=== PATIENT | male | born 1965 | race Caucasian/White ===

== ENCOUNTER 2020-04-21 08:19 | Outpatient (REF) | payer OTHER, SELFPAY ==
--- NOTE | 2020-04-21 08:34 | XR_ITS ---
EXAMINATION: XR SHOULDER, LEFT CLINICAL INFORMATION: Pain COMPARISON: None TECHNIQUE: Left shoulder is imaged in 3 views. FINDINGS: There is no fracture, dislocation, destructive process. The glenohumeral joint is normal. There are borderline/mild degenerative changes acromioclavicular joint. The acromioclavicular alignment is normal. There are no visible rotator cuff calcifications. XR/XR shoulder LT min 2V IMPRESSION: 1. Mild degenerative changes acromioclavicular joint. 2. No visible rotator cuff calcifications.
--- NOTE | 2020-04-21 08:34 | XR_ITS ---
EXAMINATION: XR FOOT, RIGHT XR FOOT, LEFT CLINICAL INFORMATION: Pain bilateral feet. COMPARISON: None TECHNIQUE: Each foot is imaged in 3 views separately. There are a total of 6 views. FINDINGS: Right foot: The bony mineralization is normal. There is fine radiolucent cleft anterior articular surface talus on lateral view without adjacent soft tissue swelling. This could represent an early osteochondral lesion. Fracture is less likely. There is no associated soft tissue swelling or intracapsular effusion. The subtalar joint is normal. The retrocalcaneal recess is preserved. There is borderline posterior calcaneal spur. The midfoot and forefoot show no joint narrowing or erosive changes. Left foot: There is no fracture, dislocation, destructive process. The bony mineralization is normal. There are mild degenerative changes first MTP with joint narrowing and marginal marginal osteophyte. No erosive change. Remainder of the joints show no focal narrowing. There is bulky plantar calcaneal spur with some mineralization in the proximal plantar fascia. Smaller spur noted posterior calcaneus. The retrocalcaneal recess is preserved. There is no periostitis or erosive change. XR/XR foot RT min 3V IMPRESSION: Right: Question early osteochondral lesion anterior talar dome. Borderline posterior calcaneal spur. Left: Mild degenerative changes first MTP. Both the plantar calcaneal spur with mineralization proximal plantar fascia. Smaller posterior calcaneal spur.
--- NOTE | 2020-04-21 08:34 | XR_ITS ---
EXAMINATION: XR FOOT, RIGHT XR FOOT, LEFT CLINICAL INFORMATION: Pain bilateral feet. COMPARISON: None TECHNIQUE: Each foot is imaged in 3 views separately. There are a total of 6 views. FINDINGS: Right foot: The bony mineralization is normal. There is fine radiolucent cleft anterior articular surface talus on lateral view without adjacent soft tissue swelling. This could represent an early osteochondral lesion. Fracture is less likely. There is no associated soft tissue swelling or intracapsular effusion. The subtalar joint is normal. The retrocalcaneal recess is preserved. There is borderline posterior calcaneal spur. The midfoot and forefoot show no joint narrowing or erosive changes. Left foot: There is no fracture, dislocation, destructive process. The bony mineralization is normal. There are mild degenerative changes first MTP with joint narrowing and marginal marginal osteophyte. No erosive change. Remainder of the joints show no focal narrowing. There is bulky plantar calcaneal spur with some mineralization in the proximal plantar fascia. Smaller spur noted posterior calcaneus. The retrocalcaneal recess is preserved. There is no periostitis or erosive change. XR/XR foot LT min 3V IMPRESSION: Right: Question early osteochondral lesion anterior talar dome. Borderline posterior calcaneal spur. Left: Mild degenerative changes first MTP. Both the plantar calcaneal spur with mineralization proximal plantar fascia. Smaller posterior calcaneal spur.
== END 2020-04-21 08:20 | disposition home or self-care (01) ==
LOC: HO.HMGCX 08:19
PROVIDERS: PCP Nurse Practitioner Family; Visit Provider Nurse Practitioner Family
DX: M79.672 Pain in left foot (principal); M25.512 Pain in left shoulder; M79.671 Pain in right foot
CPT/HCPCS: 73030; 73630

== ENCOUNTER 2020-05-01 08:22 | Outpatient (REF) | payer OTHER, SELFPAY | END 2020-05-01 08:23 | disposition home or self-care (01) | LOC: HO.HMGCLDS 08:22 | PROVIDERS: PCP Nurse Practitioner Family; Visit Provider Internal Medicine | DX: Z20.828 Contact with and (suspected) exposure to other viral communicable diseases (principal) | CPT/HCPCS: U0003 ==

== ENCOUNTER 2020-05-18 09:56 | Outpatient (REF) | payer OTHER, SELFPAY | END 2020-05-18 09:57 | disposition home or self-care (01) | LOC: HO.LAB 09:56 | PROVIDERS: Visit Provider Nurse Practitioner Family | DX: U07.1 COVID-19 (principal) | CPT/HCPCS: U0003 ==

== ENCOUNTER 2020-06-01 08:00 | Outpatient (RCR) | payer OTHER, SELFPAY ==
--- NOTE | 2020-04-28 09:29 | MHC.PT.EP ---
[facility] [place] Office [place] Office [place] Office [address] Genoveva Ramsey [address] [phone] F: [phone] F: [phone] F: [phone] F: [phone] Physical Therapy Plan of Care Date of Evaluation: 04/28/20 Date of Surgery: Diagnosis: LEFT SHOULDER PAIN Assessment: 54 YO MALE REF TO PT FOR LEFT SHOULDER / UE PAIN x 2 MONTHS- OF IMPORTANCE, HE HAS A H/O NECK PAIN TREATED PREVIOUSLY W INJECTIONS. 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 OBJECTIVE FINDINGS INCLUDE DECR POSTURAL AWARENESS/ MILD SCOLIOSIS, LIMITED LEFT SH AND CERVCIAL AROM, DECR STRENGTH IN UPPER BACK AND LEFT SH, (+) RESPONSE TO CERV RETR, AND INTERMITTENT RADICULAR SXS AND PAIN IN LEFT SH/ UE. FUNCTIONALLY, Pt IS LIMITED WITH PHYSICALLY DEMANDING adlS/ WORK TASKS AND FAVORS LEFT UE. HE IS A GOOD PT CANDIDATE TO ADDRESS LEFT SH SXS AND OVERLYING CERVICAL SXS. Frequency and Duration: The patient will be seen 2x WK x 5 WKS Short Term Goals: DECR Pt'S LEFT SH PAIN TO 2-3/10 AND REDUCE CERV/LEFT UE RADICULAR SXS BY 75% IN 2 WEEKS Pt DEMON INDEP SELF POSTURAL CORRECTION AND PROPER BODY MECH W 3:3 SIMUL ADLs/ WORK TASKS IN 3 WEEKS [facility] Goals: Pt INDEP W HEP AND SELF-SX MGMT IN 5 WKS Pt REPORT RETURN TO REGULAR FUNCTIONAL ACTIVITY/WORK/ ADL LEOBARDO , EVIDENT W IMPROVED SPADI SCORE BY 15 POINTS IN 5 WEEKS Treatment Plan: Modalities to reduce pain, spasms and effusion. Manual therapy to restore motion and function. Therapeutic exercise to improve strength and flexibility. Neuromuscular re-education for posture and balance. Therapeutic activities to return to functional activities of daily living. Please sign and return to therapist. Thank you for your referral.
--- NOTE | 2020-06-29 07:12 | MHC.PT.DC ---
[facility] [place] Office [place] Office [place] Office [address] Genoveva Ramsey [address] [phone] F: [phone] F: [phone] F: [phone] F: [phone] Physical Therapy Discharge Report Diagnosis: LEFT SHOULDER PAIN Date of Surgery: Date of Evaluation: 04/28/20 Date of Discharge: 06/29/20 Treatments to Date: 5 Cancellations to Date: 4 No Shows to Date: 0 Discharge Status: Patient Elected to Stop Recommend MD Follow-up Discharge Summary: Pt BENEFITTED FROM WORK SIMUL/ [facility] ED TO INCR LEs USAGE AND REDUCE STRESS TO SH GIRDLE AND CERV REGION- HE HAS A BETTER UNDERSTANDING OF REL OF CERVICAL SPINE TO UEs SXS, BUT Pt IS ADAMANT THAT HIS CURRENT SXS ARE SOLELY ORIGINATING FROM HIS SHOULDER- HE DEMON IMPROVED ROM AND HAS IMPROVED TOLERANCE TO STABILIZATIO/STRENGTHENING EXERCISES. Electronically signed by: Carlota Varela, PT Please sign and return to therapist. Thank you for your referral.
== END 2020-06-29 07:15 | disposition other institution (70) ==
LOC: HO.PT 08:00
PROVIDERS: PCP Nurse Practitioner Family; Visit Provider Nurse Practitioner Family
DX: M25.512 Pain in left shoulder (principal)
CPT/HCPCS: 97033; 97110; 97112; 97140; 97162; 97530

== ENCOUNTER 2020-06-12 12:01 | Outpatient (REF) | payer OTHER, SELFPAY ==
--- NOTE | 2020-06-12 12:09 | XR_ITS ---
EXAMINATION: XR HUMERUS, LEFT CLINICAL INFORMATION: Left arm pain. COMPARISON: X-ray left shoulder 04/21/2020 TECHNIQUE: 3 views of the left humerus. FINDINGS: No evidence of acute fracture or malalignment of the humerus. Articulation at the elbow and shoulder joint is maintained. No abnormal soft tissue calcification. XR/XR humerus LT IMPRESSION: No acute osseous abnormality.
== END 2020-06-12 12:02 | disposition home or self-care (01) ==
LOC: HO.HMGCX 12:01
PROVIDERS: PCP Nurse Practitioner Family; Visit Provider Hospitalist
DX: M79.602 Pain in left arm (principal)
CPT/HCPCS: 73060

== ENCOUNTER → 2020-06-19 08:22 | Outpatient (BNVA) | payer OTHER, SELFPAY | PROVIDERS: Visit Provider Orthopaedic Surgery | DX: M25.512 Pain in left shoulder (principal) | CPT/HCPCS: 20610; J1100 ==

== ENCOUNTER 2020-10-09 13:32 | Emergency (ER) | payer MEDICAID, SELFPAY ==
--- NOTE | ~2020-10-09 | XR_ITS ---
EXAMINATION: CHEST, X-RAY LEFT RIBS. CLINICAL INFORMATION: Anterior injury. COMPARISON: None TECHNIQUE: 3 views of the left ribs were obtained. Chest PA one view. FINDINGS: CHEST: Both lungs are well-expanded and clear. There is moderate elevation of left hemidiaphragm. The heart size and vascularity is normal. No gross bony abnormality seen. LEFT RIBS: Multiple views of left ribs reveal no visible rib fractures seen. There is no bony or soft tissue abnormality. XR/XR ribs LT min 3V w CXR1V IMPRESSION: Unremarkable chest exam. Unremarkable left rib exam.
[2020-10-09 13:40] VITALS: BP 139/99; PULSE 87; RESP 18; TEMP 36.6; O2SAT 98; BMI 24.7
--- NOTE | 2020-10-09 13:56 | ED.GENADULT ---
HPI - General Adult General Chief complaint: General Medical Stated complaint: FALL RIB PAIN Time Seen by Provider: 10/09/20 13:56 History of Present Illness HPI narrative: Patient complains of left rib pain after falling and hitting his left ribs against a wall, this was 1 week ago and pain continues unchanged worse with deep breath movement and when touched Related Data Home Medications Medication Instructions Recorded Confirmed amitriptyline 25 mg tablet 25 mg PO BEDTIME 04/18/20 06/12/20 atorvastatin 80 mg tablet 80 mg PO DAILY 04/18/20 06/12/20 codeine 10 mg-guaifenesin 100 mg/5 ml PO 05/18/20 06/12/20 mL oral liquid diclofenac potassium 50 mg tablet 50 mg PO BID 05/18/20 06/12/20 metformin 500 mg tablet 500 mg PO DAILY 06/19/20 Previous Rx's Medication Instructions Recorded albuterol sulfate 90 mcg/actuation 1 puff INHALATION QID PRN #6.7 g 04/18/20 aerosol inhaler ropinirole 1 mg tablet 1 mg PO BEDTIME 90 Days #90 tab 05/17/20 gabapentin 100 mg capsule 100 mg PO TID #60 cap 06/12/20 methylprednisolone 4 mg tablet 4 mg PO .COMPLEX #18 tab 06/12/20 acetaminophen 1,000 mg PO Q8H PRN #30 tab 10/09/20 ibuprofen 600 mg PO Q6H PRN #20 tab 10/09/20 oxycodone 5 mg PO Q6H PRN #20 tab 10/09/20 Allergies Allergy/AdvReac Type Severity Reaction Status Date / Time No Known Drug Allergies Allergy Unknown Unknown Verified 06/12/20 11:50 Review of Systems Review of Systems: Positive for left rib pain after an injury Negatives are no fever no chills no dizziness no weakness no fainting no headache no neck pain no numbness weakness or tingling no shortness of breath no abdominal pain no nausea or vomiting PMFSH Past Medical History Source: nursing notes reviewed Medical History (Updated 10/10/20 @ 00:00 by Radha Rivas) Asthma Diabetes High cholesterol Left foot pain Surgical History Bone spur History of colonoscopy Family History Family History Father Cancer Mother Diabetes mellitus Maternal Grandfather Unknown family medical history Maternal Grandmother Unknown family medical history Paternal Grandfather Unknown family medical history Paternal Grandmother No problems noted. Sister No problems noted. Sister No problems noted. Sister No problems noted. Daughter No problems noted. 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 Physical Exam Vital Signs: Vital Signs: Last Vital Signs Temp 97.9 F 10/09/20 13:40 Pulse 87 10/09/20 13:40 Resp 18 10/09/20 13:40 BP 139/99 H 10/09/20 13:40 Pulse Ox 98 10/09/20 13:40 Body Mass Index 24.7 General appearance is no acute distress, common cooperative Head is normocephalic atraumatic Neck is supple and nontender The chest is clear to auscultation bilaterally with full symmetric equal breath sounds The chest wall had left anterior and lateral lower rib tenderness The abdomen is soft and nontender including left upper quadrant which has no tenderness no guarding no rebound Extremities is full range of motion x4 The back had no focal bony tenderness and full range of motion Course Course Course Narrative: X-ray of left ribs and chest was normal, but his pain has gone on for a week and exam is consistent with a possible rib fracture patient is informed he may have an occult fracture not seen by x-ray Discharge Plan Discharge Clinical Impression: Closed rib fracture Patient Disposition: Home, Self-Care Additional Instructions: X-ray was normal and did not show any obvious rib fracture or lung injury, but as her pain has continued for 1 week without improvement it is very likely have a cracked rib that did not show up on x-ray There is not much treatment, it usually gets better over several weeks We are giving pain medicine to use as needed, best plan is use Tylenol and either Motrin or Naprosyn depending on which works better for you throughout the day and if needed you can supplement with oxycodone narcotic Return any time for difficulty breathing any worse condition or any concerns Follow with primary doctor Prescriptions: New acetaminophen 500 mg tablet 1,000 mg PO Q8H PRN (Reason: pain) Qty: 30 RF: 0 oxycodone 5 mg tablet 5 mg PO Q6H PRN (Reason: pain) Qty: 20 RF: 0 ibuprofen 600 mg tablet 600 mg PO Q6H PRN (Reason: pain) Qty: 20 RF: 0 No Action ropinirole 1 mg tablet 1 mg PO BEDTIME 90 Days Qty: 90 RF: 1 atorvastatin 80 mg tablet 80 mg PO DAILY RF: 0 amitriptyline 25 mg tablet 25 mg PO BEDTIME RF: 0 albuterol sulfate 90 mcg/actuation HFA aerosol inhaler 1 puff inhalation QID PRN (Reason: shortness of breath or wheezing) Qty: 6.7 RF: 3 diclofenac potassium 50 mg tablet 50 mg PO BID RF: 0 codeine-guaifenesin 10-100 mg/5 mL liquid PO RF: 0 methylprednisolone 4 mg tablet 4 mg PO .COMPLEX Qty: 18 RF: 0 gabapentin 100 mg capsule 100 mg PO TID Qty: 60 RF: 0 Interventions: ED Discharge Assessment Last Done: 10/09/20 16:02 Discharge Date/Time: 10/09/20 16:03
== END 2020-10-09 16:03 | disposition home or self-care (01) ==
PROVIDERS: Emergency Provider Emergency Medicine; PCP Nurse Practitioner Family
DX: S22.32XA Fracture of one rib, left side, initial encounter for closed fracture (principal); W01.10XA Fall on same level from slipping, tripping and stumbling with subsequent striking against unspecified object, initial encounter; E11.9 Type 2 diabetes mellitus without complications; E78.5 Hyperlipidemia, unspecified; Y93.9 Activity, unspecified; Y92.019 Unspecified place in single-family (private) house as the place of occurrence of the external cause; Y99.9 Unspecified external cause status; J45.909 Unspecified asthma, uncomplicated; Z79.899 Other long term (current) drug therapy
CPT/HCPCS: 71101; 99283

== ENCOUNTER 2021-01-18 08:56 | Outpatient (REF) | payer OTHER, SELFPAY ==
[2021-01-18 11:50] LABS: Alanine Aminotransferase 56 U/L (0-40); Albumin Level 4.8 g/dL (3.5-5.0); Alkaline Phosphatase 118 U/L (39-117); Anion Gap 16 (12-20); Aspartate Amino Transferase 22 U/L (5-37); Bilirubin Total 1.6 mg/dL (0.0-1.0); Blood Urea Nitrogen 16 mg/dL (9-16); Calcium 10.3 mg/dL (8.4-10.2); Carbon Dioxide 26 mmol/L (22-29); Chloride 101 mmol/L (96-108); Cholesterol 317 mg/dL; Estimated Glomerular Filt Rate > 60; Glucose Fasting 280 mg/dL (60-99); HDL Cholesterol 55 mg/dL; LDL Cholesterol Calculated 214 mg/dl; Potassium 4.8 mmol/L (3.3-5.1); Sodium 138 mmol/L (135-145); Total Protein 8.3 g/dL (6.5-8.0); Triglycerides 241 mg/dL
[2021-01-18 12:13] LABS: Prostate Specific Antigen Scr 0.98 ng/mL (<0.05-4.0); TSH reflex Free T4 1.76 uIU/mL (0.32-4.0)
== END 2021-01-18 08:57 | disposition home or self-care (01) ==
LOC: HO.HMGCLDS 08:56
PROVIDERS: PCP Nurse Practitioner Family; Visit Provider Nurse Practitioner Family
DX: Z12.5 Encounter for screening for malignant neoplasm of prostate (principal); E78.00 Pure hypercholesterolemia, unspecified
CPT/HCPCS: 36415; 80053; 80061; 84153; 84443

== ENCOUNTER 2021-01-30 08:49 | Outpatient (REF) | payer OTHER, SELFPAY ==
--- NOTE | ~2021-01-30 | US_ITS ---
EXAMINATION: US ABDOMEN COMPLETE CLINICAL INFORMATION: Abnormal levels of other serum enzymes. COMPARISON: CT abdomen and pelvis with contrast dated 01/30/2015. TECHNIQUE: Real-time imaging of the abdominal viscera. FINDINGS: PANCREAS: Largely obscured by overlapping bowel gas. ABDOMINAL AORTA: The visualized proximal, mid, and distal segments are normal in caliber. INFERIOR VENA CAVA: Visualized portions are normal. LIVER: There is diffuse increased liver parenchymal echogenicity. No focal hepatic mass is seen. The liver is normal in size and contour. No biliary ductal dilatation. GALLBLADDER: Normal. The gallbladder is physiologically distended without evidence of stones, sludge, polyps, wall thickening or pericholecystic fluid. COMMON BILE DUCT: Normal in caliber measuring 0.31 cm in diameter. RIGHT KIDNEY: Normal. No hydronephrosis. No renal calculi or focal parenchymal lesions. The kidney measures 11.4 cm in maximum dimension. LEFT KIDNEY: Normal. No hydronephrosis. No renal calculi or focal parenchymal lesions. The kidney measures 10.8 cm in maximum dimension. SPLEEN: Normal. The spleen measures 10.3 cm in maximum dimension. FREE FLUID: None. US/US abdomen complete IMPRESSION: 1. There is generalized increase in hepatic echotexture, consistent with fatty infiltration or hepatocellular disease. Please correlate clinically. No focal hepatic mass or intrahepatic biliary dilatation is seen. 2. Otherwise, unremarkable abdominal ultrasound examination, with imaging of the pancreatic tail technically limited.
== END 2021-01-30 08:50 | disposition home or self-care (01) ==
LOC: HO.HMGCX 08:49
PROVIDERS: PCP Nurse Practitioner Family; Visit Provider Nurse Practitioner Family
DX: R74.8 Abnormal levels of other serum enzymes (principal)
CPT/HCPCS: 76700

== ENCOUNTER 2021-02-06 13:54 | Outpatient (REF) | payer OTHER, SELFPAY | END 2021-02-06 13:55 | disposition home or self-care (01) | LOC: HO.LNP 13:54 | PROVIDERS: Visit Provider Hospitalist | DX: J01.90 Acute sinusitis, unspecified (principal); Z20.822 Contact with and (suspected) exposure to COVID-19 | CPT/HCPCS: U0003; U0005 ==

== ENCOUNTER 2021-02-28 09:40 | Outpatient (REF) | payer OTHER, SELFPAY ==
[2021-03-02 08:55] LABS: HBc Num1 0.09 S/CO (0.00-0.79); HBsAGNum1 0.26 S/CO (0.00-0.99); Hepatitis B Core Antibody Nonreactive (Nonreactive); Hepatitis B Surface Antigen Negative (Negative); ~HepC Num1 0.38 S/CO (0.00-0.79); ~Hepatitis C Antibody Nonreactive (Nonreactive)
[2021-03-02 09:11] LABS: HBS Num1 0.61 mIU/mL (0-7.99); Hepatitis A Antibody IgM 0.13 Index (0-0.79); ~Hepatitis A Antibody IgM Nonreactive (Nonreactive); ~Hepatitis B Surface Antibody NONREACTIVE (Nonreactive)
== END 2021-02-28 09:41 | disposition home or self-care (01) ==
LOC: HO.HMGCLDS 09:40
PROVIDERS: PCP Nurse Practitioner Family; Visit Provider Nurse Practitioner Family
DX: R74.8 Abnormal levels of other serum enzymes (principal); Z20.822 Contact with and (suspected) exposure to COVID-19
CPT/HCPCS: 86704; 86706; 86709; 86803; 87340; U0003; U0005

== ENCOUNTER 2021-05-28 10:09 | Outpatient (REF) | payer OTHER, SELFPAY ==
--- NOTE | ~2021-05-28 | XR_ITS ---
EXAMINATION: XR CHEST CLINICAL INFORMATION: Shortness of breath. COMPARISON: Chest 10/09/2020 TECHNIQUE: 2 views of the chest were obtained. FINDINGS: There is moderate elevation of left hemidiaphragm. The lungs are well-expanded and clear. Heart size and perivascular is normal. No gross bony abnormality seen. XR/XR chest 2V IMPRESSION: Moderate elevation left hemidiaphragm. No acute pulmonary process seen.
[2021-05-28 12:12] LABS: Appearance Urine HAZY; Color Urine YELLOW; Glucose Urine UA NEG (NEG); Leukocyte Esterase Urine NEG (NEG); Nitrite Urine NEG (NEG); PH 5.5 (5.0-8.0); Specific Gravity - Urine >= 1.030 (1.005-1.025); UACC Culture Trigger NO; Urine Blood NEG (NEG); Urine Ketones NEG (NEG); Urine Protein 1+ MG/DL (NEG-TRACE)
[2021-05-28 12:17] LABS: Alanine Aminotransferase 63 U/L (0-40); Albumin Level 4.6 g/dL (3.5-5.0); Alkaline Phosphatase 105 U/L (39-117); Anion Gap 16 (12-20); Aspartate Amino Transferase 33 U/L (5-37); Bilirubin Total 1.8 mg/dL (0.0-1.0); Blood Urea Nitrogen 19 mg/dL (9-16); Calcium 10.1 mg/dL (8.4-10.2); Carbon Dioxide 23 mmol/L (22-29); Chloride 103 mmol/L (96-108); Cholesterol 249 mg/dL; Estimated Glomerular Filt Rate > 60; Glucose Fasting 181 mg/dL (60-99); HDL Cholesterol 55 mg/dL; LDL Cholesterol Calculated 137 mg/dl; Potassium 4.4 mmol/L (3.3-5.1); Sodium 138 mmol/L (135-145); Total Protein 8.2 g/dL (6.5-8.0); Triglycerides 288 mg/dL
[2021-05-28 12:22] LABS: TSH reflex Free T4 1.66 uIU/mL (0.32-4.0)
[2021-05-28 12:31] LABS: Creatinine Urine 289.36 mg/dL; Microalbum/Creatinine Ratio Ur 116.8 ug/mg cr
[2021-05-28 12:50] LABS: Estimated Average Glucose 194 mg/dL; Hemoglobin A1c % 8.4 %
[2021-05-28 12:55] LABS: RBC Urine 0 /HPF (0)
[2021-05-28 12:56] LABS: Amorphous Sediment Urine 2+ /LPF; Mucus Urine 1+ /LPF
== END 2021-05-28 10:10 | disposition home or self-care (01) ==
LOC: HO.HMGCLDS 10:09
PROVIDERS: Visit Provider Nurse Practitioner Family
DX: E11.9 Type 2 diabetes mellitus without complications (principal); R06.89 Other abnormalities of breathing
CPT/HCPCS: 36415; 71046; 80053; 80061; 81001; 81003; 82043; 83036; 84443

== ENCOUNTER 2021-06-04 09:06 | Outpatient (REF) | payer OTHER, SELFPAY ==
[2021-06-04 11:48] LABS: Appearance Urine CLOUDY; Color Urine YELLOW; Glucose Urine UA 500 MG/DL (NEG); Leukocyte Esterase Urine NEG (NEG); Nitrite Urine NEG (NEG); PH 5.5 (5.0-8.0); Specific Gravity - Urine >= 1.030 (1.005-1.025); Urine Blood NEG (NEG); Urine Ketones NEG (NEG); Urine Protein TRACE MG/DL (NEG-TRACE)
[2021-06-04 12:07] LABS: Bilirubin Direct 0.6 mg/dL (0.0-0.5); Bilirubin Total 1.5 mg/dL (0.0-1.0)
== END 2021-06-04 09:07 | disposition home or self-care (01) ==
LOC: HO.HMGCLDS 09:06
PROVIDERS: PCP Nurse Practitioner Family; Visit Provider Nurse Practitioner Family
DX: R17 Unspecified jaundice (principal); E11.9 Type 2 diabetes mellitus without complications
CPT/HCPCS: 36415; 81003; 82247; 82248

== ENCOUNTER → 2021-06-18 09:35 | Outpatient (REF) | payer OTHER, SELFPAY ==
--- NOTE | 2021-06-18 09:38 | HM_ITS ---
Conclusion : 1. Patient was monitored for a total duration of 3 days and 23 hours 2. Baseline rhythm is NSR with average HR of 96 bpm 3. Frequent sinus tachycardia noted, 37% of time HR > 100 bpm 4. Very rare ectopics nored 6. No patient reported events MTDD
--- NOTE | 2021-06-18 09:38 | CA_ITS ---
Acquisition Time: 2021-06-18 09:53:40 Total Exercise Time: 00:05:01 Test Indications: TACHYCARDIA Medications: Protocol: SAY Max HR: 166 BPM 101% of Pred: 163 BPM Max BP: 140/098 mmHG Max Work Load: 7.0 METS Exercise stress test with exercise 5 min 1 sec of Say protocol, with report of fatigue, without anginal symptoms, without arrythmia, with normotensive and brisk chronotropic response to exercise, without EKG changes meeting criteria for ischemia. In recovery heart rate was slow to return to baseline. Pt was given 12 oz water to drink and placed with supine positon with improvement. In recovery there is downsloping ST inferiorly and V6 with gradual improvement later in recovery. Test ended after 12 min recovery, heart rate 110. Test reviewed with Dr Barber. Msg sent to Roberto DAMON regarding test results and recommendations. Referred By: Bigg Ledesma Overread By: CALIXTO PEDROZA
== END ==
LOC: HO.CARD 09:35
PROVIDERS: Visit Provider Nurse Practitioner Family
DX: R00.0 Tachycardia, unspecified (principal); R07.89 Other chest pain
CPT/HCPCS: 93017; 93242

== ENCOUNTER 2021-07-04 11:18 | Outpatient (REF) | payer OTHER, SELFPAY ==
--- NOTE | ~2021-07-04 | XR_ITS ---
EXAMINATION: LUMBAR SPINE AND BILATERAL HIPS. CLINICAL INFORMATION: Low back pain COMPARISON: None TECHNIQUE: 3 views lumbar spine. 2 views each hip. FINDINGS: Lumbar spine: There is mild straightening of lumbar lordosis. The vertebral heights, alignment and disc heights are normal. There is no visible acute fracture, dislocation or subluxation. No lytic or sclerotic process seen. The paravertebral soft tissues are normal. Left hip: There is no visible fracture, dislocation subluxation. No bony erosive changes. The soft tissues are normal. Incidental finding of a radiopaque calculi overlying the penile urethra on both views suspicious for urethral calculus. Right hip: There is no visible acute fracture, dislocation or subluxation. The soft tissues are normal. XR/XR hips CHITO min 3V IMPRESSION: Mild straightening of lumbar lordosis otherwise unremarkable. Unremarkable bilateral hip exam. There is a soft tissue calcification overlying the mid penile region likely urethral calcification
--- NOTE | ~2021-07-04 | XR_ITS ---
EXAMINATION: LUMBAR SPINE AND BILATERAL HIPS. CLINICAL INFORMATION: Low back pain COMPARISON: None TECHNIQUE: 3 views lumbar spine. 2 views each hip. FINDINGS: Lumbar spine: There is mild straightening of lumbar lordosis. The vertebral heights, alignment and disc heights are normal. There is no visible acute fracture, dislocation or subluxation. No lytic or sclerotic process seen. The paravertebral soft tissues are normal. Left hip: There is no visible fracture, dislocation subluxation. No bony erosive changes. The soft tissues are normal. Incidental finding of a radiopaque calculi overlying the penile urethra on both views suspicious for urethral calculus. Right hip: There is no visible acute fracture, dislocation or subluxation. The soft tissues are normal. XR/XR lumbar spine 2-3V IMPRESSION: Mild straightening of lumbar lordosis otherwise unremarkable. Unremarkable bilateral hip exam. There is a soft tissue calcification overlying the mid penile region likely urethral calcification
== END 2021-07-04 11:19 | disposition home or self-care (01) ==
LOC: HO.HMGCX 11:18
PROVIDERS: PCP Nurse Practitioner Family; Visit Provider Nurse Practitioner Family
DX: M54.50 Low back pain, unspecified (principal); M79.671 Pain in right foot; M79.672 Pain in left foot; N48.89 Other specified disorders of penis
CPT/HCPCS: 72100; 73522

== ENCOUNTER 2021-07-12 11:40 | Emergency (ER) | payer OTHER, SELFPAY ==
--- NOTE | ~2021-07-12 | XR_ITS ---
EXAMINATION: XR CHEST CLINICAL INFORMATION: Low suspicion.. COMPARISON: Chest 05/28/2021 TECHNIQUE: Frontal view of the chest was obtained. FINDINGS: There is elevated left hemidiaphragm. The lungs are well-expanded and clear. The heart size and pulmonary vascularity is normal. There is mild spondylosis dorsal spine. No lytic process. XR/XR chest 1V IMPRESSION: Elevated left hemidiaphragm. No acute process seen. No major change from previous exam 05/28/2021.
--- NOTE | ~2021-07-12 | CT_ITS ---
EXAMINATION: CT ANGIOGRAM OF THE CHEST WITH AND WITHOUT CONTRAST (CT PULMONARY ANGIOGRAM FOR PE) CLINICAL INFORMATION: Reason for Exam CP, leg swelling, elevated dimer COMPARISON: Chest x-ray 07/12/2021 TECHNIQUE: Prior to contrast administration, noncontrast localization images were obtained. Subsequently, multidetector volumetric imaging was performed from the thoracic inlet to below the diaphragms following the administration of 65 mL Omnipaque 350 intravenous contrast. No contrast reaction reported Sagittal, coronal, and MIP oblique sagittal reformatted images were obtained on the CT workstation, uploaded to PACS, and reviewed. This CT examination was performed using dose optimization techniques as appropriate, variously including the following: *Automated exposure control *Adjustment of mA and/or kV according to patient size (this includes techniques or standardized protocols for targeted exams where dose is matched to indication/reason for exam; i.e. extremities or head) *Use of iterative reconstruction technique Total exam dose-length product 292 mGy-cm FINDINGS: QUALITY OF STUDY/CONTRAST BOLUS: Satisfactory. PULMONARY ARTERIES: No central or segmental pulmonary emboli. THORACIC AORTA: No aneurysm or dissection. LUNG: Asymmetric elevation of left diaphragm above the right. Linear atelectasis at the left lung base. No dense consolidation. Central bronchial airways are open. PLEURA: No pleural effusion or pneumothorax. MELISSA/MEDIASTINUM: There is mediastinal lymphadenopathy and left and right hilar adenopathy. Largest lymph node in the subcarina measuring 1.6 cm. There are enlarged lymph nodes in the pretracheal retrovascular space and AP window. The lymphadenopathy is more extensive and larger at the left hilum than the right with lymph nodes measuring up to a diameter about 2 cm in the left hilum. Right hilar lymph nodes are smaller measuring up to about 1 cm in diameter. The heart size is normal. No pericardial effusion. Moderate volume of coronary artery vascular calcifications. CHEST WALL/AXILLA: No axillary or internal mammary lymphadenopathy. OSSEOUS STRUCTURES: No acute or suspicious osseous abnormality. Multilevel degenerative spondylosis of the spine. UPPER ABDOMEN: Low attenuation of liver parenchyma due to fatty change. No focal liver lesion or intrahepatic bile duct dilatation. No reflux of contrast into the hepatic veins to suggest elevated right heart pressures. The visualized portions of the spleen, kidneys, pancreas and the adrenal glands are normal. CT/CT angio chest PE protocol IMPRESSION: 1. No evidence of pulmonary embolism. 2. Asymmetrically elevated left diaphragm with atelectasis at left lung base. 3. Mediastinal and bilateral hilar lymphadenopathy. The lymph nodes are larger in the left hilum than the right. VTE: Negative.
[2021-07-12 12:15] VITALS: BP 118/75; BP 153/92; PULSE 110; PULSE 120; RESP 14; TEMP 37.3; O2SAT 95; O2SAT 97; BMI 23.7
--- NOTE | 2021-07-12 12:49 | ECG_ITS ---
Test Reason : tachycardic Blood Pressure : / mmHG Vent. Rate : 098 BPM Atrial Rate : 098 BPM P-R Int : 174 ms QRS Dur : 080 ms QT Int : 332 ms P-R-T Axes : 017 011 005 degrees QTc Int : 423 ms Normal sinus rhythm Nonspecific T wave abnormality Abnormal ECG No previous ECGs available Referred By: Sharona Patricio Electronically Signed By:KHANH MIN
--- NOTE | 2021-07-12 12:53 | ED.CHESTPAIN ---
HPI - Chest Pain General Chief Complaint: Chest Pain Stated Complaint: CHEST PAIN. PALPITATIONS Time Seen by Provider: 07/12/21 12:25 Source: patient Mode of arrival: ambulatory Limitations: no limitations History of Present Illness HPI narrative: Patient comes to emergency room complaining of intermittent chest pain for months. Patient states that the pain is intermittent, nonradiating, states the pain is not significant, maximum 4/10, at this moment 1/10. Patient concerned that he has noticed that over the last few months his tolerance for exertion has decreased. Patient states that when he walks up half a flight of stairs, he becomes short of breath. Patient also complaining several weeks of calf pain. Patient is known to have neuropathy. Patient also states that for the last few days, he has noticed that his heart rate is elevated. Patient went to see his primary care physician, he was told that his heart rate was 145. Related Data Previous Rx's Medication Instructions Recorded albuterol sulfate 90 mcg/actuation 1 puff INHALATION QID PRN #6.7 g 04/18/20 aerosol inhaler acetaminophen 500 mg tablet 1,000 mg PO Q8H PRN #30 tab 10/09/20 ibuprofen 600 mg tablet 600 mg PO Q6H PRN #20 tab 10/09/20 ropinirole 1 mg tablet 1 mg PO BEDTIME 90 Days #90 tab 02/06/21 alcohol swabs (Alcohol Wipes) 1 pad TOPICAL BID 90 Days #100 ea 02/22/21 blood sugar diagnostic (FreeStyle #100 ea 02/22/21 Lite Strips) blood-glucose meter (FreeStyle #1 ea 02/22/21 Lite Meter) lancets 28 gauge (FreeStyle #100 ea 02/22/21 Lancets) metformin 500 mg tablet,extended 1,000 mg PO BID 30 Days #120 tab 04/05/21 release 24 hr metoprolol succinate 25 mg 12.5 mg PO DAILY 90 Days #45 tab 04/05/21 tablet,extended release 24 hr atorvastatin 80 mg tablet 80 mg PO BEDTIME 90 Days #90 tab 05/30/21 dulaglutide 1.5 mg/0.5 mL 1.5 mg (0.5 mL) SUBCUT QWEEK 30 05/30/21 subcutaneous pen injector Days #2 ml gabapentin 100 mg capsule 100 mg PO BID #60 cap 07/03/21 Allergies Allergy/AdvReac Type Severity Reaction Status Date / Time No Known Drug Allergies Allergy Unknown Unknown Verified 07/12/21 09:58 Review of Systems Review of Systems: Constitutional : No Weight loss, No Fever, No Chills, No Night Sweats, No Fatigue, No Malaise ENT/Mouth : No Hearing loss, No Ear Pain, No Nasal Congestion, No Sinus Pain, No Hoarseness, No sore throat, No Rhinorrhea, No Swallowing Difficulty Eyes: No Eye Pain, No Swelling, No Redness, No Foreign Body, No Discharge, No Vision Changes Cardiovascular : Complaining of intermittent Chest Pain, complaining of palpitations, complaining of shortness of breath with exertion Respiratory : No Cough, No Sputum, No Wheezing, No Smoke Exposure, Gastrointestinal : No Nausea, No Vomiting, No Diarrhea, No Constipation, No abdominal Pain, No Hematochezia, No Melena Genitourinary : no irregular bleeding, No Dysuria, No Urinary Frequency, No Hematuria, No Urinary Incontinence, No Urgency, No Flank Pain, No Urinary Flow Changes, No Hesitancy Musculoskeletal : No joint pain, No Myalgias, No Joint Swelling Skin : No Skin Lesions, No rash Neuro : No Weakness, No Numbness, No Paresthesias, No Loss of Consciousness, No Dizziness, No Headache Psych : No Anxiety/Panic, No Depression, No SI/HI/AH/VH, No Social Issues, Heme/Lymph: No Bruising, No Bleeding,No Lymphadenopathy Endocrine : No Polyuria, No Polydipsia, No Temperature Intolerance PMF Past Medical History Medical History Asthma Diabetes High cholesterol Left foot pain Surgical History Bone spur History of colonoscopy Family History Family History Father Cancer Mother Diabetes mellitus Maternal Grandfather Unknown family medical history Maternal Grandmother Unknown family medical history Paternal Grandfather Unknown family medical history Paternal Grandmother No problems noted. Sister No problems noted. Sister No problems noted. Sister No problems noted. Daughter No problems noted. Social History Social History Housing: House Alcohol intake: never Patient Tobacco Use Status: Never used Tobacco e-Cigarette/Vaping Use: Never Used Second Hand Smoke Exposure: Yes Use of substances other than those prescribed or required for medical reasons: No Advance Directives: Yes Advance Directives Information Provided: No Advance Directives on File: No service: No Current occupational status: retired Physical Exam Vital Signs: Vital Signs: Last Vital Signs Temp 99.6 F 07/12/21 14:34 Pulse 94 07/12/21 14:34 Resp 14 07/12/21 14:34 BP 122/79 07/12/21 14:34 Pulse Ox 96 07/12/21 14:34 BMI result Body Mass Index 23.7 Const: Other: Appearance: Alert. Oriented X3. No acute distress. Well-appearing Eyes: Pupils equal, round and reactive to light. ENT: Pharynx normal. Neck: Normal inspection. Neck supple. No lymph nodes noted. No crepitus CVS: Normal heart rate and rhythm. Pulses normal. Normal S1 and S2 Respiratory: No respiratory distress. Breath sounds normal. No Wheezing. No rales Abdomen: Soft and nontender. No rigidity. No distention. good BS x4 Skin: Skin warm and dry. Normal skin color. Normal skin turgor. Extremities: No lower extremity edema. Mild pain to palpation calfs, no swelling, no erythema Neuro: Oriented X 3. No motor deficit. No sensory deficit. Moving all extermities. No slurred speech. Course Course Course Narrative: Patient remains stable. D-dimer is slightly elevated. Chemistry pending. Then patient will likely need as CTA to rule out PE. And given to Dr. Whipple [facility] - Chest Pain Lab Data Result diagrams: 07/12/21 14:21 07/12/21 14:21 Labs: Lab Results 07/12/21 07/12/21 07/12/21 Range/Units 13:01 14:21 14:21 WBC 8.8 (4.8-10.8) X10*3/uL RBC 5.20 (4.60-5.80) X10*6/uL Hgb 16.0 (14.0-18.0) g/dl Hct 46.1 (42.0-52.0) % MCV 88.7 (80.0-98.0) fL MCH 30.8 (27.0-33.0) pg MCHC 34.7 (31.0-36.0) g/dl RDW 12.1 (11.0-16.0) % Plt Count 337 (160-400) X10*3/uL MPV 11.0 (9.4-12.4) fL Immature Gran % (Auto) 0.3 (0.0-0.4) % Neut % (Auto) 72.8 (45-73) % Lymph % (Auto) 16.6 L (20-40) % [place] % (Auto) 8.9 (2-11) % Eos % (Auto) 0.8 (0-4) % Baso % (Auto) 0.6 (0-2) % Lymph # (Auto) 1.5 (1.2-4.9) X10*3/uL [place] # (Auto) 0.8 (0.1-1.2) X10*3/uL Eos # (Auto) 0.1 (0.0-0.4) X10*3/uL Baso # (Auto) 0.1 (0.0-0.2) X10*3/uL Abs Immat Gran (auto) 0.03 (0.00-0.03) X10*3/uL Absolute Neuts (auto) 6.4 (2.0-8.3) x10*3/uL Absolute Nucleated RBC 0.000 (0.0-0.012) X10*3/uL Nucleated RBC % (auto) 0.0 (0.0-0.2) /100WBC PT 11.5 (9.9-13.0) SEC INR 1.0 (0.9-1.1) D-Dimer High Sensitivty 301 NG/ML POC Glucose 162 H (60-115) mg/dL Troponin I High Sens (<3.5-35.0) ng/L B-Natriuretic Peptide (<100) pg/mL TSH Urine Color Urine Appearance Urine pH (5.0-8.0) Ur Specific [place] (1.005-1.025) Urine Protein (NEG-TRACE) MG/DL Urine Glucose (UA) (NEG) MG/DL Urine Ketones (NEG) MG/DL Urine Blood (NEG) Urine Nitrite (NEG) Ur Leukocyte Esterase (NEG) Urine RBC (0) /HPF Urine WBC (0-4) /HPF Ur Squamous Epith Cells /LPF Urine Bacteria /LPF Urine Mucus /LPF Urine Opiates Screen (Not Detect) Urine Fentanyl Screen (Not Detect) Ur Barbiturates Screen (Not Detect) Ur Phencyclidine Scrn (Not Detect) Ur Amphetamines Screen (Not Detect) U Benzodiazepines Scrn (Not Detect) Urine Cocaine Screen (Not Detect) U Marijuana (THC) Screen (Not Detect) COVID-19 (JACOB) (Negative) COVID-19 Clin Com 07/12/21 07/12/21 07/12/21 Range/Units 14:21 14:21 14:21 WBC (4.8-10.8) X10*3/uL RBC (4.60-5.80) X10*6/uL Hgb (14.0-18.0) g/dl Hct (42.0-52.0) % MCV (80.0-98.0) fL MCH (27.0-33.0) pg MCHC (31.0-36.0) g/dl RDW (11.0-16.0) % Plt Count (160-400) X10*3/uL MPV (9.4-12.4) fL Immature Gran % (Auto) (0.0-0.4) % Neut % (Auto) (45-73) % Lymph % (Auto) (20-40) % [place] % (Auto) (2-11) % Eos % (Auto) (0-4) % Baso % (Auto) (0-2) % Lymph # (Auto) (1.2-4.9) X10*3/uL [place] # (Auto) (0.1-1.2) X10*3/uL Eos # (Auto) (0.0-0.4) X10*3/uL Baso # (Auto) (0.0-0.2) X10*3/uL Abs Immat Gran (auto) (0.00-0.03) X10*3/uL Absolute Neuts (auto) (2.0-8.3) x10*3/uL Absolute Nucleated RBC (0.0-0.012) X10*3/uL Nucleated RBC % (auto) (0.0-0.2) /100WBC PT (9.9-13.0) SEC INR (0.9-1.1) D-Dimer High Sensitivty NG/ML POC Glucose (60-115) mg/dL Troponin I High Sens < 3.5 (<3.5-35.0) ng/L B-Natriuretic Peptide 13 (<100) pg/mL TSH Cancelled Urine Color Urine Appearance Urine pH (5.0-8.0) Ur Specific [place] (1.005-1.025) Urine Protein (NEG-TRACE) MG/DL Urine Glucose (UA) (NEG) MG/DL Urine Ketones (NEG) MG/DL Urine Blood (NEG) Urine Nitrite (NEG) Ur Leukocyte Esterase (NEG) Urine RBC (0) /HPF Urine WBC (0-4) /HPF Ur Squamous Epith Cells /LPF Urine Bacteria /LPF Urine Mucus /LPF Urine Opiates Screen (Not Detect) Urine Fentanyl Screen (Not Detect) Ur Barbiturates Screen (Not Detect) Ur Phencyclidine Scrn (Not Detect) Ur Amphetamines Screen (Not Detect) U Benzodiazepines Scrn (Not Detect) Urine Cocaine Screen (Not Detect) U Marijuana (THC) Screen (Not Detect) COVID-19 ([facility]) Negative (Negative) COVID-19 Clin Com See Note 07/12/21 07/12/21 Range/Units 14:33 14:33 WBC (4.8-10.8) X10*3/uL RBC (4.60-5.80) X10*6/uL Hgb (14.0-18.0) g/dl Hct (42.0-52.0) % MCV (80.0-98.0) fL MCH (27.0-33.0) pg MCHC (31.0-36.0) g/dl RDW (11.0-16.0) % Plt Count (160-400) X10*3/uL MPV (9.4-12.4) fL Immature Gran % (Auto) (0.0-0.4) % Neut % (Auto) (45-73) % Lymph % (Auto) (20-40) % [place] % (Auto) (2-11) % Eos % (Auto) (0-4) % Baso % (Auto) (0-2) % Lymph # (Auto) (1.2-4.9) X10*3/uL [place] # (Auto) (0.1-1.2) X10*3/uL Eos # (Auto) (0.0-0.4) X10*3/uL Baso # (Auto) (0.0-0.2) X10*3/uL Abs Immat Gran (auto) (0.00-0.03) X10*3/uL Absolute Neuts (auto) (2.0-8.3) x10*3/uL Absolute Nucleated RBC (0.0-0.012) X10*3/uL Nucleated RBC % (auto) (0.0-0.2) /100WBC PT (9.9-13.0) SEC INR (0.9-1.1) D-Dimer High Sensitivty NG/ML POC Glucose (60-115) mg/dL Troponin I High Sens (<3.5-35.0) ng/L B-Natriuretic Peptide (<100) pg/mL TSH Urine Color YELLOW Urine Appearance CLEAR Urine pH 5.5 (5.0-8.0) Ur Specific [place] >= 1.030 H (1.005-1.025) Urine Protein 1+ H (NEG-TRACE) MG/DL Urine Glucose (UA) 500 H (NEG) MG/DL Urine Ketones NEG (NEG) MG/DL Urine Blood NEG (NEG) Urine Nitrite NEG (NEG) Ur Leukocyte Esterase NEG (NEG) Urine RBC 0 (0) /HPF Urine WBC 0 (0-4) /HPF Ur Squamous Epith Cells NONE /LPF Urine Bacteria NONE /LPF Urine Mucus 2+ /LPF Urine Opiates Screen Not Detected (Not Detect) Urine Fentanyl Screen Not Detected (Not Detect) Ur Barbiturates Screen Not Detected (Not Detect) Ur Phencyclidine Scrn Not Detected (Not Detect) Ur Amphetamines Screen Not Detected (Not Detect) U Benzodiazepines Scrn Not Detected (Not Detect) Urine Cocaine Screen Not Detected (Not Detect) U Marijuana (THC) Screen Not Detected (Not Detect) COVID-19 ([facility]AC[facility]) (Negative) COVID-19 Clin Com Discharge Plan Discharge Clinical Impression: Chest pain, Acute dyspnea Prescriptions: No Action (DME) blood-glucose meter [FreeStyle Lite Meter] Kit See Rx Instructions .Route Qty: 1 RF: 0 (DME) FreeStyle Lite Strips Strip See Rx Instructions .Route Qty: 100 RF: 2 (DME) lancets [FreeStyle Lancets] 28 gauge misc See Rx Instructions .Route Qty: 100 RF: 2 alcohol swabs [Alcohol Wipes] Pads, Medicated 1 pad topical BID 90 Days Qty: 100 RF: 0 gabapentin 100 mg capsule 100 mg PO BID Qty: 60 RF: 0 acetaminophen 500 mg tablet 1,000 mg PO Q8H PRN (Reason: pain) Qty: 30 RF: 0 ibuprofen 600 mg tablet 600 mg PO Q6H PRN (Reason: pain) Qty: 20 RF: 0 albuterol sulfate 90 mcg/actuation HFA aerosol inhaler 1 puff inhalation QID PRN (Reason: shortness of breath or wheezing) Qty: 6.7 RF: 3 Trulicity 1.5 mg/0.5 mL pen injector 1.5 mg subcut QWEEK 30 Days Qty: 2 RF: 4 atorvastatin 80 mg tablet 80 mg PO BEDTIME 90 Days Qty: 90 RF: 0 metoprolol succinate 25 mg tablet extended release 24 hr 12.5 mg PO DAILY 90 Days Qty: 45 RF: 0 metformin 500 mg tablet extended release 24 hr 1,000 mg PO BID 30 Days Qty: 120 RF: 0 ropinirole 1 mg tablet 1 mg PO BEDTIME 90 Days Qty: 90 RF: 2
[2021-07-12 13:07] LABS: Glucose, Whole Blood 162 mg/dL (60-115)
[2021-07-12 13:29] VITALS: BP 133/91; PULSE 98; RESP 16; TEMP 37.4; O2SAT 95
[2021-07-12 14:30] LABS: MANUAL DIFF FLAG NO
[2021-07-12 14:34] VITALS: BP 122/79; PULSE 94; RESP 14; TEMP 37.6; O2SAT 96
[2021-07-12 14:34] LABS: Basophils Absolute Auto 0.1 X10*3/uL (0.0-0.2); Basophils Percent Auto 0.6 % (0-2); Eosinophils Absolute Auto 0.1 X10*3/uL (0.0-0.4); Eosinophils Percent Auto 0.8 % (0-4); Hematocrit 46.1 % (42.0-52.0); Imm Gran Abs Auto 0.03 X10*3/uL (0.00-0.03); Imm Gran Pct Auto 0.3 % (0.0-0.4); Lymphocytes Absolute Auto 1.5 X10*3/uL (1.2-4.9); Lymphocytes Percent Auto 16.6 % (20-40); Mean Corpuscular HGB Conc 34.7 g/dl (31.0-36.0); Mean Corpuscular Hemoglobin 30.8 pg (27.0-33.0); Mean Corpuscular Volume 88.7 fL (80.0-98.0); Monocytes Absolute Auto 0.8 X10*3/uL (0.1-1.2); Monocytes Percent Auto 8.9 % (2-11); Neutrophils Absolute Auto 6.4 x10*3/uL (2.0-8.3); Neutrophils Percent Auto 72.8 % (45-73); Platelet Count 337 X10*3/uL (160-400); Red Cell Distribution Width 12.1 % (11.0-16.0); White Blood Count 8.8 X10*3/uL (4.8-10.8)
[2021-07-12 14:41] LABS: Prothrombin Time 11.5 SEC (9.9-13.0)
[2021-07-12 14:41] LABS: Appearance Urine CLEAR; Color Urine YELLOW; Glucose Urine UA 500 MG/DL (NEG); Leukocyte Esterase Urine NEG (NEG); Nitrite Urine NEG (NEG); PH 5.5 (5.0-8.0); Specific Gravity - Urine >= 1.030 (1.005-1.025); UACC Culture Trigger NO; Urine Blood NEG (NEG); Urine Ketones NEG (NEG); Urine Protein 1+ MG/DL (NEG-TRACE)
[2021-07-12 14:43] LABS: D Dimer High Sensitivity 301 NG/ML
[2021-07-12 14:48] LABS: Mucus Urine 2+ /LPF; RBC Urine 0 /HPF (0); WBC Urine 0 /HPF (0-4)
[2021-07-12 14:56] LABS: Amphetamine Screen Urine Not Detected (Not Detect); Barbiturates, Urine Not Detected (Not Detect); Benzodiazepines Screen Urine Not Detected (Not Detect); Cannabinoid Screen Urine Not Detected (Not Detect); Cocaine Screen Urine Not Detected (Not Detect); Fentanyl, urine Not Detected (Not Detect); Opiate Screen Urine Not Detected (Not Detect); Phencyclidine Screen Urine Not Detected (Not Detect)
[2021-07-12 14:59] LABS: B Type Natriuretic Peptide 13 pg/mL (<100); Troponin-I High Sensitivity < 3.5 ng/L (<3.5-35.0)
[2021-07-12 15:02] LABS: COVID-19 Test Negative (Negative)
[2021-07-12] MEDS: 0.9 % Sodium Chloride 1,000 ML 999 ML IVCONT (15:08)
[2021-07-12 16:00] VITALS: RESP 18
[2021-07-12 16:30] LABS: Alanine Aminotransferase 46 U/L (0-40); Albumin Level 3.9 g/dL (3.5-5.0); Alkaline Phosphatase 143 U/L (39-117); Anion Gap 15 (12-20); Aspartate Amino Transferase 21 U/L (5-37); Bilirubin Direct 0.5 mg/dL (0.0-0.5); Bilirubin Total 1.3 mg/dL (0.0-1.0); Blood Urea Nitrogen 15 mg/dL (9-16); Calcium 9.4 mg/dL (8.4-10.2); Carbon Dioxide 27 mmol/L (22-29); Chloride 104 mmol/L (96-108); Creatinine Clr Calc Pharmacy 117.3; Estimated Glomerular Filt Rate > 60; Glucose Random 140 mg/dL (60-115); Potassium 4.1 mmol/L (3.3-5.1); Sodium 142 mmol/L (135-145); Total Protein 7.6 g/dL (6.5-8.0)
[2021-07-12 16:47] LABS: TSH reflex Free T4 1.44 uIU/mL (0.32-4.0)
[2021-07-12 17:16] VITALS: BP 130/84; PULSE 99; RESP 18; TEMP 37.3; O2SAT 95
[2021-07-12] MEDS: iohexoL 350 MG/ML 100 ML INFUS..BTL IV (17:46)
[2021-07-12 18:01] LABS: Troponin-I High Sensitivity < 3.5 ng/L (<3.5-35.0)
[2021-07-12 20:26] LABS: Glucose, Whole Blood 110 mg/dL (60-115)
[2021-07-12 20:38] VITALS: BP 126/72; PULSE 94; RESP 17; O2SAT 95
== END 2021-07-12 20:58 | disposition home or self-care (01) ==
PROVIDERS: Emergency Medicine; Emergency Provider Emergency Medicine; PCP Nurse Practitioner Family
DX: R07.9 Chest pain, unspecified (principal); R06.02 Shortness of breath; E11.9 Type 2 diabetes mellitus without complications; E78.5 Hyperlipidemia, unspecified; J45.909 Unspecified asthma, uncomplicated; Z79.02 Long term (current) use of antithrombotics/antiplatelets; Z79.4 Long term (current) use of insulin; Z79.899 Other long term (current) drug therapy; Z20.822 Contact with and (suspected) exposure to COVID-19
CPT/HCPCS: 36415; 71045; 71275; 80048; 80076; 80307; 81001; 82947; 83880; 84443; 84484; 85025; 85379; 85610; 87635; 93005; 96361; 96374; 99284; 99285; Q9967

== ENCOUNTER → 2021-07-16 09:31 | Outpatient (REF) | payer OTHER, SELFPAY | LOC: HO.NUCMED 09:31 | PROVIDERS: PCP Nurse Practitioner Family; Visit Provider Nurse Practitioner Family | DX: Z13.89 Encounter for screening for other disorder (principal) ==

== ENCOUNTER → 2021-08-01 14:01 | Outpatient (BNVA) | payer OTHER, SELFPAY | PROVIDERS: PCP Nurse Practitioner Family; Referring Provider Nurse Practitioner Family; Visit Provider Internal Medicine | DX: R94.39 Abnormal result of other cardiovascular function study (principal); R07.2 Precordial pain; R06.02 Shortness of breath; R00.0 Tachycardia, unspecified | CPT/HCPCS: 99202 ==

== ENCOUNTER 2021-08-03 13:09 | Observation (INO) | payer OTHER, SELFPAY ==
[2021-08-03] VITALS (7 sets, daily range): BP systolic 116–146; BP diastolic 74–106; PULSE 88–118; RESP 16–18; TEMP 36.4–37.6; O2SAT 93–96; BMI 24.3
--- NOTE | 2021-08-03 | ECG_ITS ---
Test Reason : chest pain Blood Pressure : / mmHG Vent. Rate : 110 BPM Atrial Rate : 110 BPM P-R Int : 172 ms QRS Dur : 082 ms QT Int : 310 ms P-R-T Axes : 050 073 004 degrees QTc Int : 419 ms Sinus tachycardia Otherwise normal ECG When compared with ECG of 12-JUL-2021 13:47, Questionable change in QRS axis Referred By: Generic ED Physician Electronically Signed By:KHANH MIN
--- NOTE | ~2021-08-03 | NM_ITS ---
EXAMINATION: PULMONARY VENTILATION PERFUSION STUDY CLINICAL INFORMATION: Chest pain, CTA nondiagnostic, elevated d-dimer. COMPARISON: CTA of the chest done earlier today at 3:49 PM. TECHNIQUE: The patient received 2.8 mCi Tc-99m MAA intravenously and a 6-view perfusion study was performed. FINDINGS: No segmental perfusion defects are present. There are nonsegmental defects along the mediastinal surface of the lungs, likely related with lymphadenopathy noted on same-day CTA. NM/NM pul perfusion IMPRESSION: Very low probability of pulmonary embolism.
--- NOTE | ~2021-08-03 | XR_ITS ---
EXAMINATION: XR CHEST CLINICAL INFORMATION: Chest pain COMPARISON: Chest x-ray and CTA chest 07/12/2021 TECHNIQUE: 2 views of the chest were obtained. FINDINGS: Cardiac silhouette is normal in size. Similar asymmetric elevation of the left hemidiaphragm. There is no lobar consolidation. No pleural effusion or pneumothorax. XR/XR chest 2V IMPRESSION: No acute pulmonary pathology.
--- NOTE | ~2021-08-03 | NM_ITS ---
Exercise Myocardial perfusion study Indication: Chest pain to evaluate for myocardial ischemia Technique: The patient was brought in for an exercise perfusion study on 08/06/2021. Patient performed exercise as per Say protocol and was injected 25 mCi of sestamibi was given intravenously one target HR was achieved. Images were obtained using the SPECT gamma camera interlaced with the gating device. Images were obtained in supine position. Resting perfusion study was performed on 08/07/2021. Patient was administered 25 mCi of sestamibi intravenously at rest. Images were then obtained in supine position. Images obtained with and without CT attenuation. Total DLP 94 mGy-cm. Images were processed with the software and compared side to side in short axis, horizontal long axis and vertical long axis views. Findings: The stress perfusion study showed non attenuated images show some thinning of the basal anterolateral wall of the LV myocardium. Remainder of the LV myocardium attenuation corrected images show normalized uptake in the basal anterolateral wall of the LV myocardium with minimal thinning. The gated study shows normal LV systolic function with calculated LVEF of greater than 70 %. LV cavity is normal in size. The gated study shows normal systolic wall thickening and contraction of all segments. There is no transient ischemic dilation. Resting images show intense uptake in the retrocardiac area, could represent bowel loop. This uptake interfering and/or [the lateral wall uptake. Suboptimal study. Study shows non attenuated images moderately reduced uptake in the septum, distal to interference due to bowel loop. Attenuation corrected images show mildly reduced uptake in the septum.. Gating at rest reveals normal systolic wall motion with estimated ejection fraction at greater than 60%. The findings are consistent with equivocal finding also appears to be a normal myocardial perfusion.. NM/NM jose perf SPECT rest & str Impression: 1. Likely normal myocardial perfusion 2. Gated LVEF is greater than 70% 3. Transient ischemic dilatation not present Stress EKG is negative for ischemia
--- NOTE | ~2021-08-03 | CT_ITS ---
EXAMINATION: CT ANGIOGRAM OF THE CHEST WITH AND WITHOUT CONTRAST (CT PULMONARY ANGIOGRAM FOR PE) CLINICAL INFORMATION: Chest pain. Elevated D-dimer. COMPARISON: CT angiography of 07/12/2021. Chest x-ray 08/03/2021 and prior chest x-rays of 11/08/2019. TECHNIQUE: Prior to contrast administration, noncontrast localization images were obtained. Subsequently, multidetector volumetric imaging was performed from the thoracic inlet to below the diaphragms following the administration of 65 mL Omnipaque 350 intravenous contrast. No contrast reaction reported. Sagittal, coronal, and MIP oblique sagittal reformatted images were obtained on the CT workstation, uploaded to PACS, and reviewed. This CT examination was performed using dose optimization techniques as appropriate, variously including the following: Automated exposure control. Adjustment of mA and/or kV according to patient size (this includes techniques or standardized protocols for targeted exams where dose is matched to indication/reason for exam; i.e. extremities or head). Use of iterative reconstruction technique. Total exam dose-length product 332 mGy-cm. FINDINGS: QUALITY OF STUDY/CONTRAST BOLUS: There is suboptimal opacification of the pulmonary arterial tree for diagnosis of pulmonary embolism. PULMONARY ARTERIES: Within the limits of study, no pulmonary emboli are noted in the main pulmonary trunk and right and left main pulmonary arteries. THORACIC AORTA: No aneurysm or dissection. LUNG: Patchy ground-glass changes are noted in the right lower lobe. Left basilar compressive atelectasis likely related to moderate stable asymmetrical elevation of the left hemidiaphragm. A 0.3 cm calcified nodules noted in the inferior right upper lobe and right middle lobe. A few 0.2 cm calcified nodules are noted in the left lower lobe and inferior left upper lobe. PLEURA: No pleural effusion or pneumothorax. MEDIASTINUM: Normal heart size. No pericardial effusion. Mediastinal and symmetrical bilateral hilar and central bronchopulmonary adenopathy is again noted, for example the subcarinal lymph node measures 1.6 x 3.0 cm in AP and transverse dimension. No evidence of septal bowing or right heart strain. Trachea and central bronchi are well patent. CHEST WALL/AXILLA: No axillary or internal mammary lymphadenopathy. OSSEOUS STRUCTURES: No acute or suspicious osseous abnormality. UPPER ABDOMEN: Unremarkable. No reflux of contrast into the hepatic veins to suggest elevated right heart pressures. CT/CT angio chest PE protocol IMPRESSION: The study is of suboptimal quality for diagnosis of the pulmonary embolism. As clinically deemed necessary consider further evaluation with repeat pulmonary CTA or ventilation perfusion lung scan. Multiple respiratory motion artifacts limit evaluation of the pulmonary parenchyma. Nonspecific ground-glass changes in the right lower lobe. Comparison with the previous study is limited due to multiple respiratory motion artifacts on the previous CT as well. The ground-glass changes appear somewhat more prominent on current examination, however, are nonspecific and could reflect hypoventilatory changes and/or inflammatory or infectious process. Consider short-term interval follow-up chest CT (either with or without contrast) in 2-3 months. Mediastinal and symmetrical hilar/central bronchopulmonary adenopathy. One possibility may include sarcoidosis. Recommend clinical correlation and further evaluation. The adenopathy is amenable to bronchoscopic biopsy. VTE: Indeterminate. The findings and recommendations were discussed with NELSON Bartholomew in the Emergency Room on 08/03/2021 at 4:57 PM.
--- NOTE | 2021-08-03 14:09 | ED_ITS ---
HPI - Chest Pain General Chief Complaint: Chest Pain Stated Complaint: chest pain Time Seen by Provider: 08/03/21 13:54 Source: patient Mode of arrival: ambulatory Limitations: no limitations History of Present Illness HPI narrative: 55-year-old male with a past medical history of diabetes and hyperlipidemia has had intermittent chest pain, and palpitations for 4 months, presents today for an episode of severe left-sided chest pain. Chest pain started at 11:30 a.m. when he was driving. The pain was a 10/10 and was 2 minutes of severe sharp pain and pressure. He had numbness tingling down his left arm during this episode. During this period of severe chest pain, patient felt lightheaded and dizzy, he felt mildly short of breath, and a little nauseous. Chest pain has mostly resolved now, is a 1/10, and is a constant dull ache. Patient has no prior cardiac history, is not a smoker, no drug use, is a social drinker, no family history of cardiac disease. Patient is vaccinated for COVID but not boosted One month ago patient had an abnormal stress test, and recent Holter monitor. Cardiology appointment on 08/01/21 states that patient had abnormal stress test, has coronary artery disease, and Holter monitor showed sinus rhythm with episodes of tachycardia MD complaint: chest pain Onset (ago): hour(s) (3) Timing of current episode: episodic Prior episodes: Yes Onset: during rest Pain location: left chest Pain radiation: left arm Severity: severe Pain scale (0-10): 10 Quality: tightness and sharp Exacerbating factors: nothing Associated symptoms: nausea Treatment prior to arrival: none Risk Factors Coronary artery disease risk factors: diabetes and hyperlipidemia Related Data Home Medications Medication Instructions Recorded Confirmed dulaglutide 1.5 mg/0.5 mL 1.5 mg SUBCUT TU 08/03/21 08/03/21 subcutaneous pen injector metformin 1,000 mg tablet 1 tab PO BID 08/03/21 08/03/21 Previous Rx's Medication Instructions Recorded ibuprofen 600 mg tablet 600 mg PO Q6H PRN #20 tab 10/09/20 ropinirole 1 mg tablet 1 mg PO BEDTIME 90 Days #90 tab 02/06/21 atorvastatin 80 mg tablet 80 mg PO BEDTIME 90 Days #90 tab 05/30/21 gabapentin 100 mg capsule 100 mg PO BID #60 cap 07/03/21 Allergies Allergy/AdvReac Type Severity Reaction Status Date / Time No Known Drug Allergies Allergy Unknown Unknown Verified 08/01/21 14:18 Review of Systems Verdana 4l Constitutional: Verdana 4d Constitutional: Verdana 4d Verdana 4d Denies body ache(s), Denies chills, Denies fatigue, Denies fever(s), Denies headache(s), Denies malaise and Denies weakness Verdana 4l Eyes: Verdana 4d Verdana 4d Eyes: Verdana 4d Denies diplopia Verdana 4l ENT: Verdana 4d Denies vertigo, Reports dizziness, Denies otalgia, Denies headache(s), Denies mouth pain, Denies post nasal drip and Denies sore throat Verdana 4l Cardiovascular: Verdana 4d Cardiovascular: Verdana 4d Verdana 4d Reports chest pain, Denies syncope, Denies leg edema, Reports lightheadedness, Denies Loss of Consciousness, Denies palpitations and Denies dyspnea Verdana 4l Respiratory: Verdana 4d Verdana 4d Respiratory: Verdana 4d Denies chest congestion, Denies cough and Denies dyspnea Verdana 4l Gastrointestinal: Verdana 4d Gastrointestinal: Verdana 4d Verdana 4d Denies abdominal pain, Denies hematochezia, Denies constipation, Denies diarrhea, Reports nausea and Denies vomiting Verdana 4l Musculoskeletal: Verdana 4d Musculoskeletal: Verdana 4d Verdana 4d Reports no additional musculoskeletal complaints and Reports numbness Verdana 4l Neurologic: Verdana 4d Denies confusion, Denies vertigo, Reports dizziness, Denies syncope, Denies headache(s), Denies focal weakness, Reports numbness and Denies weakness Verdana 4l Psychiatric: Verdana 4d Verdana 4d Psychiatric: Verdana 4d Denies anxiety, Denies confusion and Denies depression Verdana 4l Endocrine: Verdana 4d Verdana 4d Endocrine: Verdana 4d Denies fatigue and Denies palpitations PMFSH Past Medical History Medical History Asthma Diabetes High cholesterol Left foot pain Surgical History Bone spur History of colonoscopy Family History Family History Father Cancer Mother Diabetes mellitus Maternal Grandfather Unknown family medical history Maternal Grandmother Unknown family medical history Paternal Grandfather Unknown family medical history Paternal Grandmother No problems noted. Sister No problems noted. Sister No problems noted. Sister No problems noted. Daughter No problems noted. Social History Social History Housing: House Alcohol intake: never Patient Tobacco Use Status: Never used Tobacco e-Cigarette/Vaping Use: Never Used Second Hand Smoke Exposure: Yes service: No Current occupational status: retired Physical Exam Verdana 4l Vital Signs: Verdana 4d Verdana 4d Vital Signs: Verdana 4d Verdana 4Bd Last Vital Signs Verdana 4d Telephone Order Dispatcher New 4d Telephone Order Dispatcher New 4d Temp 98.5 F 08/04/21 11:48 Telephone Order Dispatcher New 4d Pulse 102 H 08/04/21 11:48 Telephone Order Dispatcher New 4d Resp 18 08/04/21 11:48 BP 110/79 08/04/21 11:48 Pulse Ox 92 08/04/21 11:48 BMI result Body Mass Index 24.3 Const: General: alert and awake; No confusion Nutritional Appearance: well nourished Orientation/consciousness: patient oriented x3 and No confusion Limitations: no limitations HENMT: Head: Yes normal to inspection, Yes normocephalic and Yes atraumatic Ears: hearing grossly normal bilaterally, external ears normal, TM's normal bila terally and EAC's normal General nose exam: Normal external nose present Face and sinus: Yes normal facial exam and Yes sinuses nontender Mouth: Normal oral and palatal mucosa present Throat: Yes posterior oropharynx normal Eyes: Conjunctivae: conjunctivae normal Pupils: Equal, round and reactive pupils present EOM: EOMs intact bilaterally Neck: Neck: Yes full ROM, Yes no lymphadenopathy and Yes supple Resp: Effort & Inspection: normal respiratory effort and able to speak in complete sentences Auscultation: clear to auscultation bilaterally, no crackles, no rales, no rhonchi and no wheezes Cardio: Rate: regular rate Rhythm: regular rhythm Heart sounds: S1 normal heart sound present and S2 normal heart sound present GI: Inspection: Yes normal to inspection Palpation (GI): Soft to palpation, nontender, no guarding and not rigid Percussion: Yes normal to percussion Auscultation: normal bowel sounds Skin: General skin exam: no rashes or lesions noted Neuro: General: patient oriented x3 and No confusion Cranial nerves: Yes Equal, round and reactive pupils present Extrem: General: Yes normal to inspection and Yes full ROM Psych: Appearance: grossly normal Mental Status: mental status grossly normal Speech and movement: Normal speech and movement present Affect: Anxious affect present Attitude: cooperative Thought process: Normal thought process present Course Course Course Narrative: 55-year-old male presents for severe chest pain that lasted 2 minutes at 11:30 a.m. this morning. This occurred while he was driving, and he also had tingling down his left arm, he was lightheaded, mildly short of breath and mildly liberty seous. Chest pain is only 1/10 now, it is mostly resolved. Patient has had ongoing intermittent chest pain, palpitations, and dyspnea on exertion for the last 4 months. He saw Cardiology on 08/01/21, see note below. Per cardiology note 08/01/21: In the recent stress test, he was able to exercise for 5 minutes on the Say protocol without any clear anginal-type symptoms.? Reached 101% of target heart rate.? There was also delayed recovery and slow return to baseline.? Could indicate deconditioning.? In the Holter monitor, underlying rhythm was sinus but there was frequent tachycardia about 37% the time. Overall, he could have deconditioning +/- autonomic dysfunction from diabetes causing tachycardic episodes.? With regard to his chest pain/shortness of breath, he needs further evaluation stress perfusion imaging as well as an echocardiogram.? This can be scheduled in the near future.? Follow-up in a few weeks time. On exam, patient is anxious, vitals are stable. Reevaluation(s) Reevaluation #1: EKG shows no acute ischemia, initial troponin is negative. Will repeat troponin at the 3 hour jose No elevated BNP, however D-dimer is 265. CBC and chemistry are in normal Chest x-ray is normal. Patient is COVID negative Will repeat troponin and rule out PE with CTA Messaged Dr Barber, Cardiology: Hi, I have Ivan Oakes, [birth year], 55 y/o diabetic male who had episode of severe left sided chest pain at 11:30am today while driving, with radiation down his left arm. He had nausea, became lightheaded, and was mildly SOB. Intitial trop is negative, ekg see below, Pt's heart score is 5. He had an abnormal stress test 1 month ago, and periods of tachycardia during a recent holter monitor. E farhan if repeat troponin is not elevated, I would like to admit for echo and cardiology consult. He has a suspicious story, he is 55, and he has risk factors of DM, HLD, and prior abnormal stress test indicating probable CAD Dr Barber agreed to consult if patient admitted. Agusto texted Dr Salazar who will admit. Radiologist called me and stated that the CTA was nondiagnostic. She did not see emboli in the main pulmonary arteries but the CTA was not diagnostic for lobar branches. In addition she stated there was ground-glass changes in the right lower lobe that was nonspecific and could be due to hypoventilation. Patient is COVID negative. She also stated that there was medialstinal b ilateral adenopathy, and question sarcoidosis. I will pass this on to hospitalist, as patient needs a workup for sarcoidosis. Also ordered V/Q scan. MDM - Chest Pain Medical Records Data Attestation: I reviewed the patient's medical records. Lab Data Attestation: I reviewed the patient's lab results. Result diagrams: 08/03/21 14:41 08/03/21 14:41 Labs: Lab Results 08/03/21 08/03/21 08/03/21 Range/Units 14:41 14:41 14:41 WBC 6.8 (4.8-10.8) X10*3/uL RBC 5.31 (4.60-5.80) X10*6/uL Hgb 16.1 (14.0-18.0) g/dl Hct 47.3 (42.0-52.0) % MCV 89.1 (80.0-98.0) fL MCH 30.3 (27.0-33.0) pg MCHC 34.0 (31.0-36.0) g/dl RDW 12.2 (11.0-16.0) % Plt Count 291 (160-400) X10*3/uL MPV 11.2 (9.4-12.4) fL Immature Gran % (Auto) 0.1 (0.0-0.4) % Neut % (Auto) 65.8 (45-73) % Lymph % (Auto) 21.6 (20-40) % [place] % (Auto) 9.9 (2-11) % Eos % (Auto) 1.9 (0-4) % Baso % (Auto) 0.7 (0-2) % Lymph # (Auto) 1.5 (1.2-4.9) X10*3/uL [place] # (Auto) 0.7 (0.1-1.2) X10*3/uL Eos # (Auto) 0.1 (0.0-0.4) X10*3/uL Baso # (Auto) 0.1 (0.0-0.2) X10*3/uL Abs Immat Gran (auto) 0.01 (0.00-0.03) X10*3/uL Absolute Neuts (auto) 4.5 (2.0-8.3) x10*3/uL Absolute Nucleated RBC 0.000 (0.0-0.012) X10*3/uL Nucleated RBC % (auto) 0.0 (0.0-0.2) /100WBC D-Dimer High Sensitivty 265 NG/ML Sodium 138 (135-145) mmol/L Potassium 4.9 (3.3-5.1) mmol/L Chloride 100 (96-108) mmol/L Carbon Dioxide 30 H (22-29) mmol/L Anion Gap 13 (12-20) BUN 15 (9-16) mg/dL Creatinine 0.86 (0.5-1.4) mg/dL Estim Creat Clear Calc 97.8 Estimated GFR > 60 Random Glucose 152 H (60-115) mg/dL Estimat Average Glucose mg/dL Hemoglobin A1c % % Calcium 10.3 H D (8.4-10.2) mg/dL Total Bilirubin 1.6 H (0.0-1.0) mg/dL AST 22 (5-37) U/L ALT 38 (0-40) U/L Alkaline Phosphatase 151 H (39-117) U/L Troponin I High Sens (<3.5-35.0) ng/L B-Natriuretic Peptide (<100) pg/mL Total Protein 8.4 H (6.5-8.0) g/dL Albumin 4.4 (3.5-5.0) g/dL COVID-19 (JACOB) (Negative) COVID-19 Clin Com 08/03/21 08/03/21 08/03/21 Range/Units 14:41 14:41 14:41 WBC (4.8-10.8) X10*3/uL RBC (4.60-5.80) X10*6/uL Hgb (14.0-18.0) g/dl Hct (42.0-52.0) % MCV (80.0-98.0) fL MCH (27.0-33.0) pg MCHC (31.0-36.0) g/dl RDW (11.0-16.0) % Plt Count (160-400) X10*3/uL MPV (9.4-12.4) fL Immature Gran % (Auto) (0.0-0.4) % Neut % (Auto) (45-73) % Lymph % (Auto) (20-40) % [place] % (Auto) (2-11) % Eos % (Auto) (0-4) % Baso % (Auto) (0-2) % Lymph # (Auto) (1.2-4.9) X10*3/uL [place] # (Auto) (0.1-1.2) X10*3/uL Eos # (Auto) (0.0-0.4) X10*3/uL Baso # (Auto) (0.0-0.2) X10*3/uL Abs Immat Gran (auto) (0.00-0.03) X10*3/uL Absolute Neuts (auto) (2.0-8.3) x10*3/uL Absolute Nucleated RBC (0.0-0.012) X10*3/uL Nucleated RBC % (auto) (0.0-0.2) /100WBC D-Dimer High Sensitivty NG/ML Sodium (135-145) mmol/L Potassium (3.3-5.1) mmol/L Chloride (96-108) mmol/L Carbon Dioxide (22-29) mmol/L Anion Gap (12-20) BUN (9-16) mg/dL Creatinine (0.5-1.4) mg/dL Estim Creat Clear Calc Estimated GFR Random Glucose (60-115) mg/dL Estimat Average Glucose 197 mg/dL Hemoglobin A1c % 8.5 % Calcium (8.4-10.2) mg/dL Total Bilirubin (0.0-1.0) mg/dL AST (5-37) U/L ALT (0-40) U/L Alkaline Phosphatase (39-117) U/L Troponin I High Sens < 3.5 (<3.5-35.0) ng/L B-Natriuretic Peptide < 10 (<100) pg/mL Total Protein (6.5-8.0) g/dL Albumin (3.5-5.0) g/dL COVID-19 (JACOB) Negative (Negative) COVID-19 Clin Com See Note ECG Data ECG #1: Interpretation: Sinus tachycardia at 110 .. [place] interval 172, QRS 82, QTC 419, normal axis, no ST depressions or elevations, no T-wave abnormality Scores Heart Score History: -2- highly suspicious ECG: -0- normal Age: -1- >45 - <65 Risk factory: -2- 3 or more risk factors or treated atherosclerosis Troponin: -0- < or = normal limit Score: 5 Risk: 16.6% Discharge Plan Discharge Clinical Impression: Chest pain, Abnormal CT scan of lung Patient Disposition: Admitted As Inpatient Discharge Date/Time: 08/03/21 22:45
[2021-08-03] MEDS: Aspirin 81 MG TAB.CHEW 324 MG PO (14:32)
[2021-08-03 14:59] LABS: MANUAL DIFF FLAG NO
[2021-08-03 15:04] LABS: Basophils Absolute Auto 0.1 X10*3/uL (0.0-0.2); Basophils Percent Auto 0.7 % (0-2); Eosinophils Absolute Auto 0.1 X10*3/uL (0.0-0.4); Eosinophils Percent Auto 1.9 % (0-4); Hematocrit 47.3 % (42.0-52.0); Hemoglobin 16.1 g/dl (14.0-18.0); Imm Gran Abs Auto 0.01 X10*3/uL (0.00-0.03); Imm Gran Pct Auto 0.1 % (0.0-0.4); Lymphocytes Absolute Auto 1.5 X10*3/uL (1.2-4.9); Lymphocytes Percent Auto 21.6 % (20-40); Mean Corpuscular Hemoglobin 30.3 pg (27.0-33.0); Mean Corpuscular Volume 89.1 fL (80.0-98.0); Mean Platelet Volume 11.2 fL (9.4-12.4); Monocytes Absolute Auto 0.7 X10*3/uL (0.1-1.2); Monocytes Percent Auto 9.9 % (2-11); Neutrophils Absolute Auto 4.5 x10*3/uL (2.0-8.3); Neutrophils Percent Auto 65.8 % (45-73); Platelet Count 291 X10*3/uL (160-400); Red Blood Count 5.31 X10*6/uL (4.60-5.80); Red Cell Distribution Width 12.2 % (11.0-16.0); White Blood Count 6.8 X10*3/uL (4.8-10.8)
[2021-08-03 15:12] LABS: D Dimer High Sensitivity 265 NG/ML
[2021-08-03 15:22] LABS: Alanine Aminotransferase 38 U/L (0-40); Albumin Level 4.4 g/dL (3.5-5.0); Alkaline Phosphatase 151 U/L (39-117); Anion Gap 13 (12-20); Aspartate Amino Transferase 22 U/L (5-37); Bilirubin Total 1.6 mg/dL (0.0-1.0); Blood Urea Nitrogen 15 mg/dL (9-16); Calcium 10.3 mg/dL (8.4-10.2); Carbon Dioxide 30 mmol/L (22-29); Chloride 100 mmol/L (96-108); Creatinine Clr Calc Pharmacy 97.8; Estimated Glomerular Filt Rate > 60; Glucose Random 152 mg/dL (60-115); Potassium 4.9 mmol/L (3.3-5.1); Sodium 138 mmol/L (135-145); Total Protein 8.4 g/dL (6.5-8.0)
[2021-08-03 15:24] LABS: B Type Natriuretic Peptide < 10 pg/mL (<100); Troponin-I High Sensitivity < 3.5 ng/L (<3.5-35.0)
[2021-08-03 15:44] LABS: COVID-19 Test Negative (Negative)
[2021-08-03] MEDS: iohexoL 350 MG/ML 100 ML INFUS..BTL IV (16:06)
[2021-08-03] MEDS: 0.9 % Sodium Chloride 1,000 ML 999 ML IV (16:25)
--- NOTE | 2021-08-03 17:36 | P.HPHOSP_ITS ---
History of Present Illness Date of Service: 08/03/21 Chief Complaint: chest pain 55yo M with DM2 and HLD who has been undergoing workup with [facility] Cardiology for intermittent chest pain and palpitations for the past 4 months. He had an exercise EKG stress test on 06/18/21 showing: atigue, without anginal symptoms, without arrythmia, with normotensive and brisk chronotropic response to exercise, without EKG changes meeting criteria?for ischemia. In recovery heart rate was slow to return to baseline. Pt was given 12 oz water to drink and placed with supine positon with improvement. In recovery there is downsloping ST inferiorly and V6 with gradual improvement. Holter showed sinus rhythm with tachycardia about 37% of the time. He was referred to Dr Barber, whom he saw in clinic 2 days ago. Plan was for stress perfusion imaging and TTE. Today, however, he was driving when he developed sudden onset of severe L-sided chest pain radiating down his L arm. Pain was sharp and associated with dyspnea and nausea. It lasted about 2 minutes. Currently pain-free. Initial hs-Tn-I <3.5 and EKG NSR without ischemic changes. Given the recent abnormal stress test, Cardiology was contacted by the ED, and admission was recommended. CTA of the chest was nondiagnostic for PE. There was bilateral mediastinal adenopathy, rasigin the question of sarcoidosis. Review of Systems Verdana 4l Review of Systems: Yes all other systems are reviewed and Verdana 4d are negative [facility] Medical History Asthma Diabetes High cholesterol Left foot pain Family History Father Cancer Mother Diabetes mellitus Maternal Grandfather Unknown family medical history Maternal Grandmother Unknown family medical history Paternal Grandfather Unknown family medical history Paternal Grandmother No problems noted. Sister No problems noted. Sister No problems noted. Sister No problems noted. Daughter No problems noted. Surgical History Bone spur History of colonoscopy Social History Housing: House Alcohol intake: never Patient Tobacco Use Status: Never used Tobacco e-Cigarette/Vaping Use: Never Used Second Hand Smoke Exposure: Yes Use of substances other than those prescribed or required for medical reasons: No Advance Directives: No Advance Directives Information Provided: No service: No Current occupational status: retired Meds Allergies Allergy/AdvReac Type Severity Reaction Status Date / Time No Known Drug Allergies Allergy Unknown Unknown Verified 08/01/21 14:18 Active Medications: Current Medications Acetaminophen (Acetaminophen 325 Mg Tablet) 650 mg PO Q6H PRN PRN Reason: Pain, Mild (Pain Scale 1-3) Aspirin (Aspirin 81 Mg Tab.Chew) 81 mg PO DAILY MARANDA Atorvastatin Calcium (Atorvastatin Calcium 80 Mg Tablet) 80 mg PO BEDTIME MARANDA Enoxaparin Sodium (Enoxaparin Sodium 40 Mg/0.4 Ml Syringe) 40 mg SUBCUT Q24H MARANDA Nitroglycerin (Nitroglycerin 0.4 Mg Tab.Subl) 0.4 mg SUBLINGUAL Q5MX3 PRN PRN Reason: Chest Pain Ondansetron HCl (Ondansetron Hcl 4 Mg/2 Ml Vial) 4 mg IVPUSH Q8H PRN PRN Reason: Nausea and Vomiting Pharmacy Consult (Consult Rx Perform Med Rec) 1 each MISCELLANE STAT STA Stop: 08/03/21 17:30 Sodium Chloride (0.9 % Sodium Chloride Flush 3 Ml Syringe) 3 ml IVFLUSH QSHIFT [facility] Home Medications Medication Instructions Recorded Confirmed Last Taken Type metformin 1,000 mg 1 tab PO BID 08/03/21 Unknown History tablet Physical Exam Verdana 4l Vital Signs and Narrative: Verdana 4d Verdana 4d Vital Signs: Verdana 4d Verdana 4Bd Last Vital Signs Verdana 4d Talent Management Manager New 4d Talent Management Manager New 4d Temp 98.8 F 08/03/21 17:16 Talent Management Manager New 4d Pulse 94 08/03/21 17:16 Talent Management Manager New 4d Resp 18 08/03/21 17:16 BP 139/85 08/03/21 17:16 Pulse Ox 96 08/03/21 17:16 BMI result Body Mass Index 24.3 Gen: in no acute distress HEENT: sclera anicteric, moist mucus membranes Neck: supple Lungs: clear to auscultation bilaterally Heart: regular rate and rhythm, no murmurs Abd: soft, non-tender, non-distended Ext: no edema Skin: warm/well-perfused Neuro: alert and oriented x3, no focal findings Psych: appropriate affect Results Labs CBC and Chem 7: 08/03/21 14:41 08/03/21 14:41 Labs: Laboratory Results - last 24 hr 08/03/21 08/03/21 08/03/21 14:41 14:41 14:41 MCV 89.1 MCH 30.3 MCHC 34.0 RDW 12.2 Plt Count 291 MPV 11.2 Immature Gran % (Auto) 0.1 Neut % (Auto) 65.8 Lymph % (Auto) 21.6 [place] % (Auto) 9.9 Eos % (Auto) 1.9 Baso % (Auto) 0.7 Lymph # (Auto) 1.5 [place] # (Auto) 0.7 Eos # (Auto) 0.1 Baso # (Auto) 0.1 Abs Immat Gran (auto) 0.01 Absolute Neuts (auto) 4.5 Absolute Nucleated RBC 0.000 Nucleated RBC % (auto) 0.0 D-Dimer High Sensitivty 265 Anion Gap 13 Estim Creat Clear Calc 97.8 Estimated GFR > 60 Random Glucose 152 H Calcium 10.3 H D Total Bilirubin 1.6 H AST 22 ALT 38 Alkaline Phosphatase 151 H B-Natriuretic Peptide Total Protein 8.4 H Albumin 4.4 COVID-19 (JACOB) COVID-19 Clin Com 08/03/21 08/03/21 14:41 14:41 MCV MCH MCHC RDW Plt Count MPV Immature Gran % (Auto) Neut % (Auto) Lymph % (Auto) [place] % (Auto) Eos % (Auto) Baso % (Auto) Lymph # (Auto) [place] # (Auto) Eos # (Auto) Baso # (Auto) Abs Immat Gran (auto) Absolute Neuts (auto) Absolute Nucleated RBC Nucleated RBC % (auto) D-Dimer High Sensitivty Anion Gap Estim Creat Clear Calc Estimated GFR Random Glucose Calcium Total Bilirubin AST ALT Alkaline Phosphatase B-Natriuretic Peptide < 10 Total Protein Albumin COVID-19 (JACOB) Negative COVID-19 Clin Com See Note Impressions Chest X-Ray 08/03/21 15:30 IMPRESSION: No acute pulmonary pathology. Chest CTA 08/03/21 16:04 IMPRESSION: The study is of suboptimal quality for diagnosis of the pulmonary embolism. As clinically deemed necessary consider further evaluation with repeat pulmonary CTA or ventilation perfusion lung scan. Multiple respiratory motion artifacts limit evaluation of the pulmonary parenchyma. Nonspecific ground-glass changes in the right lower lobe. Comparison with the previous study is limited due to multiple respiratory motion artifacts on the previous CT as well. The ground-glass changes appear somewhat more prominent on current examination, however, are nonspecific and could reflect hypoventilatory changes and/or inflammatory or infectious process. Consider short-term interval follow-up chest CT (either with or without contrast) in 2-3 months. Mediastinal and symmetrical hilar/central bronchopulmonary adenopathy. One possibility may include sarcoidosis. Recommend clinical correlation and further evaluation. The adenopathy is amenable to bronchoscopic biopsy. VTE: Indeterminate. The findings and recommendations were discussed with NELSON Bartholomew in the Emergency Room on 08/03/2021 at 4:57 PM. Imaging Radiologist's Impressions: Impressions Chest X-Ray 08/03/21 15:30 IMPRESSION: No acute pulmonary pathology. Assessment and Plan (1) Chest pain: Status: Acute Plan 55yo M with DM and HLD undergoing workup for intermittent chest pain and palpitations, with a recent abnormal exercise stress test, presenting with chest pain suspicious for angina. # chest pain - admit to [facility] on observation, give ASA + high-intensity statin, recheck hs-Tn-I at 3-hr jose, TTE, Cardiology consult # mediastinal adenopathy - question of sarcoidosis. check KAT level and consult Pulm. # ground-glass opacity on CT - Covid-19 JACOB negative. check RVP. Pulm consult as above # intermittent asthma - prn albuterol # DM2 - correction-dose lispro, hold MTF, check A1c # VTE ppx - LMWH # code - full Quality Stroke Does the patient have a stroke diagnosis?: No VTE Prior VTE?: No VTE Risk Level:: Medical - moderate - high VTE Device Contraindication: N/A - Device Ordered VTE Drug Contraindication: N/A - Med Ordered
--- NOTE | 2021-08-03 18:02 | PHA.MEDREC ---
Pharmacy Consult ? Medication Reconciliation Pharmacy has completed the medication reconciliation.
[2021-08-03 18:36] LABS: Troponin-I High Sensitivity < 3.5 ng/L (<3.5-35.0)
[2021-08-03 18:38] LABS: Estimated Average Glucose 197 mg/dL; Hemoglobin A1c % 8.5 %
[2021-08-03 20:55] LABS: Glucose, Whole Blood 166 mg/dL (60-115)
[2021-08-03] MEDS: Atorvastatin Calcium 80 MG TABLET PO (21:02)
[2021-08-03] MEDS: Gabapentin 100 MG CAPSULE PO (21:02)
[2021-08-03] MEDS: Enoxaparin Sodium 40 MG/0.4 ML SYRINGE SUBCUT (21:02)
[2021-08-03] MEDS: rOPINIRole HCL 1 MG TABLET PO (22:03)
[2021-08-04] MEDS: 0.9 % Sodium Chloride Flush 3 ML SYRINGE IVFLUSH ×4 (00:41→22:09)
[2021-08-04 03:55] VITALS: BP 102/68; PULSE 91; RESP 18; TEMP 36.8; O2SAT 92
[2021-08-04 07:37] VITALS: BP 112/81; PULSE 90; RESP 18; TEMP 36.4; O2SAT 94
[2021-08-04 08:12] LABS: Glucose, Whole Blood 153 mg/dL (60-115)
[2021-08-04] MEDS: Insulin Lispro 100 UNIT/ML 3 ML VIAL SUBCUT ×4 (08:46→22:07)
[2021-08-04] MEDS: Aspirin 81 MG TAB.CHEW PO (08:46)
[2021-08-04] MEDS: Gabapentin 100 MG CAPSULE PO ×2 (08:46→22:07)
--- NOTE | 2021-08-04 10:08 | P.CONCA_ITS ---
History of Present Illness History of Present Illness Date of Service: 08/04/21 Chief complaint: chest pain Narrative: This is a cardiology consultation regarding chest pain. Patient was actually just seen in the office couple of days ago. He has long history of diabetes as well as dyslipidemia. No known coronary artery disease. In the recent past, he has been having chest pains at different times with and without exertion. We had arranging outpatient stress perfusion imaging and echocardiogram. In the interim, he was having chest pain again while driving as today with left arm discomfort and that led to ER visit and then admission. Again pain-free at this time. Review of Systems Verdana 4l Review of Systems: Verdana 4d Yes all other systems are reviewed and are negative Verdana 4l Cardiovascular: Verdana 4d Verdana 4d Cardiovascular: Verdana 4d Reports as per HPI, Reports no additional cardiovascular complaints, Denies acrocyanosis, Denies cool extremities, Denies painful fingertips, Reports chest pain, Reports chest pain at rest, Denies diaphoresis, DeniesDenies syncope, Denies irregular heart rhythm, Denies claudication, Denies leg edema, Denies lightheadedness, Denies palpitations and Denies dyspnea Respiratory: Respiratory: Denies dyspnea Neurologic: Denies syncope Endocrine: Endocrine: Denies palpitations PMFSH Past Medical History Medical History Asthma Diabetes High cholesterol Left foot pain Family History Family History Father Cancer Mother Diabetes mellitus Maternal Grandfather Unknown family medical history Maternal Grandmother Unknown family medical history Paternal Grandfather Unknown family medical history Paternal Grandmother No problems noted. Sister No problems noted. Sister No problems noted. Sister No problems noted. Daughter No problems noted. Surgical History Surgical History Bone spur History of colonoscopy Social History Social History Housing: House Alcohol intake: never Patient Tobacco Use Status: Never used Tobacco e-Cigarette/Vaping Use: Never Used Second Hand Smoke Exposure: Yes service: No Current occupational status: retired Meds Allergies Allergy/AdvReac Type Severity Reaction Status Date / Time No Known Drug Allergies Allergy Unknown Unknown Verified 08/01/21 14:18 Active Medications: Current Medications Acetaminophen (Acetaminophen 325 Mg Tablet) 650 mg PO Q6H PRN PRN Reason: Pain, Mild (Pain Scale 1-3) Albuterol Sulfate (Albuterol Sulfate 90 Mcg 8 Gm Inhaler) 2 puff INHALE Q4H PRN PRN Reason: wheezing/shortness of breath Aspirin (Aspirin 81 Mg Tab.Chew) 81 mg PO DAILY [facility] Last Admin: 08/04/21 08:46 Dose: 81 mg Documented by: Atorvastatin Calcium (Atorvastatin Calcium 80 Mg Tablet) 80 mg PO BEDTIME [facility] Last Admin: 08/03/21 21:02 Dose: 80 mg Documented by: Dextrose (Dextrose 50 % 25 Gm/50 Ml Syringe) 25 gm IVPUSH Q15M PRN; Protocol PRN Reason: per Hypoglycemia Standing Ord. Enoxaparin Sodium (Enoxaparin Sodium 40 Mg/0.4 Ml Syringe) 40 mg SUBCUT Q24H [facility] Last Admin: 08/03/21 21:02 Dose: 40 mg Documented by: Gabapentin (Gabapentin 100 Mg Capsule) 100 mg PO BID [facility] Last Admin: 08/04/21 08:46 Dose: 100 mg Documented by: Glucose (Glucose Gel 15 Gm Gel..Gram.) 15 gm PO Q15M PRN; Protocol PRN Reason: per Hypoglycemia Standing Ord. Insulin Human Lispro (Insulin Lispro 100 Unit/Ml 3 Ml Vial) 0 unit SUBCUT QIDACHS [facility]; Protocol Last Admin: 08/04/21 08:46 Dose: 2 unit Documented by: Nitroglycerin (Nitroglycerin 0.4 Mg Tab.Subl) 0.4 mg SUBLINGUAL Q5MX3 PRN PRN Reason: Chest Pain Ondansetron HCl (Ondansetron Hcl 4 Mg/2 Ml Vial) 4 mg IVPUSH Q8H PRN PRN Reason: Nausea and Vomiting Ropinirole HCl (Ropinirole Hcl 1 Mg Tablet) 1 mg PO BEDTIME [facility] Last Admin: 08/03/21 22:03 Dose: 1 mg Documented by: Sodium Chloride (0.9 % Sodium Chloride Flush 3 Ml Syringe) 3 ml IVFLUSH QSHIFT [facility] Last Admin: 08/04/21 08:46 Dose: 3 ml Documented by: Home Medications Medication Instructions Recorded Confirmed Last Taken Type dulaglutide 1.5 1.5 mg SUBCUT TU 08/03/21 08/03/21 08/01/21 History mg/0.5 mL subcutaneous pen injector metformin 1,000 1 tab PO BID 08/03/21 08/03/21 08/03/21 History mg tablet Physical Exam Verdana 4l Vital Signs: Verdana 4d Verdana 4d Vital Signs: Verdana 4d Verdana 4Bd Last Vital Signs Verdana 4d Physician Intensivist New 4d Physician Intensivist New 4d Temp 97.6 F 08/04/21 07:37 Physician Intensivist New 4d Pulse 90 08/04/21 07:37 Physician Intensivist New 4d Resp 18 08/04/21 07:37 BP 112/81 08/04/21 07:37 Pulse Ox 94 08/04/21 07:37 BMI result Body Mass Index 24.3 Const: General: no acute distress HENMT: Other: Unremarkable Neck: Neck: Yes normal visual inspection Chest: Chest palpation & inspection: normal inspection of the chest Resp: Auscultation: no crackles and no wheezes Cardio: Palpation: normal PMI Heart sounds: S1 normal heart sound present, S2 normal heart sound present, no gallops, no murmurs and no rubs GI: Palpation (GI): Soft to palpation Back/Spine/Pelvis: Other: unremarkable Skin: Lesions: other Neuro: Cranial nerves: Yes Other cranial nerve findings present Extrem: General: Yes other Psych: Mental Status: other Objective Labs and Meds Result diagrams: 08/03/21 14:41 08/03/21 14:41 Lab results: Laboratory Results - last 24 hr 08/03/21 08/03/21 08/03/21 14:41 14:41 14:41 WBC 6.8 RBC 5.31 Hgb 16.1 Hct 47.3 MCV 89.1 MCH 30.3 MCHC 34.0 RDW 12.2 Plt Count 291 MPV 11.2 Immature Gran % (Auto) 0.1 Neut % (Auto) 65.8 Lymph % (Auto) 21.6 Roberts % (Auto) 9.9 Eos % (Auto) 1.9 Baso % (Auto) 0.7 Lymph # (Auto) 1.5 Roberts # (Auto) 0.7 Eos # (Auto) 0.1 Baso # (Auto) 0.1 Abs Immat Gran (auto) 0.01 Absolute Neuts (auto) 4.5 Absolute Nucleated RBC 0.000 Nucleated RBC % (auto) 0.0 D-Dimer High Sensitivty 265 Sodium 138 Potassium 4.9 Chloride 100 Carbon Dioxide 30 H Anion Gap 13 BUN 15 Creatinine 0.86 Estim Creat Clear Calc 97.8 Estimated GFR > 60 POC Glucose Random Glucose 152 H Estimat Average Glucose Hemoglobin A1c % Calcium 10.3 H D Total Bilirubin 1.6 H AST 22 ALT 38 Alkaline Phosphatase 151 H Troponin I High Sens B-Natriuretic Peptide Total Protein 8.4 H Albumin 4.4 COVID-19 (JACOB) COVID-19 Clin Com 08/03/21 08/03/21 08/03/21 14:41 14:41 14:41 WBC RBC Hgb Hct MCV MCH MCHC RDW Plt Count MPV Immature Gran % (Auto) Neut % (Auto) Lymph % (Auto) Roberts % (Auto) Eos % (Auto) Baso % (Auto) Lymph # (Auto) Roberts # (Auto) Eos # (Auto) Baso # (Auto) Abs Immat Gran (auto) Absolute Neuts (auto) Absolute Nucleated RBC Nucleated RBC % (auto) D-Dimer High Sensitivty Sodium Potassium Chloride Carbon Dioxide Anion Gap BUN Creatinine Estim Creat Clear Calc Estimated GFR POC Glucose Random Glucose Estimat Average Glucose 197 Hemoglobin A1c % 8.5 Calcium Total Bilirubin AST ALT Alkaline Phosphatase Troponin I High Sens < 3.5 B-Natriuretic Peptide < 10 Total Protein Albumin COVID-19 (JACOB) Negative COVID-19 [employer] See Note 08/03/21 08/03/21 08/04/21 18:10 20:46 07:36 WBC RBC Hgb Hct MCV MCH MCHC RDW Plt Count MPV Immature Gran % (Auto) Neut % (Auto) Lymph % (Auto) Roberts % (Auto) Eos % (Auto) Baso % (Auto) Lymph # (Auto) Roberts # (Auto) Eos # (Auto) Baso # (Auto) Abs Immat Gran (auto) Absolute Neuts (auto) Absolute Nucleated RBC Nucleated RBC % (auto) D-Dimer High Sensitivty Sodium Potassium Chloride Carbon Dioxide Anion Gap BUN Creatinine Estim Creat Clear Calc Estimated GFR POC Glucose 166 H 153 H Random Glucose Estimat Average Glucose Hemoglobin A1c % Calcium Total Bilirubin AST ALT Alkaline Phosphatase Troponin I High Sens < 3.5 B-Natriuretic Peptide Total Protein Albumin COVID-19 (JACOB) COVID-19 Clin Com Imaging Radiologist's impression: Impressions Chest X-Ray 08/03/21 15:30 IMPRESSION: No acute pulmonary pathology. Chest CTA 08/03/21 16:04 IMPRESSION: The study is of suboptimal quality for diagnosis of the pulmonary embolism. As clinically deemed necessary consider further evaluation with repeat pulmonary CTA or ventilation perfusion lung scan. Multiple respiratory motion artifacts limit evaluation of the pulmonary parenchyma. Nonspecific ground-glass changes in the right lower lobe. Comparison with the previous study is limited due to multiple respiratory motion artifacts on the previous CT as well. The ground-glass changes appear somewhat more prominent on current examination, however, are nonspecific and could reflect hypoventilatory changes and/or inflammatory or infectious process. Consider short-term interval follow-up chest CT (either with or without contrast) in 2-3 months. Mediastinal and symmetrical hilar/central bronchopulmonary adenopathy. One possibility may include sarcoidosis. Recommend clinical correlation and further evaluation. The adenopathy is amenable to bronchoscopic biopsy. VTE: Indeterminate. The findings and recommendations were discussed with NELSON Bartholomew in the Emergency Room on 08/03/2021 at 4:57 PM. Pulmonary Perfusion Imaging 08/03/21 17:50 IMPRESSION: Very low probability of pulmonary embolism. Assessment and Plan (1) Precordial chest pain: Status: Acute (2) Abnormal stress ECG: Status: Acute (3) Sinus tachycardia: Status: Acute Plan EKG with sinus tachycardia, 110/Min; no significant ST-T changes to suggest ischemia. Uncertain etiology for his recurrent chest pain prompting several visits to urgent care. High sensitivity troponins are negative x2. Hence there is no evidence of acute coronary syndrome. However, due to recurrent provider visits, we can do an inpatient stress perfusion imaging on Friday as well as an echocardiogram. There is also question of sarcoidosis on the CT scan of the chest and hence pulmonary consultation will be required as well. Procedures Date of Service Date of Service: 08/04/21
--- NOTE | 2021-08-04 10:30 | P.PNIM_ITS ---
Subjective Subjective Date of Service: 08/04/21 Interval History: Brief episode of mild L-sided chest pain this am that resolved spontaneously; currently pain-free. Dry cough for past 1 month. Review of Systems Review of Systems: Yes all other systems are reviewed and are negative Physical Exam Verdana 4l Vital Signs: Verdana 4d Verdana 4d Vital Signs: Verdana 4d Verdana 4Bd Last Vital Signs Verdana 4d Double End Sewer New 4d Double End Sewer New 4d Temp 97.6 F 08/04/21 07:37 Double End Sewer New 4d Pulse 90 08/04/21 07:37 Double End Sewer New 4d Resp 18 08/04/21 07:37 BP 112/81 08/04/21 07:37 Pulse Ox 94 08/04/21 07:37 BMI result Body Mass Index 24.3 Gen: in no acute distress HEENT: sclera anicteric, moist mucus membranes Neck: supple Lungs: clear to auscultation bilaterally Heart: regular rate and rhythm, no murmurs Abd: soft, non-tender, non-distended Ext: no edema Skin: warm/well-perfused Neuro: alert and oriented x3, no focal findings Psych: appropriate affect Objective Data Active Medications Acetaminophen (Acetaminophen 325 Mg Tablet) 650 mg PO Q6H PRN PRN Reason: Pain, Mild (Pain Scale 1-3) Albuterol Sulfate (Albuterol Sulfate 90 Mcg 8 Gm Inhaler) 2 puff INHALE Q4H PRN PRN Reason: wheezing/shortness of breath Aspirin (Aspirin 81 Mg Tab.Chew) 81 mg PO DAILY [facility] Last Admin: 08/04/21 08:46 Dose: 81 mg Documented by: COSMO Atorvastatin Calcium (Atorvastatin Calcium 80 Mg Tablet) 80 mg PO BEDTIME [facility] Last Admin: 08/03/21 21:02 Dose: 80 mg Documented by: DANIELLE Dextrose (Dextrose 50 % 25 Gm/50 Ml Syringe) 25 gm IVPUSH Q15M PRN; Protocol PRN Reason: per Hypoglycemia Standing Ord. Enoxaparin Sodium (Enoxaparin Sodium 40 Mg/0.4 Ml Syringe) 40 mg SUBCUT Q24H [facility] Last Admin: 08/03/21 21:02 Dose: 40 mg Documented by: DANIELLE Gabapentin (Gabapentin 100 Mg Capsule) 100 mg PO BID [facility] Last Admin: 08/04/21 08:46 Dose: 100 mg Documented by: COSMO Glucose (Glucose Gel 15 Gm Gel..Gram.) 15 gm PO Q15M PRN; Protocol PRN Reason: per Hypoglycemia Standing Ord. Insulin Human Lispro (Insulin Lispro 100 Unit/Ml 3 Ml Vial) 0 unit SUBCUT QIDACHS [facility]; Protocol Last Admin: 08/04/21 08:46 Dose: 2 unit Documented by: COSMO Nitroglycerin (Nitroglycerin 0.4 Mg Tab.Subl) 0.4 mg SUBLINGUAL Q5MX3 PRN PRN Reason: Chest Pain Ondansetron HCl (Ondansetron Hcl 4 Mg/2 Ml Vial) 4 mg IVPUSH Q8H PRN PRN Reason: Nausea and Vomiting Ropinirole HCl (Ropinirole Hcl 1 Mg Tablet) 1 mg PO BEDTIME [facility] Last Admin: 08/03/21 22:03 Dose: 1 mg Documented by: NAZ Sodium Chloride (0.9 % Sodium Chloride Flush 3 Ml Syringe) 3 ml IVFLUSH QSHIFT [facility] Last Admin: 08/04/21 08:46 Dose: 3 ml Documented by: COSMO Labs CBC & Chem 7: 08/03/21 14:41 08/03/21 14:41 Labs: Laboratory Results - last 24 hr 08/03/21 08/03/21 08/03/21 14:41 14:41 14:41 MCV 89.1 MCH 30.3 MCHC 34.0 RDW 12.2 Plt Count 291 MPV 11.2 Immature Gran % (Auto) 0.1 Neut % (Auto) 65.8 Lymph % (Auto) 21.6 [place] % (Auto) 9.9 Eos % (Auto) 1.9 Baso % (Auto) 0.7 Lymph # (Auto) 1.5 [place] # (Auto) 0.7 Eos # (Auto) 0.1 Baso # (Auto) 0.1 Abs Immat Gran (auto) 0.01 Absolute Neuts (auto) 4.5 Absolute Nucleated RBC 0.000 Nucleated RBC % (auto) 0.0 D-Dimer High Sensitivty 265 Anion Gap 13 Estim Creat Clear Calc 97.8 Estimated GFR > 60 POC Glucose Random Glucose 152 H Estimat Average Glucose Hemoglobin A1c % Calcium 10.3 H D Total Bilirubin 1.6 H AST 22 ALT 38 Alkaline Phosphatase 151 H B-Natriuretic Peptide Total Protein 8.4 H Albumin 4.4 COVID-19 (JACOB) COVID-19 Clin Com 08/03/21 08/03/21 08/03/21 14:41 14:41 14:41 MCV MCH MCHC RDW Plt Count MPV Immature Gran % (Auto) Neut % (Auto) Lymph % (Auto) [place] % (Auto) Eos % (Auto) Baso % (Auto) Lymph # (Auto) [place] # (Auto) Eos # (Auto) Baso # (Auto) Abs Immat Gran (auto) Absolute Neuts (auto) Absolute Nucleated RBC Nucleated RBC % (auto) D-Dimer High Sensitivty Anion Gap Estim Creat Clear Calc Estimated GFR POC Glucose Random Glucose Estimat Average Glucose 197 Hemoglobin A1c % 8.5 Calcium Total Bilirubin AST ALT Alkaline Phosphatase B-Natriuretic Peptide < 10 Total Protein Albumin COVID-19 (JACOB) Negative COVID-19 Clin [facility] See Note 08/03/21 08/04/21 20:46 07:36 MCV MCH MCHC RDW Plt Count MPV Immature Gran % (Auto) Neut % (Auto) Lymph % (Auto) [place] % (Auto) Eos % (Auto) Baso % (Auto) Lymph # (Auto) [place] # (Auto) Eos # (Auto) Baso # (Auto) Abs Immat Gran (auto) Absolute Neuts (auto) Absolute Nucleated RBC Nucleated RBC % (auto) D-Dimer High Sensitivty Anion Gap Estim Creat Clear Calc Estimated GFR POC Glucose 166 H 153 H Random Glucose Estimat Average Glucose Hemoglobin A1c % Calcium Total Bilirubin AST ALT Alkaline Phosphatase B-Natriuretic Peptide Total Protein Albumin COVID-19 (JACOB) COVID-19 Clin Com Assessment and Plan (1) Chest pain: Status: Acute (2) Abnormal CT scan of lung: Status: Acute Plan hospital d#2 55yo M with DM and HLD undergoing workup for intermittent chest pain and palpitations for past 4 mo, with a recent abnormal exercise stress test, presenting with chest pain suspicious for angina. # chest pain - serial hs-Tn-I negative and no ischemic EKG changes. given repeated visits to Urgent Care and underlying risk factors, will do inpt stress test 08/06/21 + TTE. Cardiology consulted. continue ASA + high-intensity statin. # mediastinal adenopathy - question of sarcoidosis.? check KAT level and Pulm consult pending. # ground-glass opacity on CT - Covid-19 JACOB negative.? RVP PCR ordered. Pulm consult as above # intermittent asthma - prn albuterol # DM2, A1c 8.5 - correction-dose lispro, hold MTF # VTE ppx - LMWH Quality Stroke Does the patient have a stroke diagnosis?: No VTE Prior VTE?: No VTE Risk Level:: Medical - moderate - high VTE Device Contraindication: N/A - Device Ordered VTE Drug Contraindication: N/A - Med Ordered
[2021-08-04 11:48] VITALS: BP 110/79; PULSE 102; RESP 18; TEMP 36.9; O2SAT 92
--- NOTE | 2021-08-04 12:01 | MHC.CM.PN ---
PATIENT LIVES WITH HIS SISTER/NEW HCP AGENT (NOW IN CHART) NO DME OR VNA IN THE HOME CAR IS IN [facility] LOT PLAN IS FOR NUCLEAR STRESS TEST ON FRIDAY AND POSSIBLE DC TO HOME. PATIENT HAS BEEN COVID VACCINATED MODERNA SERIES 03/02/21 04/02/21 INFORMATION ADDED TO KAMERON. HALE 08/04 IN CHART.
[2021-08-04 12:13] LABS: Glucose, Whole Blood 204 mg/dL (60-115)
[2021-08-04 13:01] LABS: Adenovirus PCR Not Detected (Not Detect.); Bordetella parapertussis PCR Not Detected (Not Detect.); Bordetella pertussis PCR Not Detected (Not Detect.); Chlamydia pneumoniae PCR Not Detected (Not Detect.); Coronavirus 229E PCR Not Detected (Not Detect.); Coronavirus HKU1 PCR Not Detected (Not Detect.); Coronavirus NL63 PCR Not Detected (Not Detect.); Coronavirus OC43 PCR Not Detected (Not Detect.); Human metapneumovirus PCR Not Detected (Not Detect.); Influenza A PCR Not Detected (Not Detect.); Influenza B PCR Not Detected (Not Detect.); Mycoplasma pneumoniae PCR Not Detected (Not Detect.); Parainfluenza 1 PCR Not Detected (Not Detect.); Parainfluenza 2 PCR Not Detected (Not Detect.); Parainfluenza 3 PCR Not Detected (Not Detect.); Parainfluenza 4 PCR Not Detected (Not Detect.); RSV PCR Not Detected (Not Detect.); Rhino/Enterovirus PCR Not Detected (Not Detect.); SARS-CoV-2 PCR Not Detected (Not Detect.)
--- NOTE | 2021-08-04 15:54 | P.CONPL_ITS ---
History of Present Illness History of Present Illness Consult date: 08/04/21 Chief complaint: chest pain Narrative: This is an inpatient pulmonary consultation. The patient is a 55yo M with DM2 and HLD who has been undergoing workup with [facility] for intermittent chest pain and palpitations for the past 4 months.? He had an exercise EKG stress test on 06/18/21 showing: atigue, without anginal symptoms, without arrythmia, with normotensive and brisk chronotropic response to exercise, without EKG changes meeting criteria?for ischemia. In recovery heart rate was slow to return to baseline. Pt was given 12 oz water to drink and placed with supine positon with improvement. In recovery there is downsloping ST inferiorly and V6 with gradual improvement. Today, however, he was driving when he developed sudden onset of severe L-sided chest pain radiating down his L arm.? Pain was sharp and associated with dyspnea and nausea.? It lasted about 2 minutes.? Currently pain-free.? Initial hs-Tn-I <3.5 and EKG NSR without ischemic changes. Given the recent abnormal stress test, Cardiology was contacted by the ED, and admission was recommended.? CTA of the chest was nondiagnostic for PE.? There was bilateral mediastinal adenopathy, rasigin the question of sarcoidosis. In the year the patient did have a CT scan which I personally reviewed. He did have evidence of mediastinal and hilar lymphadenopathy. I did compared to a CT scan he had back about a month ago and was about the same. He also has a chronic elevated left hemidiaphragm. In addition to that there was some areas of ground-glass opacities in the right hemithorax. The patient tested negative for COVID-19. He denies having recent COVID-19. I believe he had in beginning of the pandemic. Otherwise patient is without any other complaints he does complaint of a headache does likely secondary to his nitroglycerin patch. We did talk about the CT scan findings. At this point the patient does not need any diagnostic testing. However, will set follow-up as an outpatient for here imaging. If the patient continues with persistent lymphadenopathy then will have to consider sampling Pretty the lungs to rule out lymphoproliferative conditions and or inflammatory conditions like sarcoid. Review of Systems Verdana 4l Review of Systems: Verdana 4d Yes all other systems are reviewed and are negative Verdana 4l Cardiovascular: Verdana 4d Verdana 4d Cardiovascular: Verdana 4d Reports as per HPI, Reports no additional cardiovascular complaints, Denies acrocyanosis, Denies cool extremities, Denies painful fingertips, Reports chest pain, Reports chest pain at rest, Denies diaphoresis, DeniesDenies syncope, Denies irregular heart rhythm, Denies claudication, Denies leg edema, Denies lightheadedness, Denies palpitations and Denies dyspnea Respiratory: Respiratory: Denies dyspnea Neurologic: Denies syncope Endocrine: Endocrine: Denies palpitations [facility] Past Medical History Medical History (Updated 08/04/21 @ 16:31 by Hayder Jarrett MD) Asthma Bilateral hilar adenopathy syndrome Diabetes Elevated diaphragm High cholesterol Left foot pain Lymphadenopathy, mediastinal Family History Family History Father Cancer Mother Diabetes mellitus Maternal Grandfather Unknown family medical history Maternal Grandmother Unknown family medical history Paternal Grandfather Unknown family medical history Paternal Grandmother No problems noted. Sister No problems noted. Sister No problems noted. Sister No problems noted. Daughter No problems noted. Surgical History Surgical History Bone spur History of colonoscopy Social History Social History Housing: House Alcohol intake: never Patient Tobacco Use Status: Never used Tobacco e-Cigarette/Vaping Use: Never Used Second Hand Smoke Exposure: Yes service: No Current occupational status: retired [employer] Allergies Allergy/AdvReac Type Severity Reaction Status Date / Time No Known Drug Allergies Allergy Unknown Unknown Verified 08/01/21 14:18 Active Medications: Current Medications Acetaminophen (Acetaminophen 325 Mg Tablet) 650 mg PO Q6H PRN PRN Reason: Pain, Mild (Pain Scale 1-3) Albuterol Sulfate (Albuterol Sulfate 90 Mcg 8 Gm Inhaler) 2 puff INHALE Q4H PRN PRN Reason: wheezing/shortness of breath Aspirin (Aspirin 81 Mg Tab.Chew) 81 mg PO DAILY [facility] Last Admin: 08/04/21 08:46 Dose: 81 mg Documented by: Atorvastatin Calcium (Atorvastatin Calcium 80 Mg Tablet) 80 mg PO BEDTIME [facility] Last Admin: 08/03/21 21:02 Dose: 80 mg Documented by: Dextrose (Dextrose 50 % 25 Gm/50 Ml Syringe) 25 gm IVPUSH Q15M PRN; Protocol PRN Reason: per Hypoglycemia Standing Ord. Enoxaparin Sodium (Enoxaparin Sodium 40 Mg/0.4 Ml Syringe) 40 mg SUBCUT Q24H [facility] Last Admin: 08/03/21 21:02 Dose: 40 mg Documented by: Gabapentin (Gabapentin 100 Mg Capsule) 100 mg PO BID [facility] Last Admin: 08/04/21 08:46 Dose: 100 mg Documented by: Glucose (Glucose Gel 15 Gm Gel..Gram.) 15 gm PO Q15M PRN; Protocol PRN Reason: per Hypoglycemia Standing Ord. Insulin Human Lispro (Insulin Lispro 100 Unit/Ml 3 Ml Vial) 0 unit SUBCUT QIDACHS [facility]; Protocol Last Admin: 08/04/21 12:34 Dose: 4 unit Documented by: Nitroglycerin (Nitroglycerin 0.4 Mg Tab.Subl) 0.4 mg SUBLINGUAL Q5MX3 PRN PRN Reason: Chest Pain Ondansetron HCl (Ondansetron Hcl 4 Mg/2 Ml Vial) 4 mg IVPUSH Q8H PRN PRN Reason: Nausea and Vomiting Ropinirole HCl (Ropinirole Hcl 1 Mg Tablet) 1 mg PO BEDTIME [facility] Last Admin: 08/03/21 22:03 Dose: 1 mg Documented by: Sodium Chloride (0.9 % Sodium Chloride Flush 3 Ml Syringe) 3 ml IVFLUSH QSHIFT [facility] Last Admin: 08/04/21 08:46 Dose: 3 ml Documented by: Home Medications Medication Instructions Recorded Confirmed Last Taken Type dulaglutide 1.5 1.5 mg SUBCUT TU 08/03/21 08/03/21 08/01/21 History mg/0.5 mL subcutaneous pen injector metformin 1,000 1 tab PO BID 08/03/21 08/03/21 08/03/21 History mg tablet Physical Exam Verdana 4l Vital Signs: Verdana 4d Verdana 4d Vital Signs: Verdana 4d Verdana 4Bd Last Vital Signs Verdana 4d Spray Foam Installer New 4d Kera New 4d Temp 98.5 F 08/04/21 11:48 Kera Ch 4d Pulse 102 H 08/04/21 11:48 Kera New 4d Resp 18 08/04/21 11:48 BP 110/79 08/04/21 11:48 Pulse Ox 92 08/04/21 11:48 BMI result Body Mass Index 24.3 Const: General: alert Neck: Neck: Yes normal visual inspection, Yes full ROM and Yes no lymphadenopathy Chest: Chest palpation & inspection: normal inspection of the chest Resp: Auscultation: diminished lung sounds Cardio: Rate: regular rate Rhythm: regular rhythm Heart sounds: S1 normal heart sound present and S2 normal heart sound present GI: Palpation (GI): Soft to palpation and nontender Auscultation: normal bowel sounds Skin: General skin exam: rashes and/or lesions noted Results Laboratory Findings CBC and BMP: 08/03/21 14:41 08/03/21 14:41 Abnormal lab findings: Abnormal Labs 08/03/21 08/03/21 08/04/21 14:41 20:46 07:36 Carbon Dioxide 30 H POC Glucose 166 H 153 H Random Glucose 152 H Calcium 10.3 H D Total Bilirubin 1.6 H Alkaline Phosphatase 151 H Total Protein 8.4 H 08/04/21 11:47 Carbon Dioxide POC Glucose 204 H Random Glucose Calcium Total Bilirubin Alkaline Phosphatase Total Protein Assessment and Plan (1) Elevated diaphragm: Status: Acute (2) Lymphadenopathy, mediastinal: Status: Acute (3) Bilateral hilar adenopathy syndrome: Status: Acute (4) Chest pain: Status: Acute Plan The patient is presenting with chest discomfort found to have abnormal findings on his CT scan including an elevated left hemidiaphragm and also lymphadenopathy. At this point these findings on likely the result of his chest pain since he had been there even prior to this presentation. Need to consider underlying lymphoproliferative conditions and or inflammatory conditions. Based on his cardiac evaluation no additional testing is warranted at this time. Although, will make arrangements as an outpatient. Recommendations: Awaiting Alexei level although a negative Alexei level will not rule out sarcoidosis. If the Alexei level is elevated then we can consider the possibility of sarcoidosis more although it is not very specific test. Will plan outpatient follow-up with a CT scan in 3 months Procedures Date of Service Date of Service: 08/04/21
[2021-08-04 16:00] VITALS: BP 110/73; PULSE 108; RESP 18; TEMP 36.8; O2SAT 94
[2021-08-04 16:38] LABS: Glucose, Whole Blood 194 mg/dL (60-115)
[2021-08-04] MEDS: Acetaminophen 325 MG TABLET 650 MG PO (17:16)
[2021-08-04 19:59] VITALS: BP 116/77; PULSE 90; RESP 18; TEMP 36.7; O2SAT 93
[2021-08-04 20:19] LABS: Glucose, Whole Blood 229 mg/dL (60-115)
[2021-08-04] MEDS: Enoxaparin Sodium 40 MG/0.4 ML SYRINGE SUBCUT (22:06)
[2021-08-04] MEDS: rOPINIRole HCL 1 MG TABLET PO (22:06)
[2021-08-04] MEDS: Atorvastatin Calcium 80 MG TABLET PO (22:07)
[2021-08-04 23:28] VITALS: BP 118/62; PULSE 97; RESP 20; TEMP 36.4; O2SAT 96
[2021-08-05 03:12] VITALS: BP 99/54; PULSE 90; RESP 20; TEMP 36.2; O2SAT 92
[2021-08-05 07:44] VITALS: BP 105/62; PULSE 90; RESP 18; TEMP 36.5; O2SAT 93
[2021-08-05 08:08] LABS: Glucose, Whole Blood 164 mg/dL (60-115)
[2021-08-05] MEDS: 0.9 % Sodium Chloride Flush 3 ML SYRINGE IVFLUSH ×3 (09:12→20:27)
[2021-08-05] MEDS: Aspirin 81 MG TAB.CHEW PO (09:12)
[2021-08-05] MEDS: Gabapentin 100 MG CAPSULE PO ×2 (09:12→20:27)
[2021-08-05] MEDS: Insulin Lispro 100 UNIT/ML 3 ML VIAL SUBCUT ×4 (09:12→20:27)
--- NOTE | 2021-08-05 10:01 | P.PNIM_ITS ---
Subjective Subjective Date of Service: 08/05/21 Interval History: No further episodes of chest pain. Mild cough improving. No dyspnea. Review of Systems Review of Systems: Yes all other systems are reviewed and are negative Physical Exam Verdana 4l Vital Signs: Verdana 4d Verdana 4d Vital Signs: Verdana 4d Verdana 4Bd Last Vital Signs Verdana 4d Wet Washer Machine New 4d Wet Washer Machine New 4d Temp 97.7 F 08/05/21 07:44 Wet Washer Machine New 4d Pulse 90 08/05/21 07:44 Wet Washer Machine New 4d Resp 18 08/05/21 07:44 BP 105/62 08/05/21 07:44 Pulse Ox 93 08/05/21 07:44 BMI result Body Mass Index 24.3 Gen: in no acute distress HEENT: sclera anicteric, moist mucus membranes Neck: supple Lungs: clear to auscultation bilaterally Heart: regular rate and rhythm, no murmurs Abd: soft, non-tender, non-distended Ext: no edema Skin: warm/well-perfused Neuro: alert and oriented x3, no focal findings Psych: appropriate affect Objective Data Active Medications Acetaminophen (Acetaminophen 325 Mg Tablet) 650 mg PO Q6H PRN PRN Reason: Pain, Mild (Pain Scale 1-3) Last Admin: 08/04/21 17:16 Dose: 650 mg Documented by: COSMO Albuterol Sulfate (Albuterol Sulfate 90 Mcg 8 Gm Inhaler) 2 puff INHALE Q4H PRN PRN Reason: wheezing/shortness of breath Aspirin (Aspirin 81 Mg Tab.Chew) 81 mg PO DAILY [facility] Last Admin: 08/05/21 09:12 Dose: 81 mg Documented by: COSMO Atorvastatin Calcium (Atorvastatin Calcium 80 Mg Tablet) 80 mg PO BEDTIME [facility] Last Admin: 08/04/21 22:07 Dose: 80 mg Documented by: LUDWIG Dextrose (Dextrose 50 % 25 Gm/50 Ml Syringe) 25 gm IVPUSH Q15M PRN; Protocol PRN Reason: per Hypoglycemia Standing Ord. Enoxaparin Sodium (Enoxaparin Sodium 40 Mg/0.4 Ml Syringe) 40 mg SUBCUT Q24H [facility] Last Admin: 08/04/21 22:06 Dose: 40 mg Documented by: LUDWIG Gabapentin (Gabapentin 100 Mg Capsule) 100 mg PO BID [facility] Last Admin: 08/05/21 09:12 Dose: 100 mg Documented by: COSMO Glucose (Glucose Gel 15 Gm Gel..Gram.) 15 gm PO Q15M PRN; Protocol PRN Reason: per Hypoglycemia Standing Ord. Insulin Human Lispro (Insulin Lispro 100 Unit/Ml 3 Ml Vial) 0 unit SUBCUT QIDACHS [facility]; Protocol Last Admin: 08/05/21 09:12 Dose: 2 unit Documented by: COSMO Nitroglycerin (Nitroglycerin 0.4 Mg Tab.Subl) 0.4 mg SUBLINGUAL Q5MX3 PRN PRN Reason: Chest Pain Ondansetron HCl (Ondansetron Hcl 4 Mg/2 Ml Vial) 4 mg IVPUSH Q8H PRN PRN Reason: Nausea and Vomiting Ropinirole HCl (Ropinirole Hcl 1 Mg Tablet) 1 mg PO BEDTIME [facility] Last Admin: 08/04/21 22:06 Dose: 1 mg Documented by: LUDWIG Sodium Chloride (0.9 % Sodium Chloride Flush 3 Ml Syringe) 3 ml IVFLUSH QSHIFT [facility] Last Admin: 08/05/21 09:12 Dose: 3 ml Documented by: COSMO Labs CBC & Chem 7: 08/03/21 14:41 08/03/21 14:41 Labs: Laboratory Results - last 24 hr 08/04/21 08/04/21 08/04/21 11:33 11:47 16:19 POC Glucose 204 H 194 H Respiratory Panel Thompson See Note Adenovirus (Rapid PCR) Not Detected B.pert (TEM-PCR) Not Detected B.parapertussis DNA PCR Not Detected C. pneumoniae DNA (PCR) Not Detected Coronavirus OC43 (PCR) Not Detected Coronavirus HKU1 (PCR) Not Detected Coronavirus 229E (PCR) Not Detected Coronavirus NL63 (PCR) Not Detected Human Metapneumovir PCR Not Detected Influenza A (RT-PCR) Not Detected Influenza B (RT-PCR) Not Detected M. pneumoniae (PCR) Not Detected Parainfluenza 1 (PCR) Not Detected Parainfluenza 2 (PCR) Not Detected Parainfluenza 3 (PCR) Not Detected Parainfluenza 4 (PCR) Not Detected RSV (PCR) Not Detected Entero/Rhino (PCR) Not Detected SARS-CoV-2 RNA (RT-PCR) Not Detected 08/04/21 08/05/21 20:00 07:44 POC Glucose 229 H 164 H Respiratory Panel [facility] Adenovirus (Rapid PCR) B.pert (TEM-PCR) B.parapertussis DNA PCR C. pneumoniae DNA (PCR) Coronavirus OC43 (PCR) Coronavirus HKU1 (PCR) Coronavirus 229E (PCR) Coronavirus NL63 (PCR) Human Metapneumovir PCR Influenza A (RT-PCR) Influenza B (RT-PCR) M. pneumoniae (PCR) Parainfluenza 1 (PCR) Parainfluenza 2 (PCR) Parainfluenza 3 (PCR) Parainfluenza 4 (PCR) RSV (PCR) Entero/Rhino (PCR) SARS-CoV-2 RNA (RT-PCR) Assessment and Plan (1) Chest pain: Status: Acute (2) Abnormal CT scan of lung: Status: Acute Plan hospital d#3 55yo M with DM and HLD undergoing workup for intermittent chest pain and palpitations for past 4 mo, with a recent abnormal exercise stress test, presenting with chest pain suspicious for angina. # chest pain - serial hs-Tn-I negative and no ischemic EKG changes. given repeated visits to Urgent Care and underlying risk factors, will do inpt stress test +TTE 08/06/21. Cardiology consulted. continue ASA + high-intensity statin. # mediastinal adenopathy - question of sarcoidosis.? KAT level pending. Pulm consulted; will f/u as ou tpt with repeat CT scan in 3 mo # ground-glass opacity on CT - Covid-19 JACOB + PCR negative.? Repeat CT scan in 3 mo as above # intermittent asthma - prn albuterol # DM2, A1c 8.5 - correction-dose lispro, hold MTF # VTE ppx - LMWH Quality Stroke Does the patient have a stroke diagnosis?: No VTE Prior VTE?: No VTE Risk Level:: Medical - moderate - high VTE Device Contraindication: N/A - Device Ordered VTE Drug Contraindication: N/A - Med Ordered
--- NOTE | 2021-08-05 10:55 | P.PNCA_ITS ---
Subjective Subjective Date of Service: 08/05/21 Interval history: Feels ok. Review of Systems Review of Systems Yes all other systems are reviewed and are negative Cardiovascular: Reports as per HPI, Reports no additional cardiovascular complaints, Denies acrocyanosis, Denies cool extremities, Denies painful fingertips, Reports chest pain, Reports chest pain at rest, Denies diaphoresis, Denies syncope, Denies irregular heart rhythm, Denies claudication, Denies leg edema, Denies lightheadedness, Denies palpitations and Denies dyspnea Respiratory: Denies dyspnea Denies syncope Endocrine: Denies palpitations Physical Exam Vital Signs: Last Vital Signs Temp 97.7 F 08/05/21 07:44 Pulse 90 08/05/21 07:44 Resp 18 08/05/21 07:44 BP 105/62 08/05/21 07:44 Pulse Ox 93 08/05/21 07:44 BMI result Verdana 4 Body Mass Index Verdana 4 24.3 Verdana 4 Verdana 4 Const General: no acute distress HENMT Other: Unremarkable Neck Neck: Yes normal visual inspection Chest Chest palpation & inspection: normal inspection of the chest Resp Auscultation: no crackles and no wheezes Cardio Palpation: normal PMI Heart sounds: S1 normal heart sound present, S2 normal heart sound present, no gallops, no murmurs and no rubs GI Palpation (GI): Soft to palpation Back/Spine/Pelvis Other: unremarkable Skin Lesions: other Neuro Cranial nerves: Yes Other cranial nerve findings present Extrem General: Yes other Psych Mental Status: other Objective Labs and Meds Result diagrams: 08/03/21 14:41 08/03/21 14:41 Lab results: Laboratory Results - last 24 hr 08/04/21 08/04/21 08/04/21 11:33 11:47 16:19 POC Glucose 204 H 194 H Respiratory Panel [facility] See Note Adenovirus (Rapid PCR) Not Detected B.pert (TEM-PCR) Not Detected B.parapertussis DNA PCR Not Detected C. pneumoniae DNA (PCR) Not Detected Coronavirus OC43 (PCR) Not Detected Coronavirus HKU1 (PCR) Not Detected Coronavirus 229E (PCR) Not Detected Coronavirus NL63 (PCR) Not Detected Human Metapneumovir PCR Not Detected Influenza A (RT-PCR) Not Detected Influenza B (RT-PCR) Not Detected M. pneumoniae (PCR) Not Detected Parainfluenza 1 (PCR) Not Detected Parainfluenza 2 (PCR) Not Detected Parainfluenza 3 (PCR) Not Detected Parainfluenza 4 (PCR) Not Detected RSV (PCR) Not Detected Entero/Rhino (PCR) Not Detected SARS-CoV-2 RNA (RT-PCR) Not Detected 08/04/21 08/05/21 20:00 07:44 POC Glucose 229 H 164 H Respiratory Panel [facility] Adenovirus (Rapid PCR) B.pert (TEM-PCR) B.parapertussis DNA PCR C. pneumoniae DNA (PCR) Coronavirus OC43 (PCR) Coronavirus HKU1 (PCR) Coronavirus 229E (PCR) Coronavirus NL63 (PCR) Human Metapneumovir PCR Influenza A (RT-PCR) Influenza B (RT-PCR) M. pneumoniae (PCR) Parainfluenza 1 (PCR) Parainfluenza 2 (PCR) Parainfluenza 3 (PCR) Parainfluenza 4 (PCR) RSV (PCR) Entero/Rhino (PCR) SARS-CoV-2 RNA (RT-PCR) Progress Note: A&P Assessment and plan (1) Precordial chest pain: Status: Acute (2) Abnormal stress ECG: Status: Acute (3) Sinus tachycardia: Status: Acute Plan EKG with sinus tachycardia, 110/Min; no significant ST-T changes to suggest ischemia. Uncertain etiology for his recurrent chest pain prompting several visits to urgent care. High sensitivity troponins are negative x2. Hence there is no evidence of acute coronary syndrome. However, due to recurrent provider visits, we can do an inpatient stress perfusion imaging on Friday as well as an echocardiogram. Pulmonary consultation noted regarding question of sarcoidosis. Fall Risk Details Current Medications: Current Medications Acetaminophen (Acetaminophen 325 Mg Tablet) 650 mg PO Q6H PRN PRN Reason: Pain, Mild (Pain Scale 1-3) Last Admin: 08/04/21 17:16 Dose: 650 mg Documented by: Albuterol Sulfate (Albuterol Sulfate 90 Mcg 8 Gm Inhaler) 2 puff INHALE Q4H PRN PRN Reason: wheezing/shortness of breath Aspirin (Aspirin 81 Mg Tab.Chew) 81 mg PO DAILY [facility] Last Admin: 08/05/21 09:12 Dose: 81 mg Documented by: Atorvastatin Calcium (Atorvastatin Calcium 80 Mg Tablet) 80 mg PO BEDTIME [facility] Last Admin: 08/04/21 22:07 Dose: 80 mg Documented by: Dextrose (Dextrose 50 % 25 Gm/50 Ml Syringe) 25 gm IVPUSH Q15M PRN; Protocol PRN Reason: per Hypoglycemia Standing Ord. Enoxaparin Sodium (Enoxaparin Sodium 40 Mg/0.4 Ml Syringe) 40 mg SUBCUT Q24H [facility] Last Admin: 08/04/21 22:06 Dose: 40 mg Documented by: Gabapentin (Gabapentin 100 Mg Capsule) 100 mg PO BID [facility] Last Admin: 08/05/21 09:12 Dose: 100 mg Documented by: Glucose (Glucose Gel 15 Gm Gel..Gram.) 15 gm PO Q15M PRN; Protocol PRN Reason: per Hypoglycemia Standing Ord. Insulin Human Lispro (Insulin Lispro 100 Unit/Ml 3 Ml Vial) 0 unit SUBCUT QIDACHS [facility]; Protocol Last Admin: 08/05/21 09:12 Dose: 2 unit Documented by: Nitroglycerin (Nitroglycerin 0.4 Mg Tab.Subl) 0.4 mg SUBLINGUAL Q5MX3 PRN PRN Reason: Chest Pain Ondansetron HCl (Ondansetron Hcl 4 Mg/2 Ml Vial) 4 mg IVPUSH Q8H PRN PRN Reason: Nausea and Vomiting Ropinirole HCl (Ropinirole Hcl 1 Mg Tablet) 1 mg PO BEDTIME [facility] Last Admin: 08/04/21 22:06 Dose: 1 mg Documented by: Sodium Chloride (0.9 % Sodium Chloride Flush 3 Ml Syringe) 3 ml IVFLUSH QSHIFT [facility] Last Admin: 08/05/21 09:12 Dose: 3 ml Documented by: Time Spent With Patient Time: Total time spent is greater than 50% in coordination of care (as documented) at patient's floor/unit and/or counseling patient: Time with patient: less than 15 minutes Progress Note: Quality Stroke Does the patient have a stroke diagnosis?: No Procedures Date of Service Date of Service: 08/05/21
[2021-08-05 11:31] VITALS: BP 106/66; PULSE 102; RESP 18; TEMP 36.6; O2SAT 94
[2021-08-05 12:06] LABS: Glucose, Whole Blood 188 mg/dL (60-115)
[2021-08-05 15:47] VITALS: BP 107/69; PULSE 100; RESP 18; TEMP 36.5; O2SAT 94
[2021-08-05 16:08] LABS: Glucose, Whole Blood 195 mg/dL (60-115)
[2021-08-05 19:28] VITALS: BP 130/88; PULSE 94; RESP 18; TEMP 36.7; O2SAT 93
[2021-08-05 19:44] LABS: Glucose, Whole Blood 202 mg/dL (60-115)
[2021-08-05] MEDS: Atorvastatin Calcium 80 MG TABLET PO (20:27)
[2021-08-05] MEDS: rOPINIRole HCL 1 MG TABLET PO (20:27)
[2021-08-05] MEDS: Enoxaparin Sodium 40 MG/0.4 ML SYRINGE SUBCUT (20:28)
[2021-08-05 23:43] VITALS: BP 104/74; PULSE 93; RESP 16; TEMP 36.5; O2SAT 91
[2021-08-06 03:51] VITALS: BP 96/61; PULSE 91; RESP 16; TEMP 36; O2SAT 97
--- NOTE | 2021-08-06 07:00 | CA_ITS ---
Acquisition Time: 2021-08-06 08:41:46 Total Exercise Time: 00:04:59 Test Indications: Abnormal Treadmill Test Medications: SEE EMAR Protocol: SAY Max HR: 166 BPM 101% of Pred: 163 BPM Max BP: 160/088 mmHG Max Work Load: 6.9 METS Exercise stress test with exercise 4 min 59 sec of Say protocol, with mild sob, no chest discomfort, without arrythmia, with sinus tachycardia at baseline with heart rate around 77% MPHR and it nidia to 102% MPHR with exercise, with normotensive response to exercise, without EKG changes meeting criteria for ischemia at peak, then at [address] abnormality inferiorly and V5-V6 , downsloping, with improvement by 9 minutes recovery. Heart rate settled to 115, 70% MPHR at test end. He was treated with 250cc normal saline and laying in supine position in recovery to assist with lowering torrez rate. Nuclear images pending. Test reviewed with Dr Kulkarni. Referred By: Crispin Barber Overread By: CALIXTO PEDROZA
[2021-08-06 07:38] VITALS: BP 109/72; PULSE 89; RESP 20; TEMP 36.8; O2SAT 93
[2021-08-06 07:50] LABS: Glucose, Whole Blood 133 mg/dL (60-115)
--- NOTE | 2021-08-06 08:30 | CA_ITS ---
Transthoracic Echocardiogram Patient (Last, First, Middle): Ivan Oakes, Gender: Male Date of : 1965 Age: 55 Procedure Date: 08/06/2021 Procedure Type: Transthoracic Echocardiogram Location: S3E Height: 177.8 cm Weight: 77.11 kg BSA: 1.95 m2 Heart Rate: bpm BP: 96 / 61 mmHg Care Transitions Nurse: ZAIN Wilkinson MD: Archana Salazar MD Symptoms: chest pain, assess for RWMA Study Quality: Fair/Contrast Conclusions: - Normal left ventricular size, thickness, systolic function, and wall motion. The visually estimated ejection fraction is between 55-60%. - Normal right ventricular cavity size and systolic function. Findings Procedure Information Contrast agent, definity, is being given per protocol without apparent complications. Left Ventricle Normal left ventricular size, thickness, systolic function, and wall motion. The visually estimated ejection fraction is between 55-60%. Abnormal diastolic function is noted. Spectral Doppler is indicative of an impaired relaxation filling pattern. E/E prime ratio is between 8 and 15 consistent with indeterminate filling pressures. Right Ventricle Normal right ventricular cavity size and systolic function. Atria The left atrium is normal in size. Aortic Valve There is a normal trileaflet aortic valve. There is mild thickening of the aortic valve. There is no aortic valve stenosis. There is no aortic valve regurgitation. Mitral Valve Normal mitral valve structure and function. There is no mitral valve regurgitation. There is no mitral valve stenosis. Pulmonic Valve The pulmonic valve is likely normal. Tricuspid Valve Normal tricuspid valve structure and function. There is trace tricuspid valve regurgitation. Tricuspid regurgitation envelope is inadequate for calculation of right ventricular systolic pressure. Normal right atrial pressure. Great Vessels All visible segments of the aorta are normal in size. The visualized portions of the pulmonary artery and branches are normal. Venous The inferior vena cava is normal in size and collapses greater than 50% with inspiration. Pericardium/Pleural There is no evidence of pericardial effusion. Prior Study Comparison No prior study available for comparison. Measurements 2D Linear Measurements IVSd: 0.78 0.6-0.9/0.6-1.0 cm LVIDd: 3.67 3.9-5.3/4.2-5.9 cm LVIDd Index: 1.88 2.4-3.2/2.2-3.1 cm/m2 LVIDs: 2.22 2.0-3.6 cm LVPWd: 0.75 0.7-1.1 cm Ao Root: 3.00 2.1-3.5 cm LA Diam: 2.10 2.7-3.8/3.0-4.0 cm LAIDs Index: 1.08 1.5-2.3 cm/m2 LV Mass: 94.66 67-162/88-224 g LV Mass Index: 48.54 43-95/49-115 g/m2 LVOT Diam: 2.10 3.0+(-)1.3 cm 2D Systolic Function EF 4C: 50.90 >55% EF 2C: 63.60 >55% EF BiP: 57.10 >55% Mitral Valve MV Pk E: 0.82 MV PK A: 0.97 MV Decel Time: 178.00 E/A: 0.80 E'Lateral: 6.42 E'Medial: 4.90 E/E' Med: 16.70 E/E' Lat: 12.70 PHT: 52.00 MVA PHT: 4.23 Decel Lander: 4.60 Aortic Valve AoV Pk Abhijit: 1.23 AoV Mn Abhijit: 0.89 AoV VTI: 0.19 AoV Pk Grad: 6.00 Aov Mn Grad: 3.00 YING Cont.VTI: 2.47 LVOT LVOT Pk Abhijit: 0.92 LVOT Mn Abhijit: 0.62 LVOT VTI: 0.13 LVOT Pk Grad: 3.00 LVOT Mn Grad: 2.00 LVOT Diam: 2.10 LVOT Area: 3.46 Diastolic Function MV Pk E: 0.82 MV Pk A: 0.97 E/A: 0.80 E'Medial: 4.90 E/E' Med: 16.70 E' Laterial: 6.42 E/E' Lat: 12.70 Right Ventricle TAPSE (mm): 10.90 TVS' Abhijit: 2.00 Tricuspid Valve RA Press: 3.00 Great Vessels Aorta Ao Root-2D: 3.00 2.0-3.7 cm Ao Asc: 2.80 2.1-3.4 cm Ao Arch: 2.40 Updated in Other Vendor System with Status of Final Jose L Kulkarni MD electronically signed on 08/06/2021 6:41:19 PM with status of Final
[2021-08-06 09:56] VITALS: BP 100/71; PULSE 115; RESP 18; TEMP 36.5; O2SAT 94
[2021-08-06] MEDS: Gabapentin 100 MG CAPSULE PO ×2 (10:07→20:49)
[2021-08-06] MEDS: 0.9 % Sodium Chloride Flush 3 ML SYRINGE IVFLUSH ×2 (10:08→16:01)
[2021-08-06] MEDS: Aspirin 81 MG TAB.CHEW PO (10:08)
--- NOTE | 2021-08-06 11:17 | PM.PNCARD ---
Subjective Subjective Date of Service: 08/06/21 Interval history: Asymptomatic today. Underwent stress test and echo today results are pending. Physical Exam Vital Signs: Last Vital Signs Temp 97.7 F 08/06/21 09:56 Pulse 115 H 08/06/21 09:56 Resp 18 08/06/21 09:56 BP 100/71 08/06/21 09:56 Pulse Ox 94 08/06/21 09:56 BMI result Body Mass Index 24.3 GENERAL APPEARANCE: in no acute distress, pleasant. NECK: no carotid bruit, no jugular venous distention. SKIN: no suspicious lesions, warm and dry. HEART: no murmurs, regular rate and rhythm. LUNGS: clear to auscultation bilaterally. ABDOMEN: soft, nontender. EXTREMITIES: no edema. PERIPHERAL PULSES: equal. NEUROLOGIC: No gross deficits, AAO X 3 Objective Labs and Meds Result diagrams: 08/03/21 14:41 08/03/21 14:41 Lab results: Laboratory Results - last 24 hr 08/05/21 08/05/21 08/05/21 11:30 15:49 19:30 POC Glucose 188 H 195 H 202 H 08/06/21 07:36 POC Glucose 133 H Progress Note: A&P Assessment and plan (1) Chest pain: Status: Acute Plan 55-year-old gentleman with recurrent chest pains. ECG has nonspecific changes at this point. Biomarkers are not elevated. He underwent echocardiography and stress test today. I will review them and then devise a plan. Overall clinical story seems quite atypical for ischemia Thank you for allowing me to participate in the care of your patient. Please feel free to contact me if you have any questions. Fall Risk Details Current Medications: Current Medications Acetaminophen (Acetaminophen 325 Mg Tablet) 650 mg PO Q6H PRN PRN Reason: Pain, Mild (Pain Scale 1-3) Last Admin: 08/04/21 17:16 Dose: 650 mg Documented by: Albuterol Sulfate (Albuterol Sulfate 90 Mcg 8 Gm Inhaler) 2 puff INHALE Q4H PRN PRN Reason: wheezing/shortness of breath Aspirin (Aspirin 81 Mg Tab.Chew) 81 mg PO DAILY [facility] Last Admin: 08/06/21 10:08 Dose: 81 mg Documented by: Atorvastatin Calcium (Atorvastatin Calcium 80 Mg Tablet) 80 mg PO BEDTIME [facility] Last Admin: 08/05/21 20:27 Dose: 80 mg Documented by: Dextrose (Dextrose 50 % 25 Gm/50 Ml Syringe) 25 gm IVPUSH Q15M PRN; Protocol PRN Reason: per Hypoglycemia Standing Ord. Enoxaparin Sodium (Enoxaparin Sodium 40 Mg/0.4 Ml Syringe) 40 mg SUBCUT Q24H [facility] Last Admin: 08/05/21 20:28 Dose: 40 mg Documented by: Gabapentin (Gabapentin 100 Mg Capsule) 100 mg PO BID [facility] Last Admin: 08/06/21 10:07 Dose: 100 mg Documented by: Glucose (Glucose Gel 15 Gm Gel..Gram.) 15 gm PO Q15M PRN; Protocol PRN Reason: per Hypoglycemia Standing Ord. Insulin Human Lispro (Insulin Lispro 100 Unit/Ml 3 Ml Vial) 0 unit SUBCUT QIDACHS [facility]; Protocol Last Admin: 08/06/21 08:45 Dose: Not Given Documented by: Nitroglycerin (Nitroglycerin 0.4 Mg Tab.Subl) 0.4 mg SUBLINGUAL Q5MX3 PRN PRN Reason: Chest Pain Ondansetron HCl (Ondansetron Hcl 4 Mg/2 Ml Vial) 4 mg IVPUSH Q8H PRN PRN Reason: Nausea and Vomiting Ropinirole HCl (Ropinirole Hcl 1 Mg Tablet) 1 mg PO BEDTIME [facility] Last Admin: 08/05/21 20:27 Dose: 1 mg Documented by: Sodium Chloride (0.9 % Sodium Chloride Flush 3 Ml Syringe) 3 ml IVFLUSH QSHIFT [facility] Last Admin: 08/06/21 10:08 Dose: 3 ml Documented by: Time Spent With Patient Time: Total time spent is greater than 50% in coordination of care (as documented) at patient's floor/unit and/or counseling patient: Time with patient: 15 - 24 minutes Progress Note: Quality Stroke Does the patient have a stroke diagnosis?: No Procedures Date of Service Date of Service: 08/06/21
[2021-08-06 11:28] VITALS: BP 112/72; PULSE 113; RESP 18; TEMP 36.9; O2SAT 94
[2021-08-06 11:33] LABS: Glucose, Whole Blood 205 mg/dL (60-115)
[2021-08-06] MEDS: Insulin Lispro 100 UNIT/ML 3 ML VIAL SUBCUT ×3 (12:04→20:47)
--- NOTE | 2021-08-06 14:25 | P.PNIM_ITS ---
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[employer]n New 4d Temp 98.4 F 08/06/21 11:28 Firer [employer]n New 4d Pulse 113 H 08/06/21 11:28 Firer Tunnel Kiln New 4d Resp 18 08/06/21 11:28 BP 112/72 08/06/21 11:28 Pulse Ox 94 08/06/21 11:28 BMI result Body Mass Index 24.3 Gen: in no acute distress HEENT: sclera anicteric, moist mucus membranes Neck: supple Lungs: clear to auscultation bilaterally Heart: regular rate and rhythm, no murmurs Abd: soft, non-tender, non-distended Ext: no edema Skin: warm/well-perfused Neuro: alert and oriented x3, no focal findings Psych: appropriate affect Objective Data Active Medications Acetaminophen (Acetaminophen 325 Mg Tablet) 650 mg PO Q6H PRN PRN Reason: Pain, Mild (Pain Scale 1-3) Last Admin: 08/04/21 17:16 Dose: 650 mg Documented by: COSMO Albuterol Sulfate (Albuterol Sulfate 90 Mcg 8 Gm Inhaler) 2 puff INHALE Q4H PRN PRN Reason: wheezing/shortness of breath Aspirin (Aspirin 81 Mg Tab.Chew) 81 mg PO DAILY [facility] Last Admin: 08/06/21 10:08 Dose: 81 mg Documented by: DEON Atorvastatin Calcium (Atorvastatin Calcium 80 Mg Tablet) 80 mg PO BEDTIME [facility] Last Admin: 08/05/21 20:27 Dose: 80 mg Documented by: LUDWIG Dextrose (Dextrose 50 % 25 Gm/50 Ml Syringe) 25 gm IVPUSH Q15M PRN; Protocol PRN Reason: per Hypoglycemia Standing Ord. Enoxaparin Sodium (Enoxaparin Sodium 40 Mg/0.4 Ml Syringe) 40 mg SUBCUT Q24H [facility] Last Admin: 08/05/21 20:28 Dose: 40 mg Documented by: LUDWIG Gabapentin (Gabapentin 100 Mg Capsule) 100 mg PO BID [facility] Last Admin: 08/06/21 10:07 Dose: 100 mg Documented by: DEON Glucose (Glucose Gel 15 Gm Gel..Gram.) 15 gm PO Q15M PRN; Protocol PRN Reason: per Hypoglycemia Standing Ord. Insulin Human Lispro (Insulin Lispro 100 Unit/Ml 3 Ml Vial) 0 unit SUBCUT QIDACHS [facility]; Protocol Last Admin: 08/06/21 12:04 Dose: 4 unit Documented by: DEON Nitroglycerin (Nitroglycerin 0.4 Mg Tab.Subl) 0.4 mg SUBLINGUAL Q5MX3 PRN PRN Reason: Chest Pain Ondansetron HCl (Ondansetron Hcl 4 Mg/2 Ml Vial) 4 mg IVPUSH Q8H PRN PRN Reason: Nausea and Vomiting Ropinirole HCl (Ropinirole Hcl 1 Mg Tablet) 1 mg PO BEDTIME [facility] Last Admin: 08/05/21 20:27 Dose: 1 mg Documented by: LUDWIG Sodium Chloride (0.9 % Sodium Chloride Flush 3 Ml Syringe) 3 ml IVFLUSH QSHIFT [facility] Last Admin: 08/06/21 10:08 Dose: 3 ml Documented by: DEON Labs CBC & Chem 7: 08/03/21 14:41 08/03/21 14:41 Labs: Laboratory Results - last 24 hr 08/05/21 08/05/21 08/06/21 15:49 19:30 07:36 POC Glucose 195 H 202 H 133 H 08/06/21 11:28 POC Glucose 205 H Assessment and Plan (1) Chest pain: Status: Acute (2) Abnormal CT scan of lung: Status: Acute Plan hospital d#4 55yo M with DM and HLD undergoing workup for intermittent chest pain and palpitations for past 4 mo, with a recent abnormal exercise stress test, presenting with chest pain suspicious for angina. # chest pain - serial hs-Tn-I negative and no ischemic EKG changes. given repeated visits to Urgent Care and underlying risk factors, he is getting stress test and TTE today. Cardiology consulted. continue ASA + high-intensity statin. # mediastinal adenopathy - question of sarcoidosis.? KAT level pending. Pulm consulted; will f/u as outpt with repeat CT scan in 3 mo # ground-glass opacity on CT - Covid-19 JACOB + PCR negative as well as other RVP PCR negative. Repeat CT scan in 3 mo as above # intermittent asthma - prn albuterol # DM2, A1c 8.5 - correction-dose lispro, hold MTF # VTE ppx - LMWH Quality Stroke Does the patient have a stroke diagnosis?: No VTE Prior VTE?: No VTE Risk Level:: Medical - moderate - high VTE Device Contraindication: N/A - Device Ordered VTE Drug Contraindication: N/A - Med Ordered
[2021-08-06 15:32] VITALS: BP 99/67; PULSE 99; RESP 18; TEMP 36.9; O2SAT 93
[2021-08-06 16:01] LABS: Glucose, Whole Blood 224 mg/dL (60-115)
[2021-08-06] MEDS: Acetaminophen 325 MG TABLET 650 MG PO (17:27)
[2021-08-06 19:22] VITALS: BP 111/81; PULSE 81; RESP 18; TEMP 36.8; O2SAT 92
[2021-08-06 20:04] LABS: Glucose, Whole Blood 154 mg/dL (60-115)
[2021-08-06] MEDS: Enoxaparin Sodium 40 MG/0.4 ML SYRINGE SUBCUT (20:48)
[2021-08-06] MEDS: Atorvastatin Calcium 80 MG TABLET PO (20:49)
[2021-08-06] MEDS: rOPINIRole HCL 1 MG TABLET PO (20:49)
[2021-08-07] VITALS: BP 109/73; PULSE 84; RESP 14; TEMP 36.1; O2SAT 94
[2021-08-07] MEDS: 0.9 % Sodium Chloride Flush 3 ML SYRINGE IVFLUSH ×2 (00:25→08:40)
[2021-08-07 03:48] VITALS: BP 116/76; PULSE 79; RESP 14; TEMP 36.2; O2SAT 94
[2021-08-07 07:25] VITALS: BP 113/82; PULSE 86; RESP 18; TEMP 37.1; O2SAT 93
[2021-08-07 07:30] LABS: Glucose, Whole Blood 161 mg/dL (60-115)
[2021-08-07] MEDS: Gabapentin 100 MG CAPSULE PO (08:40)
[2021-08-07] MEDS: Aspirin 81 MG TAB.CHEW PO (08:40)
[2021-08-07] MEDS: Insulin Lispro 100 UNIT/ML 3 ML VIAL SUBCUT ×2 (08:40→11:50)
[2021-08-07 11:38] VITALS: BP 107/67; PULSE 97; RESP 18; TEMP 36.4; O2SAT 95
[2021-08-07 11:39] LABS: Glucose, Whole Blood 180 mg/dL (60-115)
--- NOTE | 2021-08-07 13:34 | P.DS_ITS ---
DS: Providers Provider Date of Service: 08/07/21 Date of admission: 08/03/21 17:29 Primary care physician: MICHAEL Santos Consults: 08/03/21 17:30 Consult to Pulmonology Routine Consulting Provider: [facility] Pulmonology [facility] Reason for consultation: bilateral mediastinal adenopathy, suspicious for sarcoidosis 08/03/21 17:31 Consult to Cardiology Routine Consulting Provider: Crispin Barber Reason for consultation: anginal chest pain DS: Diagnosis Discharge Diagnosis (1) Chest pain: Status: Acute (2) Abnormal CT scan of lung: Status: Acute (3) Bilateral hilar adenopathy syndrome: Status: Acute (4) Lymphadenopathy, mediastinal: Status: Acute DS: Summary Hospital Course Hospital Course: from my admission H+P, 08/03/21: 55yo M with DM2 and HLD who has been undergoing workup with [facility] Cardiology for intermittent chest pain and palpitations for the past 4 months.? He had an exercise EKG stress test on 06/18/21 showing: atigue, without anginal symptoms, without arrythmia, with normotensive and brisk chronotropic response to exercise, without EKG changes meeting criteria?for ischemia. In recovery heart rate was slow to return to baseline. Pt was given 12 oz water to drink and placed with supine positon with improvement. In recovery there is downsloping ST inferiorly and V6 with gradual improvement. ? Holter showed sinus rhythm with tachycardia about 37% of the time.? He was referred to Dr Barber, whom he saw in clinic 2 days ago.? Plan was for stress perfusion imaging and TTE.? Today, however, he was driving when he developed sudden onset of severe L-sided chest pain radiating down his L arm.? Pain was sharp and associated with dyspnea and nausea.? It lasted about 2 minutes.? Currently pain-free.? Initial hs-Tn-I <3.5 and EKG NSR without ischemic changes. Given the recent abnormal stress test, Cardiology was contacted by the ED, and admission was recommended.? CTA of the chest was nondiagnostic for PE.? There was bilateral mediastinal adenopathy, rasigin the question of sarcoidosis. This 55yo M with DM and HLD undergoing workup for intermittent chest pain and palpitations for past 4 mo, with a recent abnormal exercise stress test, presenting with chest pain suspicious for angina. Serial hs-Tn-I measurements were negative and there were no ischemic EKG changes. Echocardiography was normal and stress test most likely normal. He will follow up with Cardiology as an outpatient and was instructed to add aspirin 81 mg daily; he already takes a high-intensity statin. As for mediastinal and hilar adenopathy, raising the question of sarcoidosis, Pulmonology was consulted. He will follow up with Pulmonology as an outpatient with a repeat CT scan in 3 months. KAT level is pending at the time of discharge. Respiratory virus panel was negative. Time Spent with Patient Time attestation: Total time spent providing and/or coordinating discharge services: 25 Discharge coordination time: Less than 30 minutes Quality: Stroke Does the patient have a stroke diagnosis?: No Physical Exam Vital Signs: Vital Signs: Last Vital Signs Temp 97.6 F 08/07/21 11:38 Pulse 97 08/07/21 11:38 Resp 18 08/07/21 11:38 BP 107/67 08/07/21 11:38 Pulse Ox 95 08/07/21 11:38 BMI result Body Mass Index 24.3 Gen: in no acute distress HEENT: sclera anicteric, moist mucus membranes Neck: supple Lungs: clear to auscultation bilaterally Heart: regular rate and rhythm, no murmurs Abd: soft, non-tender, non-distended Ext: no edema Skin: warm/well-perfused Neuro: alert and oriented x3, no focal findings Psych: appropriate affect DS: Data Data Completed and Pending Completed studies during hospitalization [Text1]: Laboratory Results WBC 6.8 X10*3/uL (4.8-10.8) 08/03/21 14:41 RBC 5.31 X10*6/uL (4.60-5.80) 08/03/21 14:41 Hgb 16.1 g/dl (14.0-18.0) 08/03/21 14:41 Hct 47.3 % (42.0-52.0) 08/03/21 14:41 MCV 89.1 fL (80.0-98.0) 08/03/21 14:41 MCH 30.3 pg (27.0-33.0) 08/03/21 14:41 MCHC 34.0 g/dl (31.0-36.0) 08/03/21 14:41 RDW 12.2 % (11.0-16.0) 08/03/21 14:41 Plt Count 291 X10*3/uL (160-400) 08/03/21 14:41 MPV 11.2 fL (9.4-12.4) 08/03/21 14:41 Immature Gran % (Auto) 0.1 % (0.0-0.4) 08/03/21 14:41 Neut % (Auto) 65.8 % (45-73) 08/03/21 14:41 Lymph % (Auto) 21.6 % (20-40) 08/03/21 14:41 [place] % (Auto) 9.9 % (2-11) 08/03/21 14:41 Eos % (Auto) 1.9 % (0-4) 08/03/21 14:41 Baso % (Auto) 0.7 % (0-2) 08/03/21 14:41 Lymph # (Auto) 1.5 X10*3/uL (1.2-4.9) 08/03/21 14:41 [place] # (Auto) 0.7 X10*3/uL (0.1-1.2) 08/03/21 14:41 Eos # (Auto) 0.1 X10*3/uL (0.0-0.4) 08/03/21 14:41 Baso # (Auto) 0.1 X10*3/uL (0.0-0.2) 08/03/21 14:41 Abs Immat Gran (auto) 0.01 X10*3/uL (0.00-0.03) 08/03/21 14:41 Absolute Neuts (auto) 4.5 x10*3/uL (2.0-8.3) 08/03/21 14:41 Absolute Nucleated RBC 0.000 X10*3/uL (0.0-0.012) 08/03/21 14:41 Nucleated RBC % (auto) 0.0 /100WBC (0.0-0.2) 08/03/21 14:41 D-Dimer High Sensitivty 265 NG/ML 08/03/21 14:41 Sodium 138 mmol/L (135-145) 08/03/21 14:41 Potassium 4.9 mmol/L (3.3-5.1) 08/03/21 14:41 Chloride 100 mmol/L (96-108) 08/03/21 14:41 Carbon Dioxide 30 mmol/L (22-29) H 08/03/21 14:41 Anion Gap 13 (12-20) 08/03/21 14:41 BUN 15 mg/dL (9-16) 08/03/21 14:41 Creatinine 0.86 mg/dL (0.5-1.4) 08/03/21 14:41 Estim Creat Clear Calc 97.8 08/03/21 14:41 Estimated GFR > 60 08/03/21 14:41 POC Glucose 180 mg/dL (60-115) H 08/07/21 11:26 Random Glucose 152 mg/dL (60-115) H 08/03/21 14:41 Estimat Average Glucose 197 mg/dL 08/03/21 14:41 Hemoglobin A1c % 8.5 % 08/03/21 14:41 Calcium 10.3 mg/dL (8.4-10.2) H D 08/03/21 14:41 Total Bilirubin 1.6 mg/dL (0.0-1.0) H 08/03/21 14:41 AST 22 U/L (5-37) 08/03/21 14:41 ALT 38 U/L (0-40) 08/03/21 14:41 Alkaline Phosphatase 151 U/L (39-117) H 08/03/21 14:41 Troponin I High Sens < 3.5 ng/L (<3.5-35.0) 08/03/21 18:10 B-Natriuretic Peptide < 10 pg/mL (<100) 08/03/21 14:41 Total Protein 8.4 g/dL (6.5-8.0) H 08/03/21 14:41 Albumin 4.4 g/dL (3.5-5.0) 08/03/21 14:41 Respiratory Panel Thompson See Note 08/04/21 11:33 Adenovirus (Rapid PCR) Not Detected (Not Detect.) 08/04/21 11:33 B.pert (TEM-PCR) Not Detected (Not Detect.) 08/04/21 11:33 B.parapertussis DNA PCR Not Detected (Not Detect.) 08/04/21 11:33 C. pneumoniae DNA (PCR) Not Detected (Not Detect.) 08/04/21 11:33 Coronavirus OC43 (PCR) Not Detected (Not Detect.) 08/04/21 11:33 Coronavirus HKU1 (PCR) Not Detected (Not Detect.) 08/04/21 11:33 Coronavirus 229E (PCR) Not Detected (Not Detect.) 08/04/21 11:33 COVID-19 (JACOB) Negative (Negative) 08/03/21 14:41 COVID-19 Clin Com See Note 08/03/21 14:41 Coronavirus NL63 (PCR) Not Detected (Not Detect.) 08/04/21 11:33 Human Metapneumovir PCR Not Detected (Not Detect.) 08/04/21 11:33 Influenza A (RT-PCR) Not Detected (Not Detect.) 08/04/21 11:33 Influenza B (RT-PCR) Not Detected (Not Detect.) 08/04/21 11:33 M. pneumoniae (PCR) Not Detected (Not Detect.) 08/04/21 11:33 Parainfluenza 1 (PCR) Not Detected (Not Detect.) 08/04/21 11:33 Parainfluenza 2 (PCR) Not Detected (Not Detect.) 08/04/21 11:33 Parainfluenza 3 (PCR) Not Detected (Not Detect.) 08/04/21 11:33 Parainfluenza 4 (PCR) Not Detected (Not Detect.) 08/04/21 11:33 RSV (PCR) Not Detected (Not Detect.) 08/04/21 11:33 Entero/Rhino (PCR) Not Detected (Not Detect.) 08/04/21 11:33 SARS-CoV-2 RNA (RT-PCR) Not Detected (Not Detect.) 08/04/21 11:33 Impressions Chest X-Ray 08/03/21 15:30 IMPRESSION: No acute pulmonary pathology. Chest CTA 08/03/21 16:04 IMPRESSION: The study is of suboptimal quality for diagnosis of the pulmonary embolism. As clinically deemed necessary consider further evaluation with repeat pulmonary CTA or ventilation perfusion lung scan. Multiple respiratory motion artifacts limit evaluation of the pulmonary parenchyma. Nonspecific ground-glass changes in the right lower lobe. Comparison with the previous study is limited due to multiple respiratory motion artifacts on the previous CT as well. The ground-glass changes appear somewhat more prominent on current examination, however, are nonspecific and could reflect hypoventilatory changes and/or inflammatory or infectious process. Consider short-term interval follow-up chest CT (either with or without contrast) in 2-3 months. Mediastinal and symmetrical hilar/central bronchopulmonary adenopathy. One possibility may include sarcoidosis. Recommend clinical correlation and further evaluation. The adenopathy is amenable to bronchoscopic biopsy. VTE: Indeterminate. The findings and recommendations were discussed with NELSON Bartholomew in the Emergency Room on 08/03/2021 at 4:57 PM. Pulmonary Perfusion Imaging 08/03/21 17:50 IMPRESSION: Very low probability of pulmonary embolism. Myocardial Perfusion Scan Nuc Med 08/07/21 10:10 Impression: 1. Likely normal myocardial perfusion 2. Gated LVEF is greater than 70% 3. Transient ischemic dilatation not present Stress EKG is negative for ischemia TTE 08/06/21 - Normal left ventricular size, thickness, systolic function, and wall motion. The visually estimated ejection fraction is between 55-60%.? - Normal right ventricular cavity size and systolic function.? ? pending laboratory studies: angiotensin-converting enzyme level, 08/03/21 Discharge Plan Discharge Patient Disposition: Home, Self-Care Discharge Diagnosis: chest pain, mediastinal/hilar adenopathy Referrals: Bigg Ledesma FNP- [Primary Care Provider] - 1 Week Hayder Jarrett MD [Physician] - 1 Month Crispin Barber MD [Physician] - 2 Weeks Discharge Medications: New aspirin 81 mg Tablet,Chewable 81 mg PO DAILY Qty: 30 0RF Continued gabapentin 100 mg capsule 100 mg PO BID Qty: 60 0RF Rx Instructions: Take one cap twice a day. ibuprofen 600 mg tablet 600 mg PO Q6H PRN (Reason: pain) Qty: 20 0RF metformin 1,000 mg tablet 1 tab PO BID 0RF dulaglutide 1.5 mg/0.5 mL pen injector 1.5 mg subcut TU 0RF atorvastatin 80 mg tablet 80 mg PO BEDTIME 90 Days Qty: 90 0RF ropinirole 1 mg tablet 1 mg PO BEDTIME 90 Days Qty: 90 2RF Discharge Orders: Discharge Order (Routine); Ordered 08/07/21 Ordered By: Archana Salazar Diet: advance to usual diet and diabetic diet Activity on Discharge: As tolerated Stand Alone Forms: Patient Portal Discharge page Other Ambulatory Orders: CT chest wo con (Routine) Timeframe: 3 Months Facility: [facility] - Location: CT Scan Ordered By: Archana Salazar Care Plan Goals: relief of chest pain workup of lung CT findings Health Concerns: chest pain mediastinal/hilar adenopathy, ground-glass opacities Plan of Treatment: stress test normal follow up with Primary Care in 1 week, Cardiology in 2 weeks, Pulmonology in [address] scan of the chest in 3 months take aspirin and atorvastatin return to hospital if recurrent chest pain Assessment: see Discharge Summary Patient Instructions: Chest Pain (DC)
--- NOTE | 2021-08-07 13:37 | MHC.CM.PN ---
PT MEDICALLY CLEARED FOR D/C HOME SELF-CARE W/OUPT FOLLOW-UP W/CARDIOLOGY AND PULMONOLOGY, PT'S CAR [facility] AND PT WILL SELF TRANSPORT.
[2021-08-08 21:31] LABS: Angiotensin Converting Enzyme 55 U/L (9-67)
== END 2021-08-07 14:36 | disposition home or self-care (01) ==
LOC: HO.ED 17:09 → HO.EDOVER 17:35 → HO.S3 19:27
PROVIDERS: Physician Assistant; Admitting Provider Family Medicine; Emergency Provider Emergency Medicine; PCP Nurse Practitioner Family; Visit Provider Family Medicine
DX: R07.9 Chest pain, unspecified (principal); R07.2 Precordial pain; R91.8 Other nonspecific abnormal finding of lung field; R94.39 Abnormal result of other cardiovascular function study; R59.0 Localized enlarged lymph nodes; R00.0 Tachycardia, unspecified; I10 Essential (primary) hypertension; E11.9 Type 2 diabetes mellitus without complications; E78.5 Hyperlipidemia, unspecified; E78.00 Pure hypercholesterolemia, unspecified; J45.909 Unspecified asthma, uncomplicated; J98.6 Disorders of diaphragm; Z20.822 Contact with and (suspected) exposure to COVID-19; Z79.4 Long term (current) use of insulin; Z79.899 Other long term (current) drug therapy; Z53.29 Procedure and treatment not carried out because of patient's decision for other reasons
CPT/HCPCS: 36415; 71046; 71275; 78452; 78580; 80053; 82164; 82947; 83036; 83880; 84484; 85025; 85379; 87633; 87635; 90471; 90686; 93005; 93017; 93306; 96361; 96372; 96374; 96375; 99205; 99215; 99218; 99285; A9500; A9540; J1650; Q9957; Q9967

== ENCOUNTER 2021-08-14 | Outpatient (REF) | payer OTHER, SELFPAY ==
[2021-08-14 16:36] LABS: C Reactive Protein 0.37 mg/dL (< or = 0.50); Lipase 67 U/L (8-78)
[2021-08-14 16:58] LABS: Ferritin 567 ng/mL (20-250)
[2021-08-14 17:09] LABS: Folate 10.7 ng/mL (> or = 4.0); Vitamin B12 475 pg/mL (200-900)
[2021-08-15 14:02] LABS: H Pylori Breath Test Negative (Negative)
[2021-08-16 12:47] LABS: Alpha Fetoprotein 6.5 ng/mL (<6.1)
[2021-08-16 13:47] LABS: Ceruloplasmin 31 mg/dL (18-36)
[2021-08-22 08:30] LABS: Mitochondrial Antibodies NEGATIVE
[2021-08-22 08:32] LABS: Smooth Muscle Antibody <20; Transglutaminase Ab IgG <1.0
[2021-08-22 08:33] LABS: Transglutaminase IgA <1.0
[2021-08-30 07:52] LABS: Liver Fibrosis Score 0.24
[2021-08-30 07:53] LABS: Nec Inflam Act Score 0.21
[2021-08-30 07:54] LABS: Liver Fibrosis Stage F0-F1; Nec Inflam Act Grade A0-A1
[2021-08-30 07:56] LABS: Vitamin D 25-OH, D2 <4; Vitamin D 25-OH, D3 14
[2021-08-30 07:57] LABS: Vitamin D 25-OH, Total 14
[2021-08-30 07:58] LABS: FIB-Alpha-2-Macroglobulin 167; FIB-Haptoglobin 221
[2021-08-30 07:59] LABS: FIB-Apolipoprotein A1 190; FIB-Total Bilirubin 1.2
[2021-08-30 08:00] LABS: FIB-ALT 41; FIB-GGT 77
== END 2021-08-14 00:01 | disposition home or self-care (01) ==
LOC: HO.LAB
PROVIDERS: Visit Provider Nurse Practitioner Family
DX: R19.7 Diarrhea, unspecified (principal); R17 Unspecified jaundice; R74.8 Abnormal levels of other serum enzymes; K21.9 Gastro-esophageal reflux disease without esophagitis
CPT/HCPCS: 36415; 81596; 82105; 82306; 82390; 82607; 82728; 82746; 83013; 83690; 86015; 86140; 86255; 86256; 86364; 99202

== ENCOUNTER → 2021-08-14 14:35 | Outpatient (BNVA) | payer OTHER, SELFPAY | PROVIDERS: PCP Nurse Practitioner Family; Referring Provider Nurse Practitioner Family; Visit Provider Nurse Practitioner Family | DX: R19.7 Diarrhea, unspecified (principal); K21.9 Gastro-esophageal reflux disease without esophagitis; R17 Unspecified jaundice; R74.8 Abnormal levels of other serum enzymes | CPT/HCPCS: 36415; 99202 ==

== ENCOUNTER → 2021-08-28 14:03 | Outpatient (BNVA) | payer OTHER, SELFPAY | PROVIDERS: PCP Nurse Practitioner Family; Visit Provider Hospitalist | DX: R91.8 Other nonspecific abnormal finding of lung field (principal); R59.0 Localized enlarged lymph nodes; J98.6 Disorders of diaphragm | CPT/HCPCS: 99212 ==

== ENCOUNTER → 2021-09-18 09:07 | Outpatient (BNVA) | payer OTHER, SELFPAY | PROVIDERS: PCP Nurse Practitioner Family; Referring Provider Nurse Practitioner Family; Visit Provider Internal Medicine | DX: R07.2 Precordial pain (principal); R00.0 Tachycardia, unspecified; R94.30 Abnormal result of cardiovascular function study, unspecified | CPT/HCPCS: 99212 ==

== ENCOUNTER 2021-10-10 09:38 | Outpatient (REF) | payer OTHER, SELFPAY ==
[2021-10-10 10:48] LABS: Hemoglobin 16.5 g/dl (14.0-18.0); Mean Corpuscular HGB Conc 34.4 g/dl (31.0-36.0); Mean Corpuscular Hemoglobin 30.1 pg (27.0-33.0); Mean Corpuscular Volume 87.6 fL (80.0-98.0); Mean Platelet Volume 11.2 fL (9.4-12.4); Platelet Count 235 X10*3/uL (160-400); Red Blood Count 5.48 X10*6/uL (4.60-5.80); Red Cell Distribution Width 12.9 % (11.0-16.0); White Blood Count 5.7 X10*3/uL (4.8-10.8)
[2021-10-10 10:52] LABS: Prothrombin Time 11.2 SEC (9.9-13.0)
[2021-10-10 11:21] LABS: Anion Gap 14 (12-20); Blood Urea Nitrogen 12 mg/dL (9-16); Calcium 10.5 mg/dL (8.4-10.2); Carbon Dioxide 29 mmol/L (22-29); Chloride 100 mmol/L (96-108); Estimated Glomerular Filt Rate > 60; Glucose Random 244 mg/dL (60-115); Potassium 4.9 mmol/L (3.3-5.1); Sodium 138 mmol/L (135-145)
== END 2021-10-10 09:39 | disposition home or self-care (01) ==
LOC: HO.LAB 09:38
PROVIDERS: PCP Nurse Practitioner Family; Visit Provider Internal Medicine
DX: R07.2 Precordial pain (principal)
CPT/HCPCS: 36415; 80048; 85027; 85610

== ENCOUNTER 2021-10-16 09:14 | Outpatient (REF) | payer OTHER, SELFPAY ==
[2021-10-16 11:07] LABS: Vitamin D 25-OH Total 13.3 ng/mL (>30)
[2021-10-17 14:11] LABS: Calcium (PTHI) 10.3 mg/dL (8.6-10.3); PTHI 29 pg/mL (16-77)
[2021-10-18 11:47] LABS: Calcium, Ionized 5.3 mg/dL (4.8-5.6)
== END 2021-10-16 09:15 | disposition home or self-care (01) ==
LOC: HO.LAB 09:14
PROVIDERS: PCP Nurse Practitioner Family; Visit Provider Nurse Practitioner Family
DX: E83.52 Hypercalcemia (principal)
CPT/HCPCS: 36415; 82306; 82330; 83970

== ENCOUNTER → 2021-10-22 14:40 | Outpatient (BNVA) | payer OTHER, SELFPAY | PROVIDERS: PCP Nurse Practitioner Family; Visit Provider Nurse Practitioner Family | DX: K21.9 Gastro-esophageal reflux disease without esophagitis (principal); R19.7 Diarrhea, unspecified; R74.8 Abnormal levels of other serum enzymes; Z79.899 Other long term (current) drug therapy | CPT/HCPCS: 99212 ==

== ENCOUNTER 2021-10-29 07:06 | Outpatient (REF) | payer OTHER, SELFPAY ==
--- NOTE | ~2021-10-29 | CT_ITS ---
EXAMINATION: CT CHEST WITHOUT CONTRAST CLINICAL INFORMATION: Enlarged lymph nodes COMPARISON: Previous chest CTA July 2021 TECHNIQUE: Multidetector volumetric CT imaging of the chest was done. Axial MIP volume rendering provided. Sagittal and coronal reformatted images were obtained. This CT examination was performed using dose optimization techniques as appropriate, variously including the following: *Automated exposure control *Adjustment of mA and/or kV according to patient size (this includes techniques or standardized protocols for targeted exams where dose is matched to indication/reason for exam; i.e. extremities or head) *Use of iterative reconstruction technique DLP: 150 mGy-cm FINDINGS: YIELD ANALYST: Elevation of the left hemidiaphragm similar to previous exam LUNGS: The previously identified scattered areas of groundglass attenuation July 2021 are longer seen. There are small calcified pulmonary nodules that are stable. Largest pulmonary nodule measures 4 mm in the right middle lobe axial image 63 series 5. There is a 3 mm noncalcified peripheral or subpleural right middle lobe nodule adjacent to the minor fissure axial image 318 series 5 probably representing a subpleural lymph node that is stable. MEDIASTINUM: There is diffuse mediastinal lymphadenopathy. Lymph nodes are decreased in size from previous exam. Largest node is a subcarinal lymph node measuring 1.2 cm in short axis axial image 25 series 3 compared to 1.7 cm July 2021 exam. Next largest lymph nodes are bilateral precarinal lymph nodes measuring 0.8 cm in short axis axial image 20 series 3 compared to 1.3 on the right and 1 cm on the left July 2021 exam. Evaluation of hilar adenopathy is limited without contrast but hilar adenopathy appears decreased in size as well. There is coronary artery calcification. The heart does not appear enlarged. There is no pericardial effusion. The visualized thyroid gland is unremarkable. The thoracic aorta is normal in caliber. PLEURA: There is no pleural effusion. No pleural mass or thickening. AXILLA: There are small bilateral axillary nodes. No enlarged lymph nodes are seen. UPPER ABDOMEN: Unremarkable. OSSEOUS STRUCTURES: There are degenerative changes of the spine. CT/CT chest wo con IMPRESSION: Interval decrease in mediastinal and hilar lymphadenopathy from July 2021. Stable small predominantly calcified pulmonary nodules or micronodules. Resolved groundglass attenuation from July 2021 exam. Stable elevation of the left hemidiaphragm. Fleischner guidelines were followed.
== END 2021-10-29 07:07 | disposition home or self-care (01) ==
LOC: HO.CT 07:06
PROVIDERS: Visit Provider Hospitalist
DX: R59.0 Localized enlarged lymph nodes (principal)
CPT/HCPCS: 71250

== ENCOUNTER 2021-10-30 13:08 | Outpatient (REF) | payer OTHER, SELFPAY ==
[2021-10-30 13:57] LABS: Iron 81 mcg/dL (45-160); Percent Iron Saturation 25 % (15-50); Total Iron Binding Capacity 322 mcg/dL (228-428); Unsaturated Iron Binding 241 ug/dL
[2021-10-30 14:17] LABS: Ferritin 554 ng/mL (20-250)
== END 2021-10-30 13:09 | disposition home or self-care (01) ==
LOC: HO.LAB 13:08
PROVIDERS: PCP Nurse Practitioner Family; Visit Provider Nurse Practitioner Family
DX: R74.8 Abnormal levels of other serum enzymes (principal); K92.2 Gastrointestinal hemorrhage, unspecified
CPT/HCPCS: 36415; 82728; 83540

== ENCOUNTER → 2021-11-06 12:38 | Outpatient (BNVA) | payer OTHER, SELFPAY | PROVIDERS: PCP Nurse Practitioner Family; Referring Provider Nurse Practitioner Family; Visit Provider Nurse Practitioner Family | DX: R06.02 Shortness of breath (principal); R07.2 Precordial pain; R00.0 Tachycardia, unspecified; Z98.890 Other specified postprocedural states; Z98.61 Coronary angioplasty status | CPT/HCPCS: 93005; 99212 ==

== ENCOUNTER 2022-02-25 08:48 | Outpatient (REF) | payer OTHER, SELFPAY ==
[2022-02-25 11:24] LABS: MANUAL DIFF FLAG NO
[2022-02-25 11:27] LABS: Appearance Urine Clear; Color Urine Yellow; Glucose Urine UA Negative (Negative); Leukocyte Esterase Urine Negative (Negative); Nitrite Urine Negative (Negative); PH 5.5 (5.0-8.0); Urine Blood Negative (Negative); Urine Ketones Negative (Negative); Urine Protein Trace mg/dL (Neg-Trace)
[2022-02-25 11:42] LABS: Basophils Absolute Auto 0.1 X10*3/uL (0.0-0.2); Basophils Percent Auto 1.3 % (0-2); Eosinophils Absolute Auto 0.2 X10*3/uL (0.0-0.4); Eosinophils Percent Auto 3.7 % (0-4); Hematocrit 46.1 % (42.0-52.0); Hemoglobin 15.9 g/dl (14.0-18.0); Imm Gran Abs Auto 0.01 X10*3/uL (0.00-0.03); Imm Gran Pct Auto 0.2 % (0.0-0.4); Lymphocytes Absolute Auto 1.7 X10*3/uL (1.2-4.9); Lymphocytes Percent Auto 31.4 % (20-40); Mean Corpuscular HGB Conc 34.5 g/dl (31.0-36.0); Mean Corpuscular Hemoglobin 30.5 pg (27.0-33.0); Mean Corpuscular Volume 88.5 fL (80.0-98.0); Monocytes Absolute Auto 0.4 X10*3/uL (0.1-1.2); Monocytes Percent Auto 8.2 % (2-11); Neutrophils Percent Auto 55.2 % (45-73); Platelet Count 245 X10*3/uL (160-400); Red Blood Count 5.21 X10*6/uL (4.60-5.80); Red Cell Distribution Width 12.6 % (11.0-16.0); White Blood Count 5.4 X10*3/uL (4.8-10.8)
[2022-02-25 12:11] LABS: Creatinine Urine 124.87 mg/dL; Microalbum/Creatinine Ratio Ur 23.2 ug/mg cr
[2022-02-25 12:15] LABS: Alanine Aminotransferase 20 U/L (0-40); Albumin Level 4.3 g/dL (3.5-5.0); Alkaline Phosphatase 91 U/L (39-117); Anion Gap 14 (12-20); Aspartate Amino Transferase 17 U/L (5-37); Bilirubin Total 2.2 mg/dL (0.0-1.0); Blood Urea Nitrogen 17 mg/dL (9-16); Calcium 9.5 mg/dL (8.4-10.2); Carbon Dioxide 25 mmol/L (22-29); Chloride 103 mmol/L (96-108); Cholesterol 261 mg/dL; Estimated Glomerular Filt Rate > 60; Glucose Fasting 174 mg/dL (60-99); HDL Cholesterol 62 mg/dL; LDL Cholesterol Calculated 167 mg/dl; Potassium 4.3 mmol/L (3.3-5.1); Sodium 138 mmol/L (135-145); Total Protein 7.8 g/dL (6.5-8.0); Triglycerides 160 mg/dL
[2022-02-25 12:18] LABS: Prostate Specific Antigen Scr 0.74 ng/mL (<0.05-4.0); TSH reflex Free T4 1.42 uIU/mL (0.32-4.0)
[2022-02-25 12:22] LABS: Estimated Average Glucose 166 mg/dL; Hemoglobin A1c % 7.4 %
== END 2022-02-25 08:49 | disposition home or self-care (01) ==
LOC: HO.HMGCLDS 08:48
PROVIDERS: PCP Nurse Practitioner Family; Visit Provider Nurse Practitioner Family
DX: Z12.5 Encounter for screening for malignant neoplasm of prostate (principal); E11.9 Type 2 diabetes mellitus without complications
CPT/HCPCS: 36415; 80053; 80061; 81003; 82043; 83036; 84153; 84443; 85025

== ENCOUNTER 2022-05-07 15:02 | Outpatient (REF) | payer OTHER, SELFPAY ==
[2022-05-07 17:38] LABS: Ferritin 436 ng/mL (20-250)
== END 2022-05-07 15:03 | disposition home or self-care (01) ==
LOC: HO.LAB 15:02
PROVIDERS: PCP Nurse Practitioner Family; Visit Provider Nurse Practitioner Family
DX: K58.2 Mixed irritable bowel syndrome (principal); R74.8 Abnormal levels of other serum enzymes; K21.9 Gastro-esophageal reflux disease without esophagitis; Z79.01 Long term (current) use of anticoagulants
CPT/HCPCS: 36415; 82728; 99212

== ENCOUNTER 2022-05-13 08:33 | Outpatient (REF) | payer OTHER, SELFPAY ==
[2022-05-13 08:54] LABS: MANUAL DIFF FLAG NO
[2022-05-13 09:35] LABS: Basophils Percent Auto 0.8 % (0-2); Eosinophils Absolute Auto 0.1 X10*3/uL (0.0-0.4); Eosinophils Percent Auto 2.2 % (0-4); Hematocrit 45.4 % (42.0-52.0); Hemoglobin 15.6 g/dl (14.0-18.0); Imm Gran Abs Auto 0.01 X10*3/uL (0.00-0.03); Imm Gran Pct Auto 0.2 % (0.0-0.4); Lymphocytes Absolute Auto 1.4 X10*3/uL (1.2-4.9); Lymphocytes Percent Auto 27.8 % (20-40); Mean Corpuscular HGB Conc 34.4 g/dl (31.0-36.0); Mean Corpuscular Hemoglobin 30.9 pg (27.0-33.0); Mean Corpuscular Volume 89.9 fL (80.0-98.0); Mean Platelet Volume 10.9 fL (9.4-12.4); Monocytes Absolute Auto 0.4 X10*3/uL (0.1-1.2); Monocytes Percent Auto 7.8 % (2-11); Neutrophils Absolute Auto 3.1 x10*3/uL (2.0-8.3); Neutrophils Percent Auto 61.2 % (45-73); Platelet Count 223 X10*3/uL (160-400); Red Blood Count 5.05 X10*6/uL (4.60-5.80); Red Cell Distribution Width 12.8 % (11.0-16.0); White Blood Count 5.1 X10*3/uL (4.8-10.8)
[2022-05-13 10:38] LABS: Anion Gap 17 (12-20); Blood Urea Nitrogen 14 mg/dL (9-16); Calcium 9.4 mg/dL (8.4-10.2); Carbon Dioxide 23 mmol/L (22-29); Chloride 104 mmol/L (96-108); Cholesterol 170 mg/dL; Estimated Glomerular Filt Rate > 60; Glucose Random 199 mg/dL (60-115); HDL Cholesterol 68 mg/dL; LDL Cholesterol Calculated 82 mg/dl; Potassium 3.9 mmol/L (3.3-5.1); Sodium 140 mmol/L (135-145); Triglycerides 103 mg/dL
[2022-05-13 11:27] LABS: Erythrocyte Sedimentation Rate 7 MM/HR (0-15)
[2022-05-20 14:16] LABS: Angiotensin Converting Enzyme 51.5 U/L (9-67)
== END 2022-05-13 08:34 | disposition home or self-care (01) ==
LOC: HO.LAB 08:33
PROVIDERS: Hospitalist; PCP Nurse Practitioner Family; Visit Provider Nurse Practitioner Family
DX: E11.9 Type 2 diabetes mellitus without complications (principal); R59.0 Localized enlarged lymph nodes; R79.89 Other specified abnormal findings of blood chemistry
CPT/HCPCS: 36415; 80048; 80061; 81256; 82164; 84443; 85025; 85652

== ENCOUNTER 2022-07-08 09:39 | Outpatient (REF) | payer OTHER, SELFPAY ==
[2022-07-08 11:42] LABS: Alanine Aminotransferase 20 U/L (0-40); Albumin Level 4.6 g/dL (3.5-5.0); Alkaline Phosphatase 112 U/L (39-117); Anion Gap 13 (12-20); Aspartate Amino Transferase 12 U/L (5-37); Bilirubin Total 1.5 mg/dL (0.0-1.0); Blood Urea Nitrogen 23 mg/dL (9-16); Carbon Dioxide 27 mmol/L (22-29); Chloride 103 mmol/L (96-108); Cholesterol 253 mg/dL; Estimated Glomerular Filt Rate > 60; Glucose Fasting 180 mg/dL (60-99); HDL Cholesterol 62 mg/dL; LDL Cholesterol Calculated 160 mg/dl; Potassium 4.7 mmol/L (3.3-5.1); Sodium 138 mmol/L (135-145); Total Protein 8.1 g/dL (6.5-8.0); Triglycerides 156 mg/dL
[2022-07-08 11:44] LABS: Appearance Urine Clear; Color Urine Yellow; Glucose Urine UA Negative (Negative); Leukocyte Esterase Urine Negative (Negative); Nitrite Urine Negative (Negative); Specific Gravity - Urine 1.025 (1.005-1.025); Urine Blood Negative (Negative); Urine Ketones Negative (Negative); Urine Protein Negative (Neg-Trace)
== END 2022-07-08 09:40 | disposition home or self-care (01) ==
LOC: HO.HMGCLDS 09:39
PROVIDERS: PCP Nurse Practitioner Family; Visit Provider Nurse Practitioner Family
DX: E78.5 Hyperlipidemia, unspecified (principal); E11.9 Type 2 diabetes mellitus without complications
CPT/HCPCS: 36415; 80053; 80061; 81003

== ENCOUNTER 2022-07-08 10:05 | Outpatient (REF) | payer OTHER, SELFPAY ==
[2022-07-08 12:40] LABS: Influenza A PCR NEGATIVE (Negative); Influenza B PCR NEGATIVE (Negative); Resp Syncy Virus RNA Qual PCR NEGATIVE (Negative); SARS COV2 PCR INHOUSE NEGATIVE (Negative)
== END 2022-07-08 10:06 | disposition home or self-care (01) ==
LOC: HO.LAB 10:05
PROVIDERS: Visit Provider Internal Medicine
DX: Z20.822 Contact with and (suspected) exposure to COVID-19 (principal); R09.89 Other specified symptoms and signs involving the circulatory and respiratory systems
CPT/HCPCS: 0241U

== ENCOUNTER → 2022-08-05 14:13 | Outpatient (BNVA) | payer OTHER, SELFPAY | PROVIDERS: PCP Nurse Practitioner Family; Referring Provider Nurse Practitioner Family; Visit Provider Internal Medicine | DX: I25.10 Atherosclerotic heart disease of native coronary artery without angina pectoris (principal); E11.9 Type 2 diabetes mellitus without complications; E78.5 Hyperlipidemia, unspecified; Z98.890 Other specified postprocedural states; Z95.5 Presence of coronary angioplasty implant and graft; Z91.199 Patient's noncompliance with other medical treatment and regimen due to unspecified reason | CPT/HCPCS: 99212 ==

== ENCOUNTER → 2022-08-06 09:38 | Outpatient (BNVA) | payer OTHER, SELFPAY | PROVIDERS: PCP Nurse Practitioner Family; Visit Provider Nurse Practitioner Family | DX: K58.2 Mixed irritable bowel syndrome (principal); K21.9 Gastro-esophageal reflux disease without esophagitis; Z87.19 Personal history of other diseases of the digestive system; Z79.899 Other long term (current) drug therapy | CPT/HCPCS: 99212 ==

== ENCOUNTER 2022-08-23 09:42 | Outpatient (REF) | payer OTHER, SELFPAY ==
[2022-08-23 11:22] LABS: Alanine Aminotransferase 24 U/L (0-40); Albumin Level 4.6 g/dL (3.5-5.0); Alkaline Phosphatase 111 U/L (39-117); Aspartate Amino Transferase 15 U/L (5-37); Bilirubin Direct 0.6 mg/dL (0.0-0.5); Bilirubin Total 2.7 mg/dL (0.0-1.0); Iron 183 mcg/dL (45-160); Percent Iron Saturation 62 % (15-50); Total Iron Binding Capacity 296 mcg/dL (228-428); Total Protein 7.4 g/dL (6.5-8.0); Unsaturated Iron Binding 113 ug/dL
[2022-08-23 11:28] LABS: Ferritin 404 ng/mL (20-250)
== END 2022-08-23 09:43 | disposition home or self-care (01) ==
LOC: HO.LAB 09:42
PROVIDERS: PCP Nurse Practitioner Family; Visit Provider Nurse Practitioner Family
DX: K92.2 Gastrointestinal hemorrhage, unspecified (principal); R10.9 Unspecified abdominal pain; R74.8 Abnormal levels of other serum enzymes
CPT/HCPCS: 36415; 80076; 82728; 83540

== ENCOUNTER 2022-10-11 10:19 | Outpatient (REF) | payer OTHER, SELFPAY ==
--- NOTE | ~2022-10-11 | XR_ITS ---
EXAMINATION: XR SHOULDER, RIGHT CLINICAL INFORMATION: Pain COMPARISON: None available. TECHNIQUE: Three views of the right shoulder. FINDINGS: There is no evidence of acute fracture or dislocation of the right shoulder. Glenohumeral joint is maintained with minimal spurring. No calcific tendinitis. Acromioclavicular joint appears unremarkable. No widening of the coracoclavicular space is seen. XR/XR shoulder RT min 2V IMPRESSION: No significant right shoulder abnormality appreciated.
== END 2022-10-11 10:20 | disposition home or self-care (01) ==
LOC: HO.HMGCX 10:19
PROVIDERS: PCP Nurse Practitioner Family; Visit Provider Internal Medicine
DX: S43.401A Unspecified sprain of right shoulder joint, initial encounter (principal); X58.XXXA Exposure to other specified factors, initial encounter; Y93.9 Activity, unspecified; Y92.9 Unspecified place or not applicable; Y99.9 Unspecified external cause status
CPT/HCPCS: 73030

== ENCOUNTER → 2022-11-04 08:38 | Outpatient (BNVA) | payer OTHER, SELFPAY | PROVIDERS: PCP Nurse Practitioner Family; Visit Provider Orthopaedic Surgery | DX: M75.41 Impingement syndrome of right shoulder (principal) | CPT/HCPCS: 20610; 99202; J1100 ==

== ENCOUNTER 2023-02-06 09:40 | Outpatient (AMB) | payer OTHER, SELFPAY ==
--- NOTE | 2023-02-06 09:45 | MHC.OFFVIS ---
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 Required: No Accompanied by: Self / Same As Patient Allergies No Known Drug Allergies Allergy (Unknown, Verified 02/06/23 09:49) Unknown Medication List - Last Reconciled 02/06/23 by Crispin Barber MD aspirin 81 mg PO DAILY atorvastatin 80 mg PO BEDTIME 90 days celecoxib (Celebrex) 200 mg PO DAILY cholecalciferol (vitamin D3) 50 mcg PO DAILY clopidogrel 75 mg PO DAILY dulaglutide 1.5 mg (0.5 mL) subcut QWEEK fluticasone propionate 50 mcg/actuation (Flonase Allergy Relief) 1 spray intranasal DAILY ibuprofen 600 mg PO Q6H PRN lisinopril 2.5 mg PO DAILY metformin 1,000 mg PO BID 30 days metoprolol succinate ER 25 mg PO DAILY 90 days pantoprazole 40 mg PO DAILY ropinirole 1 mg PO BEDTIME 90 days HPI HPI Comments History of Present Illness Details Ivan returns for follow-up. In the past he was seen regarding chest pain. However, symptoms where indeed atypical. Due to continued concerns, he eventually underwent cardiac catheterization and had LAD stenting. Overall, he seems to be doing okay. No new concerns. No clear angina. Otherwise, seems to be getting along. [facility] Medical History Asthma Bilateral hilar adenopathy syndrome Diabetes Elevated diaphragm GERD (gastroesophageal reflux disease) High cholesterol Left foot pain Lymphadenopathy, mediastinal Sarcoidosis Surgical History Bone spur History of colonoscopy Hx of cardiac cath Family History Father Cancer Mother Diabetes mellitus Maternal Grandfather Unknown family medical history Maternal Grandmother Unknown family medical history Paternal Grandfather Unknown family medical history Paternal Grandmother No problems noted. Sister No problems noted. Sister No problems noted. Sister No problems noted. Daughter No problems noted. Social History Housing: House Alcohol intake: current Alcohol intake frequency: holidays/special occasions only Patient Tobacco Use Status: Never used Tobacco e-Cigarette/Vaping Use: Never Used Second Hand Smoke Exposure: Yes service: No Current occupational status: employed Cognitive needs: No Hearing needs: No Vision needs: Yes Review of Systems Const Denies weakness ENT Denies dizziness Card Denies chest pain, Denies chest pain with activity, Denies syncope, Denies rapid heart rate, Denies pedal edema, Denies edema, Denies leg edema, Denies lightheadedness, Denies palpitations, Denies dyspnea, Denies dyspnea on exertion and Denies orthopnea Resp Denies cough, Denies dyspnea and Denies dyspnea on exertion GI Denies hematochezia and Denies change in stool character Musc Denies abnormal gait, Denies muscle cramps, Denies muscle weakness, Denies numbness, Denies radiating pain into limb and Denies tingling Neuro Denies abnormal gait, Denies dizziness, Denies syncope, Denies numbness, Denies tingling and Denies weakness Endo Denies palpitations Physical Exam Vital Signs: Last Vital Signs Pulse 92 02/06/23 09:48 BP 110/64 02/06/23 09:48 BMI result Body Mass Index 24.4 Const General: comfortable and no acute distress Orientation/consciousness: patient oriented x3 HEENT Other: Unremarkable Head: Yes normal to inspection Neck Neck: Yes normal visual inspection Chest Chest palpation & inspection: normal inspection of the chest Resp Auscultation: clear to auscultation bilaterally Cardio Palpation: normal PMI Heart sounds: S1 normal heart sound present, S2 normal heart sound present, no gallops, no murmurs and no rubs GI Palpation (GI): Soft to palpation Back/Spine/Pelvis Other: unremarkable Skin General skin exam: no rashes or lesions noted Neuro General: patient oriented x3 Extrem General: Yes normal to inspection Psych Mental Status: mental status grossly normal Assessment & Plan Assessment & Plan (1) Atherosclerotic cardiovascular disease: Code(s): I25.10 - Atherosclerotic heart disease of [place] coronary artery without angina pectoris (2) Diabetes: Code(s): E11.9 - Type 2 diabetes mellitus without complications (3) Dyslipidemia: Code(s): E78.5 - Hyperlipidemia, unspecified Plan Cardiac catheterization showed mid LAD 70% stenosis. Status post drug-eluting stent to proximal mid LAD. No significant disease elsewhere. Overall, continue aspirin indefinitely. May stop Plavix. He remains on beta-blockers and statins. There was a question noncompliance in the past, but he states he takes medications more regularly these days. Will check his lipids. If they are still high, may need Repatha or Praluent. For diabetes, he is on metformin, dulaglutide. Last hemoglobin A1c is 6.5%. Orders: Orders LDL Cholesterol Direct Today E78.2 - Mixed hyperlipidemia, I25.10 - Atherosclerotic heart disease of [place] coronary artery without angina pectoris Lipid Panel Today E78.5 - Hyperlipidemia, unspecified, I25.10 - Atherosclerotic heart disease of [place] coronary artery without angina pectoris Liver Panel Today I25.10 - Atherosclerotic heart disease of [place] coronary artery without angina pectoris Medications: Discontinued clopidogrel Discontinued Reason: Doctor's Order 75 mg PO DAILY 90 tabs 1RF Coding Level of Care Code Est Pt Level 4 (93352) Diagnoses Atherosclerotic cardiovascular disease I25.10 Diabetes E11.9 Dyslipidemia E78.5
[2023-02-06 09:48] VITALS: BP 110/64; PULSE 92; BMI 24.4
== END 2023-02-06 10:00 | disposition home or self-care (01) ==
PROVIDERS: PCP Nurse Practitioner Family; Referring Provider Nurse Practitioner Family; Visit Provider Internal Medicine
DX: I25.10 Atherosclerotic heart disease of native coronary artery without angina pectoris (principal); E11.9 Type 2 diabetes mellitus without complications; E78.5 Hyperlipidemia, unspecified
CPT/HCPCS: 99214

== ENCOUNTER → 2023-02-06 09:40 | Outpatient (BNVA) | payer OTHER, SELFPAY | PROVIDERS: PCP Nurse Practitioner Family; Referring Provider Nurse Practitioner Family; Visit Provider Internal Medicine | DX: I25.10 Atherosclerotic heart disease of native coronary artery without angina pectoris (principal); E78.5 Hyperlipidemia, unspecified; E11.9 Type 2 diabetes mellitus without complications | CPT/HCPCS: 99212 ==

== ENCOUNTER 2023-02-10 16:00 | Outpatient (RCR) | payer OTHER, SELFPAY ==
--- NOTE | 2022-12-03 08:50 | MHC.PT.EP ---
[facility] [place] Office [place] Office [place] Office [address] Genoveva Ramsey [address] [phone] F: [phone] F: [phone] F: [phone] F: [phone] Physical Therapy Plan of Care Date of Evaluation: Date of Surgery: Diagnosis: This is 56 yo male presenting to skilled PT with a script for impingement syndrome of R shoulder. Assessment: This is 56 yo male presenting to skilled PT with a script for impingement syndrome of R shoulder. Patient is being followed by [facility] ortho. He has had ongoing shoulder pain for about 7-8 months now without injury noted. He had an injection at the beginning of October and this was not helpful. Pain is located at the anterior, superior and posterior aspect of the GHJ (described as dull and achy). His pain radiates into the bicep and is described as numbness. He reports that at times he has neck pain and has had herniated discs in the past. Pain increases with reaching, lifting at all angles which effects his ADLs and sleep. His pain is constant. Assessment reveals pain that ranges from 9/10. Patient demos decreased shoulder ROM, strength of shoulder and scapular muscles, very forward head and rounded posture, TTP at bicep and decreased pain tolerance for ADLs, work related activities and sleeping. Based on functional limitations, impaired QOL and pain tolerance patient is a good candidate for skilled PT 2x/wk for 4wks. Frequency and Duration: The patient will be seen 2x/wk for 4wks Short Term Goals: I in HEP in 2 weeks Demo improved postural awareness without PT cuing in 2 wks Demo good scapular recruitment for pain and posture in 2 wks [employer]rol[employer] Goals: Improve ROM to WFL in 4 wks Improve shoulder/scapular MMT by at least 1 grade in 4 wks Improve SPADI by at least 5 points in 4wks Improve pain to no more than 3/10 at the worst in 4 wks Treatment Plan: Modalities to reduce pain, spasms and effusion. Manual therapy to restore motion and function. Therapeutic exercise to improve strength and flexibility. Neuromuscular re-education for posture and balance. Therapeutic activities to return to functional activities of daily living. Electronically signed by: Mirtha Zuniga PT Please sign and return to therapist. Thank you for your referral.
--- NOTE | 2023-02-10 16:54 | MHC.PT.DC ---
[facility] [place] Office [place] Office [place] Office [address] Genoveva Ramsey [address] [phone] F: [phone] F: [phone] F: [phone] F: [phone] Physical Therapy Discharge Report Diagnosis: This is 56 yo male presenting to skilled PT with a script for impingement syndrome of R shoulder. Date of Surgery: Date of Evaluation: 12/03/22 Date of Discharge: 02/10/23 Treatments to Date: 12 Cancellations to Date: 0 No Shows to Date: 0 Discharge Status: Improved Function Independent with HEP Recommend MD Follow-up Discharge Summary: 02/10/2023: Pt has made some progress since start of care. He feels his pain is better but still gets pain at times especially when trying to sleep. He does not yet feel like his shoulder is back to his PLOF despite good compliance with his HEP. Pt has discussed next steps with his primary PT. His primary PT has recommended he follow up with his referring provider for evaluation of his continued sx and possibility of further imaging which I also agree with. Pt to be d/c at this time and he is in agreement with plan. Electronically signed by: Vijaya Pereira, PT, DPT, ATC Please sign and return to therapist. Thank you for your referral.
== END 2023-02-10 16:55 | disposition home or self-care (01) ==
LOC: HO.PTCHIC 16:00
PROVIDERS: PCP Nurse Practitioner Family; Visit Provider Orthopaedic Surgery
DX: M75.41 Impingement syndrome of right shoulder (principal)
CPT/HCPCS: 97110; 97140; 97162

== ENCOUNTER 2023-03-21 10:39 | Outpatient (AMB) | payer OTHER, SELFPAY ==
--- NOTE | 2023-03-21 09:46 | MHC.OFFVIS ---
Intake Intake Visit Reasons: OV-Right Shoulder pain- Follow up Intake Note: Ivan is a 57 year old right hand dominant male who presents today for a follow up of his right shoulder, on 11/04/22 he received an injection and was referred to PT. He reports that he has increased his ROM, but by the time he was attending the last few sessions he has increased pain in the shoulder and he was unable to finish PT. The injection was onlt temporarily helpful but the pain has returned. It was not helpful for the pain felt in the right bicipital area. Allergies No Known Drug Allergies Allergy (Unknown, Verified 03/21/23 10:44) Unknown HPI OV-Right Shoulder pain- Follow up HPI Details Ivan is a 57 year old man who presents for a follow-up of his right shoulder impingement. He was last seen and injected on 11/04/22, and sent for PT. He continues to complain of pain with daily activity, worse with overhead activity and at night. He says the injection gave relief and the course of PT gave him relief. He continues to take NSAIDs prn. [facility] Medical History GERD (gastroesophageal reflux disease) Sarcoidosis Bilateral hilar adenopathy syndrome Lymphadenopathy, mediastinal Elevated diaphragm Asthma High cholesterol Diabetes Left foot pain Surgical History Hx of cardiac cath Bone spur History of colonoscopy Family History Father Cancer Mother Diabetes mellitus Maternal Grandfather Unknown family medical history Maternal Grandmother Unknown family medical history Paternal Grandfather Unknown family medical history Paternal Grandmother No problems noted. Sister No problems noted. Sister No problems noted. Sister No problems noted. Daughter No problems noted. Social History Housing: House Alcohol intake: current Alcohol intake frequency: holidays/special occasions only Patient Tobacco Use Status: Never used Tobacco e-Cigarette/Vaping Use: Never Used Second Hand Smoke Exposure: Yes service: No Current occupational status: employed Cognitive needs: No Hearing needs: No Vision needs: Yes Review of Systems Const All systems reviewed & are unremarkable except as noted in HPI and below Physical Exam Const General: no acute distress, alert and awake Orientation/consciousness: patient oriented x3 HEENT Head: Yes normocephalic and Yes atraumatic Eyes EOM: EOMs intact bilaterally Resp Effort & Inspection: normal respiratory effort and able to speak in complete sentences Cardio Jugular venous distension: no JVD Skin General skin exam: turgor normal Rashes: no rashes Neuro General: patient oriented x3 Extrem Other: Right Shoulder: + H&N Painful, but negative, empty can ER to 45 degrees Full, but painful, ROM TTP about blaise-scapular region Psych Appearance: grossly normal Affect: normal affect Attitude: cooperative Office Procedures Joint Injection/Drain Joint Injection/Drain Details: Injected 1 mL of Decadron and 3 mL 1% lidocaine and 3 mL of 0.25% Marcaine. Site was prepped using aseptic technique. Patient tolerated the procedure well. Primary Site: right shoulder Approach Used: posterolateral Coding - Large joint Procedure code (CPT) selection complete Results Reviewed Results Reviewed: 03/21/23 11:06 BUPivacaine MPF 0.25 % [Sensorcaine-MPF 0.25% 10 ML] 10 ml .ROUTE .STK-MED ONE Lidocaine HCl 2 % MPF [Xylocaine 2 % MPF] 5 ml .ROUTE .STK-MED ONE dexAMETHasone sod phosphate [Decadron] 4 mg .ROUTE .STK-MED ONE Assessment & Plan Assessment & Plan (1) Impingement syndrome of right shoulder: Code(s): M75.41 - Impingement syndrome of right shoulder Plan: This is a 57 year old man with right shoulder impingement. He has pain with daily activity and limited ROM, particularly overhead, which impacts his work performance. He found relief from a previous steroid injection & PT. I injected his right shoulder. He will continue his HEP and follow up as needed. Plan Prepped for Can Chandra MD by Darrius Flor medical billing assistant, on 03/21/23. Coding Level of Care Code Est Pt Level 3 (30602) Diagnoses Impingement syndrome of right shoulder M75.41 CPT Codes Coding - Large joint: 32965 - Large joint ([id number])
== END 2023-03-21 11:23 | disposition home or self-care (01) ==
PROVIDERS: PCP Nurse Practitioner Family; Visit Provider Orthopaedic Surgery
DX: M75.41 Impingement syndrome of right shoulder (principal)
CPT/HCPCS: 20610; 99213

== ENCOUNTER → 2023-03-21 10:39 | Outpatient (BNVA) | payer OTHER, SELFPAY | PROVIDERS: PCP Nurse Practitioner Family; Visit Provider Orthopaedic Surgery | DX: M75.41 Impingement syndrome of right shoulder (principal) | CPT/HCPCS: 20610; 99212; J1100 ==

== ENCOUNTER 2023-05-16 08:37 | Outpatient (AMB) | payer OTHER, SELFPAY ==
[2023-05-16 09:19] VITALS: BP 160/80; PULSE 64; TEMP 36.7; O2SAT 97; BMI 23.7
--- NOTE | 2023-05-16 09:19 | MHC.OFFWIV ---
Intake Vital Signs 05/16/23 09:19 Height 5 ft 11 in Weight 170 lb 2 oz BMI 23.7 BP 160/80 H Blood Pressure Location Rt brachial Position Sitting Pulse 64 Pulse Source Pulse Oximeter Temp 98.0 F Temp Source Temporal Artery Scan Pulse Oximetry (%) 97 Intake Visit Reasons: EST/right wrist swelling (lobby) Intake Note: pt is here for c/o right wrist swelling with tingling feeling for over 2 months Patient Tobacco Use Status: Never used Tobacco Allergies No Known Drug Allergies Allergy (Unknown, Verified 05/16/23 14:49) Unknown Medication List - Last Reconciled 05/16/23 by Juanjo Hinton MD aspirin 81 mg PO DAILY atorvastatin 80 mg PO BEDTIME 90 days celecoxib (Celebrex) 200 mg PO DAILY cholecalciferol (vitamin D3) 50 mcg PO DAILY dulaglutide 1.5 mg (0.5 mL) subcut QWEEK fluticasone propionate 50 mcg/actuation (Flonase Allergy Relief) 1 spray intranasal DAILY ibuprofen 600 mg PO Q6H PRN lisinopril 2.5 mg PO DAILY meloxicam 15 mg PO DAILY metformin 1,000 mg PO BID 30 days metoprolol succinate ER 25 mg PO DAILY 90 days pantoprazole 40 mg PO DAILY ropinirole 1 mg PO BEDTIME 90 days Do you need a note to return to daycare/school/sports/work: Yes HPI EST/right wrist swelling (lobby) HPI Details 57-year-old male presents to the office for a sick visit. Patient is complaining of pain and swelling over the right wrist. Symptoms present for the past few days. No history of fall or injury. Patient uses his hands for repetitive work at work. COUNT INCLUDES THE [facility] Medical History GERD (gastroesophageal reflux disease) Sarcoidosis Bilateral hilar adenopathy syndrome Lymphadenopathy, mediastinal Elevated diaphragm Asthma High cholesterol Diabetes Left foot pain Surgical History Hx of cardiac cath Bone spur History of colonoscopy Family History Father Cancer Mother Diabetes mellitus Maternal Grandfather Unknown family medical history Maternal Grandmother Unknown family medical history Paternal Grandfather Unknown family medical history Paternal Grandmother No problems noted. Sister No problems noted. Sister No problems noted. Sister No problems noted. Daughter No problems noted. Social History Housing: House Alcohol intake: current Alcohol intake frequency: holidays/special occasions only Patient Tobacco Use Status: Never used Tobacco e-Cigarette/Vaping Use: Never Used Second Hand Smoke Exposure: Yes service: No Current occupational status: employed Cognitive needs: No Hearing needs: No Vision needs: Yes Physical Exam Vital Signs: Last Vital Signs Temp 98.0 F 05/16/23 09:19 Pulse 64 05/16/23 09:19 BP 160/80 H 05/16/23 09:19 Pulse Ox 97 05/16/23 09:19 BMI result Body Mass Index 23.7 Extrem Other: Right wrist: Tenderness over the dorsum of the wrist. Pain on flexion of the wrist. Assessment & Plan Assessment & Plan (1) Sprain of wrist, right: Code(s): S63.501A - Unspecified sprain of right wrist, initial encounter Plan X-ray images reviewed by me. No fractures seen. Anti-inflammatories provided. Patient was advised to avoid activity with the right upper extremity. Orders: Orders XR wrist RT min 3V Today S63.501A - Unspecified sprain of right wrist, initial encounter Medications: New meloxicam 15 mg PO DAILY 14 tabs 0RF Coding Level of Care Code Est Pt Level 4 (92995) Diagnoses Sprain of wrist, right S63.501A
== END 2023-05-16 11:13 | disposition home or self-care (01) ==
PROVIDERS: PCP Nurse Practitioner Family; Visit Provider Internal Medicine
DX: S63.501A Unspecified sprain of right wrist, initial encounter (principal); Z04.2 Encounter for examination and observation following work accident
CPT/HCPCS: 99214

== ENCOUNTER 2023-05-16 09:42 | Outpatient (REF) | payer OTHER, SELFPAY ==
--- NOTE | ~2023-05-16 | XR_ITS ---
EXAMINATION: XR WRIST, RIGHT CLINICAL INFORMATION: Sprain of right COMPARISON: None available. TECHNIQUE: PA, lateral, and oblique views of the right wrist. FINDINGS: There are no evidence of fracture or dislocation. Chondrocalcinosis seen in the right radiocarpal joint. There are postsurgical changes in the base of first and second carpometacarpal bones with small and color in the soft tissues. There are degenerative changes at the first carpometacarpal joint. 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 XR/XR wrist RT min 3V IMPRESSION: 1. Postsurgical changes in the base of first and second carpometacarpal bones. 2. Chondrocalcinosis. 3. Degenerative changes at the first carpometacarpal joint.
== END 2023-05-16 09:43 | disposition home or self-care (01) ==
LOC: HO.HMGCX 09:42
PROVIDERS: PCP Nurse Practitioner Family; Visit Provider Internal Medicine
DX: S63.501A Unspecified sprain of right wrist, initial encounter (principal)
CPT/HCPCS: 73110

== ENCOUNTER 2023-08-15 06:26 | Outpatient (REF) | payer OTHER, SELFPAY ==
[2023-08-15 06:37] LABS: MANUAL DIFF FLAG NO
[2023-08-15 07:31] LABS: Appearance Urine Clear; Color Urine Dark Yellow; Glucose Urine UA Negative (Negative); Leukocyte Esterase Urine Negative (Negative); Nitrite Urine Negative (Negative); PH 5.5 (5.0-9.0); Specific Gravity - Urine >= 1.030 (1.005-1.025); Urine Blood Negative (Negative); Urine Ketones Trace mg/dL (Negative); Urine Protein Trace mg/dL (Neg-Trace)
[2023-08-15 07:31] LABS: Basophils Absolute Auto 0.1 X10*3/uL (0.0-0.2); Eosinophils Absolute Auto 0.1 X10*3/uL (0.0-0.4); Eosinophils Percent Auto 2.1 % (0-4); Hematocrit 49.3 % (42.0-52.0); Hemoglobin 17.3 g/dl (14.0-18.0); Imm Gran Abs Auto 0.01 X10*3/uL (0.00-0.03); Imm Gran Pct Auto 0.2 % (0.0-0.4); Lymphocytes Absolute Auto 1.7 X10*3/uL (1.2-4.9); Lymphocytes Percent Auto 28.7 % (20-40); Mean Corpuscular HGB Conc 35.1 g/dl (31.0-36.0); Mean Corpuscular Hemoglobin 31.2 pg (27.0-33.0); Monocytes Absolute Auto 0.5 X10*3/uL (0.1-1.2); Monocytes Percent Auto 9.2 % (2-11); Neutrophils Absolute Auto 3.4 x10*3/uL (2.0-8.3); Neutrophils Percent Auto 58.8 % (45-73); Platelet Count 230 X10*3/uL (160-400); Red Blood Count 5.54 X10*6/uL (4.60-5.80); Red Cell Distribution Width 12.8 % (11.0-16.0); White Blood Count 5.8 X10*3/uL (4.8-10.8)
[2023-08-15 07:41] LABS: Estimated Average Glucose 154 mg/dL
[2023-08-15 08:07] LABS: Alanine Aminotransferase 27 U/L (0-40); Albumin Level 4.6 g/dL (3.5-5.0); Alkaline Phosphatase 101 U/L (39-117); Anion Gap 13 (12-20); Aspartate Amino Transferase 18 U/L (5-37); Bilirubin Total 2.9 mg/dL (0.0-1.0); Blood Urea Nitrogen 19 mg/dL (9-16); Calcium 9.8 mg/dL (8.4-10.2); Carbon Dioxide 28 mmol/L (22-29); Chloride 102 mmol/L (96-108); Cholesterol 295 mg/dL (<200); Estimated Glomerular Filt Rate > 60; Glucose Fasting 146 mg/dL (60-99); HDL Cholesterol 69 mg/dL (>40); LDL Cholesterol Calculated 203 mg/dL (<100); Sodium 139 mmol/L (135-145); Total Protein 8.4 g/dL (6.5-8.0); Triglycerides 119 mg/dL (<150)
[2023-08-15 08:13] LABS: Prostate Specific Antigen Scr 0.84 ng/mL (<0.05-4.0)
== END 2023-08-15 06:27 | disposition home or self-care (01) ==
LOC: HO.LAB 06:26
PROVIDERS: PCP Nurse Practitioner Family; Visit Provider Nurse Practitioner Family
DX: Z12.5 Encounter for screening for malignant neoplasm of prostate (principal); E11.9 Type 2 diabetes mellitus without complications
CPT/HCPCS: 36415; 80053; 80061; 81003; 82043; 82570; 83036; 84153; 84443; 85025

== ENCOUNTER 2023-08-27 14:46 | Outpatient (AMB) | payer OTHER, SELFPAY ==
--- NOTE | 2023-08-27 15:19 | MHC.OFFVIS ---
Intake Vital Signs 08/27/23 15:21 Height 5 ft 11 in Weight 158 lb 11.725 oz BMI 22.1 BP 138/73 Blood Pressure Location Lt brachial Position Sitting Pulse 101 H Intake Visit Reasons: pt r/s appointment from 4 month follow up Intake Note: Ivan presents in the office as a 4 month follow up. CC: He states that he has a lot of concerns that he would like to talk with the provider about. Respiratory Care Faculty Required: No Allergies No Known Drug Allergies Allergy (Unknown, Verified 08/27/23 15:21) Unknown HPI pt r/s appointment from 4 month follow up HPI Details LAST VISIT: IBS (irritable bowel syndrome) Continue low Foodmap diet and he avoiding food that cause diarrhea or constipation. Patient was encouraged to drink plenty fluids. History of diverticulitis Patient has a history of diverticulitis in the past. Patient does not have any abdominal pain, however occasional loose stools with symptoms started about a year ago. Patient had colonoscopy almost 8 years ago with no polyps, however he should go for colonoscopy to rule out inflammatory processes GERD (gastroesophageal reflux disease) Patient has symptoms of acid reflux are suppressed for the most part. He can continue taking PPI. Patient was encouraged to avoid NSAIDs. Discussed with patient avoiding dietary triggers, and late night snacking. Staying upright for minimal 3 hours after meals discussed with patient. I will see patient in 4 months we will discuss going for diagnostic colonoscopy. Patient is agreeable to this plan and verbalizes understanding of instructions. He was given the opportunity to ask questions all questions answered. ? Thank you for allowing me to participate in his care Plan Orders Orders Ferritin Today R74.8 Liver Panel Today R10.9 IRON PROFILE Today K92.2 TODAY'S VISIT: Patient is here today for follow-up and to discuss going for colonoscopy. Patient missed couple of his appointments last year. Patient states that he had lots of going on at work and personal life. As mentioned above patient had colonoscopy in the past about 9 years ago or so. History of diverticulitis. Currently patient reports to have occasional abdominal cramping and bloating depending on what he eats. Patient states that currently he is on Trulicity. Sees cardiology and next appointment is in January. Patient currently is only on aspirin, Plavix was discontinued during last visit. Patient denies any melena, hematochezia, unintentional weight loss or ribbon like stools. Reports occasional dyspepsia without dysphagia or odynophagia. Patient does admit that depending on what he eats he might have abdominal bloating and postprandial loose stools. Patient reports that generally he moves his bowels well. Takes pantoprazole every morning and his symptoms of acid reflux are suppressed. [facility] Medical History GERD (gastroesophageal reflux disease) Sarcoidosis Bilateral hilar adenopathy syndrome Lymphadenopathy, mediastinal Elevated diaphragm Asthma High cholesterol Diabetes Left foot pain Surgical History Hx of cardiac cath Bone spur History of colonoscopy Family History Father Cancer Mother Diabetes mellitus Maternal Grandfather Unknown family medical history Maternal Grandmother Unknown family medical history Paternal Grandfather Unknown family medical history Paternal Grandmother No problems noted. Sister No problems noted. Sister No problems noted. Sister No problems noted. Daughter No problems noted. Social History Housing: House Alcohol intake: current Alcohol intake frequency: holidays/special occasions only Patient Tobacco Use Status: Never used Tobacco e-Cigarette/Vaping Use: Never Used Second Hand Smoke Exposure: Yes service: No Current occupational status: employed Cognitive needs: No Hearing needs: No Vision needs: Yes Review of Systems Const Denies weight gain and Denies weight loss ENT Reports no additional complaints, Denies dysphagia and Denies odynophagia Card Reports no additional complaints Resp Reports no additional complaints GI Reports abdominal pain (Cramping), Denies belching, Denies melena, Reports bloating, Denies change in bowel habits, Reports constipation, Denies dysphagia, Denies excessive flatus, Denies dyspepsia, Reports heartburn (Occasional), Denies diarrhea, Reports loose stools, Denies nausea, Denies odynophagia and Denies vomiting Reports no additional complaints Musc Reports no additional complaints Neuro Reports no additional complaints Psych Reports no additional complaints Endo Reports no additional complaints Physical Exam Vital Signs: Last Vital Signs Pulse 101 H 08/27/23 15:21 BP 138/73 08/27/23 15:21 BMI result Body Mass Index 22.1 Const General: healthy appearing, no acute distress and well developed Nutritional Appearance: well nourished Orientation/consciousness: patient oriented x3 Resp Effort & Inspection: normal respiratory effort, able to speak in complete sentences, no tracheal deviation and symmetric chest movement Auscultation: clear to auscultation bilaterally Cardio Rate: regular rate GI Inspection: Yes normal to inspection and No distended Palpation (GI): Soft to palpation, not firm, nontender and No hepatosplenomegaly present Auscultation: normal bowel sounds General: Yes no CVA tenderness Back/Spine/Pelvis Back: no CVA tenderness Skin General skin exam: elasticity normal, turgor normal and dry skin Neuro General: patient oriented x3 Psych Appearance: grossly normal Mental Status: mental status grossly normal Assessment & Plan Assessment & Plan (1) GERD (gastroesophageal reflux disease): Code(s): K21.9 - Gastro-esophageal reflux disease without esophagitis Qualifiers: Esophagitis presence: esophagitis presence not specified Qualified Code(s): K21.9 - Gastro-esophageal reflux disease without esophagitis (2) IBS (irritable bowel syndrome): Code(s): K58.9 - Irritable bowel syndrome without diarrhea Qualifiers: Irritable bowel syndrome type: with both diarrhea and constipation Qualified Code(s): K58.2 - Mixed irritable bowel syndrome (3) History of diverticulitis: Code(s): Z87.19 - Personal history of other diseases of the digestive system (4) Screen for colon cancer: Code(s): Z12.11 - Encounter for screening for malignant neoplasm of colon Plan Continue current dose of pantoprazole. Discussed with patient avoiding dietary triggers and late night snacking. Staying upright for minimum 3 hours after meals discussed with patient. Patient has appointment with his creative services designer in January. Will send request for risk stratification. Patient can be schedule for colonoscopy in February. Currently has no cardiac or respiratory symptoms. Patient will return in our office in December to go over prep again. Making sure that he is moving his bowels daily. He is agreeable to current plan and verbalizes understanding of instructions. He was given the opportunity to ask questions and all questions answered. Thank you for allowing me to participate in his care Medications: New bisacodyl (Dulcolax (bisacodyl)) 10 mg (2 x 5 mg) PO BEDTIME 180 tabs 4RF polyethylene glycol 3350 (Miralax) As directed by gastroenterology department at [facility] 238 grams PO ONCE 238 grams 0RF Z12.11 - Encounter for screening for malignant neoplasm of colon Refilled pantoprazole take one tablet half an hour before breakfast 40 mg PO DAILY 90 tabs 2RF K21.9 - Gastro-esophageal reflux disease without esophagitis Coding Level of Care Code Est Pt Level 4 (22861) Diagnoses Gastroesophageal reflux disease, unspecified whether esophagitis present K21.9 Esophagitis presence: esophagitis presence not specified Irritable bowel syndrome with both constipation and diarrhea K58.2 Irritable bowel syndrome type: with both diarrhea and constipation History of diverticulitis Z87.19 Screen for colon cancer Z12.11 Time Spent (min) 35 Comment 20 minutes spent with patient and additional 15 minutes spent reviewing his records
[2023-08-27 15:21] VITALS: BP 138/73; PULSE 101; BMI 22.1
== END 2023-08-27 16:10 | disposition home or self-care (01) ==
PROVIDERS: PCP Nurse Practitioner Family; Visit Provider Nurse Practitioner Family
DX: K21.9 Gastro-esophageal reflux disease without esophagitis (principal); K58.2 Mixed irritable bowel syndrome; Z87.19 Personal history of other diseases of the digestive system; Z12.11 Encounter for screening for malignant neoplasm of colon
CPT/HCPCS: 99214

== ENCOUNTER → 2023-08-27 14:46 | Outpatient (BNVA) | payer OTHER, SELFPAY | PROVIDERS: PCP Nurse Practitioner Family; Visit Provider Nurse Practitioner Family ==

== ENCOUNTER 2023-09-02 09:58 | Outpatient (AMB) | payer OTHER, SELFPAY ==
[2023-09-02 10:03] VITALS: BP 140/88; PULSE 94; O2SAT 97; BMI 23.7
--- NOTE | 2023-09-02 10:03 | MHC.PC.OV ---
Vital Signs 09/02/23 10:03 Height 5 ft 11 in Weight 170 lb 2 oz BMI 23.7 BP 140/88 H Blood Pressure Location Lt brachial Position Sitting Pulse 94 Pulse Source Pulse Oximeter Pulse Oximetry (%) 97 Oxygen Delivery Method Room Air Intake Visit Reasons: F/u diabetes/referral for ophthalmology Intake Note: pt is here to follow up for his DM Allergies No Known Drug Allergies Allergy (Unknown, Verified 09/02/23 11:10) Unknown Medication List - Last Reconciled 09/02/23 by MICHAEL Cameron aspirin 81 mg PO DAILY atorvastatin 80 mg PO BEDTIME 90 days bisacodyl (Dulcolax (bisacodyl)) 10 mg (2 x 5 mg) PO BEDTIME dulaglutide 3 mg (0.5 mL) subcut QWEEK fluticasone propionate 50 mcg/actuation (Flonase Allergy Relief) 1 spray intranasal DAILY ibuprofen 600 mg PO Q6H PRN losartan 25 mg PO DAILY 90 days meloxicam 15 mg PO DAILY metformin 1,000 mg PO BID 30 days metoprolol succinate ER 25 mg PO DAILY 90 days pantoprazole 40 mg PO DAILY polyethylene glycol 3350 (Miralax) 238 grams PO ONCE ropinirole 1 mg PO BEDTIME Tobacco use date assessed: 09/02/23 Dental Screening Dental Screen Date: 09/02/23 Did you have a dental visit in the last 12 months?: No Did you have a dental problem in the last 6 months where you did not have access to dental care?: No Was dental information given to patient?: No HPI F/u diabetes/referral for ophthalmology HPI Details Pt is a diabetic, on a statin. Adding a KAT today. Last A1C was 7.0, microalbumin is up to date. Denies polyuria, polydipsia, does report some neuropathy. Pt denies any signs and symptoms of hypoglycemia and does know how to correct it. Pt reports that his blood sugar has been around 240-250. Will increase trulicity from 1.5mg to 3mg. Due for eye exam, will refer. Pt's bilirubin was elevated, will refer to GI. [facility] Medical History GERD (gastroesophageal reflux disease) Sarcoidosis Bilateral hilar adenopathy syndrome Lymphadenopathy, mediastinal Elevated diaphragm Asthma High cholesterol Diabetes Left foot pain Surgical History Hx of cardiac cath Bone spur History of colonoscopy Family History Father Cancer Mother Diabetes mellitus Maternal Grandfather Unknown family medical history Maternal Grandmother Unknown family medical history Paternal Grandfather Unknown family medical history Paternal Grandmother No problems noted. Sister No problems noted. Sister No problems noted. Sister No problems noted. Daughter No problems noted. Social History Housing: House Alcohol intake: current Alcohol intake frequency: holidays/special occasions only Patient Tobacco Use Status: Never used Tobacco e-Cigarette/Vaping Use: Never Used Second Hand Smoke Exposure: Yes service: No Current occupational status: employed Cognitive needs: No Hearing needs: No Vision needs: Yes Questionnaire PHQ-9 Over the last 2 weeks, how often have you been bothered by any of the following problems? 1. Little interest or pleasure in doing things: not at all 2. Feeling down, depressed, or hopeless: several days 3. Trouble falling or staying asleep, or sleeping too much: more than half the days 4. Feeling tired or having little energy: more than half the days 5. Poor appetite or overeating: several days 6. Feeling bad about yourself - or that you are a failure or have let yourself or your family down: not at all 7. Trouble concentrating on things, such as reading the newspaper or watching television: not at all 8. Moving or speaking so slowly that other people could have noticed. Or the opposite - being so fidgety or restless that you have been moving around a lot more than usual: not at all 9. Thoughts that you would be better off or of hurting yourself in some way: not at all Total score: 6 Depression Screening Interpretation: Negative Depression Screening Done: Yes 27925 - PHQ-9 Billing: Yes Source: Developed by Drs. Steve Etienne, Meche Bonilla, Neo Vyas and colleagues, with an educational luli from [employer]. Thrive Questionnaire Date Thrive assessed: 09/02/23 I am a: Patient What is your living situation today?: I have a steady place to live Within the past 12 months, did the food you bought not last and you didn't have the money to get more?: Never true Within the past 12 months, did you worry whether your food would run out before you got money to buy more?: Never true Do you have trouble paying for medicines?: No Do you have trouble getting transportation to medical appointments?: No Do you have trouble paying your heating and electricity bill?: No Do you have trouble taking care of your child, family member or friend?: No Do you have trouble with day-to-day activities such as bathing, preparing meals, shopping, managing finances, etc.?: No Are you currently unemployed and looking for a job?: No Are you interested in more education?: No Please select the resources that you would like help with: None Currently or been in a relationship where the following occur: no concerns reported THRIVE Score: 0 AUDIT C Alcohol Use Questionnaire (AUDIT-C) 1. How often do you have a drink containing alcohol?: Monthly or less 2. How many drinks containing alcohol do you have on a typical day when you are drinking?: 1 or 2 3. How often do you have six or more drinks on one occasion?: Never Total Score: 1 MASOOD-7 AMB Questionnaire MASOOD-7 Date MASOOD - 7 assessed: 09/02/23 Feeling nervous, anxious, or on edge: 2 = More than half the days Not being able to stop or control worryin = Several days Worrying too much about different things: 2 = More than half the days Trouble relaxin = Nearly every day Being so restless that it is hard to sit still: 3 = Nearly every day Becoming easily annoyed or irritable: 2 = More than half the days Feeling afraid as if something awful might happen: 0 = Not at all Total MASOOD-7 score (0-4 normal; 5-9 mild; 10-14 moderate; 15-21 severe): 13 Source: Developed by Drs. Steve Etienne, Meche Bonilla, Neo Vyas and colleagues, with an educational luli from [employer] MASOOD-7 Assessment Billing MASOOD-7 Assessment Tool: MASOOD-7 Assessment 20384 Review of Systems Const Reports as per HPI Physical exam (Primary Care) Vital Signs: Last Vital Signs Pulse 94 09/02/23 10:03 BP 140/88 H 09/02/23 10:03 Pulse Ox 97 09/02/23 10:03 Oxygen Delivery Method Room Air 09/02/23 10:03 BMI result Body Mass Index 23.7 Tobacco/Smoking Status: Tobacco use Status Tobacco use date assessed 09/02/23 09/02/23 10:11 Patient Tobacco Use Status Never used Tobacco 09/02/23 10:04 e-Cigarette/Vaping Use Never Used 09/02/23 10:04 PHQ-9: PHQ-9 Score PHQ-9: Total score 6 09/02/23 11:39 Depression Screening Interpretation: Negative Thrive Assessment: Date of Thrive Assessment Date Thrive assessed 09/02/23 09/02/23 11:28 Currently or been in a relationship where the following occur: no concerns reported Const General: cooperative Orientation/consciousness: patient oriented x3 Resp Effort & Inspection: normal respiratory effort Auscultation: diminished lung sounds on the left Cardio Rate: regular rate Rhythm: regular rhythm Heart sounds: S1 normal heart sound present and S2 normal heart sound present Neuro General: patient oriented x3 Extrem Other: bilat feet: + sensation with use of monofilament, feet intact Psych Appearance: grossly normal Mental Status: mental status grossly normal Speech and movement: Normal speech and movement present Affect: normal affect Attitude: cooperative Thought process: Normal thought process present Thought content: Normal thought content present Insight: Good insight present (Psych) Judgement: Good judgement present (Psych) Immunizations pneumoc 20-rebecca conj-dip cr(PF) 0.5 mL IM syringe Performing Provider: MICHAEL Cameron Performing Location: [facility] Administered by: José Miguel Vasquez CMA on 09/02/23 11:39 Dose Route Admin Location Dispensed Lot Number Expiration Date NDC Station Engineer 0.5 mL IM Left Deltoid 0.5 mL [id number] 07/31/24 Mobile [employer] VIS Given Date VIS Provided VIS Publication Date 09/02/23 Single Vaccine 21 Eligibility Eligibility Date Funding Source Not C Eligible 09/02/23 Private Assessment and Plan Assessment & Plan (1) Diabetes: Code(s): E11.9 - Type 2 diabetes mellitus without complications Plan: Increasing trulicity from 1.5mg to 3mg (2) Elevated bilirubin: Code(s): R17 - Unspecified jaundice Plan: Referred to GI (3) Decreased lung sounds: Code(s): R06.89 - Other abnormalities of breathing Plan: Chest XR ordered Plan The patient agreed to the use of a director global medical affairs for this encounter. Scribed for JOSEPHINE Mackenzie- by Marilee Nunez director global medical affairs, on 09/02/2023 at 10:30 EST. Orders: Orders XR chest 2V Today R06.89 - Other abnormalities of breathing Complete Blood Count Auto Diff Today E11.9 - Type 2 diabetes mellitus without complications Comprehensive [place]. Panel Fast Today E11.9 - Type 2 diabetes mellitus without complications Lipid Panel Today E11.9 - Type 2 diabetes mellitus without complications Pneumococcal 20 Immunization Today Z23 - Encounter for immunization Referrals Ophthalmology Referral E11.9 - Type 2 diabetes mellitus without complications Gastroenterology Referral R17 - Unspecified jaundice Medications: New losartan 25 mg PO DAILY 90 tabs 1RF 90 days Changed From dulaglutide 1.5 mg (0.5 mL) subcut QWEEK 6 mL 1RF To dulaglutide 3 mg (0.5 mL) subcut QWEEK 2 mL 1RF Coding Level of Care Code Est Pt Level 3 (21304) Diagnoses Diabetes E11.9 Elevated bilirubin R17 Decreased lung sounds R06.89 Additional Codes MASOOD-7 Assessment Billing - MASOOD-7 Assessment Tool: MASOOD-7 Assessment 56094 ([id number])
== END 2023-09-02 11:43 | disposition home or self-care (01) ==
PROVIDERS: PCP Nurse Practitioner Family; Visit Provider Nurse Practitioner Family
DX: E11.9 Type 2 diabetes mellitus without complications (principal); R17 Unspecified jaundice; R06.89 Other abnormalities of breathing; Z23 Encounter for immunization
CPT/HCPCS: 90471; 90677; 99213

== ENCOUNTER 2023-09-19 09:47 | Outpatient (REF) | payer OTHER, SELFPAY ==
--- NOTE | ~2023-09-19 | XR_ITS ---
EXAMINATION: XR CHEST CLINICAL INFORMATION: Abnormalities are breathing COMPARISON: None available. TECHNIQUE: 2 views of the chest were obtained. FINDINGS: There is elevated left hemidiaphragm. The lungs are well-expanded and clear. Heart size and pulmonary vascularity is normal. There is mild spondylosis dorsal spine.. XR/XR chest 2V IMPRESSION: Elevated left hemidiaphragm. No acute process seen.
== END 2023-09-19 09:48 | disposition home or self-care (01) ==
LOC: HO.HMGCX 09:47
PROVIDERS: PCP Nurse Practitioner Family; Visit Provider Nurse Practitioner Family
DX: R06.89 Other abnormalities of breathing (principal)
CPT/HCPCS: 71046

== ENCOUNTER 2023-10-03 08:37 | Outpatient (REF) | payer OTHER, SELFPAY ==
[2023-10-03 10:25] LABS: MANUAL DIFF FLAG NO
[2023-10-03 10:47] LABS: Basophils Absolute Auto 0.1 X10*3/uL (0.0-0.2); Eosinophils Absolute Auto 0.2 X10*3/uL (0.0-0.4); Eosinophils Percent Auto 2.9 % (0-4); Hematocrit 45.8 % (42.0-52.0); Hemoglobin 15.9 g/dl (14.0-18.0); Imm Gran Abs Auto 0.01 X10*3/uL (0.00-0.03); Imm Gran Pct Auto 0.2 % (0.0-0.4); Lymphocytes Absolute Auto 1.7 X10*3/uL (1.2-4.9); Lymphocytes Percent Auto 29.2 % (20-40); Mean Corpuscular HGB Conc 34.7 g/dl (31.0-36.0); Mean Corpuscular Volume 89.3 fL (80.0-98.0); Mean Platelet Volume 11.5 fL (9.4-12.4); Monocytes Absolute Auto 0.7 X10*3/uL (0.1-1.2); Neutrophils Absolute Auto 3.3 x10*3/uL (2.0-8.3); Neutrophils Percent Auto 55.7 % (45-73); Platelet Count 239 X10*3/uL (160-400); Red Blood Count 5.13 X10*6/uL (4.60-5.80); Red Cell Distribution Width 12.4 % (11.0-16.0); White Blood Count 5.9 X10*3/uL (4.8-10.8)
[2023-10-03 11:18] LABS: Alanine Aminotransferase 26 U/L (0-40); Albumin Level 4.6 g/dL (3.5-5.0); Alkaline Phosphatase 97 U/L (39-117); Anion Gap 12 (12-20); Aspartate Amino Transferase 16 U/L (5-37); Bilirubin Total 2.8 mg/dL (0.0-1.0); Blood Urea Nitrogen 18 mg/dL (9-16); Calcium 9.8 mg/dL (8.4-10.2); Carbon Dioxide 28 mmol/L (22-29); Chloride 102 mmol/L (96-108); Cholesterol 190 mg/dL (<200); Estimated Glomerular Filt Rate > 60; Glucose Fasting 151 mg/dL (60-99); HDL Cholesterol 67 mg/dL (>40); LDL Cholesterol Calculated 103 mg/dL (<100); Potassium 3.9 mmol/L (3.3-5.1); Sodium 138 mmol/L (135-145); Triglycerides 103 mg/dL (<150)
== END 2023-10-03 08:38 | disposition home or self-care (01) ==
LOC: HO.HMGCLDS 08:37
PROVIDERS: PCP Nurse Practitioner Family; Visit Provider Nurse Practitioner Family
DX: E11.9 Type 2 diabetes mellitus without complications (principal)
CPT/HCPCS: 36415; 80053; 80061; 85025

== ENCOUNTER 2023-11-14 10:48 | Outpatient (REF) | payer OTHER, SELFPAY ==
--- NOTE | ~2023-11-14 | CT_ITS ---
EXAMINATION: CT CHEST WITHOUT CONTRAST CLINICAL INFORMATION: Disorders of the diaphragm with elevation. COMPARISON: CT chest 10/29/2021. TECHNIQUE: Multidetector volumetric CT imaging of the chest was done. Axial MIP volume rendering provided. Sagittal and coronal reformatted images were obtained. This CT examination was performed using dose optimization techniques as appropriate, variously including the following: *Automated exposure control *Adjustment of mA and/or kV according to patient size (this includes techniques or standardized protocols for targeted exams where dose is matched to indication/reason for exam; i.e. extremities or head) *Use of iterative reconstruction technique DLP: 548 mGy-cm FINDINGS: CADDY/CADDIE SUPERVISOR: There is elevation of the left hemidiaphragm which is 7.6 cm higher than the right. At the time of the prior study, the diaphragm was 5.4 cm higher. LUNGS: Multiple scattered calcified granulomas are present. There is left basilar atelectasis associated with the elevated left hemidiaphragm. Cylindrical bronchiectasis is present. Some minimal emphysematous changes are seen. MEDIASTINUM: The mediastinum is normal. CORONARY ARTERY CALCIFICATION: Present. A stent is present in the left anterior descending artery. PLEURA: There is no pleural effusion. No pleural mass or thickening. AXILLA: No lymphadenopathy. UPPER ABDOMEN: Unremarkable. OSSEOUS STRUCTURES: Mild degenerative changes are present in the spine. A small hemangioma is present in the T10 vertebral body on the right. CT/CT chest wo IV con IMPRESSION: 1. Elevated left hemidiaphragm with associated left basilar atelectasis. 2. Incidental note made of calcified granulomas, bronchiectasis and minimal emphysema. Fleischner guidelines were followed.
--- NOTE | ~2023-11-14 | CT_ITS ---
EXAMINATION: CT ABDOMEN WITHOUT CONTRAST CLINICAL INFORMATION: Elevated hemidiaphragm COMPARISON: CT scan of abdomen and pelvis on 01/30/2015 TECHNIQUE: Contiguous axial thin section helical images of the abdomen were performed without contrast. The data set was reformatted in the coronal and sagittal planes and reviewed on an independent workstation. This CT examination was performed using dose optimization techniques as appropriate, variously including the following: *Automated exposure control *Adjustment of mA and/or kV according to patient size (this includes techniques or standardized protocols for targeted exams where dose is matched to indication/reason for exam; i.e. extremities or head) *Use of iterative reconstruction technique DLP: 548 mGy-cm FINDINGS: CT ABDOMEN LUNG BASES: There is moderate asymmetric elevation of left hemidiaphragm causing compression atelectasis in the left lower lobe. LIVER: Liver appears to be grossly normal on noncontrast enhanced images. GALLBLADDER AND BILIARY TREE: Gallbladder appears unremarkable without calcified stones. Common bile duct is not dilated. SPLEEN: The spleen is normal in size without focal lesion on noncontrast enhanced images. PANCREAS: The pancreas appears unremarkable on noncontrast enhanced images. ADRENAL GLANDS: Adrenal glands are normal in size without focal lesion bilaterally. KIDNEYS: The visualized bilateral kidneys are normal in size without stones. A right lateral inferior renal cortical simple cyst is seen measuring 1.8 cm in diameter, mean attenuation of 4 Hounsfield units, for which no follow up imaging is recommended. No caliectasis or dilated pelvis is seen. No dilated ureters are found. BOWELS: There is no abnormal dilatation of the large and small bowel loops. Multiple diverticula are seen in the descending colon without inflammatory changes. RETROPERITONEUM: No abnormally enlarged retroperitoneal lymph nodes, mass or hematoma could be seen. BLOOD VESSELS: Abdominal aorta is normal in size with focal atherosclerotic calcifications. ABDOMINAL WALL: A tiny umbilical hernia containing mesenteric fat is seen. PERITONEUM: There is no ascites. There were no abdominal peritoneal inflammatory changes seen. No free peritoneal air was seen. BONES: No fracture or dislocation. No focal bone lesion diagnostic of metastatic disease could be seen in the lumbar region. CT PELVIS URINARY BLADDER: The visualized urinary bladder is normal, filled with urine. No intraluminal stones are found. No abnormally dilated distal ureters are seen. BOWELS: There is no abnormal dilatation of the large and small bowel loops. Normal long partially air-filled appendix is seen projecting medial to the cecum. Multiple diverticula are seen in the descending and sigmoid colon without inflammatory changes. GENITAL ORGANS: Seminal vesicles are unremarkable. Prostate gland is normal. LYMPH NODES: No abnormally enlarged iliac or inguinal lymph nodes are seen. PERITONEUM: No inflammatory changes, ascites or free peritoneal air are found in the pelvis. BONES: No fracture or dislocation. No focal bone lesion diagnostic of metastatic disease could be seen in the pelvis. CT/CT abdomen wo IV con IMPRESSION: 1. Unchanged Moderate asymmetric elevation of left hemidiaphragm causing compression atelectasis in the left lower lobe. 2. Unchanged Colonic diverticulosis without inflammatory changes. 3. Interval development of left lateral inferior renal cortical simple cyst, for which no follow up imaging is recommended. 4. No evidence of obstructive uropathy. 5. No evidence of bowel obstruction. Normal appendix. Fleischner guidelines were followed.
== END 2023-11-14 10:49 | disposition home or self-care (01) ==
LOC: HO.CT 10:48
PROVIDERS: PCP Nurse Practitioner Family; Visit Provider Nurse Practitioner Family
DX: J98.6 Disorders of diaphragm (principal)
CPT/HCPCS: 71250; 74150

== ENCOUNTER 2023-12-12 08:39 | Outpatient (AMB) | payer OTHER, SELFPAY ==
[2023-12-12 08:37] VITALS: BP 128/70; PULSE 95; TEMP 36.1; O2SAT 97
--- NOTE | 2023-12-12 08:37 | AM.OFFWIN_ITS ---
Intake Vital Signs 12/12/23 08:37 Height 51 ft Weight 167 lb BMI 0.3 BP 128/70 Blood Pressure Location Lt brachial Position Sitting Pulse 95 Pulse Source Pulse Oximeter Temp 97.0 F Temp Source Temporal Artery Scan Pulse Oximetry (%) 97 Oxygen Delivery Method Room Air Intake Visit Reasons: Sinus Pain and Pressure Intake Note: pt is here today for sinus pain and pressure started 1 month ago Patient Tobacco Use Status: Never used Tobacco Allergies No Known Drug Allergies Allergy (Unknown, Verified 12/12/23 08:43) Unknown Do you need a note to return to daycare/school/sports/work: No HPI HPI Comments History of Present Illness Details This is a 57-year-old male who presented to the office today complaining of sinus pain/pressure for the past several months. He denies any significant rhinorrhea or nasal drainage. He denies any fever/chills. He denies any sore throat. He states he occasionally gets a headache located at his forehead, which shoots towards the top of his head. He denies any associated slurred speech, facial asymmetry, visual disturbance, or unilateral numbness/weakness/paresthesias. Patient states he recently started a nasal spray within the past 3 days, which has helped. [facility] Medical History GERD (gastroesophageal reflux disease) Sarcoidosis Bilateral hilar adenopathy syndrome Lymphadenopathy, mediastinal Elevated diaphragm Asthma High cholesterol Diabetes Left foot pain Surgical History Hx of cardiac cath Bone spur History of colonoscopy Family History Father Cancer Mother Diabetes mellitus Maternal Grandfather Unknown family medical history Maternal Grandmother Unknown family medical history Paternal Grandfather Unknown family medical history Paternal Grandmother No problems noted. Sister No problems noted. Sister No problems noted. Sister No problems noted. Daughter No problems noted. Social History Housing: House Alcohol intake: current Alcohol intake frequency: holidays/special occasions only Patient Tobacco Use Status: Never used Tobacco e-Cigarette/Vaping Use: Never Used Second Hand Smoke Exposure: Yes service: No Current occupational status: employed Cognitive needs: No Hearing needs: No Vision needs: Yes Review of Systems Const All systems reviewed & are unremarkable except as noted in HPI and below Reports no additional complaints Eyes Reports no additional complaints ENT Reports no additional complaints Card Reports no additional complaints Resp Reports no additional complaints GI Reports no additional complaints Reports no additional complaints Musc Reports no additional complaints Skin/Breast Reports system reviewed and no additional complaints, except as documented Neuro Reports no additional complaints Psych Reports no additional complaints Endo Reports no additional complaints Khadar/Lymph Reports no additional complaints Aller/Immun Reports no additional complaints Physical Exam Vital Signs: Last Vital Signs Temp 97.0 F 12/12/23 08:37 Pulse 95 12/12/23 08:37 BP 128/70 12/12/23 08:37 Pulse Ox 97 12/12/23 08:37 Oxygen Delivery Method Room Air 12/12/23 08:37 BMI result Body Mass Index 0.3 Const Other: Vital signs reviewed. Constitutional: Non-toxic appearing. No acute distress. Well-developed and well-nourished. HEENT: Normocephalic and atraumatic. Tympanic membranes without erythema, edema, or bulging bilaterally. There is a scant amount of fluid located behind his tympanic membranes bilaterally. External auditory canals without erythema or edema bilaterally. Moist mucous membranes. No pharyngeal erythema or exudates. His nasal turbinates are mildly erythematous. Skin: Warm and dry. No rashes or lesions noted. Neck: Full and painless range of motion. No cervical lymphadenopathy. Cardio: Regular rate and rhythm. No murmurs, gallops, or rubs. No lower extremity edema. No JVD. Pulmonary: No respiratory distress. No accessory muscle usage. Clear to auscultation bilaterally without wheezing, crackles, or rhonchi. Gastrointestinal: Soft, nontender, and nondistended in all 4 quadrants. Musculoskeletal: Normal range of motion in joints throughout the body. No deformity or other signs of injury. Neuro: Alert and oriented x4. Cranial nerves 2-12 grossly intact. No focal deficits appreciated. Psych: Normal mood and affect. Assessment & Plan Assessment & Plan (1) Allergic rhinitis: Code(s): J30.9 - Allergic rhinitis, unspecified Qualifiers: Allergic rhinitis trigger: unspecified Allergic rhinitis seasonality: unspecified Qualified Code(s): J30.9 - Allergic rhinitis, unspecified Plan: This is a 57-year-old male who presented to the walk-in clinic complaining of sinus pain/pressure for the past several months. There is no significant rhinorrhea or nasal drainage to suggest acute sinusitis. His nasal turbinates are mildly erythematous bilaterally. Patient very likely has allergic rhinitis, possibly seasonal. I recommended starting a daily antihistamine such as loratadine, cetirizine, fexofenadine as well as diphenydramine at bedtime as needed. Also recommended initiating guaifenesin as a mucolytic/decongestant as he can not use pseudoephedrine in the setting of hypertension. Patient was advised that his symptoms are likely related to rhinitis; however, given that he occasionally has a headache shooting towards the back of his head, I also explained that he should proceed to the emergency room if he were to develop slurred speech, facial asymmetry, visual disturbances, or unilateral numbness/weakness/paresthesias. He is completely neurologically intact today. Patient verbalizes understanding and he is in agreement with the plan. Coding Level of Care Code Est Pt Level 3 (72466) Diagnoses Allergic rhinitis, unspecified seasonality, unspecified trigger J30.9 Allergic rhinitis trigger: unspecified Allergic rhinitis seasonality: unspecified
== END 2023-12-12 10:26 | disposition home or self-care (01) ==
PROVIDERS: PCP Nurse Practitioner Family; Visit Provider Physician Assistant Medical
DX: J30.9 Allergic rhinitis, unspecified (principal)
CPT/HCPCS: 99213

== ENCOUNTER 2023-12-16 08:24 | Outpatient (AMB) | payer OTHER, SELFPAY ==
--- NOTE | 2023-12-16 08:43 | A.OFFVIS_ITS ---
Vital Signs 12/16/23 08:51 Height 5 ft 11 in Weight 169 lb BMI 23.6 BP 133/79 Blood Pressure Location Rt brachial Position Sitting Pulse 98 Intake Visit Reasons: Elevation of left hemidiaphragm Intake Note: Patient referred by pcp Bigg Ledesma PA-C for elevation of left hemidiaphragm. Patient c/o: mild shortness of breath. Minor chest pain, discomfort for 2yrs. Electrocardiograph Operator Required: No Accompanied by: Self / Same As Patient Allergies No Known Drug Allergies Allergy (Unknown, Verified 12/16/23 08:49) Unknown HPI Comments Details: Patient was for evaluation of incidental finding of elevated left hemidiaphragm/eventration. Patient himself has no respiratory issues or complaints. Never smoked. Otherwise relatively active. Original chest x-ray was taken for unrelated reasons which was followed by CT scan because of the elevated diaphragm findings. Chart was reviewed and patient evaluated. Patient denies any prior chest surgery or trauma to the left chest [facility] Medical History GERD (gastroesophageal reflux disease) Sarcoidosis Bilateral hilar adenopathy syndrome Lymphadenopathy, mediastinal Elevated diaphragm Asthma High cholesterol Diabetes Left foot pain Surgical History Hx of cardiac cath Bone spur History of colonoscopy Family History Father Cancer Mother Diabetes mellitus Maternal Grandfather Unknown family medical history Maternal Grandmother Unknown family medical history Paternal Grandfather Unknown family medical history Paternal Grandmother No problems noted. Sister No problems noted. Sister No problems noted. Sister No problems noted. Daughter No problems noted. Social History Housing: House Alcohol intake: current Alcohol intake frequency: holidays/special occasions only Patient Tobacco Use Status: Never used Tobacco e-Cigarette/Vaping Use: Never Used Second Hand Smoke Exposure: Yes service: No Current occupational status: employed Cognitive needs: No Hearing needs: No Vision needs: Yes Physical Exam Vital Signs: Last Vital Signs Pulse 98 12/16/23 08:51 BP 133/79 12/16/23 08:51 BMI result Body Mass Index 23.6 Chest Other: Chest breath sounds bilaterally, diminished left base Assessment & Plan Assessment & Plan (1) Elevated hemidiaphragm: Code(s): J98.6 - Disorders of diaphragm Category: Surgical (2) Diaphragm, eventration: Code(s): 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 We will treat him conservatively. Should he develop any respiratory issues or complaints, he has been instructed to call the office or otherwise follow-up p.r.n.. All questions answered Coding Level of Care Code New Pt Level 4 (43216) Diagnoses Elevated hemidiaphragm J98.6 Diaphragm, eventration Q79.1
[2023-12-16 08:51] VITALS: BP 133/79; PULSE 98; BMI 23.6
== END 2023-12-16 09:07 | disposition home or self-care (01) ==
PROVIDERS: PCP Nurse Practitioner Family; Referring Provider Nurse Practitioner Family; Visit Provider Surgery
DX: J98.6 Disorders of diaphragm (principal)
CPT/HCPCS: 99203

== ENCOUNTER → 2023-12-16 08:24 | Outpatient (BNVA) | payer OTHER, SELFPAY | PROVIDERS: PCP Nurse Practitioner Family; Referring Provider Nurse Practitioner Family; Visit Provider Surgery ==

== ENCOUNTER 2023-12-31 08:03 | Outpatient (AMB) | payer OTHER, SELFPAY ==
--- NOTE | 2023-12-31 08:42 | A.OFFPC_ITS ---
Vital Signs 12/31/23 08:44 Height 5 ft 11 in Weight 170 lb BMI 23.7 BP 124/86 Blood Pressure Location Rt brachial Position Sitting Pulse 65 Pulse Source Pulse Oximeter Pulse Oximetry (%) 98 Oxygen Delivery Method Room Air Intake Visit Reasons: 4 month follow up Intake Note: Patient here for DM f/u. Allergies No Known Drug Allergies Allergy (Unknown, Verified 12/31/23 10:58) Unknown Medication List - Last Reconciled 12/31/23 by BRENNEN Cameron aspirin 81 mg PO DAILY atorvastatin 80 mg PO BEDTIME 90 days bisacodyl (Dulcolax (bisacodyl)) 10 mg (2 x 5 mg) PO BEDTIME dulaglutide 3 mg (0.5 mL) subcut QWEEK fluticasone propionate 50 mcg/actuation (Flonase Allergy Relief) 1 spray intranasal DAILY ibuprofen 600 mg PO Q6H PRN losartan 25 mg PO DAILY 90 days meloxicam 15 mg PO DAILY metformin 1,000 mg PO BID 30 days metoprolol succinate ER 25 mg PO DAILY 90 days pantoprazole 40 mg PO DAILY polyethylene glycol 3350 (Miralax) 238 grams PO ONCE ropinirole 1 mg PO BEDTIME Tobacco use date assessed: 09/02/23 Dental Screening Dental Screen Date: 09/02/23 HPI 4 month follow up HPI Details Pt is a diabetic, on an ARB and a statin. A1C in office today is 7.5. Microalbumin is up to date. Denies polyuria, polydipsia, and neuropathy. Pt denies any signs and symptoms of hypoglycemia and does know how to correct it. Pt c/o head pressure. He reports pressure to the vertex of his head. Pt reports that the pain is intermittent but has been happening daily. He has a hx of severe migaines in the past. He does report photophobia, no sonophobia. Will order head CT. Pt also reports maxillary sinus pressure. Will order XR. Pt also has a deviated septum. He reports that this is affecting his breathing. Will refer to ENT. [facility] Medical History GERD (gastroesophageal reflux disease) Sarcoidosis Bilateral hilar adenopathy syndrome Lymphadenopathy, mediastinal Elevated diaphragm Asthma High cholesterol Diabetes Left foot pain Surgical History Hx of cardiac cath Bone spur History of colonoscopy Family History Father Cancer Mother Diabetes mellitus Maternal Grandfather Unknown family medical history Maternal Grandmother Unknown family medical history Paternal Grandfather Unknown family medical history Paternal Grandmother No problems noted. Sister No problems noted. Sister No problems noted. Sister No problems noted. Daughter No problems noted. Social History Housing: House Alcohol intake: current Alcohol intake frequency: holidays/special occasions only Patient Tobacco Use Status: Never used Tobacco e-Cigarette/Vaping Use: Never Used Second Hand Smoke Exposure: Yes service: No Current occupational status: employed Cognitive needs: No Hearing needs: No Vision needs: Yes Questionnaire Thrive Questionnaire Date Thrive assessed: 09/02/23 I am a: Patient What is your living situation today?: I have a steady place to live Within the past 12 months, did the food you bought not last and you didn't have the money to get more?: Sometimes True Within the past 12 months, did you worry whether your food would run out before you got money to buy more?: Sometimes True Do you have trouble paying for medicines?: I choose not to answer this question Do you have trouble getting transportation to medical appointments?: No Do you have trouble paying your heating and electricity bill?: I choose not to answer this question Do you have trouble taking care of your child, family member or friend?: No Do you have trouble with day-to-day activities such as bathing, preparing meals, shopping, managing finances, etc.?: No Are you currently unemployed and looking for a job?: No Are you interested in more education?: No Currently or been in a relationship where the following occur: No concerns reported THRIVE Score: 2 AUDIT C Alcohol Use Questionnaire (AUDIT-C) 1. How often do you have a drink containing alcohol?: 4 or more times a week 2. How many drinks containing alcohol do you have on a typical day when you are drinking?: 1 or 2 3. How often do you have six or more drinks on one occasion?: Less than monthly Total Score: 5 MASOOD-7 AMB Questionnaire MASOOD-7 Date MASOOD - 7 assessed: 09/02/23 Feeling nervous, anxious, or on edge: 3 = Nearly every day Not being able to stop or control worryin = More than half the days Worrying too much about different things: 3 = Nearly every day Trouble relaxin = Nearly every day Being so restless that it is hard to sit still: 3 = Nearly every day Becoming easily annoyed or irritable: 2 = More than half the days Feeling afraid as if something awful might happen: 1 = Several days Total MASOOD-7 score (0-4 normal; 5-9 mild; 10-14 moderate; 15-21 severe): 17 Source: Developed by Drs. Steve Etienne, Meche Bonilla, Neo Vyas and colleagues, with an educational luli from [employer]. Review of Systems Const Reports as per HPI Physical exam (Primary Care) Vital Signs: Last Vital Signs Pulse 65 12/31/23 08:44 BP 124/86 12/31/23 08:44 Pulse Ox 98 12/31/23 08:44 Oxygen Delivery Method Room Air 12/31/23 08:44 BMI result Body Mass Index 23.7 Tobacco/Smoking Status: Tobacco use Status Tobacco use date assessed 09/02/23 12/31/23 08:44 Patient Tobacco Use Status Never used Tobacco 12/31/23 08:44 e-Cigarette/Vaping Use Never Used 12/31/23 08:44 Thrive Assessment: Date of Thrive Assessment Date Thrive assessed 09/02/23 12/31/23 08:44 Currently or been in a relationship where the following occur: No concerns reported Const General: cooperative Orientation/consciousness: patient oriented x3 HENMT Other: deviated septum Resp Effort & Inspection: normal respiratory effort Auscultation: clear to auscultation bilaterally Cardio Rate: regular rate Rhythm: regular rhythm Heart sounds: S1 normal heart sound present and S2 normal heart sound present Neuro General: patient oriented x3 Cranial nerves: Yes CN's II-XII intact bilaterally Extrem Other: bilat feet: + sensation with use of monofilament, feet intact Psych Appearance: grossly normal Mental Status: mental status grossly normal Speech and movement: Normal speech and movement present Affect: normal affect Attitude: cooperative Thought process: Normal thought process present Thought content: Normal thought content present Insight: Good insight present (Psych) Judgement: Good judgement present (Psych) Results AMB Hemoglobin A1c AMB Hemoglobin A1c 7.5 % Last Edit by TANMAY Musa on 12/31/23 09 :10 Assessment and Plan Assessment & Plan (1) Diabetes: Code(s): E11.9 - Type 2 diabetes mellitus without complications Plan: pt report not taking all his medications faithfully. Reinforced the importance of this. (2) Pressure in head: Code(s): R51.9 - Headache, unspecified Plan: head CT ordered (3) Deviated septum: Code(s): J34.2 - Deviated nasal septum Plan: ENT referral (4) Sinus pressure: Code(s): J34.89 - Other specified disorders of nose and nasal sinuses Plan: XR ordered (5) Diabetes: Code(s): E11.9 - Type 2 diabetes mellitus without complications Plan: encouraged to take all meds as prescribed (not taking his meds daily) Plan The patient agreed to the use of a diploma medical assistant for this encounter. Scribed for JOSEPHINE Mackenzie- by Marilee Nunez diploma medical assistant, on 12/31/2023 at 09:10 EST. Orders: Orders Complete Blood Count Auto Diff Today E11.9 - Type 2 diabetes mellitus without complications Comprehensive Theresa. Panel Fast Today E11.9 - Type 2 diabetes mellitus without complications TSH reflex Free T4 Today E11.9 - Type 2 diabetes mellitus without complications UA CC w/rflx Micro + Cult Today E11.9 - Type 2 diabetes mellitus without complications Lipid Panel Today E11.9 - Type [address] complications [address] head/brain wo IV con Today R51.9 - Headache, unspecified XR sinus min 3V Today J34.89 - Other specified disorders of nose and nasal sinuses AMB Hemoglobin A1c Today Z13.9 - Encounter for screening, unspecified Referrals Ear/Nose/Throat Referral J34.2 - Deviated nasal septum Ophthalmology Referral E11.9 - Type 2 diabetes mellitus without complications Medications: Refilled dulaglutide 3 mg (0.5 mL) subcut QWEEK 2 mL 1RF Coding Level of Care Code Est Pt Level 3 (42339) Complex EM visit Add On G2211 Diagnoses Diabetes E11.9 Pressure in head R51.9 Deviated septum J34.2 Sinus pressure J34.89
[2023-12-31 08:44] VITALS: BP 124/86; PULSE 65; O2SAT 98; BMI 23.7
== END 2023-12-31 09:17 | disposition home or self-care (01) ==
PROVIDERS: PCP Nurse Practitioner Family; Visit Provider Nurse Practitioner Family
DX: E11.9 Type 2 diabetes mellitus without complications (principal); R51.9 Headache, unspecified; J34.2 Deviated nasal septum; J34.89 Other specified disorders of nose and nasal sinuses
CPT/HCPCS: 83036; 99213; G2211

== ENCOUNTER 2024-01-02 12:53 | Outpatient (REF) | payer OTHER, SELFPAY ==
--- NOTE | ~2024-01-02 | XR_ITS ---
EXAMINATION: XR SINUSES CLINICAL INFORMATION: Other specified disorders of nose and nasal sinuses. COMPARISON: None available. TECHNIQUE: 4 views. FINDINGS: No air-fluid level appreciated in the maxillary sinuses. Frontal sinuses appear well aerated. XR/XR sinus min 3V IMPRESSION: No air-fluid level appreciated in the maxillary sinuses. Frontal sinuses appear well aerated. Dedicated CT scan of the paranasal sinuses is strongly recommended for further evaluation as CT scan is much more sensitive for detection of sinus/intracranial pathology.
== END 2024-01-02 12:54 | disposition home or self-care (01) ==
LOC: HO.HMGCX 12:53
PROVIDERS: PCP Nurse Practitioner Family; Visit Provider Nurse Practitioner Family
DX: J34.89 Other specified disorders of nose and nasal sinuses (principal)
CPT/HCPCS: 70220

== ENCOUNTER 2024-01-15 13:05 | Outpatient (AMB) | payer OTHER, SELFPAY ==
[2024-01-15 13:36] VITALS: BP 118/62; PULSE 86; BMI 23.7
--- NOTE | 2024-01-15 13:36 | A.OFFVIS_ITS ---
Vital Signs 01/15/24 13:36 Height 5 ft 11 in Weight 169 lb 12.095 oz BMI 23.7 BP 118/62 Blood Pressure Location Lt brachial Position Sitting Pulse 86 Pulse Source Monitor Intake Visit Reasons: [facility] D[facility]C Allergies No Known Drug Allergies Allergy (Unknown, Verified 12/31/23 10:58) Unknown Medication List - Last Reconciled 01/15/24 by Jena Trujillo NP atorvastatin 80 mg PO BEDTIME 90 days clopidogrel 75 mg PO DAILY fluticasone propionate 50 mcg/actuation (Flonase Allergy Relief) 1 spray intranasal DAILY losartan 25 mg PO DAILY 90 days metoprolol succinate ER 25 mg PO DAILY 90 days pantoprazole 40 mg PO DAILY ropinirole 1 mg PO BEDTIME HPI Comments Details: 58-year-old male presents today for a follow-up after being at [facility] for chest pains and a NSTEMI. He had a stent to the LAD in 2021. On January 10 he started to have chest discomforts and went in for evaluation. His EKGs showed subtle ST depressions in leads V3, V4 and inferior. Troponins peaked at 212. He reports he has been feeling fine since then. No reports of fever, chills, or tenders at the right raidal site. [facility] Medical History Non-STEMI (non-ST elevated myocardial infarction) GERD (gastroesophageal reflux disease) Sarcoidosis Bilateral hilar adenopathy syndrome Lymphadenopathy, mediastinal Elevated diaphragm Asthma High cholesterol Diabetes Left foot pain Surgical History (Updated 01/19/24 @ 12:45 by Jena Trujillo NP) S/P cardiac catheterization Hx of cardiac cath Bone spur History of colonoscopy Family History Father Cancer Mother Diabetes mellitus Maternal Grandfather Unknown family medical history Maternal Grandmother Unknown family medical history Paternal Grandfather Unknown family medical history Paternal Grandmother No problems noted. Sister No problems noted. Sister No problems noted. Sister No problems noted. Daughter No problems noted. Social History Housing: House Alcohol intake: current Alcohol intake frequency: holidays/special occasions only Patient Tobacco Use Status: Never used Tobacco e-Cigarette/Vaping Use: Never Used Second Hand Smoke Exposure: Yes service: No Current occupational status: employed Cognitive needs: No Hearing needs: No Vision needs: Yes Review of Systems Const Denies weakness ENT Denies dizziness Card Denies chest pain, Denies chest pain with activity, Denies syncope, Denies rapid heart rate, Denies pedal edema, Denies edema, Denies leg edema, Denies lightheadedness, Denies palpitations, Denies dyspnea, Denies dyspnea on exertion and Denies orthopnea Resp Denies cough, Denies dyspnea and Denies dyspnea on exertion GI Denies hematochezia and Denies change in stool character Musc Denies abnormal gait, Denies muscle cramps, Denies muscle weakness, Denies numbness, Denies radiating pain into limb and Denies tingling Neuro Denies abnormal gait, Denies dizziness, Denies syncope, Denies numbness, Denies tingling and Denies weakness Endo Denies palpitations Physical Exam Vital Signs: Last Vital Signs Pulse 86 01/15/24 13:36 BP 118/62 01/15/24 13:36 BMI result Body Mass Index 23.7 Const General: healthy appearing and no acute distress Orientation/consciousness: patient oriented x3 HEENT Head: Yes normal to inspection Eyes General: appearance normal, both eyes and all related structures Neck Neck: Yes normal visual inspection Chest Chest palpation & inspection: normal inspection of the chest Resp Effort & Inspection: normal respiratory effort Auscultation: clear to auscultation bilaterally Cardio Jugular venous distension: no JVD Palpation: normal PMI Rate: regular rate Rhythm: regular rhythm Heart sounds: S1 normal heart sound present, S2 normal heart sound present, no click, no gallops, no murmurs and no rubs GI Inspection: Yes normal to inspection Palpation (GI): Soft to palpation Skin General skin exam: no rashes or lesions noted Neuro General: patient oriented x3 Extrem General: Yes normal to inspection Psych Appearance: grossly normal Office Procedures EKG Details: EKG today. Normal Sinus Rhythm. Rate 86 bpm. Nonspecific T wave abnormality. QRS 92 ms. QTc 414 ms. NV 188 ms. [id number], Complete Assessment & Plan Assessment & Plan (1) Atherosclerotic cardiovascular disease: Code(s): I25.10 - Atherosclerotic heart disease of [place] coronary artery without angina pectoris Category: Medical (2) S/P cardiac catheterization: Comment: 01/12/[address] Hodgson Angiographic Findings Cardiac Arteries and Lesion Findings LAD: There is a previous stent on Mid LAD. Lesion in 1st Diag: Proximal subsection.90% stenosis .Culprit lesion.Bifurcation lesion. Lesion in Mid LAD: Proximal subsection.1% stenosis .Bifurcation lesion. LCx: Mild luminal irregularities (<30%). RCA: Mild luminal irregularities (<30%). PCI BHANU to ostial D1 Code(s): Z98.890 - Other specified postprocedural states Category: Surgical (3) Non-STEMI (non-ST elevated myocardial infarction): Code(s): I21.4 - Non-ST elevation (NSTEMI) myocardial infarction Category: Medical Plan Patient post NSTEMI. Agreed to cardiac rehab. LDL at [facility] on 01/12/24 was 109. Heart healthy diet discussed in detail. Goal LDL less then 70. Will send jamintia. Repeat labs in 2-3 months. On baby aspirin, atorvastatin, plavix, losartan, metoprolol. Discussed medication compliance. right radial artery healing appropriately. No signs of infection noted. Orders: Orders Lipid Panel 2 Months I25.10 - Atherosclerotic heart disease of [place] coronary artery without angina pectoris Cardiac Rehab 01/15/24 I21.4 - Non-ST elevation (NSTEMI) myocardial infarction Basic Metabolic Panel 2 Months I25.10 - Atherosclerotic heart disease of [place] coronary artery without angina pectoris Medications: New aspirin 81 mg PO DAILY 90 tabs 3RF 90 days ezetimibe (Zetia) 10 mg PO DAILY 30 tabs 3RF 30 days Coding Level of Care Code Est Pt Level 4 (92444) Diagnoses Atherosclerotic cardiovascular disease I25.10 S/P cardiac catheterization Z98.890 Non-STEMI (non-ST elevated myocardial infarction) I21.4 CPT Codes EKG - CPT: 75239-[id number], Complete ([id number])
== END 2024-01-15 14:30 | disposition home or self-care (01) ==
PROVIDERS: PCP Nurse Practitioner Family; Visit Provider Nurse Practitioner
DX: I25.10 Atherosclerotic heart disease of native coronary artery without angina pectoris (principal)
CPT/HCPCS: 93010; 99214

== ENCOUNTER → 2024-01-15 13:05 | Outpatient (BNVA) | payer OTHER, SELFPAY | PROVIDERS: PCP Nurse Practitioner Family; Visit Provider Nurse Practitioner | DX: I21.4 Non-ST elevation (NSTEMI) myocardial infarction (principal); I25.10 Atherosclerotic heart disease of native coronary artery without angina pectoris; Z79.02 Long term (current) use of antithrombotics/antiplatelets; Z79.82 Long term (current) use of aspirin; Z79.899 Other long term (current) drug therapy; Z98.890 Other specified postprocedural states | CPT/HCPCS: 93005 ==

== ENCOUNTER 2024-02-02 07:16 | Outpatient (REF) | payer OTHER, SELFPAY ==
--- NOTE | ~2024-02-02 | CT_ITS ---
EXAMINATION: CT HEAD WITHOUT CONTRAST CLINICAL INFORMATION: Headache, unspecified. COMPARISON: None available. TECHNIQUE: Contiguous axial imaging was performed from the skull base to vertex without intravenous administration of contrast. This CT examination was performed using dose optimization techniques as appropriate, variously including the following: *Automated exposure control *Adjustment of mA and/or kV according to patient size (this includes techniques or standardized protocols for targeted exams where dose is matched to indication/reason for exam; i.e. extremities or head) *Use of iterative reconstruction technique DLP: 818 mGy-cm FINDINGS: There is no evidence of intracranial hemorrhage or extra-axial fluid collection. There is no mass effect, or edema. No CT evidence of acute territorial infarct. Ventricles, sulci, and cisterns are normal in size and configuration for patient age. No hydrocephalus. No midline shift. No significant white matter abnormalities. Normal pituitary. Mild atheromatous calcification of the bilateral carotid siphons. Globes and orbital contents image normally. No extracranial soft tissue abnormalities. The paranasal sinuses, mastoid air cells, and tympanic cavities are normally aerated. There is left nasal septal deviation. No suspicious bony abnormalities. CT/CT head/brain wo IV con IMPRESSION: No acute intracranial abnormalities.
== END 2024-02-02 07:17 | disposition home or self-care (01) ==
LOC: HO.CT 07:16
PROVIDERS: PCP Nurse Practitioner Family; Visit Provider Nurse Practitioner Family
DX: R51.9 Headache, unspecified (principal)
CPT/HCPCS: 70450

== ENCOUNTER → 2024-02-02 07:19 | Outpatient (BNV) | payer OTHER, SELFPAY | PROVIDERS: PCP Nurse Practitioner Family; Visit Provider Radiology Diagnostic Radiology | DX: R51.9 Headache, unspecified (principal) | CPT/HCPCS: 70450 ==

== ENCOUNTER 2024-02-05 13:53 | Outpatient (AMB) | payer OTHER, SELFPAY ==
[2024-02-05 14:04] VITALS: BP 140/80; PULSE 92; O2SAT 97; BMI 23.3
--- NOTE | 2024-02-05 14:04 | A.OFFPC_ITS ---
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 EKG showed elevations in V1, V2, depressions in V3 and V4 and II, III, aVF. Cardiology reviewed his EKG with low suspicion for STEMI. Bedside POCUS showed limited views, normal EF, unknown if wall motion abnormalities, no evidence of right heart strain. Pt was given sublingual nitroglycerin and later fentanyl for pain. Chest XR showed significant elevation of the left hemidiaphragm with large gastric bubble. CT of chest showed no evidence of PE, elevated left hemidiaphragm, scattered pulmonary nodules. CT of abdomen showed 4mm hyperdense lesion pancreatic body with recommendation for nonemergent MRCP, this has been ordered. Initial troponin was 35, repeat was 211. Pt was started on heparin. Repeat EKG showed changes in depressions. Pt was admitted for NSTEMI. He underwent a cardiac cath on 01/11. He was switched to plavix. It was recommended that pt attend cardiac rehab and follow up with cardiology outpatient. Pt is going to cardiac rehab on 03/02. He will be following up with cardiology in March. Pt is a diabetic, on an ARB and a statin. Last A1C was 7.5, microalbumin is up to date. Denies polyuria, polydipsia, and neuropathy. Pt denies any signs and symptoms of hypoglycemia and does know how to correct it. Will restart metformin 500mg bid (starting once a day then increasing to bid). Pt reports intermittent abdominal discomfort. MRI of abdomen and MRCP have been ordered. Pt reports that his sister had pancreatic cancer in 2017 (I was made aware of this today). Will await results. Will order a CA 19-9. He reports alternating constipation and diarrhea. He has been seeing GI, though he is not cleared for a colonoscopy currently. Denies any CP, SOB, N/V, MARCUS, blurred vision PFSH Medical History Non-STEMI (non-ST elevated myocardial infarction) GERD (gastroesophageal reflux disease) Sarcoidosis Bilateral hilar adenopathy syndrome Lymphadenopathy, mediastinal Elevated diaphragm Asthma High cholesterol Diabetes Left foot pain Surgical History S/P cardiac catheterization Hx of cardiac cath Bone spur History of colonoscopy Family History Father Cancer Mother Diabetes mellitus Maternal Grandfather Unknown family medical history Maternal Grandmother Unknown family medical history Paternal Grandfather Unknown family medical history Paternal Grandmother No problems noted. Sister No problems noted. Sister No problems noted. Sister No problems noted. Daughter No problems noted. Social History Housing: House Alcohol intake: current Alcohol intake frequency: holidays/special occasions only Patient Tobacco Use Status: Never used Tobacco e-Cigarette/Vaping Use: Never Used Second Hand Smoke Exposure: Yes service: No Current occupational status: employed Cognitive needs: No Hearing needs: No Vision needs: Yes Questionnaire PHQ-9 Over the last 2 weeks, how often have you been bothered by any of the following problems? 65428 - PHQ-9 Billing: Patient declined-do not bill Source: Developed by Drs. Steve Etienne, Meche Bonilla, Neo irwin nd colleagues, with an educational luli from [email or web address]. Thrive Questionnaire Date Thrive assessed: 09/02/23 MASOOD-7 AMB Questionnaire MASOOD-7 Date MASOOD - 7 assessed: 09/02/23 Source: Developed by Drs. Steve Etienne, Meche Bonilla, Neo Vyas and colleagues, with an educational luli from [email or web address]. Review of Systems Const Reports as per HPI Physical exam (Primary Care) Vital Signs: Last Vital Signs Pulse 92 02/05/24 14:04 BP 140/80 H 02/05/24 14:04 Pulse Ox 97 02/05/24 14:04 Oxygen Delivery Method Room Air 02/05/24 14:04 BMI result Body Mass Index 23.3 Tobacco/Smoking Status: Tobacco use Status Tobacco use date assessed 09/02/23 02/05/24 14:07 Patient Tobacco Use Status Never used Tobacco 02/05/24 14:07 e-Cigarette/Vaping Use Never Used 02/05/24 14:07 Thrive Assessment: Date of Thrive Assessment Date Thrive assessed 09/02/23 02/05/24 14:07 Const General: cooperative Orientation/consciousness: patient oriented x3 Resp Effort & Inspection: normal respiratory effort Auscultation: clear to auscultation bilaterally Cardio Rate: regular rate Rhythm: regular rhythm Heart sounds: S1 normal heart sound present and S2 normal heart sound present GI Palpation (GI): Soft to palpation and nontender Neuro General: patient oriented x3 Psych Appearance: grossly normal Mental Status: mental status grossly normal Speech and movement: Normal speech and movement present Affect: normal affect Attitude: cooperative Thought process: Normal thought process present Thought content: Normal thought content present Insight: Good insight present (Psych) Judgement: Good judgement present (Psych) Assessment and Plan Assessment & Plan (1) Pancreatic lesion: Code(s): K86.9 - Disease of pancreas, unspecified Plan: MRCP and MRI ordered, CA 19-9 ordered, family Hx of pancreatic ca (2) S/P coronary artery stent placement: Comment: BHANU to the mid LAD Code(s): Z95.5 - Presence of coronary angioplasty implant and graft Plan: Following up with cardiology and cardiac rehab (3) Coronary angioplasty status: Code(s): Z98.61 - Coronary angioplasty status Plan: Following up with cardiology and cardiac rehab (4) Non-STEMI (non-ST elevated myocardial infarction): Code(s): I21.4 - Non-ST elevation (NSTEMI) myocardial infarction Plan: Following up with cardiology and cardiac rehab (5) S/P cardiac catheterization: Comment: 01/12/[address] Hodgson Angiographic Findings Cardiac Arteries and Lesion Findings LAD: There is a previous stent on Mid LAD. Lesion in 1st Diag: Proximal subsection.90% stenosis .Culprit lesion.Bifurcation lesion. Lesion in Mid LAD: Proximal subsection.1% stenosis .Bifurcation lesion. LCx: Mild luminal irregularities (<30%). RCA: Mild luminal irregularities (<30%). PCI BHANU to ostial D1 Code(s): Z98.890 - Other specified postprocedural states Plan: Following up with cardiology and cardiac rehab Plan The patient agreed to the use of a biomedical analytical scientist for this encounter. Scribed for MICHAEL Mackenzie by Marilee Nunez biomedical analytical scientist, on 02/05/2024 at 14:55 EST. Orders: Orders Carbohydrate Antigen 19-9 Today K86.9 - Disease of pancreas, unspecified Medications: New metformin ER 500 mg PO BID 90 days 180 tabs 0RF Coding Level of Care Code Est Pt Level 4 (41654) Diagnoses Pancreatic lesion K86.9 S/P coronary artery stent placement Z95.5 Coronary angioplasty status Z98.61 Non-STEMI (non-ST elevated myocardial infarction) I21.4 S/P cardiac catheterization Z98.890
== END 2024-02-05 15:55 | disposition home or self-care (01) ==
PROVIDERS: PCP Nurse Practitioner Family; Visit Provider Nurse Practitioner Family
DX: K86.9 Disease of pancreas, unspecified (principal); Z95.5 Presence of coronary angioplasty implant and graft; I25.2 Old myocardial infarction
CPT/HCPCS: 99214

== ENCOUNTER 2024-02-05 15:04 | Outpatient (REF) | payer OTHER, SELFPAY ==
[2024-02-05 16:08] LABS: Appearance Urine Clear; Color Urine Yellow; Glucose Urine UA 250 mg/dL (Negative); Leukocyte Esterase Urine Negative (Negative); Nitrite Urine Negative (Negative); PH 5.5 (5.0-9.0); Specific Gravity - Urine >= 1.030 (1.005-1.025); Urine Blood Negative (Negative); Urine Ketones Negative (Negative); Urine Protein Trace mg/dL (Neg-Trace)
[2024-02-05 16:19] LABS: MANUAL DIFF FLAG NO
[2024-02-05 16:22] LABS: Basophils Absolute Auto 0.1 X10*3/uL (0.0-0.2); Basophils Percent Auto 0.8 % (0-2); Eosinophils Absolute Auto 0.1 X10*3/uL (0.0-0.4); Eosinophils Percent Auto 1.3 % (0-4); Hematocrit 41.5 % (42.0-52.0); Hemoglobin 14.6 g/dl (14.0-18.0); Imm Gran Abs Auto 0.02 X10*3/uL (0.00-0.03); Imm Gran Pct Auto 0.3 % (0.0-0.4); Lymphocytes Absolute Auto 1.7 X10*3/uL (1.2-4.9); Lymphocytes Percent Auto 22.8 % (20-40); Mean Corpuscular HGB Conc 35.2 g/dl (31.0-36.0); Mean Corpuscular Hemoglobin 31.4 pg (27.0-33.0); Mean Corpuscular Volume 89.2 fL (80.0-98.0); Mean Platelet Volume 11.4 fL (9.4-12.4); Monocytes Absolute Auto 0.7 X10*3/uL (0.1-1.2); Monocytes Percent Auto 8.7 % (2-11); Neutrophils Percent Auto 66.1 % (45-73); Platelet Count 213 X10*3/uL (160-400); Red Blood Count 4.65 X10*6/uL (4.60-5.80); Red Cell Distribution Width 12.7 % (11.0-16.0); White Blood Count 7.6 X10*3/uL (4.8-10.8)
[2024-02-05 17:05] LABS: Alanine Aminotransferase 26 U/L (0-40); Albumin Level 4.6 g/dL (3.5-5.0); Alkaline Phosphatase 102 U/L (39-117); Anion Gap 13 (12-20); Aspartate Amino Transferase 20 U/L (5-37); Bilirubin Total 1.8 mg/dL (0.0-1.0); Blood Urea Nitrogen 18 mg/dL (9-16); Calcium 9.9 mg/dL (8.4-10.2); Carbon Dioxide 27 mmol/L (22-29); Chloride 106 mmol/L (96-108); Cholesterol 145 mg/dL (<200); Estimated Glomerular Filt Rate > 60; Glucose Fasting 150 mg/dL (60-99); HDL Cholesterol 63 mg/dL (>40); LDL Cholesterol Calculated 50 mg/dL (<100); Potassium 4.4 mmol/L (3.3-5.1); Sodium 142 mmol/L (135-145); Triglycerides 160 mg/dL (<150)
[2024-02-05 17:19] LABS: TSH reflex Free T4 1.09 uIU/mL (0.32-4.0)
[2024-02-06 11:02] LABS: Carbohydrate Antigen 19-9 7 U/mL (<34)
== END 2024-02-05 15:05 | disposition home or self-care (01) ==
LOC: HO.HMGCLDS 15:04
PROVIDERS: PCP Nurse Practitioner Family; Visit Provider Nurse Practitioner Family
DX: K86.9 Disease of pancreas, unspecified (principal); E11.9 Type 2 diabetes mellitus without complications
CPT/HCPCS: 36415; 80053; 80061; 81003; 84443; 85025; 86301

== ENCOUNTER 2024-03-03 14:09 | Outpatient (AMB) | payer OTHER, SELFPAY ==
[2024-03-03 14:31] VITALS: BP 136/72; PULSE 107; BMI 23.2
--- NOTE | 2024-03-03 14:31 | A.OFFVIS_ITS ---
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 Accompanied by: Self / Same As Patient Allergies No Known Drug Allergies Allergy (Unknown, Verified 02/05/24 14:04) Unknown Medication List - Last Reconciled 03/03/24 by Crispin Barber MD aspirin 81 mg PO DAILY 90 days atorvastatin 80 mg PO BEDTIME 90 days clopidogrel 75 mg PO DAILY dulaglutide (Trulicity) 0.75 mg subcut QWEEK ezetimibe (Zetia) 10 mg PO DAILY 30 days fluticasone propionate 50 mcg/actuation (Flonase Allergy Relief) 1 spray intranasal DAILY isosorbide mononitrate ER 30 mg PO DAILY losartan 25 mg PO DAILY 90 days metformin ER 500 mg PO BID 90 days metoprolol succinate ER 25 mg PO DAILY 90 days pantoprazole 40 mg PO DAILY ropinirole 1 mg PO BEDTIME HPI Comments Details: Ivan returns for follow-up regarding coronary artery disease. In the past, he had chest pains but they seemed atypical. However due to continued concerns, he underwent cardiac catheterization and LAD stent. He was doing okay but seems that he was admitted to [facility] in December. At that time, diagnosed with NSTEMI and underwent cardiac catheterization and diagonal stenting. Then one further hospitalization in January but he did not rule in for NSTEMI. It seems that long-acting nitrates were added at that time. Since that time, he states he is okay. He is back to work. [facility] Medical History Non-STEMI (non-ST elevated myocardial infarction) GERD (gastroesophageal reflux disease) Sarcoidosis Bilateral hilar adenopathy syndrome Lymphadenopathy, mediastinal Elevated diaphragm Asthma High cholesterol Diabetes Left foot pain Surgical History S/P cardiac catheterization Hx of cardiac cath Bone spur History of colonoscopy Family History Father Cancer Mother Diabetes mellitus Maternal Grandfather Unknown family medical history Maternal Grandmother Unknown family medical history Paternal Grandfather Unknown family medical history Paternal Grandmother No problems noted. Sister Pancreatic cancer Sister No problems noted. Sister No problems noted. Daughter No problems noted. Social History Housing: House Alcohol intake: current Alcohol intake frequency: holidays/special occasions only Patient Tobacco Use Status: Never used Tobacco e-Cigarette/Vaping Use: Never Used Second Hand Smoke Exposure: Yes service: No Current occupational status: employed Cognitive needs: No Hearing needs: No Vision needs: Yes Review of Systems Const Denies chills, Denies fatigue, Denies fever(s), Denies weight gain and Denies weight loss ENT Denies dizziness Card Reports chest pain, Denies leg edema, Denies lightheadedness, Denies palpitations, Denies dyspnea on exertion, Denies orthopnea and Denies other Resp Denies cough and Denies dyspnea on exertion GI Denies hematochezia and Denies change in stool character Musc Denies abnormal gait, Denies muscle weakness, Denies numbness, Denies radiating pain into limb and Denies tingling Neuro Denies abnormal gait, Denies dizziness, Denies numbness and Denies tingling Endo Denies fatigue and Denies palpitations Physical Exam Vital Signs: Last Vital Signs Pulse 107 H 03/03/24 14:31 BP 136/72 03/03/24 14:31 BMI result Body Mass Index 23.2 Const General: comfortable and no acute distress Orientation/consciousness: patient oriented x3 HEENT Other: Unremarkable Head: Yes normal to inspection Neck Neck: Yes normal visual inspection Chest Chest palpation & inspection: normal inspection of the chest Resp Auscultation: clear to auscultation bilaterally Cardio Palpation: normal PMI Heart sounds: S1 normal heart sound present, S2 normal heart sound present, no gallops, no murmurs and no rubs GI Palpation (GI): Soft to palpation Back/Spine/Pelvis Other: unremarkable Skin General skin exam: no rashes or lesions noted Neuro General: patient oriented x3 Extrem General: Yes normal to inspection Psych Mental Status: mental status grossly normal Assessment & Plan Assessment & Plan (1) Atherosclerotic cardiovascular disease: Code(s): I25.10 - Atherosclerotic heart disease of [place] coronary artery without angina pectoris Category: Medical (2) Dyslipidemia: Code(s): E78.5 - Hyperlipidemia, unspecified Category: Medical Plan Recent cardiac data reviewed. Cardiac catheterization December 2023-lad with 50% mid stenosis involving T2 ostium; D1 90% ostial stenosis. Luminal irregularities in left main, circumflex and RCA. Status post PCI to D1. In 2021, cardiac catheterization showed mid LAD 70% stenosis. Status post drug-eluting stent to proximal mid LAD. No significant disease elsewhere. Echocardiogram from December 2023 with LVEF of 55-60%; no obvious wall motion abnormalities but inferior wall described as paradoxical diastolic motion. Myocardial perfusion imaging study from 02/17/2024 with description of apical/apical inferior mixed ischemia/scar pattern. In the [employer] treadmill, he exercised for 8.3 Mets. For meds, continue long-term aspirin. We may keep Plavix as will be on 12 months. He is on beta-blockers. Agree with recent addition of long-acting nitrates. High-dose statins. Diabetes meds. Most recently, LDL 50 mg/dL and triglycerides 160 mg/dL. Hemoglobin A1c is 7.5%. Otherwise, cardiac rehabilitation. 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 Hence he is asking for work clearance without restrictions, as otherwise he will have difficulty keeping the employment. Advised him that is okay from cardiac standpoint, but if any symptoms like chest pain he should immediately stop and seek emergency help. He understands. Coding Level of Care Code Est Pt Level 4 (25833) Diagnoses Atherosclerotic cardiovascular disease I25.10 Dyslipidemia E78.5
== END 2024-03-03 14:49 | disposition home or self-care (01) ==
PROVIDERS: PCP Nurse Practitioner Family; Visit Provider Internal Medicine
DX: I25.10 Atherosclerotic heart disease of native coronary artery without angina pectoris (principal); E78.5 Hyperlipidemia, unspecified
CPT/HCPCS: 99214

== ENCOUNTER → 2024-03-03 14:09 | Outpatient (BNVA) | payer OTHER, SELFPAY | PROVIDERS: PCP Nurse Practitioner Family; Visit Provider Internal Medicine | DX: I25.10 Atherosclerotic heart disease of native coronary artery without angina pectoris (principal); E78.5 Hyperlipidemia, unspecified | CPT/HCPCS: 99212 ==

== ENCOUNTER 2024-03-22 08:08 | Outpatient (REF) | payer OTHER, SELFPAY ==
--- NOTE | ~2024-03-22 | MR_ITS ---
EXAMINATION: MR ABDOMEN WITHOUT AND WITH CONTRAST CLINICAL INFORMATION: Abdominal pain. COMPARISON: CT abdomen November 14, 2023 TECHNIQUE: MR abdomen was performed without and with use of 7.5 mL intravenous Gadavist gadolinium contrast. Postcontrast images are performed in multiphase dynamic sequences. Imaging was performed in 3 planes. Patient had difficulty suspending respiration. FINDINGS: LUNG BASES: Marked elevation of the left hemidiaphragm. No pleural or pericardial effusion. LIVER, GALLBLADDER, AND BILIARY TREE: The liver is normal in size, smooth in contour, and normal in signal. No focal hepatic lesion or biliary ductal dilatation is present. No intraductal filling defects. The gallbladder is unremarkable with no evidence of gallbladder wall thickening, or obvious pericholecystic inflammatory changes. PANCREAS: No ductal dilatation. SPLEEN: Not enlarged. ADRENAL GLANDS: No adrenal mass. KIDNEYS AND URETERS: The kidneys are normal in size, shape, and enhance symmetrically. 1.6 cm left renal cyst. No further imaging follow-up is needed. No hydronephrosis. No perinephric stranding. GASTROINTESTINAL TRACT: No bowel obstruction. Diverticular disease of the colon. No ascites or fluid collection. ABDOMINAL WALL: No significant hernia is appreciated. LYMPH NODES: No bulky lymphadenopathy. VASCULAR: Normal caliber abdominal aorta. MR/MR abdomen wo/w con IMPRESSION: Motion artifact technically degrades image quality. No acute abnormality in the abdomen. Electronically signed by: Fox Cruz MD 03/22/2024 11:35 AM EDT
[2024-03-22] MEDS: gadobutroL 7.5 ML VIAL IVPUSH (09:18)
== END 2024-03-22 08:09 | disposition home or self-care (01) ==
LOC: HO.MRI 08:08
PROVIDERS: PCP Nurse Practitioner Family; Visit Provider Nurse Practitioner Family
DX: K86.9 Disease of pancreas, unspecified (principal)
CPT/HCPCS: 74183; A9585

== ENCOUNTER 2024-04-09 13:30 | Outpatient (RCR) | payer OTHER, SELFPAY ==
[2024-03-15 07:38] LABS: Glucose, Whole Blood 134 mg/dL (60-115)
== END 2024-04-26 12:37 | disposition home or self-care (01) ==
LOC: HO.CR 13:30
PROVIDERS: PCP Nurse Practitioner Family; Visit Provider Nurse Practitioner
DX: I21.4 Non-ST elevation (NSTEMI) myocardial infarction (principal)
CPT/HCPCS: 82947; 93798

== ENCOUNTER 2024-04-20 14:08 | Outpatient (AMB) | payer OTHER, SELFPAY ==
[2024-04-20 14:14] VITALS: BP 130/82; PULSE 88; O2SAT 96; BMI 23.1
--- NOTE | 2024-04-20 14:14 | A.OFFPC_ITS ---
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 A1C in office today is 6.9. Microalbumin is up to date. Denies polyuria, polydipsia, does report neuropathy. Pt denies any signs and symptoms of hypoglycemia and does know how to correct it. Eye exam is scheduled. Will increase trulicity from 0.75mg to 1.5mg. Pt c/o intermittent chest discomfort. He reports that this can happen with activity or when sitting still. He reports that this lasts only seconds. Pt was seen in the ER on 02/22 c/o chest pressure, shortness of breath, and dizziness. Troponin was WNL. Chest XR showed no acute abnormality. EKG showed NSR, sinus tachycardia, no acute ST changes. Pt's stress test showed medium sized, moderate in intensity, partially reversible perfusion defect in the apex and the apical inferior wall suggestive of mixed myocardial ischemia and scar after exercise stress test at average functional capacity. Pt was seen by cardiology and opted for medical management. Pt was started on isosorbide mononitrate. He is following up with cardiology. Will do an EKG in office. [facility] Medical History Non-STEMI (non-ST elevated myocardial infarction) GERD (gastroesophageal reflux disease) Sarcoidosis Bilateral hilar adenopathy syndrome Lymphadenopathy, mediastinal Elevated diaphragm Asthma High cholesterol Diabetes Left foot pain Surgical History S/P cardiac catheterization Hx of cardiac cath Bone spur History of colonoscopy Family History Father Cancer Mother Diabetes mellitus Maternal Grandfather Unknown family medical history Maternal Grandmother Unknown family medical history Paternal Grandfather Unknown family medical history Paternal Grandmother No problems noted. Sister Pancreatic cancer Sister No problems noted. Sister No problems noted. Daughter No problems noted. Social History Housing: House Alcohol intake: current Alcohol intake frequency: holidays/special occasions only Patient Tobacco Use Status: Never used Tobacco e-Cigarette/Vaping Use: Never Used Second Hand Smoke Exposure: Yes service: No Current occupational status: employed Cognitive needs: No Hearing needs: No Vision needs: Yes Questionnaire PHQ-9 Over the last 2 weeks, how often have you been bothered by any of the following problems? 1. Little interest or pleasure in doing things: more than half the days 2. Feeling down, depressed, or hopeless: not at all 3. Trouble falling or staying asleep, or sleeping too much: nearly every day 4. Feeling tired or having little energy: nearly every day 5. Poor appetite or overeating: several days 6. Feeling bad about yourself - or that you are a failure or have let yourself or your family down: not at all 7. Trouble concentrating on things, such as reading the newspaper or watching television: not at all 8. Moving or speaking so slowly that other people could have noticed. Or the opposite - being so fidgety or restless that you have been moving around a lot more than usual: not at all 9. Thoughts that you would be better off or of hurting yourself in some way: not at all Total score: 9 Depression Screening Interpretation: Negative Depression Screening Done: Yes 96595 - PHQ-9 Billing: Yes Source: Developed by Drs. Steve Etienne, Meche Bonilla, Neo Vyas and colleagues, with an educational luli from [employer]. Thrive Questionnaire Date Thrive assessed: 04/20/24 I am a: Patient What is your living situation today?: I have a steady place to live Within the past 12 months, did the food you bought not last and you didn't have the money to get more?: Never true Within the past 12 months, did you worry whether your food would run out before you got money to buy more?: Never true Do you have trouble paying for medicines?: No Do you have trouble getting transportation to medical appointments?: No Do you have trouble paying your heating and electricity bill?: No Do you have trouble taking care of your child, family member or friend?: No Do you have trouble with day-to-day activities such as bathing, preparing meals, shopping, managing finances, etc.?: No Are you currently unemployed and looking for a job?: No Are you interested in more education?: No Please select the resources that you would like help with: None Currently or been in a relationship where the following occur: I choose not to answer THRIVE Score: 0 AUDIT C Alcohol Use Questionnaire (AUDIT-C) 1. How often do you have a drink containing alcohol?: 2-4 times a month 2. How many drinks containing alcohol do you have on a typical day when you are drinking?: 1 or 2 3. How often do you have six or more drinks on one occasion?: Never Total Score: 2 Score Reviewed/Action Taken: Yes MASOOD-7 AMB Questionnaire MASOOD-7 Date MASOOD - 7 assessed: 04/20/24 Feeling nervous, anxious, or on edge: 0 = Not at all Not being able to stop or control worryin = Not at all Worrying too much about different things: 0 = Not at all Trouble relaxin = Not at all Being so restless that it is hard to sit still: 0 = Not at all Becoming easily annoyed or irritable: 2 = More than half the days Feeling afraid as if something awful might happen: 0 = Not at all Total MASOOD-7 score (0-4 normal; 5-9 mild; 10-14 moderate; 15-21 severe): 2 Source: Developed by Drs. Steve Etienne, Meche Bonilla, Neo Vyas and colleagues, with an educational luli from [employer]. MASOOD-7 Assessment Billing MASOOD-7 Assessment Tool: MASOOD-7 Assessment 64135 Review of Systems Const Reports as per HPI Physical exam (Primary Care) Vital Signs: Last Vital Signs Pulse 88 04/20/24 14:14 BP 130/82 04/20/24 14:14 Pulse Ox 96 04/20/24 14:14 Oxygen Delivery Method Room Air 04/20/24 14:14 BMI result Body Mass Index 23.1 Tobacco/Smoking Status: Tobacco use Status Tobacco use date assessed 09/02/23 04/20/24 14:15 Patient Tobacco Use Status Never used Tobacco 04/20/24 14:15 e-Cigarette/Vaping Use Never Used 04/20/24 14:15 PHQ-9: PHQ-9 Score PHQ-9: Total score 9 04/20/24 14:29 Depression Screening Interpretation: Negative Thrive Assessment: Date of Thrive Assessment Date Thrive assessed 04/20/24 04/20/24 14:15 Currently or been in a relationship where the following occur: I choose not to answer Const General: cooperative Orientation/consciousness: patient oriented x3 Resp Effort & Inspection: normal respiratory effort Auscultation: clear to auscultation bilaterally Cardio Rate: regular rate Rhythm: regular rhythm Heart sounds: S1 normal heart sound present and S2 normal heart sound present Neuro General: patient oriented x3 Extrem Other: bilat feet: + sensation with use of monofilament, feet intact Psych Appearance: grossly normal Mental Status: mental status grossly normal Speech and movement: Normal speech and movement present Affect: normal affect Attitude: cooperative Thought process: Normal thought process present Thought content: Normal thought content present Insight: Good insight present (Psych) Judgement: Good judgement present (Psych) Coding Level of Care Code Est Pt Level 3 (85840) Diagnoses Dyslipidemia E78.5 Diabetes E11.9 Chest pain R07.9 Atherosclerotic cardiovascular disease I25.10 Additional Codes MASOOD-7 Assessment Billing - MASOOD-7 Assessment Tool: MASOOD-7 Assessment 66583 ([id number]) Assessment & Plan Assessment & Plan (1) Dyslipidemia: Code(s): E78.5 - Hyperlipidemia, unspecified Category: Medical Plan: on statin and ezetimibe (2) Diabetes: Code(s): E11.9 - Type 2 diabetes mellitus without complications Category: Medical Plan: increased trulicity from .75mg to 1.5mg (3) Chest pain: Code(s): R07.9 - Chest pain, unspecified Category: Medical Plan: EKG benign. Pt knows to go to the er with any worsening symptoms (4) Atherosclerotic cardiovascular disease: Code(s): I25.10 - Atherosclerotic heart disease of makah coronary artery without angina pectoris Category: Medical Plan: remain on statin, antiplatlet, ezetimibe Plan The patient agreed to the use of a medical receptionist medical assistant for this encounter. Scribed for Bigg Ledesma, PHOTOVOLTAIC TESTING TECHNICIAN- by Marilee Nunez, medical receptionist medical assistant, on 04/20/2024 at 14:25 EST. Orders: Orders UA CC w/rflx Micro + Cult Today E11.9 - Type 2 diabetes mellitus without complications, E78.5 - Hyperlipidemia, unspecified Lipid Panel Today E11.9 - Type 2 diabetes mellitus without complications, E78.5 - Hyperlipidemia, unspecified AMB EKG-In Office Today R07.9 - Chest pain, unspecified Complete Blood Count Auto Diff Today E11.9 - Type 2 diabetes mellitus without complications, E78.5 - Hyperlipidemia, unspecified Comprehensive [place]. Panel Fast Today E11.9 - Type 2 diabetes mellitus without complications, E78.5 - Hyperlipidemia, unspecified TSH reflex Free T4 Today E11.9 - Type 2 diabetes mellitus without complications, E78.5 - Hyperlipidemia, unspecified Medications: Changed From dulaglutide (Trulicity) 0.75 mg subcut QWEEK To dulaglutide 1.5 mg (0.5 mL) subcut QWEEK 2 mL 0RF
== END 2024-04-20 15:07 | disposition home or self-care (01) ==
PROVIDERS: PCP Nurse Practitioner Family; Visit Provider Nurse Practitioner Family
DX: E78.5 Hyperlipidemia, unspecified (principal); E11.9 Type 2 diabetes mellitus without complications; R07.9 Chest pain, unspecified; I25.10 Atherosclerotic heart disease of native coronary artery without angina pectoris

== ENCOUNTER → 2024-04-20 14:08 | Outpatient (BNVA) | payer OTHER, SELFPAY | PROVIDERS: PCP Nurse Practitioner Family; Visit Provider Nurse Practitioner Family | DX: E78.5 Hyperlipidemia, unspecified (principal); E11.9 Type 2 diabetes mellitus without complications; R07.9 Chest pain, unspecified; I25.10 Atherosclerotic heart disease of native coronary artery without angina pectoris; Z79.899 Other long term (current) drug therapy | CPT/HCPCS: 96127; 99212 ==

== ENCOUNTER 2024-06-21 11:27 | Emergency (ER) | payer OTHER, SELFPAY ==
--- NOTE | 2024-06-21 | ECG_ITS ---
Test Reason : CP Blood Pressure : / mmHG Vent. Rate : 086 BPM Atrial Rate : 086 BPM P-R Int : 164 ms QRS Dur : 088 ms QT Int : 344 ms P-R-T Axes : 058 059 035 degrees QTc Int : 411 ms Poor data quality, interpretation may be adversely affected Normal sinus rhythm Normal ECG When compared with ECG of 03-AUG-2021 13:11, No significant change was found Referred By: Generic ED Physician Electronically Signed By:Jose L Kulkarni
--- NOTE | ~2024-06-21 | XR_ITS ---
EXAMINATION: XR CHEST CLINICAL INFORMATION: Chest pain COMPARISON: X-ray dated September 19, 2023. TECHNIQUE: Frontal view of the chest was obtained. FINDINGS: Elevated left hemidiaphragm. Low lung volume left lung. Pulmonary reticular pattern. No consolidation, pleural effusion or pneumothorax. Cardiomediastinal silhouette is normal in size. Multilevel thoracic spondylosis. XR/XR chest 1V IMPRESSION: Chronic interstitial lung disease. Elevated left hemidiaphragm suggesting paralysis versus paresis, left phrenic pain. Electronically signed by: Vidal Plascencia MD 06/21/2024 02:33 PM SHRUTHI
--- NOTE | ~2024-06-21 | US_ITS ---
EXAMINATION: US TRIPLEX LOWER EXTREMITY, BILATERAL CLINICAL INFORMATION: Bilateral leg pain COMPARISON: None available. TECHNIQUE: Color-flow triplex imaging with spectral analysis and compression Doppler were performed on the bilateral lower extremities. FINDINGS: Respiratory variation, normal compression and augmented flow are noted throughout the bilateral lower extremities. The visualized common femoral vein, superficial femoral vein, profunda femoral vein, popliteal vein and midcalf peroneal and posterior tibial venous segments show no evidence of deep venous thrombosis bilaterally. There is no Hassan's cyst. US/US venous duplex LE BI IMPRESSION: No evidence of deep venous thrombosis involving the bilateral lower extremities. This study was presented today to June 21, 2024 for interpretation. Stat results provided at this time as requested by referring provider. Electronically signed by: Ely Chamorro MD 06/21/2024 12:44 PM [facility]UT[facility] WALSH
[2024-06-21 11:39] VITALS: BP 90/50; PULSE 86; RESP 16; TEMP 36.3; O2SAT 99; BMI 22.9
--- NOTE | 2024-06-21 11:46 | ED.CHESTPAIN ---
HPI - Chest Pain General Chief Complaint: Chest Pain Stated Complaint: Chest pain Time Seen by Provider: 06/21/24 12:50 Source: patient and old records reviewed Mode of arrival: ambulatory Limitations: no limitations History of Present Illness ED Provider: VILMA PEREYRA narrative: 58 yo male with PMH of CAD s/p LAD stent 2021 and diagonal stenting 2023, GERD, DM, HLD, asthma, here with c/o chest pain. Cath in 2021 showed LAD stent 70% stenosis, LCx mild luminal irregularities, RCA minimal luminial irregularites - he follows with Sunil. He notes he is compliant with meds except no isosorbide x 1month. He notes he took SL nitro at home but no relief. Symptoms at rest and exertion doesn't matter. No recent URI, procedures, travel. Pain has been intermittent for 2 to 3 weeks MD complaint: chest pain Pertinent past history: coronary artery disease Onset (ago): week(s) (2 to 3) Timing of current episode: episodic Prior episodes: Yes Pain location: left chest Pain radiation: none Severity: moderate Quality: tightness Relieving factors: nothing Exacerbating factors: nothing Associated symptoms: dyspnea Treatment prior to arrival: aspirin and nitroglycerin Related Data Previous Rx's ?Medication ?Instructions ?Recorded pantoprazole 40 mg tablet,delayed 40 mg PO DAILY #90 tabs 08/27/23 release fluticasone propionate 50 1 spray intranasal DAILY #9.9 mL 12/08/23 mcg/actuation nasal spray,suspension (Flonase Allergy Relief) ropinirole 1 mg tablet 1 mg PO BEDTIME #90 tabs 12/31/23 metformin 500 mg tablet,extended 500 mg PO BID 90 days #180 tabs 02/05/24 release 24 hr aspirin 81 mg tablet,delayed 81 mg PO DAILY 90 days #90 tabs 04/09/24 release atorvastatin 80 mg tablet 80 mg PO BEDTIME 90 days #90 tabs 04/09/24 clopidogrel 75 mg tablet 75 mg PO DAILY #90 tabs 04/09/24 ezetimibe 10 mg tablet (Zetia) 10 mg PO DAILY 90 days #90 tabs 04/09/24 isosorbide mononitrate 30 mg 30 mg PO DAILY #90 tabs 04/09/24 tablet,extended release 24 hr metoprolol succinate 25 mg 25 mg PO DAILY 90 days #90 tabs 04/09/24 tablet,extended release 24 hr dulaglutide 1.5 mg/0.5 mL 1.5 mg (0.5 mL) subcut QWEEK #2 mL 04/20/24 subcutaneous pen injector losartan 25 mg tablet 25 mg PO DAILY 90 days #90 tabs 06/02/24 Allergies Allergy/AdvReac Type Severity Reaction Status Date / Time No Known Drug Allergies Allergy Unknown Unknown Verified 06/21/24 11:42 Review of Systems Review of Systems: Constitutional : No Weight loss, No Fever, No Chills ENT/Mouth : No sore throat, No Rhinorrhea Eyes: No Eye Pain, No Swelling Cardiovascular : pos Chest Pain, pos SOB, no Dyspnea on Exertion, No Orthopnea, No Edema, No Palpitations Respiratory : No Cough, No Sputum Gastrointestinal : no Nausea, No Vomiting, No Diarrhea, No abdominal Pain, No Hematochezia, No Melena Genitourinary : No Dysuria, No Urinary Frequency Musculoskeletal : No joint pain, No Myalgias, No Joint Swelling Skin : No Skin Lesions, No rash Neuro : No Weakness, No Numbness, No Dizziness, No Headache All other systems reviewed and are negative [facility] Past Medical History Attestation statement: The following information was validated with the patient. Source: old records reviewed Medical History Non-STEMI (non-ST elevated myocardial infarction) GERD (gastroesophageal reflux disease) Sarcoidosis Bilateral hilar adenopathy syndrome Lymphadenopathy, mediastinal Elevated diaphragm Asthma High cholesterol Diabetes Left foot pain Surgical History S/P cardiac catheterization Hx of cardiac cath Bone spur History of colonoscopy Family History Family History Father Cancer Mother Diabetes mellitus Maternal Grandfather Unknown family medical history Maternal Grandmother Unknown family medical history Paternal Grandfather Unknown family medical history Paternal Grandmother No problems noted. Sister Pancreatic cancer Sister No problems noted. Sister No problems noted. Daughter No problems noted. Social History Social History Housing: House Alcohol intake: current Alcohol intake frequency: holidays/special occasions only Patient Tobacco Use Status: Never used Tobacco Smoked in Last 30 Days: No e-Cigarette/Vaping Use: Never Used Second Hand Smoke Exposure: Yes Advance Directives: No Advance Directives Information Provided: Yes Do you have a plan to hurt others: No Plan service: No Current occupational status: employed Cognitive needs: No Hearing needs: No Vision needs: Yes Physical Exam Vital Signs: Vital Signs: Last Vital Signs Temp 98.2 F 06/21/24 15:14 Pulse 70 06/21/24 15:14 Resp 14 06/21/24 15:14 BP 112/65 06/21/24 15:14 Pulse Ox 97 06/21/24 15:14 O2 Del Method Room Air 06/21/24 15:14 BMI result Body Mass Index 22.9 Appearance: Alert. Oriented X3. No acute distress. Eyes: Pupils equal, round and reactive to light. ENT: Pharynx normal. Neck: Normal inspection. Neck supple. CVS: Normal heart rate and rhythm. Pulses normal. Respiratory: No respiratory distress. Breath sounds normal. Abdomen: Soft and nontender. Skin: Skin warm and dry. Normal skin color. Normal skin turgor. Extremities: No lower extremity edema. No calf ttp Neuro: Oriented X 3. No motor deficit. No sensory deficit. Course Course Course Narrative: RME: 58 yold male presents to the ED for chest pain for 2 weeks with some bilateral calf pain. patient has pmh of two heart stents. no leg swelling/pitting edema. mild calf pain. EKG labs ordered. lungs clear. Charge nurse informed to bring patient to the ED> Medical Decision Making Medical Decision Making [facility] Narrative: 58 yo male with PMH of CAD s/p 2 stents, NSTEMI, GERD, DM, HLD, asthma here with chest tightness x 2 to 3 weeks but not worse with exertion and no relief with nitro. It is atypical in nature not pleuritic and he admits to not taking his isosorbide. At this time basic labs, EKG, trop x 2, distal pulses intact doubt dissection and no risk factors for VTE - doubt PE. Differential Diagnosis Differential Diagnoses: The differential diagnosis associated with the presentation includes atypical chest pain, low susp for VTE NSTEMI Admission/Observation Consideration of admission/observation: Escalation of care including admission/observation considered atypical sypmtoms trop flat x 2 at this time would encourage him to follow up with cardiology and take his isosorbide Lab Data [facility] Lab Attestation statement: I reviewed the patient's lab results. 06/21/24 11:58 06/21/24 11:58 Labs: Lab Results 06/21/24 06/21/24 Range/Units 11:58 13:53 WBC 6.0 (4.8-10.8) X10*3/uL RBC 4.96 (4.60-5.80) X10*6/uL Hgb 15.5 (14.0-18.0) g/dl Hct 43.6 (42.0-52.0) % MCV 87.9 (80.0-98.0) fL MCH 31.3 (27.0-33.0) pg MCHC 35.6 (31.0-36.0) g/dl RDW 12.8 (11.0-16.0) % Plt Count 213 (160-400) X10*3/uL MPV 10.9 (9.4-12.4) fL Immature Gran % (Auto) 0.2 (0.0-0.4) % Neut % (Auto) 63.9 (45-73) % Lymph % (Auto) 25.0 (20-40) % Sutter % (Auto) 8.7 (2-11) % Eos % (Auto) 1.5 (0-4) % Baso % (Auto) 0.7 (0-2) % Lymph # (Auto) 1.5 (1.2-4.9) X10*3/uL Sutter # (Auto) 0.5 (0.1-1.2) X10*3/uL Eos # (Auto) 0.1 (0.0-0.4) X10*3/uL Baso # (Auto) 0.0 (0.0-0.2) X10*3/uL Abs Immat Gran (auto) 0.01 (0.00-0.03) X10*3/uL Absolute Neuts (auto) 3.8 (2.0-8.3) x10*3/uL Absolute Nucleated RBC 0.000 (0.0-0.012) X10*3/uL Nucleated RBC % (auto) 0.0 (0.0-0.2) /100WBC PT 10.9 (10.9-12.4) SEC INR 0.9 (0.9-1.1) APTT 32.1 (26.0-36.8) SEC Sodium 140 (135-145) mmol/L Potassium 4.0 (3.3-5.1) mmol/L Chloride 102 (96-108) mmol/L Carbon Dioxide 30 H (22-29) mmol/L Anion Gap 12 (12-20) BUN 21 H (9-16) mg/dL Creatinine 0.92 (0.5-1.4) mg/dL Estim Creat Clear Calc 89.8 Estimated GFR > 60 Random Glucose 230 H (60-115) mg/dL Calcium 9.3 D (8.4-10.2) mg/dL Total Bilirubin 0.9 (0.0-1.0) mg/dL AST 18 (5-37) U/L ALT 30 (0-40) U/L Alkaline Phosphatase 113 (39-117) U/L Troponin I High Sens < 2.7 < 2.7 (<3.5-35.0) ng/L B-Natriuretic Peptide 14 (<100) pg/mL Total Protein 7.7 (6.5-8.0) g/dL Albumin 4.3 (3.5-5.0) g/dL Influenza Type A (PCR) NEGATIVE (Negative) Influenza Type B (PCR) NEGATIVE (Negative) RSV RNA Qual (PCR) NEGATIVE (Negative) SARS-CoV-2 RNA (RT-PCR) NEGATIVE (Negative) Independent Interpretation I performed an independent interpretation of an: EKG, Plain X-Ray (normal ) and Ultrasound (normal ) Interpretation: Rate: 86 Rhythm: NSR [place]: normal Normal P waves. Normal JALEN. Normal QRS complex. ST T wave : normal no ROCKY qTC: 411 prior studies: no acute ischemia The study has been interpreted contemporaneously by me. . Radiology Impression Discussion of test interpretation with radiology: I have reviewed the radiologist's reading. 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 Prescriptions: No Action fluticasone propionate [Flonase Allergy Relief] 50 mcg/actuation spray,suspension 1 spray intranasal DAILY Qty: 9.9 1RF Rx Instructions: administer into each nostril ropinirole 1 mg tablet 1 mg PO BEDTIME Qty: 90 1RF aspirin 81 mg tablet,delayed release (DR/EC) 81 mg PO DAILY 90 Days Qty: 90 3RF atorvastatin 80 mg tablet 80 mg PO BEDTIME 90 Days Qty: 90 3RF clopidogrel 75 mg tablet 75 mg PO DAILY Qty: 90 3RF ezetimibe [Zetia] 10 mg tablet 10 mg PO DAILY 90 Days Qty: 90 3RF isosorbide mononitrate 30 mg tablet extended release 24 hr 30 mg PO DAILY Qty: 90 3RF metoprolol succinate 25 mg tablet extended release 24 hr 25 mg PO DAILY 90 Days Qty: 90 3RF losartan 25 mg tablet 25 mg PO DAILY 90 Days Qty: 90 3RF metformin 500 mg tablet extended release 24 hr 500 mg PO BID 90 Days Qty: 180 0RF dulaglutide 1.5 mg/0.5 mL pen injector 1.5 mg subcut QWEEK Qty: 2 0RF pantoprazole 40 mg tablet,delayed release (DR/EC) 40 mg PO DAILY Qty: 90 2RF Rx Instructions: take one tablet half an hour before breakfast Interventions: ED Discharge Assessment Last Done: 06/21/24 15:14 Discharge Date/Time: 06/21/24 15:15 Print Language: Amharic
[2024-06-21 12:03] LABS: MANUAL DIFF FLAG NO
[2024-06-21 12:04] LABS: Basophils Percent Auto 0.7 % (0-2); Eosinophils Absolute Auto 0.1 X10*3/uL (0.0-0.4); Eosinophils Percent Auto 1.5 % (0-4); Hematocrit 43.6 % (42.0-52.0); Hemoglobin 15.5 g/dl (14.0-18.0); Imm Gran Abs Auto 0.01 X10*3/uL (0.00-0.03); Imm Gran Pct Auto 0.2 % (0.0-0.4); Lymphocytes Absolute Auto 1.5 X10*3/uL (1.2-4.9); Mean Corpuscular HGB Conc 35.6 g/dl (31.0-36.0); Mean Corpuscular Hemoglobin 31.3 pg (27.0-33.0); Mean Corpuscular Volume 87.9 fL (80.0-98.0); Mean Platelet Volume 10.9 fL (9.4-12.4); Monocytes Absolute Auto 0.5 X10*3/uL (0.1-1.2); Monocytes Percent Auto 8.7 % (2-11); Neutrophils Absolute Auto 3.8 x10*3/uL (2.0-8.3); Neutrophils Percent Auto 63.9 % (45-73); Platelet Count 213 X10*3/uL (160-400); Red Blood Count 4.96 X10*6/uL (4.60-5.80); Red Cell Distribution Width 12.8 % (11.0-16.0)
[2024-06-21 12:09] LABS: INTERNATIONAL NORM RATIO 0.9 (0.9-1.1); Prothrombin Time 10.9 SEC (10.9-12.4)
[2024-06-21 12:12] LABS: Partial Thromboplastin Time 32.1 SEC (26.0-36.8)
[2024-06-21 12:21] LABS: Alanine Aminotransferase 30 U/L (0-40); Albumin Level 4.3 g/dL (3.5-5.0); Alkaline Phosphatase 113 U/L (39-117); Anion Gap 12 (12-20); Aspartate Amino Transferase 18 U/L (5-37); Bilirubin Total 0.9 mg/dL (0.0-1.0); Blood Urea Nitrogen 21 mg/dL (9-16); Calcium 9.3 mg/dL (8.4-10.2); Carbon Dioxide 30 mmol/L (22-29); Chloride 102 mmol/L (96-108); Creatinine Clr Calc Pharmacy 89.8; Estimated Glomerular Filt Rate > 60; Glucose Random 230 mg/dL (60-115); Sodium 140 mmol/L (135-145); Total Protein 7.7 g/dL (6.5-8.0)
[2024-06-21 12:26] LABS: B Type Natriuretic Peptide 14 pg/mL (<100)
[2024-06-21 12:53] VITALS: BP 137/80; PULSE 80; RESP 14; TEMP 36.6; O2SAT 96
[2024-06-21 12:54] LABS: Troponin-I High Sensitivity < 2.7 ng/L (<3.5-35.0)
--- NOTE | 2024-06-21 13:10 | PC.NURSE ---
pt is alert and oriented, skin appropriate for ethnicity, respirations even and unlabored, ls clear, pt reports for the last 2-3 weeks having intermittent midsternal chest pain mostly when at work, did experience sob this morning, also is reporting bilateral calf pain but according to the pt this has been happening for quite a while-
[2024-06-21 14:21] LABS: Troponin-I High Sensitivity < 2.7 ng/L (<3.5-35.0)
[2024-06-21 14:47] LABS: Influenza A PCR NEGATIVE (Negative); Influenza B PCR NEGATIVE (Negative); Resp Syncy Virus RNA Qual PCR NEGATIVE (Negative); SARS COV2 PCR INHOUSE NEGATIVE (Negative)
[2024-06-21 14:54] VITALS: BP 100/62; PULSE 72; RESP 13; TEMP 36.8; O2SAT 96
[2024-06-21 15:14] VITALS: BP 112/65; PULSE 70; RESP 14; TEMP 36.8; O2SAT 97
== END 2024-06-21 15:15 | disposition home or self-care (01) ==
PROVIDERS: Physician Assistant; Emergency Provider Emergency Medicine; PCP Nurse Practitioner Family
DX: R07.89 Other chest pain (principal); M79.662 Pain in left lower leg; M79.661 Pain in right lower leg; R06.00 Dyspnea, unspecified; E11.9 Type 2 diabetes mellitus without complications; E78.5 Hyperlipidemia, unspecified; J45.909 Unspecified asthma, uncomplicated; Z03.818 Encounter for observation for suspected exposure to other biological agents ruled out; Z79.82 Long term (current) use of aspirin; Z79.02 Long term (current) use of antithrombotics/antiplatelets; Z79.899 Other long term (current) drug therapy; Z79.85 Long-term (current) use of injectable non-insulin antidiabetic drugs; Z79.84 Long term (current) use of oral hypoglycemic drugs
CPT/HCPCS: 0241U; 36415; 71045; 80053; 83880; 84484; 85025; 85610; 85730; 93005; 93970; 99284; 99285

== ENCOUNTER → 2024-06-21 11:32 | Outpatient (BNV) | payer OTHER, SELFPAY | PROVIDERS: Emergency Provider Emergency Medicine; PCP Nurse Practitioner Family; Visit Provider Internal Medicine Cardiovascular Disease | DX: R07.9 Chest pain, unspecified (principal) | CPT/HCPCS: 93010 ==

== ENCOUNTER → 2024-06-21 11:43 | Outpatient (BNV) | payer OTHER, SELFPAY | PROVIDERS: Emergency Provider Emergency Medicine; PCP Nurse Practitioner Family; Visit Provider Radiology Diagnostic Radiology | DX: R07.9 Chest pain, unspecified (principal) | CPT/HCPCS: 71045 ==

== ENCOUNTER 2024-10-25 13:36 | Outpatient (REF) | payer OTHER, SELFPAY ==
[2024-10-25 16:09] LABS: Appearance Urine Turbid; Color Urine Dark Yellow; Glucose Urine UA Negative (Negative); Leukocyte Esterase Urine Negative (Negative); MANUAL DIFF FLAG NO; Nitrite Urine Negative (Negative); Specific Gravity - Urine 1.025 (1.005-1.025); UMIC TRIGGER UACC YES; Urine Blood Negative (Negative); Urine Ketones Trace mg/dL (Negative); Urine Protein 30 (1+) mg/dL (Neg-Trace)
--- OUTSIDE RECORDS SUMMARY | 2024-10-25 16:15 | XMS_ITS | Data Portability ---
Author Organization [place] - [facility], Allergy Address [address] [place] [phone] Care Team Providers Care Miner Name Role Phone DARNELL GILBERT Primary Care Provider Assessment No assessment recorded. Plan of Treatment Reminders Order Date Submit Date Provider Last Modified By Organization Details Last Modified Time Details Appointments None recorded. Lab None recorded. Referral None recorded. Procedures None recorded. Surgeries None recorded. Imaging CT, maxillofac ial, w/o contrast 2024 025 [email or web address] [facility], [address] [place] [address], [phone], 5 14:51:10 Medication Orders None recorded. Patient TargetsNo targets recorded. Patient InstructionsNo instructions recorded. Reason for Referral None Reported. Problems Name Problem SNOMED Code Status Onset Date Resolution Date Notes Provider Name and Address Organization Details Recorded Time Chronic rhinitis 40852369 Active 2024 JOSE E BARILLAS MD [address] [place] [address] [place], [phone], [facility] - [facility] 5 11:23:14 Deviated nasal septum 098263216 Active 2024 JOSE E BARILLAS MD [address] [place] [address] [place], [phone], [facility] - [facility] 5 11:23:19 Incompetence of nasal valve 583431469 Active 2024 JOSE E BARILLAS MD [address] [place], [place] [address], [phone], [place] [facility] 11:24:18 Problem Notes None recorded. Procedures Surgical History Date Name Laterality Status Provider Name and Address Organization Details Recorded Time JMSNasal/Sinus Endoscopy completed JOSE E RAMIREZ MD [address] [address], [place], [phone], [facility] - [facility] 07/21/2024 11:25:32 Imaging Results None recorded. Procedure Notes None recorded. Medical Equipment None Reported. Medications Name Sig Start Date Stop Date Status Note LastModified by Organization Details LastModified Time atorvastatin 80 mg tablet TAKE 1 TABLET BY MOUTH DAILY active Not Available Not Available No t Available ropinirole 1 mg tablet active Not Available Not Available No t Available isosorbide mononitrate ER 30 mg tablet,extend ed release 24 hr TAKE 1 TABLET BY MOUTH EVERY MORNING active Not Available Not Available No t Available clopidogrel 75 mg tablet TAKE 1 TABLET BY MOUTH EVERY DAY active Not Available Not Available No t Available pantoprazole 40 mg tablet,delaye d release active Not Available Not Available No t Available losartan 25 mg tablet active Not Available Not Available No t Available nitroglycerin 0.[address] TABLET UNDER TONGUE EVERY 5 MIN NEEDED FOR CHEST PAIN, MAX OF 3 DOSES/15 MIN CALL 911/SEEK MEDICAL ATTENTION IF PAIN PERSISTS active Not Available Not Available N ot Available metoprolol succinate ER 25 mg tablet,extend ed release 24 hr TAKE 1 TABLET BY MOUTH EVERY DAY active Not Available Not Available No t Available fluticasone propionate 50 mcg/actuation nasal spray,suspens ion active Not Available Not Available Not Available metformin ER 500 mg tablet,extend ed release 24 hr active Not Available Not Available Not Available ezetimibe 10 mg tablet active Not Available Not Available No t Available aspirin active Not Available Not Avail able Not Available Trulicity 1.5 mg/0.5 mL subcutaneous pen injector active Not Available Not Available Not Available dulaglutide active Not Available Not A vailable Not Available Trulicity 3 mg/0.5 mL subcutaneous pen injector active Not Available Not Available Not Available Vitals Date Recorded Body height Body mass index (BMI) Body weight Provider Name and Address Organization Details Last Updated DateTime 07/21/2024 180.34 cm 23.7 kg/m2 58184.7 g Yordan Wiley [place] - [facility] 07/21/2024 10:53:02 Social History None recorded. Functional Status None recorded. Mental Status None recorded. Family History Nothing Reported. Medical History Condition Response Diabetes N Heart Attack ([place]) Y Migraines Y Past Encounters Encounter ID Performer Location Encounter Start Date Encounter Closed Date Diagnosis/Indication Diagnosis SNOMED-CT Code Diagnosis ICD10 Code Diagnosis Note [id number] JOSE E LONGO MD [facility] [address] [place] [address] 07/21/2024 10:47:15 07/21/2024 11:37:49 Chronic rhinitis 12859184 J31.0 Patient with longstandi ng history of perennial nasal obstructio n. Remote history of intranasal substance use but none for 30 years. He notes right greater than left nasal obstructio n. There is a septal deviation high on the right side and a significan t deviation to the left impinging on the middle meatus. This limits the view. There is mild nasal valve collapse. Suggest saline irrigation s, consistent use of fluticason e and a CT of the sinuses to rule out chronic sinus disease or sarcoidosi s. He might benefit from septoplast y, turbinate reduction and possible nasal valve repair of imaging otherwise normal Deviated nasal septum 12 1107430 J34.2 Incompeten ce of nasal valve 743607086 J34.89 Health Concerns Section Related Observation LastModified by Organization Detai ls LastModified Time None Recorded Concern Status LastModified by Organization Details LastModified Time None Recorded Advance Directives Directive None Recorded Payers Encounter Date Sequence Insurance Name Policy Number Policy Hurt Covered Member ID Hurt Member ID Guarantor Name 07/21/2024 1 [employer] Ivan Oakes [id number] Ivan Oakes Notes Date Note Type Note Provider Name and Address Organization Details Recorded Time 07/21/2024 text/html Patient with man y years of bilateral nasal congestion. Symptoms refractory to fluticasone nasal spray. No known hx of allergy. No intranasal substances for 30 years Carriers diagnosis of hilar adenopathy, sarcoidosis and DMHx of [facility] JOSE E RAMIREZ MD [address] [facility],[address] [address], [place], [phone], [place] - [facility] 07/21/2024 12:54:02
[2024-10-25 16:16] LABS: Bacteria Urine None Seen (None Seen); Hyaline Casts Urine 0-2 /LPF (0-2); RBC Urine 0-2 /HPF (0-2); Squamous Epithelial Cell Urine 0-2 /HPF (0-2); WBC Urine 0-5 /HPF (0-5)
[2024-10-25 16:19] LABS: Estimated Average Glucose 189 mg/dL; Hemoglobin A1C 255.4609 umol/L; Hemoglobin A1c % 8.2 % (<6.0); Total Hemoglobin (HGBA1C) 3895.5361 umol/L
[2024-10-25 16:20] LABS: Basophils Absolute Auto 0.1 X10*3/uL (0.0-0.2); Basophils Percent Auto 0.7 % (0-2); Eosinophils Absolute Auto 0.1 X10*3/uL (0.0-0.4); Eosinophils Percent Auto 0.7 % (0-4); Hematocrit 43.2 % (42.0-52.0); Hemoglobin 15.2 g/dl (14.0-18.0); Imm Gran Abs Auto 0.02 X10*3/uL (0.00-0.03); Imm Gran Pct Auto 0.3 % (0.0-0.4); Lymphocytes Absolute Auto 1.9 X10*3/uL (1.2-4.9); Lymphocytes Percent Auto 25.6 % (20-40); Mean Corpuscular HGB Conc 35.2 g/dl (31.0-36.0); Mean Corpuscular Hemoglobin 31.1 pg (27.0-33.0); Mean Corpuscular Volume 88.5 fL (80.0-98.0); Mean Platelet Volume 11.6 fL (9.4-12.4); Monocytes Absolute Auto 0.6 X10*3/uL (0.1-1.2); Monocytes Percent Auto 8.8 % (2-11); Neutrophils Absolute Auto 4.6 x10*3/uL (2.0-8.3); Neutrophils Percent Auto 63.9 % (45-73); Platelet Count 223 X10*3/uL (160-400); Red Blood Count 4.88 X10*6/uL (4.60-5.80); Red Cell Distribution Width 12.5 % (11.0-16.0); White Blood Count 7.3 X10*3/uL (4.8-10.8)
[2024-10-25 16:47] LABS: Alanine Aminotransferase 41 U/L (0-40); Albumin Level 4.6 g/dL (3.5-5.0); Alkaline Phosphatase 95 U/L (39-117); Anion Gap 12 (12-20); Aspartate Amino Transferase 26 U/L (5-37); Bilirubin Total 2.6 mg/dL (0.0-1.0); Blood Urea Nitrogen 20 mg/dL (9-16); Calcium 9.3 mg/dL (8.4-10.2); Carbon Dioxide 26 mmol/L (22-29); Chloride 106 mmol/L (96-108); Cholesterol 155 mg/dL (<200); Estimated Glomerular Filt Rate > 60; Glucose Fasting 132 mg/dL (60-99); HDL Cholesterol 61 mg/dL (>40); LDL Cholesterol Calculated 77 mg/dL (<100); Potassium 3.8 mmol/L (3.3-5.1); Sodium 140 mmol/L (135-145); Total Protein 7.6 g/dL (6.5-8.0); Triglycerides 86 mg/dL (<150)
[2024-10-25 16:58] LABS: TSH reflex Free T4 2.28 uIU/mL (0.32-4.0)
== END 2024-10-25 13:37 | disposition home or self-care (01) ==
LOC: HO.HMGCLDS 13:36
PROVIDERS: PCP Nurse Practitioner Family; Visit Provider Nurse Practitioner Family
DX: E78.5 Hyperlipidemia, unspecified (principal); E11.9 Type 2 diabetes mellitus without complications
CPT/HCPCS: 36415; 80053; 80061; 81001; 83036; 84443; 85025

== ENCOUNTER 2024-11-12 09:41 | Outpatient (REF) | payer OTHER, SELFPAY ==
--- OUTSIDE RECORDS SUMMARY | 2024-11-12 09:57 | XMS_ITS | Data Portability ---
Author Organization [place] - [facility], Allergy Address [address] [place] [phone] Care Team Providers Care Knitter Helper Name Role Phone DARNELL GILBERT Primary Care Provider Assessment No assessment recorded. Plan of Treatment Reminders Order Date Submit Date Provider Last Modified By Organization Details Last Modified Time Details Appointments None recorded. Lab None recorded. Referral None recorded. Procedures None recorded. Surgeries None recorded. Imaging CT, maxillofac ial, w/o contrast 2024 025 [email or web address] [facility], [address] [place] [address], [phone], 5 14:51:10 Medication Orders None recorded. Patient TargetsNo targets recorded. Patient InstructionsNo instructions recorded. Reason for Referral None Reported. Problems Name Problem SNOMED Code Status Onset Date Resolution Date Notes Provider Name and Address Organization Details Recorded Time Chronic rhinitis 16737111 Active 2024 JOSE E BARILLAS MD [address] [place] [address] [place], [phone], [facility] - [facility] 5 11:23:14 Deviated nasal septum 053217884 Active 2024 JOSE E BARILLAS MD [address] [place] [address] [place], [phone], [facility] - [facility] 5 11:23:19 Incompetence of nasal valve 566338985 Active 2024 JOSE E BARILLAS MD [address] [place] [address] [place], [phone], [place] - [facility] 11:24:18 Problem Notes None recorded. Procedures Surgical History Date Name Laterality Status Provider Name and Address Organization Details Recorded Time JMSNasal/Sinus Endoscopy completed JOSE E RAMIREZ MD [address] [address], [place], [phone], [facility] - [facility] 07/21/2024 11:25:32 Imaging Results None recorded. Procedure [...] Updated DateTime 07/21/2024 180.34 cm 23.7 kg/m2 32229.7 g Yordan Wiley [place] - [facility] 07/21/2024 10:53:02 Social History None recorded. Functional Status None recorded. Mental Status None recorded. Family History Nothing Reported. Medical History Condition Response Diabetes N Heart Attack ([place]) Y Migraines Y Past Encounters Encounter ID Performer Location Encounter Start Date Encounter Closed Date Diagnosis/Indication Diagnosis SNOMED-CT Code Diagnosis ICD10 Code Diagnosis Note [id number] JOSE E LONGO MD [facility] [address] [facility], [place] [address] 07/21/2024 10:47:15 07/21/2024 11:37:49 Chronic rhinitis 65258512 J31.0 Patient with longstandi ng history of [...] imaging otherwise normal Deviated nasal septum 12 1897457 J34.2 Incompeten ce of nasal valve 592940945 J34.89 Health Concerns Section Related Observation LastModified by Organization Detai ls LastModified Time None Recorded Concern Status LastModified by Organization Details LastModified Time None Recorded Advance Directives Directive None Recorded Payers Insurance Date Sequence Insurance Name Policy Number Policy Hurt Covered Member ID Hurt Member ID Guarantor Name 07/21/2024 1 [facility] (MEDICAID HMO) [id number] Ivan Oakes [id number] Ivan Oakes 08/16/2024 1 [employer] Ivan Oakes [id number] Ivan Oakes 09/15/2024 2 [facility] [id number] Ivan Oakes [id number] Ivan Oakes Notes Date Note Type Note Provider Name and Address Organization Details Recorded Time 07/21/2024 text/html Patient with man y years of bilateral nasal congestion. Symptoms refractory to fluticasone nasal spray. No known hx of allergy. No intranasal substances for 30 years Carriers diagnosis of hilar adenopathy, sarcoidosis and DMHx of [facility] JOSE E RAMIREZ MD [address] [place] [address], [phone], [facility] - [facility] 07/21/2024 12:54:02
[2024-11-12 13:12] LABS: Appearance Urine Clear; Color Urine Yellow; Glucose Urine UA 250 mg/dL (Negative); Leukocyte Esterase Urine Negative (Negative); Nitrite Urine Negative (Negative); PH 6.5 (5.0-9.0); Urine Blood Negative (Negative); Urine Ketones Negative (Negative); Urine Protein Trace mg/dL (Neg-Trace)
[2024-11-12 13:25] LABS: Retic HGB Equivalent 36.3 pg (30.0-35.0); Reticulocyte Percent 1.6 % (0.5-1.8)
[2024-11-12 13:32] LABS: Haptoglobin 197 mg/dL (14-258)
[2024-11-12 13:37] LABS: Bilirubin Direct 0.6 mg/dL (0.0-0.5); Lactate Dehydrogenase 331 U/L (118-273)
[2024-11-16 13:02] LABS: Mitochondrial Antibodies NEGATIVE (NEGATIVE)
== END 2024-11-12 09:42 | disposition home or self-care (01) ==
LOC: HO.HMGCLDS 09:41
PROVIDERS: PCP Nurse Practitioner Family; Visit Provider Nurse Practitioner Family
DX: E78.5 Hyperlipidemia, unspecified (principal); E11.9 Type 2 diabetes mellitus without complications; R17 Unspecified jaundice; R80.9 Proteinuria, unspecified
CPT/HCPCS: 36415; 81003; 82247; 82248; 83010; 83615; 85045; 86381

== ENCOUNTER 2024-11-15 15:57 | Outpatient (AMB) | payer OTHER, SELFPAY ==
--- OUTSIDE RECORDS SUMMARY | 2024-11-15 16:01 | XMS_ITS | Data Portability ---
Author Organization [place] - [facility], Allergy Address [address] [place] [place] [phone] Care Team Providers Care [employer] Crewmember Name Role Phone DARNELL GILBERT Primary Care Provider Assessment No assessment recorded. Plan of Treatment Reminders Order Date Submit Date Provider Last Modified By Organization Details Last Modified Time Details Appointments None recorded. Lab None recorded. Referral None recorded. Procedures None recorded. Surgeries None recorded. Imaging CT, maxillofac ial, w/o contrast 2024 025 [email or web address] [facility], [address] [place] [address], [phone], 5 14:51:10 Medication Orders None recorded. Patient TargetsNo targets recorded. Patient InstructionsNo instructions recorded. Reason for Referral None Reported. Problems Name Problem SNOMED Code Status Onset Date Resolution Date Notes Provider Name and Address Organization Details Recorded Time Chronic rhinitis 75405165 Active 2024 JOSE E BARILLAS MD [address] [place] [address] [place], [phone], [facility] - [facility] 5 11:23:14 Deviated nasal septum 172960959 Active 2024 JOSE E BARILLAS MD [address] [place] [address] [place], [phone], [facility] - [facility] 5 11:23:19 Incompetence of nasal valve 657480711 Active 2024 JOSE E BARILLAS MD [address] [place] [address] [place], [phone], [place] [facility] 11:24:18 Problem Notes None recorded. Procedures Surgical History Date Name Laterality Status Provider Name and Address Organization Details Recorded Time JMSNasal/Sinus Endoscopy completed JOSE E RAMIREZ MD [address] [address], [place], [phone], [facility] - [facility] 07/21/2024 11:25:32 Imaging Results None recorded. [...] Updated DateTime 07/21/2024 180.34 cm 23.7 kg/m2 29044.7 g Yordan Wiley [place] - [facility] 07/21/2024 10:53:02 Social History None recorded. Functional Status None recorded. Mental Status None recorded. Family History Nothing Reported. Medical History Condition Response Diabetes N Heart Attack ([place]) Y Migraines Y Past Encounters Encounter ID Performer Location Encounter Start Date Encounter Closed Date Diagnosis/Indication Diagnosis SNOMED-CT Code Diagnosis ICD10 Code Diagnosis Note [id number] JOSE E LONGO MD [facility] [address] [facility] [place] [address] 07/21/2024 10:47:15 07/21/2024 11:37:49 Chronic rhinitis 10208668 J31.0 Patient with longstandi ng history of [...] imaging otherwise normal Deviated nasal septum 12 6325047 J34.2 Incompeten ce of nasal valve 668366670 J34.89 Health Concerns Section Related Observation LastModified by Organization Detai ls LastModified Time None Recorded Concern Status LastModified by Organization Details LastModified Time None Recorded Advance Directives Directive None Recorded Payers Insurance Date Sequence Insurance Name Policy Number Policy Hurt Covered Member ID Hurt Member ID Guarantor Name 07/21/2024 1 [facility] - HEALTH NET PLAN (MEDICAID HMO) SHOAIB Oakes [id number] Ivan Oakes 08/16/2024 1 [employer] Ivan Oakes [id number] Ivan Oakes 09/15/2024 2 [employer] [id number] Ivan Oakes [id number] Ivan Oakes Notes Date Note Type Note Provider Name and Address Organization Details Recorded Time 07/21/2024 text/html Patient with man y years of bilateral nasal congestion. Symptoms refractory to fluticasone nasal spray. No known hx of allergy. No intranasal substances for 30 years Carriers diagnosis of hilar adenopathy, sarcoidosis and DMHx of [facility] JOSE E RAMIREZ MD [address] [place] [address], [phone], [facility] - [facility] 07/21/2024 12:54:02
--- NOTE | 2024-11-15 16:07 | MHC.PC.OV ---
Vital Signs 11/15/24 16:08 Height 5 ft 11 in Weight 166 lb BMI 23.1 BP 120/70 Blood Pressure Location Rt brachial Position Sitting Pulse 82 Pulse Source Pulse Oximeter Temp 98.0 F Pulse Oximetry (%) 98 Oxygen Delivery Method Room Air Intake Visit Reasons: Diabetes Death Clearance Coordinator Required: No Accompanied by: Self / Same As Patient Allergies No Known Drug Allergies Allergy (Unknown, Verified 11/15/24 16:07) Unknown Medication List - Last Reconciled 11/15/24 by JOSEPHINE Cameron- aspirin 81 mg PO DAILY 90 days atorvastatin 80 mg PO BEDTIME 90 days clopidogrel 75 mg PO DAILY dulaglutide 3 mg (0.5 mL) subcut QWEEK ezetimibe (Zetia) 10 mg PO DAILY 90 days fluticasone propionate 50 mcg/actuation (Flonase Allergy Relief) 1 spray intranasal DAILY isosorbide mononitrate ER 30 mg PO DAILY losartan 25 mg PO DAILY 90 days metformin ER 500 mg PO BID metoprolol succinate ER 25 mg PO DAILY 90 days pantoprazole 40 mg PO DAILY ropinirole 1 mg PO BEDTIME Tobacco use date assessed: 11/15/24 Dental Screening Dental Screen Date: 11/15/24 Did you have a dental visit in the last 12 months?: Yes Did you have a dental problem in the last 6 months where you did not have access to dental care?: No Was dental information given to patient?: Patient has dentist HPI Diabetes HPI Details Chief Complaint Follow-up visit for diabetes and bilateral wrist pain. History of Present Illness The patient is a 58-year-old male presenting with a follow-up for Type 2 Diabetes Mellitus, reporting an A1c level above 8%, and has recently resumed metformin after a period of non-adherence. He reports neuropathic sensations in his feet. 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 There are no associated numbness or tingling; however, there are positive neuropathy sensations documented in the feet. The patient has minor onychomycosis and flesh-colored papules on the right mormonism. 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 - Recently resumed taking prescribed metformin consistently Health Maintenance - Encourage more comprehensive laboratory evaluations in the near future - Referral to dermatology for evaluation of skin lesions Review of Systems - Musculoskeletal: Reports bilateral wrist pain and swelling - Neurological: Reports neuropathy sensations in feet - Dermatological: Reports flesh-colored papular lesions on the right mormonism Physical Exam General: Cooperative, healthy appearing, comfortable, no acute distress and well developed Orientation: Patient oriented x3 Limitations: No limitations Head: Normal to inspection Ears: Hearing grossly normal bilaterally Nose: Normal external nose present Face and sinus: Normal facial exam Eyes: Appearance normal, both eyes and all related structures Neck: Normal visual inspection and Yes full ROM Respiratory: Normal respiratory effort and able to speak in complete sentences. Clear to auscultation bilaterally Cardiovascular: Regular rate and rhythm. Normal S1 and S2 GI: Normal to inspection. Soft to palpation and nontender Skin: Papular flesh-colored skin lesions noted on the right mormonism Neuro: Patient oriented x3. Positive sensation with use of monofilament to feet Extremities: no current Swelling noted in bilateral volar wrist regions. Normal to inspection except for faint onychomycosis noted on feet Results Plan I will increase the patient's Trulicity to 3 mg and monitor A1c levels for better diabetes control, with a follow-up in two months. Meanwhile, resumption of metformin is advised, and the potential use of gabapentin is discussed for neuropathy management. Bilateral wrist pain will be evaluated with x-rays, and using a night brace is suggested as an interim measure. A dermatology referral is made for right mormonism skin lesions, and further laboratory evaluations will be conducted. Discussion Notes I explained to the patient the importance of tighter blood sugar control as it may alleviate neuropathy symptoms and discussed the increase in Trulicity dosage. This should address elevated A1c levels. We talked about wearing wrist braces to mitigate pain due to his occupational demands and scheduled x-rays to further assess any structural damage. I advised the patient on a dermatology referral for skin lesions on the right mormonism. We also reviewed the continuity of metformin and discussed the potential use of gabapentin for neuropathic symptoms. The patient is scheduled for a follow-up in two months, and I encouraged additional lab assessments soon for complete evaluation. Patient Instructions - Increase Trulicity dose to 3 mg as instructed - Continue taking metformin regularly - Wear wrist braces at night for a few weeks - Follow up with dermatology for skin lesions - Schedule and complete additional lab tests soon - Return for follow-up in two months - Report any worsening of symptoms or concerns immediately [facility] Medical History Non-STEMI (non-ST elevated myocardial infarction) GERD (gastroesophageal reflux disease) Sarcoidosis Bilateral hilar adenopathy syndrome Lymphadenopathy, mediastinal Elevated diaphragm Asthma High cholesterol Diabetes Left foot pain Surgical History S/P cardiac catheterization Hx of cardiac cath Bone spur History of colonoscopy Family History (Updated 11/15/24 @ 16:15 by José Miguel Vasquez [facility]) Father Cancer Mother Diabetes mellitus Maternal Grandfather Unknown family medical history Maternal Grandmother Unknown family medical history Paternal Grandfather Unknown family medical history Paternal Grandmother No problems noted. Sister Pancreatic cancer Sister No problems noted. Sister No problems noted. Daughter No problems noted. Social History Housing: House Alcohol intake: current Alcohol intake frequency: holidays/special occasions only Patient Tobacco Use Status: Never used Tobacco e-Cigarette/Vaping Use: Never Used Second Hand Smoke Exposure: Yes service: No Current occupational status: employed Cognitive needs: No Hearing needs: No Vision needs: Yes Questionnaire PHQ-9 Over the last 2 weeks, how often have you been bothered by any of the following problems? 1. Little interest or pleasure in doing things: more than half the days 2. Feeling down, depressed, or hopeless: several days 3. Trouble falling or staying asleep, or sleeping too much: several days 4. Feeling tired or having little energy: nearly every day 5. Poor appetite or overeating: several days 6. Feeling bad about yourself - or that you are a failure or have let yourself or your family down: not at all 7. Trouble concentrating on things, such as reading the newspaper or watching television: several days 8. Moving or speaking so slowly that other people could have noticed. Or the opposite - being so fidgety or restless that you have been moving around a lot more than usual: not at all 9. Thoughts that you would be better off or of hurting yourself in some way: not at all Total score: 9 Depression Screening Interpretation: Positive (denies any si or hi) Depression Screening Follow-up: Existing condition Depression Screening Done: Yes 64609 - PHQ-9 Billing: Yes Source: Developed by Drs. Steve Etienne, Meche Bonilla, Neo Vyas and colleagues, with an educational luli from [email or web address]. Thrive Questionnaire Date Thrive assessed: 11/15/24 I am a: Patient What is your living situation today?: I have a steady place to live Within the past 12 months, did the food you bought not last and you didn't have the money to get more?: I choose not to answer this question Within the past 12 months, did you worry whether your food would run out before you got money to buy more?: Never true Do you have trouble paying for medicines?: No Do you have trouble getting transportation to medical appointments?: No Do you have trouble paying your heating and electricity bill?: No Do you have trouble taking care of your child, family member or friend?: No Do you have trouble with day-to-day activities such as bathing, preparing meals, shopping, managing finances, etc.?: No Are you currently unemployed and looking for a job?: No Are you interested in more education?: No Please select the resources that you would like help with: None Currently or been in a relationship where the following occur: I choose not to answer THRIVE Score: 0 AUDIT C Alcohol Use Questionnaire (AUDIT-C) 1. How often do you have a drink containing alcohol?: 2-4 times a month 2. How many drinks containing alcohol do you have on a typical day when you are drinking?: 1 or 2 3. How often do you have six or more drinks on one occasion?: Less than monthly Total Score: 3 Score Reviewed/Action Taken: Yes MASOOD-7 AMB Questionnaire MASOOD-7 Date MASOOD - 7 assessed: 11/15/24 Feeling nervous, anxious, or on edge: 1 = Several days Not being able to stop or control worryin = Several days Worrying too much about different things: 1 = Several days Trouble relaxin = More than half the days Being so restless that it is hard to sit still: 1 = Several days Becoming easily annoyed or irritable: 2 = More than half the days Feeling afraid as if something awful might happen: 0 = Not at all Total MASOOD-7 score (0-4 normal; 5-9 mild; 10-14 moderate; 15-21 severe): 8 Source: Developed by Drs. Steve Etienne, Meche Bonilla, Neo Vyas and colleagues, with an educational luli from [employer]. MASOOD-7 Assessment Billing MASOOD-7 Assessment Tool: MASOOD-7 Assessment 22269 (denies any si or hi) Physical exam (Primary Care) Vital Signs: Last Vital Signs Temp 98.0 F 11/15/24 16:08 Pulse 82 11/15/24 16:08 BP 120/70 11/15/24 16:08 Pulse Ox 98 11/15/24 16:08 Oxygen Delivery Method Room Air 11/15/24 16:08 BMI result Body Mass Index 23.1 Tobacco/Smoking Status: Tobacco use Status Tobacco use date assessed 11/15/24 11/15/24 16:13 Patient Tobacco Use Status Never used Tobacco 11/15/24 16:13 e-Cigarette/Vaping Use Never Used 11/15/24 16:13 PHQ-9: PHQ-9 Score PHQ-9: Total score 9 11/15/24 16:15 Depression Screening Interpretation: Positive (denies any si or hi) Depression Screening Follow-up: Existing condition Thrive Assessment: Date of Thrive Assessment Date Thrive assessed 11/15/24 11/15/24 16:13 Currently or been in a relationship where the following occur: I choose not to answer Coding Level of Care Code Est Pt Level 3 (25185) Diagnoses Wrist pain M25.539 Diabetes E11.9 Skin lesions L98.9 Additional Codes PHQ-9 - 61320 - PHQ-9 Billing: Yes ([id number]) MASOOD-7 Assessment Billing - MASOOD-7 Assessment Tool: MASOOD-7 Assessment 03985 ([id number]) Assessment & Plan Assessment & Plan (1) Wrist pain: Code(s): M25.539 - Pain in unspecified wrist Category: Medical (2) Diabetes: Code(s): E11.9 - Type 2 diabetes mellitus without complications Category: Medical (3) Skin lesions: Code(s): L98.9 - Disorder of the skin and subcutaneous tissue, unspecified Category: Medical Plan . Orders: Orders Prostate Specific Antigen Scr Today Z12.5 - Encounter for screening for malignant neoplasm of prostate XR Wrist Denis min 3V Today M25.539 - Pain in unspecified wrist Complete Blood Count Auto Diff Today E11.9 - Type 2 diabetes mellitus without complications Comprehensive [place]. Panel Fast Today E11.9 - Type 2 diabetes mellitus without complications TSH reflex Free T4 Today E11.9 - Type 2 diabetes mellitus without complications Lipid Panel Today E11.9 - Type 2 diabetes mellitus without complications UA CC w/rflx Micro + Cult Today E11.9 - Type 2 diabetes mellitus without complications Referrals Dermatology Referral L98.9 - Disorder of the skin and subcutaneous tissue, unspecified Medications: Changed From dulaglutide 1.5 mg (0.5 mL) subcut QWEEK 2 mL 2RF To dulaglutide 3 mg (0.5 mL) subcut QWEEK 2 mL 2RF
[2024-11-15 16:08] VITALS: BP 120/70; PULSE 82; TEMP 36.7; O2SAT 98; BMI 23.1
== END 2024-11-15 16:46 | disposition home or self-care (01) ==
LOC: HO.HMCC 15:58
PROVIDERS: PCP Nurse Practitioner Family; Visit Provider Nurse Practitioner Family
DX: M25.539 Pain in unspecified wrist (principal); E11.9 Type 2 diabetes mellitus without complications; L98.9 Disorder of the skin and subcutaneous tissue, unspecified

== ENCOUNTER → 2024-11-15 15:57 | Outpatient (BNVA) | payer OTHER, SELFPAY | PROVIDERS: PCP Nurse Practitioner Family; Visit Provider Nurse Practitioner Family | DX: E11.9 Type 2 diabetes mellitus without complications (principal); M25.531 Pain in right wrist; M25.532 Pain in left wrist; L98.9 Disorder of the skin and subcutaneous tissue, unspecified; Z79.84 Long term (current) use of oral hypoglycemic drugs; Z79.85 Long-term (current) use of injectable non-insulin antidiabetic drugs | CPT/HCPCS: 96127 ==

== ENCOUNTER 2024-11-23 15:12 | Outpatient (REF) | payer OTHER, SELFPAY ==
--- NOTE | ~2024-11-23 | XR_ITS ---
EXAMINATION: XR WRIST, DENIS MIN 3V CLINICAL INFORMATION: M25.539 - Pain in unspecified wrist COMPARISON: Right wrist 05/16/2023. No prior left wrist. TECHNIQUE: PA, lateral, and oblique views of each wrist. FINDINGS: RIGHT WRIST: No fracture, dislocation, or suspicious bone lesion. There is a surgical anchor in the proximal aspect of the second metacarpal. There has been resection of the trapezium. There are degenerative changes at the base of the thumb. Carpal bones otherwise intact and normally aligned. There is chondrocalcinosis of the TFCC. Mild negative ulnar variance. No abnormal lunate tilt. Normal soft tissues. LEFT WRIST: No fracture, dislocation, or suspicious bone lesion. There is a surgical anchor in the proximal aspect of the second metacarpal. There has been resection of the trapezium. There are degenerative changes at the base of the thumb. Carpal bones otherwise intact and normally aligned. There is chondrocalcinosis of the TFCC. Mild negative ulnar variance. No abnormal lunate tilt. Normal soft tissues. XR/XR Wrist Denis min 3V IMPRESSION: 1. Bilateral postsurgical changes consisting of resection of the trapezium and surgical anchors placed in the proximal second metacarpals. 2. Degenerative changes at the base of the thumb bilaterally, symmetrically. 3. Bilateral chondrocalcinosis of the TFCC's with bilateral negative ulnar variance. CPPD should be considered. Electronically signed by: Live Trujillo MD 11/24/2024 10:53 AM EDT
--- OUTSIDE RECORDS SUMMARY | 2024-11-23 15:15 | XMS_ITS | Data Portability ---
Author Organization [place] - [facility], Allergy Address [address] [place] [address] Care Team Providers Care Supervisor Opening And Picking Name Role Phone DARNELL GILBERT Primary Care Provider [phone] Assessment No assessment recorded. Plan of Treatment Reminders Order Date Submit Date Provider Last Modified By Organization Details Last Modified Time Details Appointments None recorded. Lab None recorded. Referral None recorded. Procedures None recorded. Surgeries None recorded. Imaging CT, maxillofac ial, w/o contrast 2024 025 [id number] [facility], [address] [place] [address], [phone], 5 14:51:10 Medication Orders None recorded. Patient TargetsNo targets recorded. Patient InstructionsNo instructions recorded. Reason for Referral None Reported. Problems Name Problem SNOMED Code Status Onset Date Resolution Date Notes Provider Name and Address Organization Details Recorded Time Chronic rhinitis 88061741 Active 2024 JOSE E BARILLAS MD [address] [place] [address] [place], [phone], [facility] - [facility] 5 11:23:14 Deviated nasal septum 805765217 Active 2024 JOSE E BARILLAS MD [address] [place] [address] [place], [phone], [facility] - [facility] 5 11:23:19 Incompetence of nasal valve 988083658 Active 2024 JOSE E BARILLAS MD [address] [place] [address] [place], [phone], [place] - [facility] 11:24:18 Problem Notes None recorded. Procedures Surgical History Date Name Laterality Status Provider Name and Address Organization Details Recorded Time JMSNasal/Sinus Endoscopy completed JOSE E RAMIREZ MD [address] [address], [place], [phone], [facility] - [facility] 07/21/2024 11:25:32 Imaging Results None recorded. [...] Updated DateTime 07/21/2024 180.34 cm 23.7 kg/m2 46197.7 g Yordan Wiley [place] - [facility] 07/21/2024 10:53:02 Social History None recorded. Functional Status None recorded. Mental Status None recorded. Family History Nothing Reported. Medical History Condition Response Diabetes N Heart Attack ([place]) Y Migraines Y Past Encounters Encounter ID Performer Location Encounter Start Date Encounter Closed Date Diagnosis/Indication Diagnosis SNOMED-CT Code Diagnosis ICD10 Code Diagnosis Note [id number] JOSE E LONGO MD [facility] [address] [place] [address] 07/21/2024 10:47:15 07/21/2024 11:37:49 Chronic rhinitis 63433079 J31.0 Patient with longstandi ng history of [...] imaging otherwise normal Deviated nasal septum 12 6508529 J34.2 Incompeten ce of nasal valve 845299875 J34.89 Health Concerns Section Related Observation LastModified by Organization Detai ls LastModified Time None Recorded Concern Status LastModified by Organization Details LastModified Time None Recorded Advance Directives Directive None Recorded Payers Insurance Date Sequence Insurance Name Policy Number Policy Hurt Covered Member ID Hurt Member ID Guarantor Name 07/21/2024 1 [facility] PLAN (MEDICAID HMO) [employer] Ivan Oakes [id number] Ivan Oakes 08/16/2024 1 [id number] Ivan Oakes [id number] Ivan Oakes 09/15/2024 2 [id number] Ivan Oakes [id number] Ivan Oakes Notes Date Note Type Note Provider Name and Address Organization Details Recorded Time 07/21/2024 text/html Patient with man y years of bilateral nasal congestion. Symptoms refractory to fluticasone nasal spray. No known hx of allergy. No intranasal substances for 30 years Carriers diagnosis of hilar adenopathy, sarcoidosis and DMHx of [facility] JOSE E RAMIREZ MD [address] [place] [address], [place], [phone], [facility] - [facility] 07/21/2024 12:54:02
== END 2024-11-23 15:13 | disposition home or self-care (01) ==
LOC: HO.HMGCX 15:12
PROVIDERS: PCP Nurse Practitioner Family; Visit Provider Nurse Practitioner Family
DX: M25.531 Pain in right wrist (principal); M25.532 Pain in left wrist
CPT/HCPCS: 73110

== ENCOUNTER → 2024-11-23 15:15 | Outpatient (BNV) | payer OTHER, SELFPAY | PROVIDERS: PCP Nurse Practitioner Family; Visit Provider Radiology Diagnostic Radiology | DX: M25.539 Pain in unspecified wrist (principal) | CPT/HCPCS: 73110 ==

== ENCOUNTER 2024-12-21 14:51 | Outpatient (AMB) | payer OTHER, SELFPAY ==
[2024-12-21 15:12] VITALS: BMI 23.1
--- NOTE | 2024-12-21 15:12 | A.OFFVIS_ITS ---
Vital Signs 12/21/24 15:12 Height 5 ft 11 in Weight 166 lb BMI 23.1 Intake Visit Reasons: New Prob: bilateral hand pain Intake Note: right hand dominant male presents today for bilateral hand pain. States his right is currently worse. Patient explains he is having pain around his entire wrist, pain worsens at night and with grabbing motion. No injury he can recall. He is currently taking Aleve daily and states is helping. He also has braces at home which he wears at night time with no relief. Hx of B/L bone spurs removed from thumb 10 yrs ago. No EMG. Allergies No Known Drug Allergies Allergy (Unknown, Verified 12/21/24 15:18) Unknown HPI HPI New Prob: bilateral hand pain: Details: Patient is a 59-year-old right hand dominant male presents today for bilateral hand pain. States his right is currently worse. Patient explains he is having pain around his entire wrist, pain worsens at night and with grabbing motion. No injury he can recall. He is currently taking Aleve daily and states is helping. He also has braces at home which he wears at night time with no relief. History of bilateral LRTI procedures approximately 10 years ago [facility] Medical History Non-STEMI (non-ST elevated myocardial infarction) GERD (gastroesophageal reflux disease) Sarcoidosis Bilateral hilar adenopathy syndrome Lymphadenopathy, mediastinal Elevated diaphragm Asthma High cholesterol Diabetes Left foot pain Surgical History S/P cardiac catheterization Hx of cardiac cath Bone spur History of colonoscopy Family History (Updated 11/15/24 @ 16:15 by José Miguel Vasquez [facility]) Father Cancer Mother Diabetes mellitus Maternal Grandfather Unknown family medical history Maternal Grandmother Unknown family medical history Paternal Grandfather Unknown family medical history Paternal Grandmother No problems noted. Sister Pancreatic cancer Sister No problems noted. Sister No problems noted. Daughter No problems noted. 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 Neuro: Normal sensation of the tips of all digits of the bilateral hand at this time Vascular: Cap refill brisk Pain: No tenderness to palpation about bilateral hands or wrists Pain with all range of motion of bilateral wrists ROM: Full range of motion of bilateral hands and wrist, but significantly uncomfortable in the wrist joint with all range of motion Skin: No lacerations or abrasions. General: No ecchymosis, erythema, or evidence of infection. Psych: Appears grossly normal Affect normal Attitude cooperative Results Reviewed Results Reviewed: X-rays obtained in the office today and independently reviewed by me, Arnaldo Garland PA-C, demonstrate some joint space narrowing and noted chondrocalcinosis of bilateral radiocarpal joints. Assessment & Plan Assessment & Plan (1) Arthritis of both wrists: Code(s): M19.031 - Primary osteoarthritis, right wrist; M19.032 - Primary osteoarthritis, left wrist Category: Medical (2) Pseudogout: Code(s): M11.20 - Other chondrocalcinosis, unspecified site Category: Medical Plan 1. Pseudogout and arthritis of bilateral wrists Patient is educated about this condition Patient is educated about the treatment options available At this time, patient is referred to Dr. Quinonez for discussion of further treatment options and potential injections under x-ray guidance Patient is educated on conservative pain management measures, as well as provided bilateral Velcro wrist splints to wear when his pain is particularly bad and with daytime activities Patient is amenable to this plan Follow-up with Dr. Quinonez, sooner with any acute concerns Coding Level of Care Code New Pt Level 3 (65821) Diagnoses Arthritis of both wrists M19.031; M19.032 Pseudogout M11.20
--- OUTSIDE RECORDS SUMMARY | 2024-12-21 18:06 | XMS_ITS | Data Portability ---
Author Organization [place] - [facility] [place], Allergy Address [address] [place] [id number] Care Team Providers Care Real Estate Financial Analyst Name Role Phone DARNELL GILBERT Primary Care Provider Assessment No assessment recorded. Plan of Treatment Reminders Order Date Submit Date Provider Last Modified By Organization Details Last Modified Time Details Appointments None recorded. Lab None recorded. Referral None recorded. Procedures None recorded. Surgeries None recorded. Imaging CT, maxillofac ial, w/o contrast 2024 025 [email or web address] [facility], [address] [place] [address], [phone], 5 14:51:10 Medication Orders None recorded. Patient TargetsNo targets recorded. Patient InstructionsNo instructions recorded. Reason for Referral None Reported. Problems Name Problem SNOMED Code Status Onset Date Resolution Date Notes Provider Name and Address Organization Details Recorded Time Chronic rhinitis 34712359 Active 2024 JOSE E BARILLAS MD [address] [place] [address], [place], [phone], [place] - [facility] 5 11:23:14 Deviated nasal septum 656119871 Active 2024 JOSE E BARILLAS MD [address] [place] [address], [place], [phone], [facility] - [facility] 5 11:23:19 Incompetence of nasal valve 986130478 Active 2024 JOSE E BARILLAS MD [address] [place] [address], [place], [address], [facility] 5 11:24:18 Problem Notes None recorded. Procedures Surgical History Date Name Laterality Status Provider Name and Address Organization Details Recorded Time JMSNasal/Sinus Endoscopy completed JOSE E RAMIREZ MD [address] [facility], [place], [phone], [facility] - [facility] 07/21/2024 11:25:32 Imaging Results None recorded. Procedure [...] Updated DateTime 07/21/2024 180.34 cm 23.7 kg/m2 52043.7 g Yordan Saurabh [place] - [facility] [place] 07/21/2024 10:53:02 Social History None recorded. Functional Status None recorded. Mental Status None recorded. Family History Nothing Reported. Medical History Condition Response Migraines Y Heart Attack ([place]) Y Diabetes N Past Encounters Encounter ID Performer Location Encounter Start Date Encounter Closed Date Diagnosis/Indication Diagnosis SNOMED-CT Code Diagnosis ICD10 Code Diagnosis Note [id number] JOSE E LONGO MD [facility] [address] [address] 07/21/2024 10:47:15 07/21/2024 11:37:49 Chronic rhinitis 66818694 J31.0 Patient with longstandi ng history of [...] imaging otherwise normal Deviated nasal septum 12 5965703 J34.2 Incompeten ce of nasal valve 977364039 J34.89 Health Concerns Section Related Observation LastModified by Organization Detai ls LastModified Time None Recorded Concern Status LastModified by Organization Details LastModified Time None Recorded Advance Directives Directive None Recorded Payers Insurance Date Sequence Insurance Name Policy Number Policy Hurt Covered Member ID Hurt Member ID Guarantor Name 07/21/2024 1 [facility] (MEDICAID HMO) [employer] Ivan Oakes [id number] Ivan Oakes 08/16/2024 1 [id number] Ivan Oakes [id number] Ivan Oakes 09/15/2024 2 [id number] Ivan Oakes [id number] Ivan Oakes Notes Date Note Type Note Provider Name and Address Organization Details Recorded Time 07/21/2024 text/html Patient with man y years of bilateral nasal congestion. Symptoms refractory to fluticasone nasal spray. No known hx of allergy. No intranasal substances for 30 years Carriers diagnosis of hilar adenopathy, sarcoidosis and DMHx of [facility] cath JOSE E RAMIREZ MD [address] [place] [address], [phone], [facility] - [facility] 07/21/2024 12:54:02
== END 2024-12-21 15:48 | disposition home or self-care (01) ==
LOC: HO.HOS 14:52
PROVIDERS: PCP Nurse Practitioner Family
DX: M19.031 Primary osteoarthritis, right wrist (principal); M19.032 Primary osteoarthritis, left wrist; M11.29 Other chondrocalcinosis, multiple sites
CPT/HCPCS: 99213

== ENCOUNTER 2024-12-27 13:51 | Outpatient (REF) | payer OTHER, SELFPAY ==
--- OUTSIDE RECORDS SUMMARY | 2024-12-27 14:22 | XMS_ITS | Data Portability ---
Author Organization [place] - [facility] [place], Allergy Address [address] [place] [address] Care Team Providers Care Hack Saw Operator Name Role Phone DARNELL GILBERT Primary Care Provider [phone] Assessment No assessment recorded. Plan of Treatment Reminders Order Date Submit Date Provider Last Modified By Organization Details Last Modified Time Details Appointments None recorded. Lab None recorded. Referral None recorded. Procedures None recorded. Surgeries None recorded. Imaging CT, maxillofac ial, w/o contrast 2024 025 [email or web address] [facility], [address] [place] [address], [phone], 5 14:51:10 Medication Orders None recorded. Patient TargetsNo targets recorded. Patient InstructionsNo instructions recorded. Reason for Referral None Reported. Problems Name Problem SNOMED Code Status Onset Date Resolution Date Notes Provider Name and Address Organization Details Recorded Time Chronic rhinitis 13302881 Active 2024 JOSE E BARILLAS MD [address] [place] [address], [place], [phone], [place] [facility] 5 11:23:14 Deviated nasal septum 315810253 Active 2024 JOSE E BARLILAS MD [address] [place] [address], [place], [address], [facility] - [facility] 5 11:23:19 Incompetence of nasal valve 065662641 Active 2024 JOSE E BARILLAS MD [address] [place] [address], [place], [address], [facility] 5 11:24:18 Problem Notes None recorded. Procedures Surgical History Date Name Laterality Status Provider Name and Address Organization Details Recorded Time JMSNasal/Sinus Endoscopy completed JOSE E RAMIREZ MD [address] [facility], [place], [address], [facility] - [facility] 07/21/2024 11:25:32 Imaging Results None recorded. [...] Updated DateTime 07/21/2024 180.34 cm 23.7 kg/m2 83801.7 g Yordan Wiley [place] - [facility] [place] 07/21/2024 10:53:02 Social History None recorded. Functional Status None recorded. Mental Status None recorded. Family History Nothing Reported. Medical History Condition Response Diabetes N Heart Attack ([place]) Y Migraines Y Past Encounters Encounter ID Performer Location Encounter Start Date Encounter Closed Date Diagnosis/Indication Diagnosis SNOMED-CT Code Diagnosis ICD10 Code Diagnosis Note [id number] JOSE E LONGO MD [facility] [address] [address] 07/21/2024 10:47:15 07/21/2024 11:37:49 Chronic rhinitis 25968017 J31.0 Patient with longstandi ng history of [...] imaging otherwise normal Deviated nasal septum 12 7869809 J34.2 Incompeten ce of nasal valve 262998043 J34.89 Health Concerns Section Related Observation LastModified by Organization Detai ls LastModified Time None Recorded Concern Status LastModified by Organization Details LastModified Time None Recorded Advance Directives Directive None Recorded Payers Insurance Date Sequence Insurance Name Policy Number Policy Hurt Covered Member ID Hurt Member ID Guarantor Name 07/21/2024 1 [facility] (MEDICAID HMO) [employer] Ivan Oakes [id number] Ivan Oakes 08/16/2024 1 [id number] Ivan Oakes [id number] Ivan Oakes 09/15/2024 2 [id number] Ivan Oakes [id number] Ivan Oakes Notes Date Note Type Note Provider Name and Address Organization Details Recorded Time 07/21/2024 text/html Patient with man y years of bilateral nasal congestion. Symptoms refractory to fluticasone nasal spray. No known hx of allergy. No intranasal substances for 30 years Carriers diagnosis of hilar adenopathy, sarcoidosis and DMHx of [facility] cath JOSE E RAMIREZ MD [address] [place] [address], [phone], [facility] - [facility] 07/21/2024 12:54:02
[2024-12-27 16:02] LABS: MANUAL DIFF FLAG NO
[2024-12-27 16:08] LABS: Appearance Urine Turbid; Color Urine Dark Yellow; Glucose Urine UA Negative (Negative); Leukocyte Esterase Urine Negative (Negative); Nitrite Urine Negative (Negative); Specific Gravity - Urine >= 1.030 (1.005-1.025); UMIC TRIGGER UACC YES; Urine Blood Negative (Negative); Urine Ketones Trace mg/dL (Negative); Urine Protein 30 (1+) mg/dL (Neg-Trace)
[2024-12-27 16:09] LABS: Basophils Percent Auto 0.6 % (0-2); Eosinophils Absolute Auto 0.1 X10*3/uL (0.0-0.4); Eosinophils Percent Auto 1.4 % (0-4); Hematocrit 43.1 % (42.0-52.0); Hemoglobin 15.2 g/dl (14.0-18.0); Imm Gran Abs Auto 0.02 X10*3/uL (0.00-0.03); Imm Gran Pct Auto 0.3 % (0.0-0.4); Lymphocytes Absolute Auto 1.8 X10*3/uL (1.2-4.9); Lymphocytes Percent Auto 24.8 % (20-40); Mean Corpuscular HGB Conc 35.3 g/dl (31.0-36.0); Mean Corpuscular Hemoglobin 31.3 pg (27.0-33.0); Mean Corpuscular Volume 88.9 fL (80.0-98.0); Mean Platelet Volume 11.1 fL (9.4-12.4); Monocytes Absolute Auto 0.6 X10*3/uL (0.1-1.2); Monocytes Percent Auto 7.9 % (2-11); Neutrophils Absolute Auto 4.6 x10*3/uL (2.0-8.3); Platelet Count 216 X10*3/uL (160-400); Red Blood Count 4.85 X10*6/uL (4.60-5.80); Red Cell Distribution Width 12.9 % (11.0-16.0); White Blood Count 7.1 X10*3/uL (4.8-10.8)
[2024-12-27 16:14] LABS: Bacteria Urine None Seen (None Seen); RBC Urine 0-2 /HPF (0-2); Squamous Epithelial Cell Urine 0-2 /HPF (0-2); WBC Urine 0-5 /HPF (0-5)
[2024-12-27 16:36] LABS: Alanine Aminotransferase 30 U/L (0-40); Albumin Level 4.9 g/dL (3.5-5.0); Alkaline Phosphatase 88 U/L (39-117); Anion Gap 13 (12-20); Aspartate Amino Transferase 23 U/L (5-37); Bilirubin Total 2.1 mg/dL (0.0-1.0); Blood Urea Nitrogen 25 mg/dL (9-16); Calcium 9.7 mg/dL (8.4-10.2); Carbon Dioxide 27 mmol/L (22-29); Chloride 105 mmol/L (96-108); Cholesterol 273 mg/dL (<200); Estimated Glomerular Filt Rate > 60; Glucose Fasting 131 mg/dL (60-99); HDL Cholesterol 71 mg/dL (>40); Iron 109 mcg/dL (45-160); LDL Cholesterol Calculated 162 mg/dL (<100); Magnesium 1.8 mg/dL (1.6-2.6); Percent Iron Saturation 39 % (15-50); Potassium 3.9 mmol/L (3.3-5.1); Sodium 141 mmol/L (135-145); Total Iron Binding Capacity 276 mcg/dL (228-428); Total Protein 7.9 g/dL (6.5-8.0); Triglycerides 203 mg/dL (<150); Unsaturated Iron Binding 167 ug/dL
[2024-12-27 16:42] LABS: Ferritin 352 ng/mL (20-250); TSH reflex Free T4 1.08 uIU/mL (0.32-4.0)
[2024-12-27 16:44] LABS: Prostate Specific Antigen Scr 1.09 ng/mL (<0.05-4.0)
[2024-12-27 16:55] LABS: Parathyroid Hormone Intact 69.5 pg/mL (8.7-77.1)
[2024-12-28 18:23] LABS: Calcium, Ionized 5.2 mg/dL (4.7-5.5)
== END 2024-12-27 13:52 | disposition home or self-care (01) ==
LOC: HO.HMGCLDS 13:51
PROVIDERS: PCP Nurse Practitioner Family; Visit Provider Nurse Practitioner Family
DX: E11.9 Type 2 diabetes mellitus without complications (principal); M11.20 Other chondrocalcinosis, unspecified site; Z12.5 Encounter for screening for malignant neoplasm of prostate
CPT/HCPCS: 36415; 80053; 80061; 81001; 81256; 82330; 82728; 83540; 83735; 83970; 84153; 84443; 85025

== ENCOUNTER 2024-12-30 10:41 | Outpatient (AMB) | payer OTHER, SELFPAY ==
--- NOTE | 2024-12-30 10:50 | A.OFFPC_ITS ---
Vital Signs 12/30/24 10:52 Height 5 ft 11 in Weight 169 lb BMI 23.6 BP 108/70 Blood Pressure Location Lt brachial Position Sitting Pulse 85 Pulse Source Pulse Oximeter Pulse Oximetry (%) 96 Oxygen Delivery Method Room Air Intake Visit Reasons: Annual PE Benefit Specialist Required: No Accompanied by: Self / Same As Patient Allergies No Known Drug Allergies Allergy (Unknown, Verified 12/30/24 10:52) Unknown Tobacco use date assessed: 11/15/24 Dental Screening Dental Screen Date: 11/15/24 HPI Annual PE HPI Details History of Present Illness The patient is a 59-year-old male presenting for a physical examination and follow-up on existing conditions. He has a history of myocardial infarction and regularly sees a market director for management. He reports experiencing chest pains described as chest zings, which are brief and do not radiate to the left upper extremity. An EKG is planned for today to compare with previous results. The patient also has a history of sarcoidosis and is under the care of a manga artist. He reports an elevated left hemidiaphragm with associated left basilar atelectasis, leading to diminished breath sounds at the left base. He denies any dizziness, headache, or shortness of breath except with extreme exertion. He has skin colored spapular lesions on his face and has an appointment with a d ermatologist. He denies any nausea, vomiting, or changes in bowel habits. The patient has never smoked but was exposed to secondhand smoke as his family members are smokers. He has an elevated ferritin level, and a hemochromatosis panel is pending to investigate further. dyslipidemia: on high dose statin and ezetimibe, september LDL was in the 70s, most recently LDL was 162. pt reports taking all his meds, diet hasnt changed? will repeat in 2 months Health Maintenance - Colonoscopy scheduled for January Social History - Never smoked but exposed to secondhand smoke due to family members who smoke Review of Systems - Cardiovascular: Reports brief chest pa ins described as chest zings. Denies dizziness or headache. - Respiratory: Denies shortness of breat h except with extreme exertion. - Gastrointestinal: Denies nausea, vomit ing, blood in stool, constipation, or diarrhea. - Neurological: Denies dizziness or head ache. Physical Exam General: Cooperative, healthy appearing, comfortable, no acute distress and well developed Orientation: Patient oriented x3 Limitations: No limitations Head: Normal to inspection Ears: Hearing grossly normal bilaterally Nose: Normal external nose present Face and sinus: papular lesions, especially to his face, right muslim Eyes: Appearance normal, both eyes and all related structures Neck: Normal visual inspection and Yes full ROM Respiratory: Diminished on left base, otherwise lungs are fairly clear. Normal respiratory effort and able to speak in complete sentences. Clear to auscultation bilaterally Cardiovascular: Regular rate and rhythm. Normal S1 and S2. No carotid bruits auscultated GI: Normal to inspection. Soft to palpation and nontender : Testicles without masses/lesions and no hernias appreciated Skin: papular lesions noted, especially to his face Neuro: Patient oriented x3 Extremities: Normal to inspection Results - Labs: Elevated ferritin level - Tests: Hemochromatosis panel pending Plan The patient will undergo an EKG today to assess the brief chest pains described as chest zings and compare with previous results. He is scheduled for a colonoscopy in January as part of his preventative care. A hemochromatosis panel is pending to investigate the elevated ferritin level, which may be related to his history of sarcoidosis. The patient is advised to continue follow-ups with his market director and manga artist for ongoing management of myocardial infarction and sarcoidosis, respectively. He has an appointment with a bed and breakfast operator for the seropapular lesions on his face. Discussion Notes I discussed with the patient the importance of undergoing an EKG today to evaluate his chest pains and ensure they are not indicative of a more serious condition. We also talked about the upcoming colonoscopy in January as a preventative measure. I explained the need for a hemochromatosis panel to further investigate his elevated ferritin levels, which could be related to his sarcoidosis. The patient was reminded to maintain regular follow-ups with his specialists to manage his myocardial infarction and sarcoidosis effectively. Patient Instructions - Undergo the EKG today as planned. - Attend the colonoscopy appointment in January. - Follow up with your market director and p ulmonologist as scheduled. - Keep the appointment with the dermatol ogist for your skin lesions. - Await results from the hemochromatosis panel and discuss them at your next visit. [facility] Medical History (Updated 12/30/24 @ 11:37 by Bigg Ledesma, MOBILITY SPECIALIST-) Non-STEMI (non-ST elevated myocardial infarction) GERD (gastroesophageal reflux disease) Sarcoidosis Bilateral hilar adenopathy syndrome Lymphadenopathy, mediastinal Elevated diaphragm Asthma High cholesterol Diabetes Left foot pain Surgical History S/P cardiac catheterization Hx of cardiac cath Bone spur History of colonoscopy Family History Father Cancer Mother Diabetes mellitus Maternal Grandfather Unknown family medical history Maternal Grandmother Unknown family medical history Paternal Grandfather Unknown family medical history Paternal Grandmother No problems noted. Sister Pancreatic cancer Sister No problems noted. Sister No problems noted. Daughter No problems noted. 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 1. Little interest or pleasure in doing things: more than half the days 2. Feeling down, depressed, or hopeless: several days 3. Trouble falling or staying asleep, or sleeping too much: several days 4. Feeling tired or having little energy: nearly every day 5. Poor appetite or overeating: several days 6. Feeling bad about yourself - or that you are a failure or have let yourself or your family down: not at all 7. Trouble concentrating on things, such as reading the newspaper or watching television: several days 8. Moving or speaking so slowly that other people could have noticed. Or the opposite - being so fidgety or restless that you have been moving around a lot more than usual: not at all 9. Thoughts that you would be better off or of hurting yourself in some way: not at all Total score: 9 Depression Screening Interpretation: Positive (denies any si or hi) Depression Screening Follow-up: Existing condition Depression Screening Done: Yes 47422 - PHQ-9 Billing: Yes Source: Developed by Drs. Steve Etienne, Meche Bonilla, Neo Vyas and colleagues, with an educational luli from [employer]. Thrive Questionnaire Date Thrive assessed: 12/30/24 I am a: Patient What is your living situation today?: I have a steady place to live Within the past 12 months, did the food you bought not last and you didn't have the money to get more?: I choose not to answer this question Within the past 12 months, did you worry whether your food would run out before you got money to buy more?: Never true Do you have trouble paying for medicines?: No Do you have trouble getting transportation to medical appointments?: No Do you have trouble paying your heating and electricity bill?: No Do you have trouble taking care of your child, family member or friend?: No Do you have trouble with day-to-day activities such as bathing, preparing meals, shopping, managing finances, etc.?: No Are you currently unemployed and looking for a job?: No Are you interested in more education?: No Please select the resources that you would like help with: None Currently or been in a relationship where the following occur: I choose not to answer THRIVE Score: 0 AUDIT C Alcohol Use Questionnaire (AUDIT-C) 1. How often do you have a drink containing alcohol?: 2-4 times a month 2. How many drinks containing alcohol do you have on a typical day when you are drinking?: 1 or 2 3. How often do you have six or more drinks on one occasion?: Less than monthly Total Score: 3 Score Reviewed/Action Taken: Yes MASOOD-7 AMB Questionnaire MASOOD-7 Date MASOOD - 7 assessed: 12/30/24 Feeling nervous, anxious, or on edge: 1 = Several days Not being able to stop or control worryin = Several days Worrying too much about different things: 1 = Several days Trouble relaxin = More than half the days Being so restless that it is hard to sit still: 1 = Several days Becoming easily annoyed or irritable: 2 = More than half the days Feeling afraid as if something awful might happen: 0 = Not at all Total MASOOD-7 score (0-4 normal; 5-9 mild; 10-14 moderate; 15-21 severe): 8 Source: Developed by Drs. Steve Etienne, Meche Bonilla, Neo Vyas and colleagues, with an educational luli from [employer]. MASOOD-7 Assessment Billing MASOOD-7 Assessment Tool: MASOOD-7 Assessment 66188 (denies any si or hi) Physical exam (Primary Care) Vital Signs: Last Vital Signs Pulse 85 12/30/24 10:52 BP 108/70 12/30/24 10:52 Pulse Ox 96 12/30/24 10:52 Oxygen Delivery Method Room Air 12/30/24 10:52 BMI result Body Mass Index 23.6 Tobacco/Smoking Status: Tobacco use Status Tobacco use date assessed 11/15/24 12/30/24 10:52 Patient Tobacco Use Status Never used Tobacco 12/30/24 10:52 e-Cigarette/Vaping Use Never Used 12/30/24 10:52 PHQ-9: PHQ-9 Score PHQ-9: Total score 9 12/30/24 11:24 Depression Screening Interpretation: Positive (denies any si or hi) Depression Screening Follow-up: Existing condition Thrive Assessment: Date of Thrive Assessment Date Thrive assessed 12/30/24 12/30/24 10:54 Currently or been in a relationship where the following occur: I choose not to answer Results AMB Hemoglobin A1c AMB Hemoglobin A1c 6.9 % Last Edit by José Miguel Vasquez CMA on 12/30/24 11: 11 Results Reviewed Results Reviewed: Laboratory Last Values Hgb A1c (Clinic) 6.9 % (4.0-6.0) H 12/30/24 11:10 Coding Level of Care Code Est Pt Level 3 (62242) Est Pt Prev Care 40-64y(61486) Diagnoses Proteinuria R80.9 Dyslipidemia E78.5 Sarcoidosis D86.9 Non-STEMI (non-ST elevated myocardial infarction) I21.4 Encounter for routine adult physical exam with abnormal findings Z00.01 Additional Codes MASOOD-7 Assessment Billing - MASOOD-7 Assessment Tool: MASOOD-7 Assessment 93982 ([id number]) PHQ-9 - 69266 - PHQ-9 Billing: Yes ([id number]) Assessment & Plan Assessment & Plan (1) Proteinuria: Code(s): R80.9 - Proteinuria, unspecified Category: Medical (2) Dyslipidemia: Code(s): E78.5 - Hyperlipidemia, unspecified Category: Medical (3) Sarcoidosis: Code(s): D86.9 - Sarcoidosis, unspecified Category: Medical (4) Non-STEMI (non-ST elevated myocardial infarction): Code(s): I21.4 - Non-ST elevation (NSTEMI) myocardial infarction Category: Medical (5) Encounter for routine adult physical exam with abnormal findings: Code(s): Z00.01 - Encounter for general adult medical examination with abnormal findings Category: Medical Plan . Orders: Orders AMB Hemoglobin A1c Today Z13.9 - Encounter for screening, unspecified Lipid Panel 2 Months E78.5 - Hyperlipidemia, unspecified Comprehensive [place]. Panel Fast 2 Months E78.5 - Hyperlipidemia, unspecified Referrals Nephrology Referral R80.9 - Proteinuria, unspecified
[2024-12-30 10:52] VITALS: BP 108/70; PULSE 85; O2SAT 96; BMI 23.6
--- OUTSIDE RECORDS SUMMARY | 2024-12-30 11:29 | XMS_ITS | Data Portability ---
Author Organization [place] - [facility], Allergy Address [address] [place] [phone] Care Team Providers Care Protective Signal Installer Helper Name Role Phone DARNELL GILBERT Primary Care Provider [phone] Assessment No assessment recorded. Plan of Treatment Reminders Order Date Submit Date Provider Last Modified By Organization Details Last Modified Time Details Appointments None recorded. Lab None recorded. Referral None recorded. Procedures None recorded. Surgeries None recorded. Imaging CT, maxillofac ial, w/o contrast 2024 025 [id number] [facility], [address] [place] [address], [phone], 5 14:51:10 Medication Orders None recorded. Patient TargetsNo targets recorded. Patient InstructionsNo instructions recorded. Reason for Referral None Reported. Problems Name Problem SNOMED Code Status Onset Date Resolution Date Notes Provider Name and Address Organization Details Recorded Time Chronic rhinitis 67246801 Active 2024 JOSE E BARILLAS MD [address] [place] [address], [place], [phone], [place] - [facility] 5 11:23:14 Deviated nasal septum 617389059 Active 2024 JOSE E BARILLAS MD [address] [place] [address], [place], [phone], [facility] - [facility] 5 11:23:19 Incompetence of nasal valve 586873615 Active 2024 JOSE E BARILLAS MD [address] [place] [address], [place], [phone], [facility] 5 11:24:18 Problem Notes None recorded. Procedures Surgical History Date Name Laterality Status Provider Name and Address Organization Details Recorded Time JMSNasal/Sinus Endoscopy completed JOSE E RAMIREZ MD [address] [facility], [place], [phone], [facility] - [facility] 07/21/2024 11:25:32 Imaging Results None recorded. [...] Updated DateTime 07/21/2024 180.34 cm 23.7 kg/m2 25727.7 g Yordan Wiley [place] - [facility] 07/21/2024 10:53:02 Social History None recorded. Functional Status None recorded. Mental Status None recorded. Family History Nothing Reported. Medical History Condition Response Diabetes N Heart Attack (OK) Y Migraines Y Past Encounters Encounter ID Performer Location Encounter Start Date Encounter Closed Date Diagnosis/Indication Diagnosis SNOMED-CT Code Diagnosis ICD10 Code Diagnosis Note [id number] JOSE E LONGO MD [facility] [address] [phone] 07/21/2024 10:47:15 07/21/2024 11:37:49 Chronic rhinitis 48684238 J31.0 Patient with longstandi ng history of [...] imaging otherwise normal Deviated nasal septum 12 3844144 J34.2 Incompeten ce of nasal valve 969244202 J34.89 Health Concerns Section Related Observation LastModified by Organization Detai ls LastModified Time None Recorded Concern Status LastModified by Organization Details LastModified Time None Recorded Advance Directives Directive None Recorded Payers Insurance Date Sequence Insurance Name Policy Number Policy Hurt Covered Member ID Hurt Member ID Guarantor Name 07/21/2024 1 [facility] [place] [facility] (MEDICAID HMO) [employer] Ivan Oakes [id number] Ivan Oakes 08/16/2024 1 [id number] Ivan Oakes [id number] Ivan Oakes 09/15/2024 2 [id number] Ivan Oakes [id number] Ivan Oakes Notes Date Note Type Note Provider Name and Address Organization Details Recorded Time 07/21/2024 text/html Patient with man y years of bilateral nasal congestion. Symptoms refractory to fluticasone nasal spray. No known hx of allergy. No intranasal substances for 30 years Carriers diagnosis of hilar adenopathy, sarcoidosis and DMHx of [facility] cath JOSE E RAMIREZ MD [address] [place] [address], [phone], [facility] - [facility] 07/21/2024 12:54:02
== END 2024-12-30 11:45 | disposition home or self-care (01) ==
LOC: HO.HMCC 10:42
PROVIDERS: PCP Nurse Practitioner Family; Visit Provider Nurse Practitioner Family
DX: Z00.01 Encounter for general adult medical examination with abnormal findings (principal); R80.9 Proteinuria, unspecified; I25.2 Old myocardial infarction; E78.5 Hyperlipidemia, unspecified; D86.9 Sarcoidosis, unspecified

== ENCOUNTER → 2024-12-30 10:41 | Outpatient (BNVA) | payer OTHER, SELFPAY | PROVIDERS: PCP Nurse Practitioner Family; Visit Provider Nurse Practitioner Family | DX: Z00.01 Encounter for general adult medical examination with abnormal findings (principal); E78.5 Hyperlipidemia, unspecified; R80.9 Proteinuria, unspecified; D86.9 Sarcoidosis, unspecified; I21.4 Non-ST elevation (NSTEMI) myocardial infarction | CPT/HCPCS: 83036; 96127 ==

== ENCOUNTER 2025-01-07 14:35 | Outpatient (AMB) | payer OTHER, SELFPAY ==
--- OUTSIDE RECORDS SUMMARY | 2025-01-07 14:38 | XMS_ITS | Data Portability ---
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 Plan of Treatment Reminders Order Date Submit Date Provider Last Modified By Organization Details Last Modified Time Details Appointments None recorded. Lab None recorded. Referral None recorded. Procedures None recorded. Surgeries None recorded. Imaging CT, maxillofac ial, w/o contrast 2024 025 [id number] [facility], [address] [place] [address], [phone], 5 14:51:10 Medication Orders None recorded. Patient TargetsNo targets recorded. Patient InstructionsNo instructions recorded. Reason for Referral None Reported. Problems Name Problem SNOMED Code Status Onset Date Resolution Date Notes Provider Name and Address Organization Details Recorded Time Chronic rhinitis 46772945 Active 2024 JOSE E BARILLAS MD [address] [place] [address], [place], [phone], [place] - [facility] 5 11:23:14 Deviated nasal septum 578165396 Active 2024 JOSE E BARILLAS MD [address] [place] [address], [place], [phone], [facility] - [facility] 5 11:23:19 Incompetence of nasal valve 536541164 Active 2024 JOSE E BARILLAS MD [address] [place] [address], [place], [phone], [facility] 5 11:24:18 Problem Notes None recorded. Procedures Surgical History Date Name Laterality Status Provider Name and Address Organization Details Recorded Time JMSNasal/Sinus Endoscopy completed JOSE E RAMIREZ MD 100 [facility], [place], [address], [facility] - [facility] 07/21/2024 11:25:32 Imaging Results None recorded. Procedure [...] Updated DateTime 07/21/2024 180.34 cm 23.7 kg/m2 60719.7 g Yordan Wiley [place] - [facility] 07/21/2024 10:53:02 Social History None recorded. Functional Status None recorded. Mental Status None recorded. Family History Nothing Reported. Medical History Condition Response Diabetes N Heart Attack ([place]) Y Migraines Y Past Encounters Encounter ID Performer Location Encounter Start Date Encounter Closed Date Diagnosis/Indication Diagnosis SNOMED-CT Code Diagnosis ICD10 Code Diagnosis Note [id number] JOSE E LONGO MD [facility] [address] [phone] 07/21/2024 10:47:15 07/21/2024 11:37:49 Chronic rhinitis 79633122 J31.0 Patient with longstandi ng history of [...] imaging otherwise normal Deviated nasal septum 12 3806915 J34.2 Incompeten ce of nasal valve 728954751 J34.89 Health Concerns Section Related Observation LastModified by Organization Detai ls LastModified Time None Recorded Concern Status LastModified by Organization Details LastModified Time None Recorded Advance Directives Directive None Recorded Payers Insurance Date Sequence Insurance Name Policy Number Policy Hurt Covered Member ID Hurt Member ID Guarantor Name 07/21/2024 1 [facility] (MEDICAID HMO) [employer] Ivan Oakes [id number] Ivan Oakes 08/16/2024 1 [id number] Ivan Oakes [id number] Ivan Oakes 09/15/2024 2 [employer] [id number] Ivan Oakes [id number] Ivan Oakes Notes Date Note Type Note Provider Name and Address Organization Details Recorded Time 07/21/2024 text/html Patient with man y years of bilateral nasal congestion. Symptoms refractory to fluticasone nasal spray. No known hx of allergy. No intranasal substances for 30 years Carriers diagnosis of hilar adenopathy, sarcoidosis and DMHx of [facility] cath JOSE E RAMIREZ MD [address] [place] [address], [phone], [facility] - [facility] 07/21/2024 12:54:02
--- NOTE | 2025-01-07 14:55 | A.OFFVIS_ITS ---
Intake Visit Reasons: OV-B/L wrist pain, chondrocalcinosis Intake Note: Ivan is a 59 year old right hand dominant male who presents today for a follow up of bilateral hand pain. Patient states that his right hand is worse than the left. He is having pain around his entire wrist, worsens at night and with grasping. Denies injury. Currently taking Aleve daily which is helping. Last seen with Arnaldo who provided 2 new braces for the patient to wear when his pain increases. Today, he reports no changes. Hx of B/L bone spurs removed from thumb 10 yrs ago. No EMG. 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 He complains of pain in both wrists right worse than left. He says it used to hurt quite a bit more but it has gotten a little bit better since he started taking a leave in the mornings. He notes that he would still hands up with pain at night that sometimes makes it hard to sleep. He wears braces at night which is helpful. He denies any known injury. He is status post bilateral LRTI procedures with Dr. Pearson that he says were helpful. [facility] Medical History (Updated 12/30/24 @ 11:37 by MICHAEL Cameron) Non-STEMI (non-ST elevated myocardial infarction) GERD (gastroesophageal reflux disease) Sarcoidosis Bilateral hilar adenopathy syndrome Lymphadenopathy, mediastinal Elevated diaphragm Asthma High cholesterol Diabetes Left foot pain Surgical History S/P cardiac catheterization Hx of cardiac cath Bone spur History of colonoscopy Family History Father Cancer Mother Diabetes mellitus Maternal Grandfather Unknown family medical history Maternal Grandmother Unknown family medical history Paternal Grandfather Unknown family medical history Paternal Grandmother No problems noted. Sister Pancreatic cancer Sister No problems noted. Sister No problems noted. Daughter No problems noted. 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 Cognitive needs: No Hearing needs: No Vision needs: Yes Physical Exam Const General: cooperative, healthy appearing and no acute distress Orientation/consciousness: oriented to person and oriented to place HEENT Head: Yes normocephalic and Yes atraumatic Eyes EOM: EOMs intact bilaterally Resp Effort & Inspection: normal respiratory effort and able to speak in complete sentences Cardio Jugular venous distension: no JVD Skin General skin exam: turgor normal Rashes: no rashes Neuro General: oriented to person and oriented to place Extrem Other: Evaluation of right Upper Extremity: Neuro: Median, ulnar, radial nerves motor and sensory intact. Vascular: Cap refill brisk. ROM: Can bring fingers closed to a fist and back out to full or nearly full extension. Can oppose thumb to all fingertips Smooth and painless bilateral wrist ROM . He has full and symmetrical prono-supination He has a essentially full and symmetrical wrist flexion and extension without difficulty Skin: No lacerations or abrasions. General: No eccymosis. No erythema or evidence of infection. Mild generalized tenderness when examining the right wrist but no swelling, no effusion. Again full range of motion Not particularly tender in anyone area. No pain in the extensor insertion areas with resisted wrist extension. No pain over the finger extensors with resisted finger extension. Radiographs: Three views of both wrists were taken 11/23/2024 and were reviewed by me today in clinic.. They show no fractures or dislocations. He is status post bilateral LRTI procedures using an anchor into the base of the 2nd metacarpal. He does not have much in the way of radiographic evidence of arthritis in the wrist joints on either side. He does have some calcium pyrophosphate deposition seen in both TFCC s, other than that the wrist joints look pretty good. Psych Appearance: grossly normal Affect: normal affect Attitude: cooperative Assessment & Plan Assessment & Plan (1) Wrist pain: Code(s): M25.539 - Pain in unspecified wrist Category: Medical Plan Assessment and plan. 1. Bilateral generalized wrist pain right worse than left Some evidence of pseudogout with CPPD deposition in the TFCC is but otherwise good looking x-rays He is status post bilateral LRTI as which appeared to be doing well Full active range of motion I educated the patient about this condition We discussed activity modification and safe use of NSAIDs and Tylenol. He is already using braces at night. Again his symptoms are little bit better than they were few months ago. We talked about wrist steroid injections. He is not interested in this today, but if it gets worse this is something we could consider. We would need to use the mini C-arm for needle placement. At this point he may follow up PRN Coding Level of Care Code Est Pt Level 4 (29008) Diagnoses Wrist pain M25.539
== END 2025-01-07 15:46 | disposition home or self-care (01) ==
LOC: HO.HOS 14:36
PROVIDERS: PCP Nurse Practitioner Family; Visit Provider Orthopaedic Surgery
DX: M25.531 Pain in right wrist (principal); M25.532 Pain in left wrist
CPT/HCPCS: 99214

== ENCOUNTER 2025-01-17 14:35 | Outpatient (AMB) | payer OTHER, SELFPAY ==
--- NOTE | 2025-01-17 14:37 | MHC.OFFVIS ---
Vital Signs 01/17/25 14:38 Height 5 ft 11 in Weight 170 lb 13.732 oz BMI 23.8 BP 110/70 Blood Pressure Location Lt radial Position Sitting Pulse 78 Pulse Source Pulse Oximeter Pulse Oximetry (%) 95 Oxygen Delivery Method Room Air Intake Visit Reasons: Elevated diaphragm Social Media Project Manager Required: No Accompanied by: Self / Same As Patient Allergies No Known Drug Allergies Allergy (Unknown, Verified 01/17/25 14:41) Unknown HPI Comments Details: The patient is a 59 yo M with dyspnea and cough. CTA of the chest was nondiagnostic for PE.? There was bilateral mediastinal adenopathy, rasigin the question of sarcoidosis.? In the year the patient did have a CT scan which I personally reviewed.? He did have evidence of mediastinal and hilar lymphadenopathy.? I did compared to a CT scan he had back about a month ago and was about the same.? He also has a chronic elevated left hemidiaphragm.? In addition to that there was some areas of ground-glass opacities in the right hemithorax.? The patient tested negative for COVID-19.? He denies having recent COVID-19.? I believe he had in beginning of the pandemic.? Otherwise patient is without any other complaints he does complaint of a headache does likely secondary to his nitroglycerin patch.? We did talk about the CT scan findings.? 08/28/2021 the patient is here for a pulmonary follow-up visit. Overall the patient has been doing relatively well. He does have significant stress and frustrations with his current social economic issues. He was hospitalized and was having chest pains. The patient did have a full cardiac workup. Currently he is on cardioprotective medications. During that admission to the hospital I was consulted because he did have an abnormal CT scan of the chest with significant mediastinal and hilar lymphadenopathy. The patient also had evidence of an elevated left hemidiaphragm. He has not had any recent injuries or trauma that he is aware of the last few years although he is not sure if he has had any significant injuries prior to that. With the significant mediastinal lymphadenopathy 1 needs to also consider that the mediastinal lymphadenopathy may be impinging on the phrenic nerve. Clinically patient is doing well he denies any shortness of breath denies any chest pains or cough. He also denies any night sweats or weight loss. we talked about the concerns of blood dyscrasias in addition to inflammatory conditions such as sarcoidosis. Since the patient is doing well and since he was recently in the hospital will go ahead and repeat his CT scan of the chest in 3 months. If the patient still has a significant not a 30 then we will consider diagnostic intervention at that point. In the meantime will have him undergo blood work to assess for other etiologies for lymphadenopathy at this time. 01/17/2025 the patient is here for a follow-up visit. He has been lost to follow-up for few years. The patient states that he has had some of the similar symptoms. Still having issues with his deviated septum causing him to have postnasal drip and chronic rhinitis and difficulty breathing. Moderate severity. He had been seen somebody in [place] [facility] and he was supposed to have a septoplasty done for this but then his insurance change she need was not being covered any longer and therefore the cancel all his future appointments. We just need to get him reestablish with the ENT office in order for him to get his septum looked at again. Causing him to have significant nasal congestion. We also did look at it some echoes x-rays and CAT scans. His last chest x-ray personally by me demonstrating an elevated left hemidiaphragm. Still not clear if this is a paralyzed diaphragm or partially paralyzed diaphragm. Will go ahead and request a sniff study to further address that. The CT scan just demonstrated significant atelectasis in the left lower lobe area. Therefore, will go ahead and have him start nasal therapy for his chronic rhinitis and sinusitis. [facility] Medical History (Updated 12/30/24 @ 11:37 by MICHAEL Cameron) Non-STEMI (non-ST elevated myocardial infarction) GERD (gastroesophageal reflux disease) Sarcoidosis Bilateral hilar adenopathy syndrome Lymphadenopathy, mediastinal Elevated diaphragm Asthma High cholesterol Diabetes Left foot pain Surgical History S/P cardiac catheterization Hx of cardiac cath Bone spur History of colonoscopy Family History Father Cancer Mother Diabetes mellitus Maternal Grandfather Unknown family medical history Maternal Grandmother Unknown family medical history Paternal Grandfather Unknown family medical history Paternal Grandmother No problems noted. Sister Pancreatic cancer Sister No problems noted. Sister No problems noted. Daughter No problems noted. 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 Cognitive needs: No Hearing needs: No Vision needs: Yes Review of Systems Const Denies fatigue, Denies fever(s), Denies malaise, Denies night sweats and Denies weight loss Eyes Denies change in vision ENT Reports nasal congestion, Reports nasal discharge, Reports nasal obstruction and Reports post nasal drip Card Denies chest pain and Denies dyspnea on exertion Resp Denies cough and Denies dyspnea on exertion GI Reports no additional complaints Musc Reports no additional complaints Skin/Breast Denies rash Endo Denies fatigue Physical Exam Vital Signs: Last Vital Signs Pulse 78 01/17/25 14:38 BP 110/70 01/17/25 14:38 Pulse Ox 95 01/17/25 14:38 Oxygen Delivery Method Room Air 01/17/25 14:38 BMI result Body Mass Index 23.8 Const General: alert HEENT Throat: Yes posterior oropharynx abnormal and Yes postnasal drainage Neck Neck: Yes normal visual inspection, Yes full ROM and Yes no lymphadenopathy Chest Chest palpation & inspection: normal inspection of the chest Resp Auscultation: diminished lung sounds Cardio Rate: regular rate Rhythm: regular rhythm Heart sounds: S1 normal heart sound present and S2 normal heart sound present GI Palpation (GI): Soft to palpation and nontender Auscultation: normal bowel sounds Skin General skin exam: rashes and/or lesions noted Assessment & Plan Assessment & Plan (1) Deviated septum: Code(s): J34.2 - Deviated nasal septum Category: Medical (2) Elevated diaphragm: Comment: Blood work repeat CT scan of the chest in 3 months consider sniff study to assess paralyzed diaphragm follow-up in [address] scan Code(s): J98.6 - Disorders of diaphragm Category: Medical (3) Sinus pressure: Code(s): J34.89 - Other specified disorders of nose and nasal sinuses Category: Medical (4) SOB (shortness of breath): Code(s): R06.02 - Shortness of breath Category: Medical Plan SNIFF study ENT eval Start Dymista nasal rinsing Doxycycline F/U 4-6 months Orders: Orders IR fluoroscopy <1hr Today J98.6 - Disorders of diaphragm Referrals Ear/Nose/Throat Referral J34.2 - Deviated nasal septum Medications: New azelastine-fluticasone 137-50 mcg/spray (Dymista) administer into each nostril 1 spray intranasal BID 23 grams 6RF doxycycline monohydrate 100 mg PO BID 28 tabs 0RF 14 days Coding Level of Care Code New Pt Level 4 (23973) Complex EM visit Add On G2211 Diagnoses Deviated septum J34.2 Elevated diaphragm J98.6 Sinus pressure J34.89 SOB (shortness of breath) R06.02 Time Spent (min) 30
[2025-01-17 14:38] VITALS: BP 110/70; PULSE 78; O2SAT 95; BMI 23.8
--- OUTSIDE RECORDS SUMMARY | 2025-01-17 15:26 | XMS_ITS | Data Portability ---
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 Plan of Treatment Reminders Order Date Submit Date Provider Last Modified By Organization Details Last Modified Time Details Appointments None recorded. Lab None recorded. Referral None recorded. Procedures None recorded. Surgeries None recorded. Imaging CT, maxillofac ial, w/o contrast 2024 025 [id number] [facility], [address] [place] [address], [phone], 5 14:51:10 Medication Orders None recorded. Patient TargetsNo targets recorded. Patient InstructionsNo instructions recorded. Reason for Referral None Reported. Problems Name Problem SNOMED Code Status Onset Date Resolution Date Notes Provider Name and Address Organization Details Recorded Time Chronic rhinitis 33861929 Active 2024 JOSE E BARILLAS MD [address] [place] [address], [place], [phone], [place] - [facility] 5 11:23:14 Deviated nasal septum 493544146 Active 2024 JOSE E BARILLAS MD [address] [place] [address], [place], [phone], [facility] - [facility] 5 11:23:19 Incompetence of nasal valve 163263133 Active 2024 JOSE E BARILLAS MD [address] [place] [address], [place], [phone], [facility] 5 11:24:18 Problem Notes None recorded. Procedures Surgical History Date Name Laterality Status Provider Name and Address Organization Details Recorded Time JMSNasal/Sinus Endoscopy completed JOSE E RAMIREZ MD [address] [facility], [place], [phone], [facility] - [facility] 07/21/2024 11:25:32 Imaging Results None recorded. Procedure [...] Updated DateTime 07/21/2024 180.34 cm 23.7 kg/m2 22362.7 g Yordan Wiley [place] - [facility] 07/21/2024 10:53:02 Social History None recorded. Functional Status None recorded. Mental Status None recorded. Family History Nothing Reported. Medical History Condition Response Diabetes N Heart Attack ([place]) Y Migraines Y Past Encounters Encounter ID Performer Location Encounter Start Date Encounter Closed Date Diagnosis/Indication Diagnosis SNOMED-CT Code Diagnosis ICD10 Code Diagnosis Note [id number] JOSE E LONGO MD [facility] [address] [phone] 07/21/2024 10:47:15 07/21/2024 11:37:49 Chronic rhinitis 16296433 J31.0 Patient with longstandi ng history of [...] imaging otherwise normal Deviated nasal septum 12 3004176 J34.2 Incompeten ce of nasal valve 259046097 J34.89 Health Concerns Section Related Observation LastModified by Organization Detai ls LastModified Time None Recorded Concern Status LastModified by Organization Details LastModified Time None Recorded Advance Directives Directive None Recorded Payers Insurance Date Sequence Insurance Name Policy Number Policy Hurt Covered Member ID Hurt Member ID Guarantor Name 07/21/2024 1 [facility] [place] [facility]ICAID HMO) [place] Ivan Oakes [id number] Ivan Oakes 08/16/2024 1 [id number] Ivan Oakes [id number] Ivan Oakes 09/15/2024 2 [id number] Ivan Oakes [id number] Ivan Oakes Notes Date Note Type Note Provider Name and Address Organization Details Recorded Time 07/21/2024 text/html Patient with man y years of bilateral nasal congestion. Symptoms refractory to fluticasone nasal spray. No known hx of allergy. No intranasal substances for 30 years Carriers diagnosis of hilar adenopathy, sarcoidosis and DMHx of [facility] cath JOSE E RAMIREZ MD [address] [place] [address], [phone], [facility] - [facility] 07/21/2024 12:54:02
== END 2025-01-17 15:02 | disposition home or self-care (01) ==
LOC: HO.HPS 14:36
PROVIDERS: PCP Nurse Practitioner Family; Referring Provider Nurse Practitioner Family; Visit Provider Hospitalist
DX: J34.2 Deviated nasal septum (principal); J98.6 Disorders of diaphragm; J34.89 Other specified disorders of nose and nasal sinuses; R06.02 Shortness of breath
CPT/HCPCS: 99204

== ENCOUNTER 2025-01-26 14:40 | Outpatient (AMB) | payer OTHER, SELFPAY ==
--- NOTE | 2025-01-26 14:49 | HO.NEPHOV ---
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 He is 59 years of age who has history of hypertension, diabetes mellitus as well as coronary artery disease. He has long periods of time with poorly controlled blood sugar which is clearly better lately. He denies any retinopathy but had CAD needing PCI. He denies congestive heart failure, carotid stenosis, CVA, PVD or known DAVE. He does not have any new bone or back pain. He does not take excessive nonsteroidal anti-inflammatory medications. He has no history of malignancies. He denies joint stiffness, joint swelling, skin rashes, epistaxis, photosensitivity, recurrent sinusitis, recent sore throat, hematuria, sensorineural deafness, family history of ESRD or renal transplantation. He claims to be compliant with his medications. [facility]MERLY [facility] Medical History (Updated 01/29/25 @ 16:40 by Mich Donnelly MD) Non-STEMI (non-ST elevated myocardial infarction) GERD (gastroesophageal reflux disease) Sarcoidosis Bilateral hilar adenopathy syndrome Lymphadenopathy, mediastinal Elevated diaphragm Asthma High cholesterol Diabetes Left foot pain Surgical History S/P cardiac catheterization Hx of cardiac cath Bone spur History of colonoscopy Family History Father Cancer Mother Diabetes mellitus Maternal Grandfather Unknown family medical history Maternal Grandmother Unknown family medical history Paternal Grandfather Unknown family medical history Paternal Grandmother No problems noted. Sister Pancreatic cancer Sister No problems noted. Sister No problems noted. Daughter No problems noted. 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 Cognitive needs: No Hearing needs: No Vision needs: Yes Review of Systems Const All systems reviewed & are unremarkable except as noted in HPI and below Physical Exam Vital Signs: Last Vital Signs Pulse 106 H 01/26/25 14:51 BP 116/70 01/26/25 14:51 Pulse Ox 93 01/26/25 14:51 Oxygen Delivery Method Room Air 01/26/25 14:51 BMI result Body Mass Index 24.1 Const General: comfortable and no acute distress Orientation/consciousness: patient oriented x3 HEENT Head: Yes normocephalic Mouth: Normal oral and palatal mucosa present Eyes EOM: EOMs intact bilaterally Neck Neck: Yes supple Resp Auscultation: clear to auscultation bilaterally Cardio Jugular venous distension: no JVD Rate: regular rate GI Palpation (GI): Soft to palpation Auscultation: normal bowel sounds General: Yes no CVA tenderness Back/Spine/Pelvis Back: no CVA tenderness Skin General skin exam: no rashes or lesions noted Neuro General: patient oriented x3 and moves all extremities Extrem General: Yes no pedal edema Results Reviewed Nephrology Results: Hgb, (14.0-18.0) 15.2 g/dl 12/27/24 WBC, (4.8-10.8) 7.1 X10*3/uL 12/27/24 Plt Count, (160-400) 216 X10*3/uL 12/27/24 Sodium, (135-145) 141 mmol/L 12/27/24 Potassium, (3.3-5.1) 3.9 mmol/L 12/27/24 Chloride, (96-108) 105 mmol/L 12/27/24 Carbon Dioxide, (22-29) 27 mmol/L 12/27/24 BUN, (9-16) 25 mg/dL H 12/27/24 Creatinine, (0.5-1.4) 0.91 mg/dL 12/27/24 Calcium, (8.4-10.2) 9.7 mg/dL 12/27/24 PTH Intact, (8.7-77.1) 69.5 pg/mL 12/27/24 Urine Protein, (Neg-Trace) 30 (1+) mg/dL H 12/27/24 Assessment & Plan Assessment & Plan (1) Diabetic nephropathy: Code(s): E11.21 - Type 2 diabetes mellitus with diabetic nephropathy Category: Medical Qualifiers: Diabetes mellitus type: type 2 Qualified Code(s): E11.21 - Type 2 diabetes mellitus with diabetic nephropathy Plan Ivan most likely has proteinuria due to diabetic nephropathy. He is on losartan 25 mg daily which I increased to 25 b.i.d.. I am considering initiating him on SGLT2 inhibitor based on evolving data. His hemoglobin A1c is less than 7. He is at risk for renovascular disease. I shall consider imaging his kidneys and renal arteries later. He should minimize nonsteroidal anti-inflammatories and maintain good hydration. He does not need any renal biopsy now. Follow-up lab work ordered and all questions were answered. He will be seeing me in 3 months again for continued care. Orders: Orders Protein Creatinine Ratio, Ur 6 Weeks E11.21 - Type 2 diabetes mellitus with diabetic nephropathy Blood Urea Nitrogen 6 Weeks E11.21 - Type 2 diabetes mellitus with diabetic nephropathy Electrolytes 6 Weeks E11.21 - Type 2 diabetes mellitus with diabetic nephropathy Creatinine 3 Months E11.21 - Type 2 diabetes mellitus with diabetic nephropathy Creatinine 6 Weeks E11.21 - Type 2 diabetes mellitus with diabetic nephropathy Electrolytes 3 Months E11.21 - Type 2 diabetes mellitus with diabetic nephropathy Blood Urea Nitrogen 3 Months E11.21 - Type 2 diabetes mellitus with diabetic nephropathy Medications: Changed From losartan 25 mg PO DAILY 90 days 90 tabs 3RF To losartan 25 mg PO BID 180 tabs 3RF 90 days Coding Level of Care Code New Pt Level 4 (07652) Diagnoses Diabetic nephropathy associated with type 2 diabetes mellitus E11.21 Diabetes mellitus type: type 2
[2025-01-26 14:51] VITALS: BP 116/70; PULSE 106; O2SAT 93; BMI 24.1
== END 2025-01-26 15:12 | disposition home or self-care (01) ==
LOC: HO.HKA 14:40
PROVIDERS: PCP Nurse Practitioner Family; Referring Provider Nurse Practitioner Family; Visit Provider Internal Medicine Nephrology
DX: E11.21 Type 2 diabetes mellitus with diabetic nephropathy (principal)
CPT/HCPCS: 99204

== ENCOUNTER 2025-02-14 07:30 | Outpatient (AMB) | payer OTHER, SELFPAY ==
--- NOTE | 2025-02-14 07:50 | A.OFFVIS_ITS ---
Vital Signs 02/14/25 07:51 Height 5 ft 11 in Weight 163 lb 2.273 oz BMI 22.8 BP 107/74 Blood Pressure Location Lt brachial Position Sitting Pulse 92 Intake Visit Reasons: YAYA 07/2023. GERD + IBS mgmt. ? Jaundice Intake Note: Ivan presents in the office as a follow up for GERD and IBS Management. CC: States that he is here for the GERD and states he has some stomach pains and constipation diarrhea as well. Supervisor Marble Required: No Allergies No Known Drug Allergies Allergy (Unknown, Verified 02/14/25 07:52) Unknown HPI HPI YAYA 07/2023. GERD + IBS mgmt. ? Jaundice: Details: LAST VISIT: GERD (gastroesophageal reflux disease) IBS (irritable bowel syndrome) History of diverticulitis Screen for colon cancer Plan Continue current dose of pantoprazole. Discussed with patient avoiding dietary triggers and late night snacking. Staying upright for minimum 3 hours after meals discussed with patient. Patient has appointment with his seam finisher in January. Will send request for risk stratification. Patient can be schedule for colonoscopy in February. Currently has no cardiac or respiratory symptoms. Patient will return in our office in December to go over prep again. Making sure that he is moving his bowels daily. He is agreeable to current plan and verbalizes understanding of instructions. He was given the opportunity to ask questions and all questions answered. ? Thank you for allowing me to participate in his care New bisacodyl (Dulcolax (bisacodyl)) 10 mg (2 x 5 mg) PO BEDTIME 180 tabs 4RF polyethylene glycol 3350 (Miralax) As directed by gastroenterology department at [facility] 238 grams PO ONCE 238 grams 0RF Z12.11 Refilled pantoprazole take one tablet half an hour before breakfast 40 mg PO DAILY 90 tabs 2RF K21.9 TODAY'S VISIT: Patient is here today for requested visit. Patient has not followed up with his seam finisher and has not gone for colonoscopy. Patient reports that he has been busy working and has been experiencing lose stools and constipation ongoing. Patient admits that he has not been eating healthy lately. Patient is admitting to drink every morning before he goes to work. Patient is hoping to retire here is if she therapy denies any cardiac or respiratory symptoms. Denies melena hematochezia, unintentional weight loss or ribbon like stools. Patient reports occasional acid reflux. Denies dyspepsia dysphagia or odynophagia FORMERLY [facility] Medical History Non-STEMI (non-ST elevated myocardial infarction) GERD (gastroesophageal reflux disease) Sarcoidosis Bilateral hilar adenopathy syndrome Lymphadenopathy, mediastinal Elevated diaphragm Asthma High cholesterol Diabetes Left foot pain Surgical History S/P cardiac catheterization Hx of cardiac cath Bone spur History of colonoscopy Family History Father Cancer Mother Diabetes mellitus Maternal Grandfather Unknown family medical history Maternal Grandmother Unknown family medical history Paternal Grandfather Unknown family medical history Paternal Grandmother No problems noted. Sister Pancreatic cancer Sister No problems noted. Sister No problems noted. Daughter No problems noted. 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 Cognitive needs: No Hearing needs: No Vision needs: Yes Review of Systems Const Denies weight gain and Denies weight loss ENT Reports no additional complaints, Denies dysphagia and Denies odynophagia Card Reports no additional complaints Resp Reports no additional complaints GI Reports abdominal pain (Cramping), Denies belching, Denies melena, Reports bloating, Denies change in bowel habits, Reports constipation, Denies dysphagia, Denies excessive flatus, Denies dyspepsia, Reports heartburn (Occasional), Denies diarrhea, Reports loose stools, Denies nausea, Denies odynophagia and Denies vomiting Reports no additional complaints Musc Reports no additional complaints Neuro Reports no additional complaints Psych Reports no additional complaints Endo Reports no additional complaints Physical Exam Vital Signs: Last Vital Signs Pulse 92 02/14/25 07:51 BP 107/74 02/14/25 07:51 BMI result Body Mass Index 22.8 Const General: healthy appearing, no acute distress and well developed Nutritional Appearance: well nourished Orientation/consciousness: patient oriented x3 Resp Effort & Inspection: normal respiratory effort, able to speak in complete sentences, no tracheal deviation and symmetric chest movement Auscultation: clear to auscultation bilaterally Cardio Rate: regular rate GI Inspection: Yes normal to inspection and No distended Palpation (GI): Soft to palpation, not firm, nontender and No hepatosplenomegaly present Auscultation: normal bowel sounds General: Yes no CVA tenderness Back/Spine/Pelvis Back: no CVA tenderness Skin General skin exam: elasticity normal, turgor normal and dry skin Neuro General: patient oriented x3 Psych Appearance: grossly normal Mental Status: mental status grossly normal Assessment & Plan Assessment & Plan (1) GERD (gastroesophageal reflux disease): Code(s): K21.9 - Gastro-esophageal reflux disease without esophagitis Category: Medical Qualifiers: Esophagitis presence: esophagitis presence not specified Qualified Code(s): K21.9 - Gastro-esophageal reflux disease without esophagitis (2) Diarrhea: Code(s): R19.7 - Diarrhea, unspecified Category: Medical Qualifiers: Diarrhea type: unspecified type Qualified Code(s): R19.7 - Diarrhea, unspecified (3) IBS (irritable bowel syndrome): Code(s): K58.9 - Irritable bowel syndrome, unspecified Qualifiers: Irritable bowel syndrome type: with both diarrhea and constipation Qualified Code(s): K58.2 - Mixed irritable bowel syndrome (4) Constipation: Code(s): K59.00 - Constipation, unspecified Qualifiers: Constipation type: slow transit constipation Qualified Code(s): K59.01 - Slow transit constipation Plan Patient was encouraged to avoid dietary triggers and late night snacking. Staying upright for minimum 3 hours after meals discussed with patient. Patient will start taking pantoprazole every morning half an hour before breakfast. Dietary changes encouraged. Low FODMAP diet. List of food recommended as well as list of food to avoid given to patient. Patient will need to see cardiology so we can send him for colonoscopy. Patient was encouraged to avoid energy drinks. Increase fiber intake. Patient can take [id number] fiber daily to help him bulk his stool. He will follow-up in 2 months for re-evaluation and to discuss going for colonoscopy and possible endoscopy. He is agreeable to this plan and verbalizes understanding of instructions. He was given the opportunity to ask questions and all questions answered. Thank you for allowing me to participate in his care Medications: New pantoprazole take one tablet half an hour before breakfast 40 mg PO DAILY 30 tabs 3RF K21.9 - Gastro-esophageal reflux disease without esophagitis methylcellulose (laxative) (Citrucel) take it with full glass of water 500 mg PO DAILY 90 tabs 2RF K59.00 - Constipation, unspecified Coding Level of Care Code Est Pt Level 4 (12157) Complex EM visit Add On G2211 Diagnoses Gastroesophageal reflux disease, unspecified whether esophagitis present K21.9 Esophagitis presence: esophagitis presence not specified Diarrhea, unspecified type R19.7 Diarrhea type: unspecified type Irritable bowel syndrome with both constipation and diarrhea K58.2 Irritable bowel syndrome type: with both diarrhea and constipation Slow transit constipation K59.01 Constipation type: slow transit constipation Time Spent (min) 35 Comment 25 minutes spent with patient and additional 10 minutes spent reviewing his records
[2025-02-14 07:51] VITALS: BP 107/74; PULSE 92; BMI 22.8
== END 2025-02-14 08:18 | disposition home or self-care (01) ==
LOC: HO.HGI 07:31
PROVIDERS: PCP Nurse Practitioner Family; Visit Provider Nurse Practitioner Family
DX: K21.9 Gastro-esophageal reflux disease without esophagitis (principal); R19.7 Diarrhea, unspecified; K58.2 Mixed irritable bowel syndrome; K59.01 Slow transit constipation
CPT/HCPCS: 99214

== ENCOUNTER 2025-02-25 13:55 | Outpatient (REF) | payer OTHER, SELFPAY ==
[2025-02-25 16:18] LABS: Anion Gap 13 (12-20); Blood Urea Nitrogen 22 mg/dL (9-16); Carbon Dioxide 29 mmol/L (22-29); Chloride 105 mmol/L (96-108); Estimated Glomerular Filt Rate > 60; Potassium 4.0 mmol/L (3.3-5.1); Sodium 143 mmol/L (135-145)
[2025-02-25 17:21] LABS: Protein/Creatinine Ratio, Ur 0.14 (<0.2); Total Protein Urine Random 28 mg/dL (<12)
== END 2025-02-25 13:56 | disposition home or self-care (01) ==
LOC: HO.LAB 13:55
PROVIDERS: PCP Nurse Practitioner Family; Visit Provider Internal Medicine Nephrology
DX: E11.21 Type 2 diabetes mellitus with diabetic nephropathy (principal)
CPT/HCPCS: 36415; 80051; 82565; 82570; 84156; 84520

== ENCOUNTER 2025-04-25 07:39 | Outpatient (REF) | payer OTHER, SELFPAY ==
[2025-04-25 09:15] LABS: Anion Gap 11 (12-20); Blood Urea Nitrogen 15 mg/dL (9-16); Carbon Dioxide 28 mmol/L (22-29); Chloride 105 mmol/L (96-108); Estimated Glomerular Filt Rate > 60; Potassium 4.3 mmol/L (3.3-5.1); Sodium 140 mmol/L (135-145)
== END 2025-04-25 07:40 | disposition home or self-care (01) ==
LOC: HO.LAB 07:39
PROVIDERS: Absent Provider Internal Medicine Nephrology; PCP Nurse Practitioner Family; Visit Provider Nurse Practitioner Family
DX: Z01.810 Encounter for preprocedural cardiovascular examination (principal); I25.10 Atherosclerotic heart disease of native coronary artery without angina pectoris; E78.00 Pure hypercholesterolemia, unspecified; E11.21 Type 2 diabetes mellitus with diabetic nephropathy; Z79.82 Long term (current) use of aspirin; Z98.890 Other specified postprocedural states; Z79.01 Long term (current) use of anticoagulants
CPT/HCPCS: 36415; 80051; 82565; 84520; 93005

== ENCOUNTER 2025-04-25 07:39 | Outpatient (AMB) | payer OTHER, SELFPAY ==
[2025-04-25 08:02] VITALS: BP 108/72; PULSE 95; BMI 23.7
--- NOTE | 2025-04-25 08:02 | A.OFFVIS_ITS ---
Vital Signs 04/25/25 08:02 Height 5 ft 11 in Weight 170 lb 3.15 oz BMI 23.7 BP 108/72 Blood Pressure Location Rt brachial Position Sitting Pulse 95 Pulse Source Monitor Intake Visit Reasons: r/s from 12/2024 w/ HS [facility] gastro clearance [employer] Professor Required: No Allergies No Known Drug Allergies Allergy (Unknown, Verified 04/25/25 08:05) Unknown Medication List - Last Reconciled 04/25/25 by Marii Andersen NP-C aspirin 81 mg PO DAILY 90 days atorvastatin 80 mg PO BEDTIME 90 days azelastine-fluticasone 137-50 mcg/spray (Dymista) 1 spray intranasal BID clopidogrel 75 mg PO DAILY doxycycline monohydrate 100 mg PO BID 14 days dulaglutide 3 mg (0.5 mL) subcut QWEEK ezetimibe (Zetia) 10 mg PO DAILY 90 days isosorbide mononitrate ER 30 mg PO DAILY losartan 25 mg PO BID 90 days metformin ER 500 mg PO BID methylcellulose (laxative) (Citrucel) 500 mg PO DAILY metoprolol succinate ER 25 mg PO DAILY 90 days pantoprazole 40 mg PO DAILY ropinirole 1 mg PO BEDTIME HPI HPI r/s from 12/2024 w/ HS [facility] gastro clearance: Details: Ivan is a 59-year-old male with past medical history of hyperlipidemia, diabetes, coronary artery disease with LAD and diagonal stents who presents for follow-up. Today he reports he has been doing well with no concerning cardiac symptoms. He denies chest discomfort, shortness of breath, heart palpitations, lightheadedness, edema. 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 He has been experiencing fatigue and is getting tired of working. No routine exercise. Taking meds as directed. Plans to have colonoscopy in the near future. [facility] Medical History Non-STEMI (non-ST elevated myocardial infarction) GERD (gastroesophageal reflux disease) Sarcoidosis Bilateral hilar adenopathy syndrome Lymphadenopathy, mediastinal Elevated diaphragm Asthma High cholesterol Diabetes Left foot pain Surgical History S/P cardiac catheterization Hx of cardiac cath Bone spur History of colonoscopy Family History Father Cancer Mother Diabetes mellitus Maternal Grandfather Unknown family medical history Maternal Grandmother Unknown family medical history Paternal Grandfather Unknown family medical history Paternal Grandmother No problems noted. Sister Pancreatic cancer Sister No problems noted. Sister No problems noted. Daughter No problems noted. 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 Cognitive needs: No Hearing needs: No Vision needs: Yes Review of Systems Const All systems reviewed & are unremarkable except as noted in HPI and below ENT Denies dizziness Card Denies chest pain, Denies chest pain at rest, Denies chest pain with activity, Denies rapid heart rate, Denies pedal edema, Denies edema, Denies leg edema, Denies lightheadedness, Denies palpitations, Denies dyspnea, Denies dyspnea on exertion and Denies orthopnea Resp Denies cough, Denies dyspnea and Denies dyspnea on exertion GI Denies hematochezia and Denies change in stool character Musc Denies abnormal gait, Denies limited range of motion, Denies muscle cramps, Denies muscle weakness, Denies numbness, Denies radiating pain into limb, Denies stiffness and Denies tingling Neuro Denies abnormal gait, Denies dizziness, Denies numbness and Denies tingling Endo Denies palpitations Physical Exam Vital Signs: Last Vital Signs Pulse 95 04/25/25 08:02 BP 108/72 04/25/25 08:02 BMI result Body Mass Index 23.7 Const General: cooperative, healthy appearing, comfortable and no acute distress Orientation/consciousness: patient oriented x3 Neck Neck: Yes normal visual inspection Resp Effort & Inspection: normal respiratory effort Auscultation: clear to auscultation bilaterally, no rales, no rhonchi and no wheezes Cardio Rate: regular rate Rhythm: regular rhythm Heart sounds: S1 normal heart sound present, S2 normal heart sound present, no gallops, no murmurs and no rubs Neuro General: patient oriented x3 Extrem General: Yes normal to inspection, No no pedal edema and No calf tenderness Psych Appearance: grossly normal Mental Status: mental status grossly normal Speech and movement: Normal speech and movement present Office Procedures EKG Details: Today, read by me, normal sinus rhythm, no acute ST or T-wave abnormalities, rate 95, QTC 419 milliseconds [id number], Complete Assessment & Plan Assessment & Plan (1) Atherosclerotic cardiovascular disease: Code(s): I25.10 - Atherosclerotic heart disease of [place] coronary artery without angina pectoris Category: Medical Plan: History of CAD with prior NSTEMI. Coronary stents in the mid LAD and 1st diagonal. Last stent placed 01/12/2024. EKG today showing normal sinus rhythm, rate 95. No anginal symptoms. He is on Plavix which can be stopped at this time as it is greater than 1 year since his last stent. Continue aspirin indefinitely. Continue atorvastatin and Zetia with ideal LDL goal less than 70. Continue isosorbide, metoprolol. Signs and symptoms of angina reviewed with him. Cardiology follow-up 1 year, sooner if needed. (2) S/P cardiac catheterization: Comment: 01/12/[address] Hodgson Angiographic Findings Cardiac Arteries and Lesion Findings LAD: There is a previous stent on Mid LAD. Lesion in 1st Diag: Proximal subsection.90% stenosis .Culprit lesion.Bifurcation lesion. Lesion in Mid LAD: Proximal subsection.1% stenosis .Bifurcation lesion. LCx: Mild luminal irregularities (<30%). RCA: Mild luminal irregularities (<30%). PCI BHANU to ostial D1 Code(s): Z98.890 - Other specified postprocedural states Category: Surgical Plan: As above (3) Hx of cardiac cath: Comment: 10/23/2020, left main normal, lad mid 70% stenosis, left circumflex less 30% stenosis, RCA minimal luminal irregularities, BHANU placed to the mid LAD Code(s): Z98.890 - Other specified postprocedural states Category: Surgical Plan: As above (4) High cholesterol: Code(s): E78.00 - Pure hypercholesterolemia, unspecified Category: Medical Plan: [place] LDL goal less than 70. Labs 10/25/2024 showed LDL 77. Labs 12/27/2024 showed LDL 162. He told me he had stopped his medications for a period of time as he was sick of taking them. He is now back on his usual medication regime. The importance of good cholesterol control reviewed with him. Continue high- dose atorvastatin and Zetia. (5) Preop cardiovascular exam: Code(s): Z01.810 - Encounter for preprocedural cardiovascular examination Category: Medical Plan: Preop for colonoscopy which is low risk procedure. He can proceed with low to intermediate cardiac risk. Aspirin can be held as needed for the procedure and restart as soon as cleared to do so. Call/consult Cardiology if needed. Plan Time spent on chart review, documentation, interview, assessment Medications: Discontinued clopidogrel Discontinued Reason: Doctor's Order 75 mg PO DAILY 90 tabs 3RF Coding Level of Care Code Est Pt Level 4 (91496) Complex EM visit Add On G2211 Diagnoses Atherosclerotic cardiovascular disease I25.10 S/P cardiac catheterization Z98.890 Hx of cardiac cath Z98.890 High cholesterol E78.00 Preop cardiovascular exam Z01.810 CPT Codes EKG - CPT: 99760-[id number], Complete ([id number]) Time Spent (min) 28
== END 2025-04-25 08:26 | disposition home or self-care (01) ==
LOC: HO.HCS 07:39
PROVIDERS: PCP Nurse Practitioner Family; Visit Provider Nurse Practitioner Family
DX: I25.10 Atherosclerotic heart disease of native coronary artery without angina pectoris (principal); Z98.890 Other specified postprocedural states; E78.00 Pure hypercholesterolemia, unspecified; Z01.810 Encounter for preprocedural cardiovascular examination
CPT/HCPCS: 93010; 99214

== ENCOUNTER 2025-04-27 13:27 | Outpatient (AMB) | payer OTHER, SELFPAY ==
--- NOTE | 2025-04-27 13:34 | HO.NEPHOV_ITS ---
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 He is 59 years of age who has history of hypertension, diabetes mellitus as well as coronary artery disease. He has long periods of time with poorly controlled blood sugar which is clearly better lately. He denies any retinopathy but had CAD needing PCI. He denies congestive heart failure, carotid stenosis, CVA, PVD or known DAVE. He does not have any new bone or back pain. He does not take excessive nonsteroidal anti-inflammatory medications. He has no history of malignancies. He denies joint stiffness, joint swelling, skin rashes, epistaxis, photosensitivity, recurrent sinusitis, recent sore throat, hematuria, sensorineural deafness, family history of ESRD or renal transplantation. He claims to be compliant with his medications. [facility] Medical History Non-STEMI (non-ST elevated myocardial infarction) GERD (gastroesophageal reflux disease) Sarcoidosis Bilateral hilar adenopathy syndrome Lymphadenopathy, mediastinal Elevated diaphragm Asthma High cholesterol Diabetes Left foot pain Surgical History S/P cardiac catheterization Hx of cardiac cath Bone spur History of colonoscopy Family History Father Cancer Mother Diabetes mellitus Maternal Grandfather Unknown family medical history Maternal Grandmother Unknown family medical history Paternal Grandfather Unknown family medical history Paternal Grandmother No problems noted. Sister Pancreatic cancer Sister No problems noted. Sister No problems noted. Daughter No problems noted. 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 Cognitive needs: No Hearing needs: No Vision needs: Yes Review of Systems Const All systems reviewed & are unremarkable except as noted in HPI and below Physical Exam Vital Signs: Last Vital Signs BP 110/70 04/27/25 13:35 BMI result Body Mass Index 23.7 Const General: comfortable and no acute distress Orientation/consciousness: patient oriented x3 HEENT Head: Yes normocephalic Mouth: Normal oral and palatal mucosa present Eyes EOM: EOMs intact bilaterally Neck Neck: Yes supple Resp Auscultation: clear to auscultation bilaterally Cardio Jugular venous distension: no JVD Rate: regular rate GI Palpation (GI): Soft to palpation Auscultation: normal bowel sounds General: Yes no CVA tenderness Back/Spine/Pelvis Back: no CVA tenderness Skin General skin exam: no rashes or lesions noted Neuro General: patient oriented x3 and moves all extremities Extrem General: Yes no pedal edema Results Reviewed Nephrology Results: Sodium, (135-145) 140 mmol/L 04/25/25 Potassium, (3.3-5.1) 4.3 mmol/L 04/25/25 Chloride, (96-108) 105 mmol/L 04/25/25 Carbon Dioxide, (22-29) 28 mmol/L 04/25/25 BUN, (9-16) 15 mg/dL 04/25/25 Creatinine, (0.5-1.4) 0.77 mg/dL 04/25/25 Urine Creatinine 206.14 mg/dL 02/25/25 Protein/Creatinin Ratio, (<0.2) 0.14 02/25/25 Assessment & Plan Assessment & Plan (1) Diabetic nephropathy: Code(s): E11.21 - Type 2 diabetes mellitus with diabetic nephropathy Category: Medical Qualifiers: Diabetes mellitus type: type 2 Qualified Code(s): E11.21 - Type 2 diabetes mellitus with diabetic nephropathy Plan Ivan most likely has proteinuria due to diabetic nephropathy. He should continue losartan 25 mg twice daily I started him on Jardiance 10 mg daily. I shall consider imaging his kidneys and renal arteries later. He should minimize nonsteroidal anti-inflammatories and maintain good hydration. He does not need any renal biopsy now. Follow-up lab work ordered and all questions were answered. He will be seeing me in 6 months again for continued care. Orders: Orders Blood Urea Nitrogen 6 Months E11.21 - Type 2 diabetes mellitus with diabetic nephropathy Electrolytes 6 Months E11.21 - Type 2 diabetes mellitus with diabetic nephropathy Protein Creatinine Ratio, Ur 6 Months E11.21 - Type 2 diabetes mellitus with diabetic nephropathy Creatinine 6 Months E11.21 - Type 2 diabetes mellitus with diabetic nephropathy Medications: New empagliflozin (Jardiance) 10 mg PO DAILY 30 tabs 6RF Coding Level of Care Code Est Pt Level 4 (62101) Diagnoses Diabetic nephropathy associated with type 2 diabetes mellitus E11 Diabetes mellitus type: type 2
[2025-04-27 13:35] VITALS: BP 110/70; BMI 23.7
== END 2025-04-27 13:52 | disposition home or self-care (01) ==
LOC: HO.HKA 13:28
PROVIDERS: PCP Nurse Practitioner Family; Visit Provider Internal Medicine Nephrology
DX: E11.21 Type 2 diabetes mellitus with diabetic nephropathy (principal)
CPT/HCPCS: 99214